=== PATIENT | male | born 1950 | race Caucasian/White ===

== ENCOUNTER 2018-01-05 01:10 | Emergency (ER) | payer OTHER, BC, SELFPAY ==
[2018-01-05 01:11] VITALS: BP 91/56; PULSE 134; RESP 15; TEMP 36.5; BMI 25.7
[2018-01-05 01:12] VITALS: O2SAT 95
--- NOTE | 2018-01-05 01:12 | EKG12_ITS ---
Test Reason : CP Blood Pressure : / mmHG Vent. Rate : 125 BPM Atrial Rate : 144 BPM P-R Int : 000 ms QRS Dur : 104 ms QT Int : 326 ms P-R-T Axes : 000 046 034 degrees QTc Int : 470 ms Atrial fibrillation Nonspecific ST abnormality Abnormal ECG Confirmed by SHAE NAVARRO, DAVE ([id number]), make up editor JD RAMSAY ([id number]) on 01/07/2018 1:49:28 PM Referred By: PATRICIA Confirmed By:DAVE KAUFMAN MD
--- NOTE | 2018-01-05 01:12 | NURSING ---
CALLED FOR EKG PER RN REQUEST, PULLED OLD EKG'S FOR
[2018-01-05] MEDS: Aspirin 81 MG TAB.CHEW 324 MG PO (01:18)
[2018-01-05] MEDS: dilTIAZem 25 MG/5 ML Vial 20 MG IV BOLUS (01:19)
--- NOTE | 2018-01-05 01:20 | RAD_ITS ---
STUDY: X-RAY CHEST REASON FOR EXAM: Male, 67 years old. Chest pain TECHNIQUE: Single AP portable view of the chest. COMPARISON: Nov 15 2014 11:38am FINDINGS: The lungs are underexpanded. There is no demonstrated pleural abnormality. Normal size heart. Normal mediastinum and claudia. Normal visualized pulmonary arteries. Normal visualized aortic arch and descending thoracic aorta. There are diffuse degenerative changes of the visualized thoracic spine. There is degenerative osteoarthritis of the bilateral shoulders. There is no demonstrated abnormality of the visualized soft tissue structures of the upper abdomen. RAD/Chest 1 View (Portable) IMPRESSION: Degenerative changes, as described above. No demonstrated acute cardiopulmonary process. Electronically Signed: Alin Nielsen MD at 1:55 EST Tel , Service support ,
[2018-01-05] MEDS: 0.9% Normal Saline 1,000 ML 150 ML IV (01:21)
[2018-01-05 01:30] LABS: Absolute Neutrophil Count 3.7 X10^3/uL (2.0-7.7); Basophil# 0.01 X10^3/uL; Basophil% 0.1 % (0-1); Eosinophil# 0.17 X10^3/uL; Eosinophils% 2.5 % (0-5); Hematocrit 41.9 % (40-54); Lymphocyte % 31.3 % (19-41); Mean Corp Hgb Conc 33.4 g/gl (32-36); Mean Corpuscular Hgb 30.8 pg (27.0-32.0); Mean Corpuscular Volume 92.1 fL (80-94); Mean Platelet Vol. 9.7 fl (6.2-12.0); Monocyte# 0.72 X10^3/uL; Monocyte% 10.7 % (0-10); Neutrophil # 3.69 X10^3/uL (2.7-7.7); Neutrophil % 55.3 % (47-70); Platelet Count 212 K/mm3 (150-450); RBC Distribution Width CV 11.8 % (11.6-14.6); RBC Distribution Width SD 39.1 fl (35.1-43.9); Red Blood Count 4.55 M/mm3 (4.6-6.2); White Blood Count 6.7 K/mm3 (4.4-11.0)
--- NOTE | 2018-01-05 01:33 | ED.DCSUM_ITS ---
- ER Visit Summary Date of Service: 01/05/18 Chief Complaint: Palpitations History of Present Illness: The patient is a 67 M with history of paroxysmal atrial fibrillation who is anticoagulated on Xarelto resents to the emergency department with atrial fibrillation. Patient states that about 2 hours ago, he felt like he was going into it. He states that he took his flecainide. He states it really did not change his rate. He states he feels like his heart is racing from time to time. He denies any fevers or chills. He does admit to some mild chest tightness. The patient has no history of coronary vascular disease. He has never had stenting or heart catheterization. He states that he does get the symptoms when he goes into A. fib. He denies any recent change in medications. He denies any alcohol use. Physical Examination: Vital signs reviewed General: Well-nourished, well-developed Head: Normocephalic, atraumatic Eyes: Pupils equal and reactive, extraocular muscles intact Neck, supple, no lymphadenopathy Heart: Irregular tachycardic rate and rhythm Respiratory: No distress, clear bilaterally Abdomen: Soft, nontender, nondistended, no peritoneal signs Back: Nontender Extremities: Nontender, no edema, no cords Skin: Normal color no rash Neuro: Alert and oriented, no focal or lateralizing deficits Test Results: Initial EKG demonstrates atrial fibrillation with rapid ventricular response. At a rate of 125. Chest x-ray shows no evidence of volume overload. Screening labs are unremarkable. Emergency Department Course and Treatment: The patient presents with atrial fibrillation with rapid ventricular response. He had already taken his flecainide, but was staying at an elevated rate. IV was established. The patient was having some mild chest tightness, but no shine pain. I do not feel this represents an acute coronary syndrome. He was given 20 mg of IV diltiazem. He did decrease his rate to the 90s. Within 30 minutes, the patient had spontaneously converted. The patient was observed and had resolution of his symptoms. He was observed in continue to maintain a sinus rhythm with a normal blood pressure. I discussed his presentation with Dr. Milligan, the patient's sales planner. He was comfortable with my plan for discharge and outpatient follow-up. Patient and are comfortable with this plan. There were counseled on concerning symptoms and reasons to return. The patient is already anticoagulated. He will be discharged home. Treatment Plan: [] Disposition: Discharge Impression: 1. Atrial fibrillation with rapid ventricular response-chemical cardioversion This note was generated with [employer] dictation software. It may contain incorrect words, spelling, and punctuation that were not noted in review of the chart prior to signing ED Disposition - Plan for ED Patient: Chief Complaint: Palpitations Instructions: ED Afib Referrals: Shad Preston MD [STAFF PHYSICIAN] - (Call tomorrow)
[2018-01-05 01:35] LABS: POSITIVE COUNT NO; POSITIVE DIFFERENTIAL NO; POSITIVE MORPHOLOGY NO
[2018-01-05 01:36] VITALS: BP 105/87; PULSE 89; RESP 14; O2SAT 95
[2018-01-05 01:40] LABS: Anion Gap 13 (5-15); BUN 25 mg/dL (7-18); BUN/Creat Ratio 21.9 RATIO (10-20); Calcium,Total 8.9 mg/dL (8.5-10.1); Chloride 108 mmol/L (98-107); Creatinine, Serum 1.14 mg/dL (0.70-1.30); EST Glomerular Filtration Rate 68 mL/min (>60); Est Glom Filt Rate - Afr Amer 82 mL/min (>60); Estimated Creatinine Clearance 67.12 ml/min; Glucose 94 mg/dL (74-106); Potassium 3.4 mmol/L (3.5-5.1); Sodium Level 146 mmol/L (136-145)
[2018-01-05 02:36] VITALS: BP 108/67; PULSE 69; RESP 14; O2SAT 97
--- NOTE | 2018-01-05 02:46 | EKG12_ITS ---
Test Reason : REPEAT Blood Pressure : / mmHG Vent. Rate : 064 BPM Atrial Rate : 064 BPM P-R Int : 218 ms QRS Dur : 106 ms QT Int : 410 ms P-R-T Axes : 043 041 045 degrees QTc Int : 422 ms Sinus rhythm with 1st degree A-V block Otherwise normal ECG Confirmed by SHAE NAVARRO, DAVE ([id number]), newspaper or periodical editor JD RAMSAY ([id number]) on 01/07/2018 1:50:01 PM Referred By: PATRICIA Confirmed By:DAVE KAUFMAN MD
== END 2018-01-05 02:37 | disposition home or self-care (01) ==
PROVIDERS: Emergency Provider Emergency Medicine; Family Provider Internal Medicine; PCP Internal Medicine
DX: I48.0 Paroxysmal atrial fibrillation (principal); I10 Essential (primary) hypertension; Z79.01 Long term (current) use of anticoagulants; Z79.899 Other long term (current) drug therapy
CPT/HCPCS: 71045; 80048; 84484; 85025; 93005; 96360; 96361; 96374; 99285; J7030; A4216

== ENCOUNTER → 2018-06-12 15:08 | Outpatient (CLI) | payer OTHER, BC, SELFPAY ==
[2018-06-12 17:01] LABS: PSA,Total - Annual Screen 1.48 ng/mL (0.00-4.00)
== END ==
PROVIDERS: Family Provider Internal Medicine; PCP Internal Medicine; Visit Provider Urology
DX: Z12.5 Encounter for screening for malignant neoplasm of prostate (principal)
CPT/HCPCS: 36415; 84153; G0103

== ENCOUNTER → 2019-07-06 | Outpatient (CLI) | payer BC, OTHER, SELFPAY ==
[2019-07-06 17:35] LABS: PSA,Total - Annual Screen 1.95 ng/mL (0.00-4.00)
== END | disposition home or self-care (01) ==
LOC: LAB 16:20
PROVIDERS: Family Provider Internal Medicine; PCP Internal Medicine; Referring Provider Urology; Visit Provider Urology
DX: Z12.5 Encounter for screening for malignant neoplasm of prostate (principal)
CPT/HCPCS: 36415; 84153; G0103

== ENCOUNTER 2020-05-22 14:43 | Emergency (ER) | payer BC, SELFPAY ==
[2020-05-22 14:45] VITALS: BP 132/66; PULSE 68; RESP 18; TEMP 36.6; O2SAT 96; BMI 25.5
--- NOTE | 2020-05-22 14:48 | EKG12_ITS ---
Test Reason : Blood Pressure : / mmHG Vent. Rate : 066 BPM Atrial Rate : 066 BPM P-R Int : 228 ms QRS Dur : 120 ms QT Int : 432 ms P-R-T Axes : 041 015 057 degrees QTc Int : 452 ms Sinus rhythm with 1st degree A-V block with Premature atrial complexes Incomplete left bundle branch block Borderline ECG Confirmed by SHAE NAVARRO, DAVE ([id number]), newspaper editor managing JD RAMSAY ([id number]) on 05/25/2020 9:46:42 AM Referred By: EMEKA Confirmed By:DAVE KAUFMAN MD
[2020-05-22] MEDS: 0.9% Normal Saline 1,000 ML 150 ML IV (15:30)
[2020-05-22 15:36] LABS: Absolute Lymphocyte Count 1.22 X10^3/uL (0.83-4.51); Absolute Neutrophil Count 3.9 X10^3/uL (2.0-7.7); Basophil# 0.03 X10^3/uL; Basophil% 0.5 % (0-1); Eosinophil# 0.14 X10^3/uL; Eosinophils% 2.4 % (0-5); Hematocrit 40.5 % (40-54); Lymphocyte # 1.22 X10^3/ul (4.0); Lymphocyte % 20.6 % (19-41); Mean Corp Hgb Conc 32.1 g/dL (32-36); Mean Corpuscular Hgb 30.7 pg (27.0-32.0); Mean Corpuscular Volume 95.7 fL (80-94); Mean Platelet Vol. 9.7 fl (6.2-12.0); Monocyte# 0.63 X10^3/uL; Monocyte% 10.6 % (0-10); NRBC Flagged by Analyzer 0 % (0-5); Neutrophil # 3.89 X10^3/uL (2.7-7.7); Neutrophil % 65.7 % (47-70); Platelet Count 174 K/mm3 (150-450); RBC Distribution Width CV 11.7 % (11.6-14.6); RBC Distribution Width SD 40.3 fl (35.1-43.9); Red Blood Count 4.23 M/mm3 (4.6-6.2); White Blood Count 5.9 K/mm3 (4.4-11.0)
[2020-05-22 15:51] LABS: Anion Gap 4 (5-15); BUN 21 mg/dL (7-18); BUN/Creat Ratio 22.4 RATIO (10-20); Calcium,Total 8.9 mg/dL (8.5-10.1); Chloride 108 mmol/L (98-107); Creatinine, Serum 0.94 mg/dL (0.70-1.30); EST Glomerular Filtration Rate 84 mL/min (>60); Est Glom Filt Rate - Afr Amer 102 mL/min (>60); Estimated Creatinine Clearance 80.28 ml/min; Glucose 103 mg/dL (74-106); Potassium 4.3 mmol/L (3.5-5.1); Sodium Level 141 mmol/L (136-145)
[2020-05-22 16:03] VITALS: BP 118/68; BP 120/74; BP 130/72; PULSE 59; PULSE 60; PULSE 63
--- NOTE | 2020-05-22 16:11 | ED.VISSUMM ---
- ER Visit Summary Date of Service: 05/22/20 Chief Complaint: [Dizziness] History of Present Illness: The patient is a 70 M [presents to the emergency department with complaint of an episode of dizziness this morning. Patient states that he had been sitting and then stood up to go lock up the house to leave and had been up for a time when he started feeling very lightheaded and felt like he might pass out. He sat back down and things seem to improve somewhat. He then was able to walk out to the car and felt okay was able to drive without difficulty. He called his primary care physician who advised him to get evaluated. Patient denies any chest pain or palpitations. He is never had an episode like this before. Patient states it came on very suddenly. He does have history of atrial fibrillation with prior ablation. He is on Xarelto. He denies any falls or head injuries. Patient does relate history of 2 episodes in last couple weeks of some blood on the toilet paper when he is white but does have history of hemorrhoids. Patient denies any chest pain. Currently states he feels fine. She has history of high cholesterol and history of atrial fibrillation.] Physical Examination: [HEENT-PERRLA, EOMI. Cranial nerves II through XII grossly intact. TMs clear. Mucous membranes moist. No adenopathy. Cardiovascular-regular rate and rhythm without murmur or ectopy Lungs-clear to auscultation, chest wall stable without crepitus or subcu emphysema Abdomen-normoactive bowel sounds, soft, nontender, no rebound or rigidity, no peritoneal signs. Extremities-intact ?4, normal range of motion, normal pulses, atraumatic] Test Results: [EKG obtained on arrival shows sinus rhythm with a ventricular rate of 66 bpm with a first-degree AV block and an incomplete left bundle branch block. CBC with differential showed a white count 5.9, hemoglobin 13, hematocrit 40, platelets 174. Chemistries unremarkable. Troponin less than 0.015. Orthostatic vital signs were negative] Emergency Department Course and Treatment: [Patient placed on diagnostic cardiac sonographer on arrival.] Treatment Plan: [Advised to push fluids and follow-up with primary care physician within next 3 to 5 days. I suspect etiology of presyncopal episode was likely vasovagal.] Disposition: [Discharged home in stable condition. Patient advised to push fluids. Patient advised to get up slowly from a seated position and to immediately lay down if he feel dizzy or lightheaded.] Impression: [Dizziness-resolved Presyncope-suspect vasovagal] This note was generated with [employer] dictation software. It may contain incorrect words, spelling, and punctuation that were not noted in review of the chart prior to signing ED Disposition - Plan for ED Patient: Referrals: Fei Gandhi MD [Primary Care Provider] -
--- NOTE | 2020-05-22 16:14 | ED.DEP ---
ED Disposition - Plan for ED Patient: Instructions: ED Near-Fainting Uncertain Cause, ED Near Syncope Vasovagal Referrals: Fei Gandhi MD [Primary Care Provider] - 3-5 Days
[2020-05-22 16:33] VITALS: BP 120/74; PULSE 57; RESP 16; O2SAT 98
== END 2020-05-22 16:34 | disposition home or self-care (01) ==
LOC: ED 15:40
PROVIDERS: Emergency Provider Emergency Medicine; PCP Internal Medicine
DX: R55 Syncope and collapse (principal); R42 Dizziness and giddiness; I44.0 Atrioventricular block, first degree; I44.7 Left bundle-branch block, unspecified; I48.91 Unspecified atrial fibrillation; E78.00 Pure hypercholesterolemia, unspecified; Z79.01 Long term (current) use of anticoagulants; Z79.899 Other long term (current) drug therapy
CPT/HCPCS: 80048; 84484; 85025; 93005; 96360; 99284

== ENCOUNTER → 2020-08-28 10:35 | Outpatient (CLI) | payer BC, SELFPAY ==
[2020-08-28 11:59] LABS: PSA,Total - Annual Screen 1.11 ng/mL (0.00-4.00)
== END ==
PROVIDERS: PCP Internal Medicine; Referring Provider Urology; Visit Provider Urology
DX: Z12.5 Encounter for screening for malignant neoplasm of prostate (principal)
CPT/HCPCS: 36415; 84153; G0103

== ENCOUNTER 2021-07-31 11:02 | Emergency (ER) | payer OTHER, SELFPAY ==
[2021-07-31 11:02] VITALS: BP 174/89; PULSE 74; RESP 16; TEMP 36.1; O2SAT 98; BMI 25.7
--- NOTE | 2021-07-31 11:32 | EX.ED.UPPERE ---
HPI History of Present Illness Chief Complaint: Upper Extremity Injury Detail of Chief Complaint: Injury right hand Informant: patient Occured/Mechanism Mechanism/Context: Yes injury, Yes blunt trauma and Yes work related Onset/Context/Timing Onset: Hours Context: Sudden Onset Timing: Continuous Current Severity: Gone Maximum Severity: Moderate Worsened by: Injury Relieved by: Nothing Associated Symptoms Associated Symptoms: Negative for Parasthesia, Weakness and Loss of Funtion Narrative Narrative: Patient is a 71-year-old [id number] male on Xarelto for paroxysmal atrial fibrillation status post ablation who presents with injury to the dorsum of the right hand. This occurred at work. Tetanus is unknown. He denies paresthesia, anesthesia or motor weakness. Tetanus Immunization: Unknown Prior similar symptoms: No Recent Illness/Hospitalization: No PFSH PFS Medical History Atrial fibrillation Hypertension Home Medications terazosin 5 mg PO QHS 02/14/14 [History Last Taken Unknown] metoprolol succinate 12.5 mg PO DAILY #30 tablet 02/15/14 [Rx Last Taken Unknown] flecainide 200 mg PO PRN PRN 11/15/14 [History Last Taken Unknown] rivaroxaban [Xarelto] 20 mg PO DAILY 01/05/18 [History Last Taken Unknown] atorvastatin 10 mg PO DAILY 05/22/20 [History Last Taken Unknown] cephalexin 500 mg PO Q8 #12 capsule 07/31/21 [Rx Last Taken Unknown] Allergy/AdvReac Type Severity Reaction Status Date / Time No Known Allergies Allergy Verified 07/31/21 11:05 Social History (Updated 07/31/21 @ 11:[address] Chaparro Grace MD) household members: spouse Smoking Status: Never smoker alcohol intake: current alcohol intake frequency: other substance use type: does not use ROS ROS ED Gastrointestinal Gastrointestinal: Denies nausea or vomiting Musculoskeletal Musculoskeletal: Denies back pain, myalgias or neck pain Integumentary Reports other Details: Laceration dorsum right hand ; Denies abscess, Abrasions or rash Neurologic Neurologic: Denies headache(s), paresthesias or weakness Hematologic/Lymphatic Hematologic/Lymphatic: Reports easy bruising; Denies easy bleeding Allergic/Immunologic Allergic/Immunologic ED: Denies mouth swelling or urticaria EXAM Physical Exam Const Vital Signs: 07/31/21 11:02 Temperature 97.0 F L Temperature Source Temporal Pulse Rate 74 Respiratory Rate 16 Blood Pressure 174/89 H Blood Pressure Mean 117 Pulse Ox 98 Oxygen Delivery Method Room Air Positive well nourished and well developed General Appearance ED: well developed and NAD HEENT Reports moist mucous membranes normocephalic and atraumatic Eyes PERRL and EOMs intact bilaterally Neck full ROM and supple Resp normal respiratory effort Cardio regular rate and regular rhythm Back/Spine no CVA tenderness Extremity full ROM; Negative for normal to inspection Extremity Narrative: Patient has a jagged flap laceration dorsum of the right hand. The extensor tendons are not exposed. The extensor into side, extensor commonest and extensor minimized tendon functionally intact. The extensor pollicis longus is intact. Sensation is normal. Capillary refill is normal. General Extremety ED: Yes other findings; Negative for edema General Extremity: other findings; Negative for edema Psych mental status grossly normal Skin Lesions: no lesions Trauma: Negative for no lacerations or abrasions MDM MDM MDM Narrative Medical decision making narrative: Patient has a irregular large flap type laceration dorsum of the right hand. Please read procedure note for repair and description of wound. Procedures Other Procedures Procedure(s): Laceration repair: The laceration is a stellate flap-like on the dorsum of the right hand. There is tissue avulsion that is 1.5 cm x 1.5 cm in the shape of a square at the most proximal portion of the wound. The wound was anesthetized 1% lidocaine by local infiltration. The wound was irrigated with 200 cc of normal saline. Small fine pieces of metal were removed. The skin was closed using 5-0 Ethilon. Numerous simple or up sutures were placed. The wound approximated well. There is the defect that is 1.5 x 1.5 cm in the shape of a square. Will have dressing applied. And referred to [facility] and Dr. Frankel who patient has seen in the past. Discharge Plan Triage Chief Complaint: Upper Extremity Injury ED Provider: Chaparro Grace Dx/Rx/DC Orders Clinical Impression: Laceration of finger of right hand with foreign body, Avulsion of skin of right hand Prescriptions: New cephalexin [cephalexin] 500 MG capsule 500 mg PO Q8 Qty: 12 RF: 0 No Action terazosin 5 MG capsule 5 mg PO QHS RF: 0 metoprolol succinate 25 MG tablet 12.5 mg PO DAILY Qty: 30 RF: 0 flecainide 100 MG tablet 200 mg PO PRN PRN (Reason: FOR RAPID HR) RF: 0 rivaroxaban [Xarelto] 20 MG tablet 20 mg PO DAILY RF: 0 atorvastatin 10 MG tablet 10 mg PO DAILY RF: 0 Primary Care Provider: Fei Gandhi [facility] [GROUP OF PHYSICIANS] - 2 Days for wound check Mark Frankel MD [STAFF PHYSICIAN] - 2 Days for wound check Fei Gandhi MD [Primary Care Provider] - Activity Restrictions/Additional Instructions: 1. Take antibiotics as instructed until gone 2. Follow-up with [facility] and Dr. Frankel. There is a possibility you may need a skin graft. 3. Keep dressing on until seen at [facility] or by Dr. Frankel. Keep the dressing clean and dry Disposition Disposition: Home, Self Care
[2021-07-31] MEDS: Diphth,Pertuss(Acell),Tet Vac 0.5 ML Vial IM (11:54)
[2021-07-31] MEDS: Lidocaine 1% (20 ml mdv) 20 ML Vial INFILT (11:55)
[2021-07-31 13:20] VITALS: RESP 16
== END 2021-07-31 13:21 | disposition home or self-care (01) ==
PROVIDERS: Emergency Provider Emergency Medicine; PCP Internal Medicine
DX: S61.421A Laceration with foreign body of right hand, initial encounter (principal); X58.XXXA Exposure to other specified factors, initial encounter; Y93.9 Activity, unspecified; Y92.9 Unspecified place or not applicable; I10 Essential (primary) hypertension; I48.0 Paroxysmal atrial fibrillation; Z79.01 Long term (current) use of anticoagulants; Z79.899 Other long term (current) drug therapy
CPT/HCPCS: 12001; 90715; 99284

== ENCOUNTER → 2021-08-03 17:07 | Outpatient (CLI) | payer OTHER, SELFPAY ==
--- NOTE | 2021-08-03 17:09 | RAD_ITS ---
STUDY: X-RAY - RIGHT HAND REASON FOR EXAM: Male, 71 years old. Follow-up laceration posterior right hand on machine 2 days ago. TECHNIQUE: 4 view(s) of the hand. COMPARISON: 08/28/2011. FINDINGS: There is joint space narrowing of the radiocarpal articulation consistent with degenerative arthrosis. Normal distal radioulnar joint. Normal visualized carpal bones. There is degenerative joint disease of the scaphotrapezium / trapezoid articulation. The remainder of the carpal articulations are normal. Normal carpometacarpal articulation of the thumb. Normal second through fifth carpometacarpal joints. Normal metacarpi. Normal metacarpophalangeal joint of the thumb. There is degenerative arthrosis of the interphalangeal joint of the thumb with articular joint space narrowing. Normal proximal and distal phalanges of the thumb. Normal metacarpophalangeal joints of the second through fifth fingers. There is diffuse articular joint space narrowing of the proximal and distal interphalangeal joints of the second through fifth fingers, but without erosive changes or periarticular soft tissue swelling. Normal phalanges of the second through fifth fingers. There is a small linear metallic foreign body in the soft tissues over the medial plantar surface of the distal third digit. The soft tissues are otherwise unremarkable. RAD/Hand Min 3 Views IMPRESSION: 1. Small metallic foreign body in the soft tissues of the distal third digit. 2. Progressive arthritic changes of the right hand without acute fracture or dislocation. Electronically Signed: Segundo Herron DO at 18:14 EDT Tel [phone], Service support ,
== END ==
PROVIDERS: PCP Internal Medicine; Referring Provider Physician Assistant Surgical; Visit Provider Physician Assistant Surgical
DX: S61.229A Laceration with foreign body of unspecified finger without damage to nail, initial encounter (principal)
CPT/HCPCS: 73130

== ENCOUNTER → 2021-10-09 08:46 | Outpatient (CLI) | payer OTHER, SELFPAY ==
[2021-10-09 10:25] LABS: PSA,Total - Annual Screen 1.62 ng/mL (0.00-4.00)
== END ==
PROVIDERS: PCP Internal Medicine; Referring Provider Urology; Visit Provider Urology
DX: Z12.5 Encounter for screening for malignant neoplasm of prostate (principal)
CPT/HCPCS: 36415; 84153; G0103

== ENCOUNTER → 2023-04-15 | Outpatient (CLI) | payer BC, SELFPAY ==
[2023-04-15 17:23] LABS: PSA,Total- Diagnostic 1.36 ng/mL (0.0-4.0)
== END | disposition home or self-care (01) ==
LOC: LAB 15:31
PROVIDERS: PCP Internal Medicine; Referring Provider Registered Nurse; Visit Provider Registered Nurse
DX: R97.20 Elevated prostate specific antigen [PSA] (principal)
CPT/HCPCS: 36415; 84153

== ENCOUNTER 2024-02-27 07:16 | Emergency (ER) | payer OTHER, BC, SELFPAY ==
[2024-02-27 07:17] VITALS: BP 141/78; PULSE 85; RESP 18; TEMP 37; O2SAT 96; BMI 27.1
--- NOTE | 2024-02-27 07:41 | EDS_ITS ---
HPI History of Present Illness HPI Narrative: 73-year-old ebtua-gojt-jbchocuv male has a laceration to his right index finger secondary to machine at work. This occurred within the last hour. Unsure of his last tetanus shot. No other injuries. Chief Complaint: Laceration Informant: patient Occured/Mechanism Mechanism/Context: Yes injury Onset/Context/Timing Onset: Today Context: Sudden Onset Timing: Continuous Quality of Pain: Sharp Current Severity: Mild Maximum Severity: Mild Associated Symptoms Associated Symptoms: Negative for Parasthesia, Weakness or Loss of Funtion Narrative Narrative: Nzgth-lznh-sbvoweju 73-year-old male with laceration to his right index finger at work. Tetanus Immunization: Unknown Prior similar symptoms: No Recent Illness/Hospitalization: No PFSH PFSH Medical History Atrial fibrillation Hypertension Home Medications terazosin 5 mg capsule 5 mg PO QHS 02/14/14 [History Last Taken Unknown] metoprolol succinate 25 mg tablet,extended release 24 hr 12.5 mg (1/2 x 25 mg) PO DAILY #30 TABLETS 02/15/14 [Rx Last Taken Unknown] flecainide 100 mg tablet 200 mg PO PRN PRN FOR RAPID HR 11/15/14 [History Last Taken Unknown] rivaroxaban 20 mg tablet (Xarelto) 20 mg PO DAILY 01/05/18 [History Last Taken Unknown] atorvastatin 10 mg tablet 10 mg PO DAILY 05/22/20 [History Last Taken Unknown] cephalexin 500 mg capsule 500 mg PO Q8 #12 CAPSULES 07/31/21 [Rx Last Taken Unknown] Allergy/AdvReac Type Severity Reaction Status Date / Time No Known Allergies Allergy Verified 02/27/24 07:16 Social History household members: spouse Smoking Status: Never smoker alcohol intake: current alcohol intake frequency: other substance use type: does not use ROS ROS ED ROS Narrative Denies recent illness. Review of Systems ROS Unobtainable: Denies due to encephalopathy Constitutional Constitutional ED: Denies chills or fever(s) Eyes Eyes: Denies blurry vision ENT ENT ED: Denies ear pain Cardiovascular Cardiovascular: Denies chest pain or palpitations Respiratory/Chest Respiratory/Chest: Denies cough or dyspnea Gastrointestinal Gastrointestinal: Denies abdominal pain Genitourinary Genitourinary ED: Denies dysuria or hematuria Musculoskeletal Musculoskeletal: Denies back pain or myalgias Integumentary Denies abscess or Abrasions Neurologic Neurologic: Denies headache(s) Psychiatric Psychiatric: Denies anxiety or depression Endocrine Endocrinology: Denies cold intolerance Hematologic/Lymphatic Hematologic/Lymphatic: Denies easy bleeding, easy bruising or lymphadenopathy Allergic/Immunologic Allergic/Immunologic ED: Denies mouth swelling, tongue swelling or urticaria EXAM Physical Exam Narrative Exam Narrative: 73-year-old male no acute distress vital signs stable afebrile. HEENT exam unremarkable. Lungs clear. Heart regular rhythm rate about 80 no murmur. Chest wall and ribs nontender. Abdomen soft nontender. Moving all 4 extremities. Neurovascular intact. Right index finger proximal end on the radial side is a serrated type of laceration. It will need repaired. Approximately 1 and half to 2 inches in length. He has full flexion extension of the digit. No bony deformity. No signs of infection. No signs of foreign body. Normal touch sensation. Normal cap refill distally. Patient is awake and alert no focal motor deficits. Const Vital Signs: 02/27/24 07:17 Temperature 98.6 F Temperature Source Temporal Pulse Rate 85 Respiratory Rate 18 Blood Pressure 141/78 H Blood Pressure Mean 99 Pulse Ox 96 Oxygen Delivery Method Room Air Positive well nourished and well developed; Negative for obese, cachectic, contractures or unkempt General Appearance ED: well developed; Negative for unkempt, cachectic or contractures Nutritional Appearance: Negative for cachectic or obese HEENT Reports moist mucous membranes normocephalic and atraumatic; Negative for trauma or tenderness Eyes PERRL and EOMs intact bilaterally General Eye ED: Negative for other Neck full ROM and supple General: Negative for tenderness Lymph Lymphatic: Negative for other Chest Wall inspection of chest normal and palpation of chest normal Chest: Negative for other Resp normal respiratory effort and clear to auscultation bilaterally Effort and Inspection: Negative for pain with movement Auscultation: Negative for rales, rhonchi or wheezes Cardio regular rate, regular rhythm, S1 normal heart sound, S2 normal heart sound and no murmurs Rate: Negative for bradycardia or tachycardic GI non-tender, non-distended and no masses Inspection: Negative for abdominal distention Auscultation: normoactive bowel sounds Palpation: soft; Negative for tender, guarding or rebound tenderness present Back/Spine no CVA tenderness Extremity normal to inspection and full ROM Extremity Narrative: Except right index finger, proximal end, radial side has a laceration. It is irregular and treated. Will need repair. He has full flexion extension. Normal touch sensation. No foreign body. No significant bleeding. No signs of infection or bony deformity or involvement. General Extremety ED: Yes other findings; Negative for edema General Extremity: other findings; Negative for edema Neuro oriented x3 and CN's II-XII intact bilaterally Sensorium / Orientation: alert, oriented to person, oriented to place and oriented to time Motor Exam: strength 5/5 throughout Psych mental status grossly normal Appearance: Negative for unkempt Attitude: No agitated Mood & Affect: Negative for depressed, anxious or tearful Skin General Skin Exam: Negative for petechiae Lesions: no lesions Rashes: no rashes Trauma: laceration MDM MDM MDM Narrative Medical decision making narrative: 73-year-old yywfo-ugnn-qskhsibe male unsure of his last tetanus has a right finger laceration due to a Worker's Comp. injury. Tetanus will be updated. Let applied. Local anesthetized. Clean it. Exclude cord and suture repaired. History & Record Review Discussion w/independent historian: Patient Procedures Lacerations Right index finger laceration 2 to 3 inches with repair:: Length: 2.5 in Depth: Sub Q Shape: Shredded Prep: Shure-Clens Laceration repair: Lidocaine, Local and Skin sutures Number of Sutures/[place]: 5 Suture Information: Ethilon and 5-0 Comment: Right index finger laceration. Repair. It was on the radial side of his right index finger. About 2.5 inches in length. It was macerated instructed by the machine that he got it caught into. 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 There is no infection. No signs of foreign body. Neurovascularly intact. No involvement of tendon or joint. No foreign body noted. Local anesthetized with lidocaine. Cleaned with Shur-Clens. Washed with saline. Explored. Closed using 5 simple erupted 5-0 Ethilon sutures. Patient tolerated procedure well. He is instructed on wound care. Suture removal in 10 days. Discharge Plan Triage Chief Complaint: Laceration ED Provider: Briscoe,Kev Dx/Rx/DC Orders Clinical Impression: Encounter related to worker's compensation claim, Finger laceration Instructions: ED Laceration, Hand: All Closures Prescriptions: No Action terazosin 5 MG capsule 5 mg PO QHS Patient Comments: BLOOD PRESSURE metoprolol succinate 25 MG tablet 12.5 mg PO DAILY Qty: 30 0RF Patient Comments: BLOOD PRESSURE/HEART flecainide 100 MG tablet 200 mg PO PRN PRN (Reason: FOR RAPID HR) rivaroxaban [Xarelto] 20 MG tablet 20 mg PO DAILY atorvastatin 10 MG tablet 10 mg PO DAILY cephalexin [cephalexin] 500 MG capsule 500 mg PO Q8 Qty: 12 0RF Primary Care Provider: Fei Gandhi Referrals: [facility] [Group of Physicians] - 10 Day for suture removal Fei Gandhi MD [Primary Care Provider] - 10 Day for suture removal Activity Restrictions/Additional Instructions: Keep dry and clean. Ice and elevate to decrease pain and swelling. Tylenol for pain. Hold your baby aspirin next 2 days to help decrease the bleeding. After 4 days as long as our dressing stays dry and clean you can take it off and then change it daily. Apply antibiotic ointment daily. Wash with soap and water or peroxide and water. Any signs of infection return. Pus, redness, fever or streaks. Stitches out in 10 days not before. Disposition Disposition: Home, Self Care
[2024-02-27] MEDS: Lidocaine 1% (20 ml mdv) 20 ML Vial 10 ML INFILT (07:46)
[2024-02-27] MEDS: Diphth,Pertuss(Acell),Tet Vac 0.5 ML Vial IM (07:47)
[2024-02-27] MEDS: Lidocaine/Epi/Tetracaine 50 ML 1 APPLIC TOPICAL (07:48)
[2024-02-27 10:51] VITALS: BP 151/79; PULSE 64; RESP 16; TEMP 37; O2SAT 95
== END 2024-02-27 10:53 | disposition home or self-care (01) ==
PROVIDERS: Emergency Provider Emergency Medicine; PCP Internal Medicine; Visit Provider Emergency Medicine
DX: S61.210A Laceration without foreign body of right index finger without damage to nail, initial encounter (principal); I48.91 Unspecified atrial fibrillation; W31.9XXA Contact with unspecified machinery, initial encounter; Y99.0 Civilian activity done for income or pay; Y92.89 Other specified places as the place of occurrence of the external cause; I10 Essential (primary) hypertension; Z79.899 Other long term (current) drug therapy; Z79.01 Long term (current) use of anticoagulants; Z23 Encounter for immunization
CPT/HCPCS: 12002; 90471; 90715; 99284

== ENCOUNTER → 2024-04-29 | Outpatient (CLI) | payer BC, SELFPAY ==
[2024-04-29 17:04] LABS: PSA,Total - Annual Screen 1.54 ng/mL (0.00-4.00)
== END | disposition home or self-care (01) ==
LOC: LAB 15:53
PROVIDERS: PCP Internal Medicine; Referring Provider Urology; Visit Provider Urology
DX: Z12.5 Encounter for screening for malignant neoplasm of prostate (principal)
CPT/HCPCS: 36415; 84153; G0103

== ENCOUNTER → 2025-05-02 | Outpatient (CLI) | payer BC, SELFPAY ==
[2025-05-02 13:20] LABS: PSA,Total - Annual Screen 1.76 ng/mL (0.02-4.00)
== END | disposition home or self-care (01) ==
LOC: LAB 11:45
PROVIDERS: PCP Internal Medicine; Referring Provider Urology; Visit Provider Urology
DX: Z12.5 Encounter for screening for malignant neoplasm of prostate (principal)
CPT/HCPCS: 36415; 84153; G0103

== ENCOUNTER 2025-08-04 16:59 | Emergency (ER) | payer BC, SELFPAY ==
[2025-08-04 16:59] VITALS: BP 146/84; PULSE 87; RESP 18; TEMP 36.2; O2SAT 96; BMI 26.1
--- NOTE | 2025-08-04 18:17 | EX.ED.DYSGE1 ---
HPI History of Present Illness Chief Complaint: Lower Extremity Injury Detail of Chief Complaint: Contusion mid anterior left leg Onset/Context/Timing Onset: Weeks (3 weeks) Context: Sudden Onset Timing: Continuous Quality: Lump and pain Location: Anterior mid left leg Current Severity: Mild Maximum Severity: Moderate Worsened by: Palpation and walking Relieved by: Nothing Associated Symptoms Associated Symptoms: No cardiovascular or respiratory symptoms Narrative Narrative: Patient is a 75-year-old male with history of atrial fibrillation on antithrombotic who presents because of a lump leg. He contacted the [facility] nurse line. They recommend he come to the ER for evaluation for DVT. Patient states the lump has been present for 3 weeks. Prior similar symptoms: No Recent Illness/Hospitalization: No [facility] Medical History Laceration of right index finger Hypertension Atrial fibrillation Home Medications ?Medication ?Instructions ?Recorded ?Last Taken ?Type terazosin 5 mg capsule 5 mg PO QHS 02/14/14 Unknown History metoprolol succinate 25 mg 12.5 mg (1/2 x 25 mg) PO DAILY #30 02/15/14 Unknown Rx tablet,extended release 24 hr TABLETS flecainide 100 mg tablet 200 mg PO PRN PRN FOR RAPID HR 11/15/14 Unknown History rivaroxaban 20 mg tablet (Xarelto) 20 mg PO DAILY 01/05/18 Unknown History atorvastatin 10 mg tablet 10 mg PO DAILY 05/22/20 Unknown History cephalexin 500 mg capsule 500 mg PO Q8 #12 CAPSULES 07/31/21 Unknown Rx Allergy/AdvReac Type Severity Reaction Status Date / Time No Known Allergies Allergy Verified 08/04/25 16:59 Family History no significant family his Social History household members: spouse Smoking Status: Never smoker alcohol intake: current alcohol intake frequency: other substance use type: does not use ROS ROS ED Constitutional Constitutional ED: Denies chills, fever(s), subjective or sweats Cardiovascular Cardiovascular: Denies chest pain or palpitations Respiratory/Chest Respiratory/Chest: Denies dyspnea or dyspnea on exertion Musculoskeletal Musculoskeletal: Reports other Details: Hematoma left leg Neurologic Neurologic: Reports paresthesias and weakness Hematologic/Lymphatic Hematologic/Lymphatic: Reports systems reviewed and no addt'l complaints, except as documented and easy bruising; Denies easy bleeding EXAM Physical Exam Const Vital Signs: 08/04/25 16:59 Temperature 97.1 F L Temperature Source Temporal Pulse Rate 87 Respiratory Rate 18 Blood Pressure 146/84 H Blood Pressure Mean 104 Pulse Ox 96 Oxygen Delivery Method Room Air Positive well nourished and well developed Constitutional Narrative: Blood pressure slightly elevated. General Appearance ED: well developed and NAD; Negative for pallor HEENT HEENT Narrative: HEENT is grossly unremarkable. Eyes PERRL and EOMs intact bilaterally General Eye ED: Yes scleral icterus Resp normal respiratory effort Cardio regular rate Rhythm: abnormal rhythm irregularly irregular Extremity Extremity Narrative: Patient has a hematoma anterior left leg. There is no discoloration, asymmetry, leg vein distention, palpable cords or tenderness on the distribution of deep venous system. Neuro oriented x3 and CN's II-XII intact bilaterally Sensorium / Orientation: alert Psych mental status grossly normal Skin no rashes or lesions noted, no wounds and skin turgor normal General Skin Exam: Negative for jaundice or pallor MDM MDM MDM Narrative Medical decision making narrative: Patient was told he has a hematoma. He asked if he could have a blood clot. He was told there are no deep veins there therefore there is no concern for a clot. He accepted this answer. He was happy and satisfied with my answer. Therefore, he was discharged to home with his Discharge Plan Triage Chief Complaint: Lower Extremity Injury ED Provider: Chaparro Grace Dx/Rx/DC Orders Clinical Impression: Hematoma of left lower leg, Atrial fibrillation, Antiplatelet or antithrombotic long-term use Instructions: ED Hematoma Prescriptions: No Action terazosin 5 MG capsule 5 mg PO QHS Patient Comments: BLOOD PRESSURE metoprolol succinate 25 MG tablet 12.5 mg PO DAILY Qty: 30 0RF Patient Comments: BLOOD PRESSURE/HEART flecainide 100 MG tablet 200 mg PO PRN PRN (Reason: FOR RAPID HR) rivaroxaban [Xarelto] 20 MG tablet 20 mg PO DAILY atorvastatin 10 MG tablet 10 mg PO DAILY cephalexin [cephalexin] 500 MG capsule 500 mg PO Q8 Qty: 12 0RF Primary Care Provider: Fei Gandhi Referrals: Fei Gandhi MD [Primary Care Provider, Internal Medicine] - As Needed Activity Restrictions/Additional Instructions: The subcutaneous blood collection, hematoma, may take 1 to 4 months to resolve. Print Language: Bel[place]ian Disposition Disposition: Home, Self Care
[2025-08-04 18:30] VITALS: BP 122/73; PULSE 66; RESP 18; TEMP 36.2; O2SAT 96
--- OUTSIDE RECORDS SUMMARY | 2025-08-04 18:32 | XMS RPT_ITS | CCD ---
Author Organization [facility] Care Team Providers Care Pork Cutlet Maker Name Role Phone DANIEL, BECKIE Unavailable Unavailable DANIEL, BECKIE Unavailable Unavailable DANIEL, BECKIE Unavailable Unavailable DANIEL, BECKIE Unavailable Unavailable Fei Gandhi Unavailable Unavailable Fei Gandhi Unavailable Unavailable DANIEL, BECKIE Unavailable Unavailable DANIEL, BECKIE Unavailable Unavailable Unavailable Primary Care Provider UnavailFei Martinez MD Primary Care Provider Cresencio Chaney DO Unavailable Fei Gandhi MD Primary Care Provider Cresencio Chaney DO Unavailable Fei Gandhi MD Primary Care Provider Cresencio Chaney DO Unavailable FEI GANDHI Primary Care Unavailable NAOMY JIMENEZ Attending Unavailable NAOMY JIMENEZ Admitting Unavailable Cresencio Chaney DO Unavailable Cresencio Chaney DO Unavailable Fei Gandhi MD Primary Care Provider Dean 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 Enamorado Primary Care Provider Yari NAVARRO, Dr. Benja Kathleen Attending Provider [phone] Yari NAVARRO, Dr. Benja Kathleen Referring Provider [phone] Fei Gandhi Primary Care Unavailable Benja Greenberg Referring Unavailable Benja Greenberg Attending Unavailable GANDHI, OSVALDO Primary Care Unavailable GANDHI, OSVALDO Attending Unavailable GANDHI, OSVALDO Primary Care Unavailable MERCEDES COSTA Attending Unavailable GANDHI, OSVALDO Referring Unavailable GANDHI, OSVALDO Primary Care Unavailable KIMBERLEY LITTLEJOHN Attending Unavailable ROBERT ANDRE Attending Unavailable MERCEDES COSTA Referring Unavailable GANDHI, OSVALDO Primary Care Unavailable MERCEDES COSTA Attending Unavailable GANDHI, OSVALDO Primary Care Unavailable OLDER, SAIRA Attending Unavailable GANDHI, OSVALDO Primary Care Unavailable OLDER, SAIRA Referring Unavailable GANDHI, OSVALDO Primary Care Unavailable FAVIAN LARKIN Referring Unavailable GANDHI, OSVALDO Primary Care Unavailable GANDHI, OSVALDO Primary Care Unavailable OLDER, SAIRA Referring Unavailable GANDHI, OSVALDO Primary Care Unavailable GANDHI, OSVALDO Attending Unavailable GANDHI, OSVALDO Primary Care Unavailable GANDHI, OSVALDO Primary Care Unavailable OLDER, LESLIE Referring Unavailable GANDHI, OSVALDO Primary Care Unavailable GANDHI, OSVALDO Attending Unavailable GANDHI, OSVALDO Primary Care Unavailable GANDHI, OSVALDO Referring Unavailable GANDHI, OSVALDO Primary Care Unavailable OLDER, LESLIE Attending Unavailable FAVIAN LARKIN Attending Unavailable FAVIAN LARKIN Referring Unavailable GANDHI, OSVALDO Primary Care Unavailable GANDHI, OSVALDO Primary Care Unavailable GANDHI, OSVALDO Referring Unavailable Medications Current Medications Medication Drug Class(es) Dates Sig (Normalized) Sig (Original) ascorbic acid 500 mg oral tablet (20 sources) Vitamin C take 1 tablet by mouth once daily ascorbic acid, vitamin C, (VITAMIN C) 500 mg tablet Take 500 mg by mouth once daily. Active Comment on above: Take 500 mg by mouth once daily. aspirin 81 mg delayed release oral tablet (20 sources) Platelet Aggregation Inhibitor, Nonsteroidal Anti-inflammatory Drug Start: 08-06-2021 take 1 tablet by mouth once daily aspirin, enteric coated (ASPIR-81) 81 mg EC tablet Take 1 tablet by mouth once daily. 3 08/06/2021 Active Comment on above: Take 1 tablet by jimmy th once daily. atorvastatin 10 mg oral tablet (20 sources) HMG-CoA Reductase Inhibitor Start: 05-22-2020 End: 04-18-2025 take 1 tablet by mouth once daily Atorvastatin 10 MG tablet Active 10 mg PO DAILY May 22, 2020 12:00am Comment on above: Take 1 tablet by jimmy once daily. benzonatate 100 mg oral capsule (3 sources) Non-narcotic Antitussive Start: 05-20-2022 End: 06-04-2022 take 1 capsule by mouth every eight hours as needed for cough and cough benzonatate (TESSALON PERLE) 100 mg capsule Indications: Acute cough Take 1 capsule by mouth every 8 hours as needed for cough for up to 15 days. 30 capsule 0 05/20/2022 06/04/2022 Active Comment on above: Take 1 capsule by mo [facility] every 8 hours as needed for cough for up to 15 days. Calcium Carbonate / vitamin D3 (20 sources) CALCIUM CARBONATE/VITAMIN D3 (CALCIUM 500 + D ORAL) Take by mouth once daily. Active CALCIUM CARBONAT E/VITAMIN D3 (CALCIUM 500 + D ORAL) Take by mouth once daily. 0 Active Comment on above: Take by mouth once d aily. chlorthalidone 25 mg oral tablet (20 sources) Thiazide-like Diuretic Start: 08-16-20 24 take 1 tablet by mouth once daily chlorthalidone (HYGROTON) 25 mg tablet Indications: Essential hypertension , TATE (dyspnea on exertion) Take 1 tablet by mouth once daily. 90 tablet 3 08/16/2024 Active COMPOUNDED PRESCRIPTION (20 sources) Start: 08-27-20 COMPOUNDED PRESCRIPTION Indications: Venous (peripheral) insufficiency KNEE HIGH COMPRESSION STOCKINGS 30-40 MM. DX: EDEMA. 2 Each 2 08/27/2018 Active Comment on above: KNEE HIGH COMPRESSIO N STOCKINGS 30-40 MM. DX: EDEMA. doxycycline hyclate 100 mg oral tablet (8 sources) Tetracycline-class Drug Start: 02-27-20 End: 03-05-20 take 1 tablet by mouth twice daily doxycycline (VIBRA-TABS) 100 mg tablet Indications: Acute cough , URI, acute Take 1 tablet by mouth two times a day for 7 days. 14 tablet 02/26/2025 03/05/2025 Active Start: 08-18-2023 End: 08-28-2023 take 1 capsule by mouth twice daily doxycycline hyclate (VIBRAMYCIN) 100 mg capsule Take 1 capsule by mouth two times a day for 10 days. 20 capsule 08/18/2023 08/28/2023 Comment on above: Take 1 capsule by [facility] two times a day for 10 days. enteric contrast (will be provided with radiology test) (1 source) Start: End: enteric contrast (will be provided with radiology test) Indications: Lower abdominal pain , Diarrhea, unspecified type For CT ABD/PEL W IVCON Routine order Administer, As Directed One Time Only, via Oral, Rectal, both Oral and Rectal, Enteric Tube, Stoma or Indwelling Catheter, Enteric Contrast as designated per enteric contrast guidelines 1 Each 0 10/13/2023 10/14/2023 Active Comment on above: For CT ABD/PEL W IVC ON Routine order Administer, As Directed One Time Only, via Oral, Rectal, both Oral and Rectal, Enteric Tube, Stoma or Indwelling Catheter, Enteric Contrast as designated per enteric contrast guidelines flecainide acetate 100 mg oral tablet (2 sources) Antiarrhythmic Start: take 2 tablets by mouth once as needed Flecainide 100 MG tablet Active 200 mg PO NEEDED as needed for FOR RAPID HR November 15, 2014 1:00am Start: 11-15-2014 Flecainide Act lashaun 200 MG PO NEEDED November 15, 2014 1:00am Garlic preparation (20 sources) Non-Standardized Food Allergenic Extract Start: 12-10-2010 take 1 tablet by mouth once daily Garlic ORAL Cap Take one(1) tablet daily. 0 12/10/2010 Active Comment on above: Take one(1) tablet d aily. homatropine methylbromide 0.3 mg/ml / HYDROcodone bitartrate 1 mg/ml oral solution (4 sources) Opioid Agonist, Cholinergic Muscarinic Agonist Start: 02-26-2025 End: 03-05-2025 HYDROcodone-homatro pine (HYCODAN) 5-1.5 mg/5 mL (5 mL) oral liquid Indications: Acute cough Take 5 mL by mouth every 6 hours as needed for up to 5 days. 100 mL 02/28/2025 03/05/2025 Active iv contrast (will be provided with radiology test) (1 source) Start: 10-13-2023 End: 10-14-2023 iv contrast (will be provided with radiology test) Indications: Lower abdominal pain , Diarrhea, unspecified type CT ABD/PEL -Inject, intravenously, once for 1 dose.No IV access, insert saline lock prior to the beginning of sedation, infusion, injection of imaging exam. Discontinue saline lock post exam. If Pt. has a central line or IVAD, may access for administration according to line specific nursing protocol. Once exam is complete flush line and de-access according to line specific nursing protocol in the CT contrast administration guidelines link. 1 Each 0 10/13/2023 10/14/2023 Active Comment on above: CT ABD/PEL -Inject, intravenously, once for 1 dose.No IV access, insert saline lock prior to the beginning of sedation, infusion, injection of imaging exam. Discontinue saline lock post exam. If Pt. has a central line or IVAD, may access for administration according to line specific nursing protocol. Once exam is complete flush line and de-access according to line specific nursing protocol in the CT contrast administration guidelines link. L-LYSINE ORAL (20 sources) take 1 tablet by mouth once daily L-LYSINE ORAL Take 1 tablet by mouth once daily. Active take 1 tablet by mouth once [place] L-LYSINE ORAL Take 1 tablet by mouth once daily. 0 Active Comment on above: Take 1 tablet by jimmy th once daily. MEDICATION, NON-DATABASE (20 sources) MEDICATION, NON- DATABASE Take by mouth once daily. Flax Seed Active MEDICATION, NON- DATABASE Flax Seed Active MEDICATION, NON- DATABASE Flax Seed 0 Active Comment on above: Flax Seed 24 hr metoprolol succinate 50 mg extended release oral tablet (20 sources) beta-Adrenergic Yaz Start: 01-23-2021 End: 04-18-2025 take 1 tablet by mouth once daily metoprolol succinate ER (TOPROL XL) 50 mg 24 hr tablet Indications: Coronary artery disease involving [place] coronary artery of [place] heart without angina pectoris Take 1 tablet by mouth once daily. 90 tablet 3 04/19/2025 Active Start: 02-15-2014 Metoprolol Suc cinate 25 MG tablet Active 12.5 mg PO DAILY February 15, 2014 12:00am Start: 02-15-2014 take 12.5 mg by mout h once daily Metoprolol Succinate Active 12.5 MG PO DAILY February 15, 2014 12:00am Start: 02-14-2014 End: 02-15-2014 take 1 tablet by mouth once daily Metoprolol Succinate 50 MG tablet Discontinued 50 mg PO DAILY February 14, 2014 12:00am February 15, 2014 7:03am Comment on above: Take 1 tablet by jimmy once daily. mupirocin 0.02 mg/mg topical ointment (1 source) RNA Synthetase Inhibitor Antibacterial Start: 04-20-2022 End: 04-30-2022 mupirocin (BACTROBAN) 2 % ointment Indications: Toe infection Apply to affected area three times daily for 10 days. 22 g 0 04/20/2022 04/30/2022 Active Comment on above: Apply to affected ar ea three times daily for 10 days. nirmatrelvir tablet 300 mg (150 mg x 2) and ritonavir tablet 100 mg in a dose pack (PAXLOVID) (1 source) Start: 12-31-2022 End: 01-05-2023 nirmatrelvir tablet 300 mg (150 mg x 2) and ritonavir tablet 100 mg in a dose pack (PAXLOVID) Administer TWO pink nirmatrelvir 150 mg tablets and ONE white ritonavir 100 mg tablet for a total of three tablets twice daily. 30 tablet 0 12/31/2022 01/05/2023 Active Comment on above: Administer TWO pink nirmatrelvir 150 mg tablets and ONE white ritonavir 100 mg tablet for a total of three tablets twice daily. polyethylene glycol 3350 150189 mg / potassium chloride 2970 mg / sodium bicarbonate 6740 mg / sodium chloride 5860 mg / sodium sulfate 85296 mg powder for oral solution (1 source) Osmotic Laxative Start: 01-19-2025 End: 01-19-2025 peg 3350-Electrolytes (GOLYTELY) 236-22.74-6.74 -5.86 gram suspension Indications: Rectal bleeding Take 4,000 mL by mouth one time only for 1 dose. Refer to printed prep instructions from your provider. 4000 mL 01/19/2025 01/19/2025 Active psyllium husk (METAMUCIL ORAL) (20 sources) psyllium husk (METAMUCIL ORAL) Take by mouth once daily. Active psyllium husk (M ETAMUCIL ORAL) Take by mouth. Active psyllium husk (M ETAMUCIL ORAL) Take by mouth. 0 Active Comment on above: Take by mouth. rivaroxaban 20 mg oral tablet (3 sources) Factor Xa Inhibitor Start: End: take 1 tablet by mouth once daily Rivaroxaban (Xarelto) 20 MG tablet Active 20 mg PO DAILY January 05, 2018 1:00am Comment on above: Take 1 tablet by jimmy once daily as needed. To start at the onset of recurrent AF. sulfamethoxazole 800 mg / trimethoprim 160 mg oral tablet (1 source) Dihydrofolate Reductase Inhibitor Antibacterial, Sulfonamide Antimicrobial Start: End: take 1 tablet by mouth twice daily sulfamethoxazole- trimethoprim (BACTRIM DS) 800-160 mg per tablet Take 1 tablet by mouth twice daily for 7 days. 14 tablet 0 06/12/2022 06/19/2022 Active Comment on above: Take 1 tablet by jimmy twice daily for 7 days. tadalafil 10 mg oral tablet (20 sources) Phosphodiesterase 5 Inhibitor Start: End: Tadalafil (CIALIS) 10 mg tablet Indications: Erectile dysfunction, unspecified erectile dysfunction type Take 1 tablet by mouth as directed. TAKE 1-2 HOURS BEFORE SEXUAL INTERCOURSE NEEDED. 5 tablet 5 08/07/2022 Active Comment on above: Take 1 tablet by jimmy as directed. TAKE 1-2 HOURS BEFORE SEXUAL INTERCOURSE NEEDED. terazosin 5 mg oral capsule (20 sources) alpha-Adrenergic Yaz Start: take 1 capsule by mouth once daily at bedtime terazosin 5 mg capsule Take 1 capsule by mouth daily at bedtime. Given by Dr. Rivera. 0 02/17/2013 Active Comment on above: Take 1 capsule by mo [facility] daily at bedtime. Given by Dr. Rivera. vit L-H-mccsmq-zinc-lutein (EYE MULTIVIT-LUTEIN,C-E-CU- ZN,) 226 mg-90 mg-2 mg-34.8 mg-5 mg cap (20 sources) take 1 tablet by mouth once daily vit P-F-hsclhg-zinc-l utein (EYE MULTIVIT-LUTEIN,C -E-CU-ZN,) 226 mg-90 mg-2 mg-34.8 mg-5 mg cap Take 1 tablet by mouth once daily. Active take 1 tablet by jimmy once daily vit A-H-kinnsh-zinc-lutein (EYE MULTIVIT-LUTEIN,C-E-CU-ZN,) 226 mg-90 mg-2 mg-34.8 mg-5 mg cap Take 1 tablet by mouth once daily. 0 Active Comment on above: Take 1 tablet by [facility] once daily. Completed/Discontinued Medications Medication Drug Class(es) Dates Sig (Normalized) Sig (Original) calcium chloride 0.0014 meq/ml / potassium chloride 0.004 meq/ml / sodium chloride 0.103 meq/ml / sodium lactate 0.028 meq/ml injectable solution (1 source) Start: 03-10-2025 End: 03-10-2025 take 30 mL intravenously every hour 30 mL/hr, INTRAVENOUS, CONTINUOUS, Starting on Lisbeth 03/10/25 at 0900, Until Lisbeth 03/10/25 at 1007, Preprocedure cephalexin 500 mg oral capsule (9 sources) Cephalosporin Antibacterial Start: 06-06-2022 take 1 capsule by mouth three times daily cephALEXin (KEFLEX) 500 mg capsule Indications: Ingrown toenail Take 1 capsule by mouth three times daily. 21 capsule 0 06/06/2022 Active Start: 04-20-2022 End: 04-27-2022 take 1 capsule by mouth three times daily cephALEXin (KEFLEX) 500 mg capsule Indications: Toe infection Take 1 capsule by mouth three times daily for 7 days. 21 capsule 0 04/20/2022 04/27/2022 Active Start: 07-31-2021 take 1 capsule by [facility] every eight hours Cephalexin 500 MG capsule Active 500 mg PO EVERY 8 HOURS July 31, 2021 12:00am Comment on above: Take 1 capsule by [facility] three times daily for 7 days. Take 1 capsule by [facility] three times daily. codeine phosphate 2 mg/ml / guaiFENesin 20 mg/ml oral solution (7 sources) Opioid Agonist Start: 08-18-2023 End: 08-24-2023 take 5 mL by mouth four times daily as needed codeine-guaiFENesin (GUAIFENESIN AC) 10-100 mg/5 mL syrup Indications: Bacterial sinusitis , URI, acute Take 5 mL by mouth four times a day as needed for up to 6 days. 120 mL 08/18/2023 08/24/2023 Start: 12-30-2022 End: 01-05-2023 take 5 mL by mouth four times daily as needed for cough codeine-guaiFENesin (GUAIFENESIN AC) 10-100 mg/5 mL syrup Indications: Viral URI with cough Take 5 mL by mouth four times daily as needed for cough for up to 6 days. 118 mL 0 12/30/2022 01/05/2023 Active Start: 05-23-2022 End: 05-29-2022 take 5 mL by mouth every six hours as needed for cough and cough codeine-guaiFENesin (GUAIFENESIN AC) 10-100 mg/5 mL syrup Indications: Acute cough Take 5 mL by mouth four times daily as needed for cough for up to 6 days. 118 mL 0 05/23/2022 05/29/2022 Active Comment on above: Take 5 mL by mouth f our times daily as needed for cough for up to 6 days. Take 5 mL by mouth f our times a day as needed for up to 6 days. dextromethorphan hydrobromide 3 mg/ml / promethazine hydrochloride 1.25 mg/ml oral solution (11 sources) Phenothiazine, Uncompetitive D-sgfgqd-V-aspartate Receptor Antagonist, Sigma-1 Agonist Start: 11-23-19 End: 02-27-20 take 5 mL by mouth every six hours as needed Promethazine-DM (PHENERGAN-DM) 6.25-15 mg/5 mL syrup Take 5 mL by mouth four times a day as needed. 120 mL 11/23/2024 02/26/2025 Discontinued Start: 11-10-2024 take 5 mL by mouth e very six hours as needed Promethazine-DM (PHENERGAN-DM) 6.25-15 mg/5 mL syrup Take 5 mL by mouth four times a day as needed. 120 mL 11/10/2024 Active dicyclomine hydrochloride 10 mg oral capsule (6 sources) Anticholinergic Start: 03-24-2023 End: 05-07-2023 take 1 capsule by mouth twice daily dicyclomine (BENTYL) 10 mg capsule Indications: Abdominal cramps Take 1 capsule by mouth twice daily. As directed. 60 capsule 03/24/2023 05/07/2023 Discontinued Comment on above: Take 1 capsule by [facility] twice daily. As directed. diphenhydrAMINE (1 source) Histamine-1 Receptor Antagonist Start: 03-10-2025 End: 03-10-2025 12.5-50 mg, INTRAVENOUS, DIRECTED, Starting on Lisbeth 03/10/25 at 1000, Until Lisbeth 03/10/25 at 1359, DOSING DIRECTED BY PHYSICIAN FOR PROCEDURAL SEDATION ONLY, Intraprocedure 1 ml fentaNYL 0.05 mg/ml injection (1 source) Opioid Agonist Start: 03-10-2025 End: 03-10-2025 25-100 mcg, INTRAVENOUS, DIRECTED, Starting on Lisbeth 03/10/25 at 1000, Until Lisbeth 03/10/25 at 1359, DOSING DIRECTED BY PHYSICIAN FOR PROCEDURAL SEDATION ONLY, Intraprocedure methylPREDNISolone (4 sources) Corticosteroid Start: 08-20-2023 End: 08-26-2023 methylPREDNISolone (MEDROL, GEOVANNI,) 4 mg Dose-Pack Indications: Sinobronchitis Follow dosing instructions, take with food. 21 tablet 08/20/2023 08/26/2023 Start: 08-20-2023 End: 08-26-2023 methylPREDNISolone (MEDROL, GEOVANNI,) 4 mg Dose-Pack Indications: Sinobronchitis Follow dosing instructions, take with food. 21 tablet 0 08/20/2023 08/26/2023 Active Comment on above: Follow dosing instru ctions, take with food. 5 ml midazolam 1 mg/ml injection (1 source) Benzodiazepine Start: 03-10-20 End: 03-10-20 1-5 mg, INTRAVENOUS, DIRECTED, Starting on Lisbeth 03/10/25 at 1000, Until Lisbeth 03/10/25 at 1359, DOSING DIRECTED BY PHYSICIAN FOR PROCEDURAL SEDATION ONLY, Intraprocedure omeprazole 20 mg delayed release oral capsule (1 source) Proton Pump Inhibitor Start: 10-29-20 End: 02-02-20 24 take 1 capsule by mouth once daily omeprazole (PRILOSEC) 20 mg capsule Take 1 capsule by mouth once daily. 30 capsule 0 10/29/2023 02/02/2024 Discontinued Comment on above: Take 1 capsule by [facility] once daily. Problems Active Problems Problem Classification Problem Date Documented Da te Episodic/Chronic Abdominal hernia (3 sources) Umbilical hernia; Translations: [Umbilical hernia without obstruction or gangrene] Onset: 05-23-2023 Episodic Abdominal pain (3 sources) Finding of sensation of abdomen; Translations: [Unspecified abdominal pain] Episodic Aortic; peripheral; and visceral artery aneurysms (20 sources) Aortic root dilatation; Translations: [Thoracic aortic ectasia] Onset: 08-21-2009 08-21-2009 Chronic Cardiac dysrhythmias (20 sources) Paroxysmal atrial fibrillation; Translations: [Paroxysmal atrial fibrillation] Onset: 04-26-2013 07-19-2019 Chronic Cardiac dysrhythmias (3 sources) Palpitations; Translations: [Palpitations] Onset: 03-17-2025 03-17-2025 Episodic Coronary atherosclerosis and other heart disease (20 sources) Coronary atherosclerosis; Translations: [Atherosclerotic heart disease of [place] coronary artery without angina pectoris] Onset: 07-19-2019 Chronic Disorders of lipid metabolism (20 sources) Mixed hyperlipidemia; Translations: [Mixed hyperlipidemia] Onset: 07-19-2019 Chronic Essential hypertension (20 sources) Essential (primary) hypertension; Translations: [Essential hypertension] Onset: 02-09-2010 08-27-2018 Chronic Hyperplasia of prostate (20 sources) Benign prostatic hypertrophy with outflow obstruction; Translations: [Benign prostatic hyperplasia with lower urinary tract symptoms] Onset: 08-27-2018 08-27-2018 Chronic Nonspecific chest pain (4 sources) Chest pain; Translations: [Chest pain, unspecified] Onset: 03-17-2025 03-17-2025 Episodic Open wounds of extremities (8 sources) Laceration of right hand; Translations: [Laceration without foreign body of right hand, initial encounter] Episodic Other circulatory disease (2 sources) Abnormal chest sounds; Translations: [Other specified symptoms and signs involving the circulatory and respiratory systems] Episodic Other ear and sense organ disorders (1 source) Impacted cerumen in left ear; Translations: [Impacted cerumen, left ear] 09-27-2024 Episodic Other gastrointestinal disorders (2 sources) Diarrhea; Translations: [Diarrhea, unspecified] 10-13-2023 Episodic Other hereditary and degenerative nervous system conditions (20 sources) Essential tremor; Translations: [Essential tremor] Onset: 01-14-2012 01-14-2012 Chronic Other injuries and conditions due to external causes (2 sources) Injury of left shoulder; Translations: [Unspecified injury of left shoulder and upper arm, initial encounter] 12-13-2024 Episodic Other lower respiratory disease (2 sources) Cough; Translations: [Acute cough] Episodic Other lower respiratory disease (2 sources) Hemoptysis; Translations: [Hemoptysis] 08-20-2023 Episodic Other lower respiratory disease (2 sources) Cough; Translations: [Acute cough] 02-26-2025 Episodic Other lower respiratory disease (1 source) Dyspnea 03-17-2025 Episodic Other male genital disorders (1 source) Male erectile dysfunction, unspecified; Translations: [Impotence of organic origin] Chronic Other nervous system disorders (1 source) Other acute postprocedural pain; Translations: [Postoperative pain] Onset: 05-23-2023 Episodic Other screening for suspected conditions (not mental disorders or infectious disease) (11 sources) Patient encounter status; Translations: [Encounter for screening for malignant neoplasm of prostate] Onset: 07-19-2019 Resolved: 03-05-2021 Episodic Other skin disorders (1 source) Epidermoid cyst of skin of scrotum; Translations: [Epidermal cyst] Episodic Other skin disorders (4 sources) Ingrowing toenail; Translations: [Ingrowing nail] Episodic Other skin disorders (1 source) Infection of toenail; Translations: [Ingrowing nail] Episodic Other upper respiratory infections (2 sources) Chronic sinusitis; Translations: [Chronic sinusitis, unspecified] 08-20-2023 Chronic Other upper respiratory infections (4 sources) Upper respiratory infection; Translations: [Acute upper respiratory infection, unspecified] Onset: 02-26-2025 11-10-2024 Episodic Residual codes; unclassified (20 sources) Obstructive sleep apnea syndrome; Translations: [Obstructive sleep apnea (adult) (pediatric)] Onset: 06-15-2013 09-06-2020 Chronic Residual codes; unclassified (5 sources) History of hernia repair; Translations: [Other specified postprocedural states] Episodic Screening and history of mental health and substance abuse codes (2 sources) Encounter for screening for depression; Translations: [Encounter for screening examination for other mental health and behavioral disorders] Onset: 03-28-2025 Episodic Unclassified (1 source) Unknown / UNK(Unknown) Onset: 09-26-2017 Unclassified (2 sources) rapid ventricular response 11-19-2013 Unclassified (1 source) Acute cough; Translations: [Acute cough] Onset: 02-26-2025 Past or Other Problems Problem Classification Problem Date Documented Da te Episodic/Chronic Acquired foot deformities (20 sources) Acquired hallux malleus; Translations: [Other hammer toe(s) (acquired), unspecified foot] Onset: 6 Resolved: 7 12-31-2006 Chronic Allergic reactions (20 sources) Solar degeneration; Translations: [Other skin changes due to chronic exposure to nonionizing radiation] Onset: 1 Resolved: 4 09-30-2011 Episodic Gastrointestinal hemorrhage (19 sources) Gastrointestinal hemorrhage; Translations: [Hemorrhage of anus and rectum] Onset: 5 Resolved: 5 10-01-2023 Episodic Hemorrhoids (20 sources) Internal hemorrhoids; Translations: [Other hemorrhoids] Resolved: 6 05-20-2016 Episodic Miscellaneous mental health disorders (20 sources) Abnormal sexual function; Translations: [Unspecified sexual dysfunction not due to a substance or known physiological condition] Resolved: 4 05-10-2014 Chronic Noninfectious gastroenteritis (20 sources) Sigmoiditis; Translations: [Noninfective gastroenteritis and colitis, unspecified] Onset: 3 Resolved: 4 10-20-2023 Episodic Other aftercare (20 sources) Long-term current use of drug therapy; Translations: [Encounter for therapeutic drug level monitoring] Onset: 9 Resolved: 1 03-05-2021 Episodic Other and unspecified benign neoplasm (20 sources) Benign neoplasm of colon; Translations: [Benign neoplasm of colon, unspecified] Onset: 6 Resolved: 7 05-19-2017 Episodic Other and unspecified benign neoplasm (20 sources) Senile angioma; Translations: [Hemangioma of skin and subcutaneous tissue] Onset: 1 Resolved: 2 01-14-2012 Episodic Other bone disease and musculoskeletal deformities (20 sources) Exostosis; Translations: [Other specified disorders of bone, unspecified site] Onset: 6 Resolved: 7 12-31-2006 Episodic Other diseases of veins and lymphatics (20 sources) Peripheral venous insufficiency; Translations: [Venous insufficiency (chronic) (peripheral)] Onset: 6 Resolved: 4 05-19-2017 Episodic Other injuries and conditions due to external causes (1 source) Unspecified injury of left shoulder and upper arm, initial encounter; Translations: [Injury of left shoulder, initial encounter] Onset: 5 Episodic Other lower respiratory disease (20 sources) Dyspnea on exertion; Translations: [Other forms of dyspnea] Onset: 4 Resolved: 5 08-16-2024 Episodic Other lower respiratory disease (1 source) Other forms of dyspnea; Translations: [TATE (dyspnea on exertion)] Onset: 4 Episodic Other non-traumatic joint disorders (3 sources) Pain in left shoulder; Translations: [Pain in joint, shoulder region] Onset: 5 12-13-2024 Episodic Other skin disorders (20 sources) Seborrheic keratosis; Translations: [Other seborrheic keratosis] Onset: 1 Resolved: 2 01-14-2012 Episodic Other skin disorders (20 sources) Solar lentigo; Translations: [Other melanin hyperpigmentation] Onset: 1 Resolved: 6 05-20-2016 Episodic Other skin disorders (20 sources) Skin tag; Translations: [Other hypertrophic disorders of the skin] Onset: 1 Resolved: 2 01-14-2012 Episodic Residual codes; unclassified (20 sources) Edema of lower extremity; Translations: [Localized edema] Onset: 4 08-16-2024 Episodic Residual codes; unclassified (1 source) Localized edema; Translations: [Leg edema] Onset: 4 Episodic Skin and subcutaneous tissue infections (20 sources) Infection of toe ; Translations: [Local infection of the skin and subcutaneous tissue, unspecified] Onset: 6 Resolved: 7 Episodic Spondylosis; intervertebral disc disorders; other back problems (20 sources) Low back pain; Translations: [Right-sided low back pain without sciatica] Onset: 6 Resolved: 7 05-19-2017 Episodic Viral infection (20 sources) Disease caused by 2019-nCoV; Translations: [COVID-19] Onset: 1 Resolved: 2 Episodic Results Test Name Value Interpretation Reference Range Facility PSA (EXTERNAL)Ordered By: Aakash Vigil on 05-02-2025 [facility] PSA,Total - Annual Screenon 05-02-2025 PSA,TOT SCREEN 1.76 ng/mL Normal 0.02-4.00 [facility] Comment on above: Result Comment: This test was performed using the [employer] tPSA method. Measured values of a patient??sample can vary depending on the testing procedure used. PSA values determined on patient samples by different testing procedures cannot be used interchangeably. If there is a change in PSA assays while monitoring therapy, sequential testing should be performed to confirm baseline values. Performed By: #### L [phone] #### [facility] [address] [place], [address] CNOVon 03-28-2025 CNOV Office Visit (INTMWS ) LUCIANAMONIKA ([id number]) 1950 M Date Time Provider Department 03/28/25 5:20 PM FEI GANDHI INTMWS During your visit today, we recorded the following information about you: Pulse Respiration Blood pressure Weight 92/minute 20/minute 126/68 84.6 kg Fei Gandhi MD 03/28/2025 6:01 PM Signed This note was created using [employer]. Subjective Patient presents with: F/U 6 months Recording using [employer] software for draft documentation of the visit was discussed with the patient/authorized sales representative door to door; all questions welcomed and answered. Patient/authorized sales representative door to door agreed to proceed Monika is a 74-year-old male, with a history of a-fib and hemorrhoids, presenting for a 6-month checkup. Monika reports a pruritic rash on his arm, which he attributes to recent yard work. He denies applying any topical treatments yet, as he wanted to have it evaluated first. He denies cephalalgia, dizziness, chest pain, palpitations, or dyspnea. He also reports a sensation of cerumen impaction in one ear, causing discomfort. He has a history of cerumen removal in the past. He uses hearing aids, which are functioning well. He mentions a recent episode of near-syncope, which resolved spontaneously. He has a history of a-fib and monitors his heart rate, which has not exceeded 80 bpm recently. He was seen here on 03/17, and had unremarkable EKG and blood work. He also just had a colonoscopy that revealed hemorrhoids as the cause of previous rectal bleeding. He denies any current rectal bleeding. He has a scheduled appointment in April for a prostate examination. Review of Systems Head: (-) headaches Ears/Nose/Mouth/Throat : (+) ear pain Cardiovascular: (-) chest pain, (-) palpitations Respiratory: (-) shortness of breath Skin: (+) itchy rash Neurological: (-) dizziness ACTIVE PROBLEM LIST Bph With Obstruction/Lower Urinary Tract Symptoms Aortic Root Dilatation Essential Hypertension Essential Tremor Paroxysmal Atrial Fibrillation (Hcc) 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 Mixed Hyperlipidemia Coronary Artery Disease Involving [place] Coronary Artery of [place] Heart Without Angina Pectoris Leg Edema Rectal Bleeding PAST SURGICAL HISTORY Procedure Laterality Date ATRIAL FIBRILLATION/FLUTTER ABLATION 03/29/2020 COLONOSCOPY - DIAGNOSTIC 08/25/20021992, 1994 COLONOSCOPY - DIAGNOSTIC 03/10/2025 COLONOSCOPY FLX DX W/COLLJ SPEC WHEN PFRMD 10/12/2012 Colonoscopy repeat 10 years COLONOSCOPY FLX DX W/COLLJ SPEC WHEN PFRMD 07/07/2020 Colonoscopy CYSTOSCOPY 04/12/2015 LAPROSCOPIC REPAIR UMBILICAL HERNIA 05/23/2023 LEFT HEART CATH,PERCUTANEOUS 03/18/2008 Cardiac cath, L heart, normal LEFT HEART CATH,PERCUTANEOUS 05/12/2013 Cardiac cath, L heart. 30-40% LAD. PAST SURGICAL HISTORY OF 1963 left hip surgery after fracture, hardware removed PAST SURGICAL HISTORY OF 08/29/2011 Right index finger repair PAST SURGICAL HISTORY OF 11/2012 Right index Finger repair x 2 REMV CATARACT EXTRACAP,INSERT LENS Bilateral 06/2024 REPAIR UMBILICAL HERNIA 05/23/2023 RPR 1ST INGUN HRNA AGE 5 YRS/> REDUCIBLE 2007 Hernia repair, inguinal x 3 TONSILLECTOMY PRIMARY/SECONDARY Tonsillectomy Current Outpatient Medications Medication Sig chlorthalidone (HYGROTON) 25 mg tablet Take 1 tablet by mouth once daily. metoprolol succinate ER (TOPROL XL) 50 mg 24 hr tablet Take 1 tablet by mouth once daily. atorvastatin (LIPITOR) 10 mg tablet Take 1 tablet by mouth once daily. psyllium husk (METAMUCIL ORAL) Take by mouth once daily. MEDICATION, NON-DATABASE Take by mouth once daily. Flax Seed L-LYSINE ORAL Take 1 tablet by mouth once daily. vit Y-R-dfpcle-zinc-lutein (EYE MULTIVIT-LUTEIN,C-E-CU -ZN,) 226 mg-90 mg-2 mg-34.8 mg-5 mg cap Take 1 tablet by mouth once daily. Tadalafil (CIALIS) 10 mg tablet Take 1 tablet by mouth as directed. TAKE 1-2 HOURS BEFORE SEXUAL INTERCOURSE NEEDED. aspirin, enteric coated (ASPIR-81) 81 mg EC tablet Take 1 tablet by mouth once daily. COMPOUNDED PRESCRIPTION KNEE HIGH COMPRESSION STOCKINGS 30-40 MM. DX: EDEMA. terazosin 5 mg capsule Take 1 capsule by mouth daily at bedtime. Given by Dr. Rivera. CALCIUM CARBONATE/VITAMIN D3 (CALCIUM 500 + D ORAL) Take by mouth once daily. ascorbic acid, vitamin C, (VITAMIN C) 500 mg tablet Take 500 mg by mouth once daily. Garlic ORAL Cap Take one(1) tablet daily. No current facility-administered medications for this visit. Objective BP 126/68 (BP Site: Left Arm, BP Position: Sitting, BP Cuff Size: Large Adult) Pulse 92 Resp 20 Wt 84.6 kg (186 lb 8.2 oz) BMI 27.07 kg/m? Physical Exam Constitutional: Appearance: He is not ill-appearing. HENT: Right Ear: Tympanic membrane and ear canal normal. Left Ear: Tympanic membrane and ear canal normal. Cardiovascular: Rate and Rhy (more content not included)... Normal [facility] CBC W Auto Differential pane l (Bld)on 03-17-2025 Basophils (Bld) [#/Vol] 10*3/uL Normal <0.11 [facility] Comment on above: Order Comment: Speci men Type: BLOOD SPECIMEN Ordering Facility: [facility] Address: [address] [place] [address] Performed By: #### 2 4323-8, 04076-0, 99362-6 #### [facility] CLIA [id number] [address] [place] [address] [place] Basophils/100 WBC (Bld) 0.3 % Normal [facility] Comment on above: Order Comment: Speci men Type: BLOOD SPECIMEN Ordering Facility: [facility] Address: [address] [place] [address] Performed By: #### 2 4323-8, 98135-7, 83692-0 #### [facility] CLIA [id number] [address] [place] [address] [place] Differential cell count method Nom (Bld) Auto Normal [facility] Comment on above: Order Comment: Speci men Type: BLOOD SPECIMEN Ordering Facility: [facility] Address: [address] [place] [address] Performed By: #### 2 4323-8, 22747-0, 13532-3 #### [facility] CLIA [id number] [address] [place] [address] [place] Eosinophils (Bld) [#/Vol] 0.21 10*3/uL Normal <0.46 [facility] Comment on above: Order Comment: Speci men Type: BLOOD SPECIMEN Ordering Facility: [facility] Address: [address] [place] [address] Performed By: #### 2 4323-8, 23206-4, 19382-3 #### [facility] CLIA [id number] [address] [place] [address] [place] Eosinophils/100 WBC (Bld) 3.6 % Normal [facility] Comment on above: Order Comment: Speci men Type: BLOOD SPECIMEN Ordering Facility: [facility] Address: [address] [place] [address] Performed By: #### 2 4323-8, 80453-0, 94838-8 #### [facility] CLIA [id number] [address] [place] [address] [place] Erythrocyte distribution width (RBC) [Ratio] 12.3 % Normal 11.5-15.0 [facility] Comment on above: Order Comment: Speci men Type: BLOOD SPECIMEN Ordering Facility: [facility] Address: [address] [place] [address] Performed By: #### 2 4323-8, 75697-6, 25597-7 #### [facility] CLIA [id number] [address] [place] [address] [place] Hematocrit (Bld) [Volume fraction] 43.0 % Normal 39.0-51.0 [facility] Comment on above: Order Comment: Speci men Type: BLOOD SPECIMEN Ordering Facility: [facility] Address: [address] [place] [address] Performed By: #### 2 4323-8, 69319-5, 40276-0 #### [facility] CLIA [id number] [address] [place] [address] [place] Hemoglobin (Bld) [Mass/Vol] 13.6 g/dL Normal 13.0-17.0 [facility] Comment on above: Order Comment: Speci men Type: BLOOD SPECIMEN Ordering Facility: [facility] Address: [address] [place] [address] Performed By: #### 2 4323-8, 56776-2, 88917-1 #### [facility] CLIA [id number] [address] [place] [address] [place] Immature granulocytes (Bld) [#/Vol] 10*3/uL Normal <0.10 [facility] Comment on above: Order Comment: Speci men Type: BLOOD SPECIMEN Ordering Facility: [facility] Address: [address] [place] [address] Performed By: #### 2 4323-8, 07677-7, 32040-4 #### [facility] CLIA [id number] [address] [place] [address] [place] Immature granulocytes/100 WBC (Bld) 0.3 % Normal [facility] Comment on above: Order Comment: Speci men Type: BLOOD SPECIMEN Ordering Facility: [facility] Address: [address] [place] [address] Performed By: #### 2 4323-8, 21612-2, 17635-7 #### [facility] CLIA [id number] [address] [place] [address] [place] Lymphocytes (Bld) [#/Vol] 1.24 10*3/uL Normal 1.00-4.00 [facility] Comment on above: Order Comment: Speci men Type: BLOOD SPECIMEN Ordering Facility: [facility] Address: [address] [place] [address] Performed By: #### 2 4323-8, 16096-3, 72037-5 #### [facility] CLIA [id number] [address] [place] [address] [place] Lymphocytes/100 WBC (Bld) 21.1 % Normal [facility] Comment on above: Order Comment: Speci men Type: BLOOD SPECIMEN Ordering Facility: [facility] Address: [address] [place] [address] Performed By: #### 2 4323-8, 17859-9, 61842-6 #### [facility] CLIA [id number] [address] [place] [address] [place] MCH (RBC) [Entitic mass] 30.0 pg Normal 26.0-34.0 [facility] Comment on above: Order Comment: Speci men Type: BLOOD SPECIMEN Ordering Facility: [facility] Address: [address] [place] [address] Performed By: #### 2 4323-8, 62253-6, 23678-8 #### [facility] CLIA [id number] [address] [place] [address] [place] MCHC (RBC) [Mass/Vol] 31.6 g/dL Normal 30.5-36.0 [facility] Comment on above: Order Comment: Speci men Type: BLOOD SPECIMEN Ordering Facility: [facility] Address: [address] [place] [address] Performed By: #### 2 4323-8, 87323-2, 18662-2 #### [facility] CLIA [id number] [address] [place] [address] [place] MCV (RBC) [Entitic vol] 94.9 fL Normal 80.0-100.0 [facility] Comment on above: Order Comment: Speci men Type: BLOOD SPECIMEN Ordering Facility: [facility] Address: [address] [place] [address] Performed By: #### 2 4323-8, 02872-3, 80863-4 #### [facility] CLIA [id number] [address] [place] [address] [place] Monocytes (Bld) [#/Vol] 0.54 10*3/uL Normal <0.87 [facility] Comment on above: Order Comment: Speci men Type: BLOOD SPECIMEN Ordering Facility: [facility] Address: [address] [place] [address] Performed By: #### 2 4323-8, 86284-8, 28473-1 #### [facility] CLIA [id number] [address] [place] [address] [place] Monocytes/100 WBC (Bld) 9.2 % Normal [facility] Comment on above: Order Comment: Speci men Type: BLOOD SPECIMEN Ordering Facility: [facility] Address: [address] [place] [address] Performed By: #### 2 4323-8, 66662-6, 48071-6 #### [facility] CLIA [id number] [address] [place], [place] [address] [place] Neutrophils (Bld) [#/Vol] 3.86 10*3/uL Normal 1.45-7.50 [facility] Comment on above: Order Comment: Speci men Type: BLOOD SPECIMEN Ordering Facility: [facility] Address: [address] [place] [address] Performed By: #### 2 4323-8, 26017-7, 07197-6 #### [facility] CLIA [id number] [address] [place] [address] [place] Neutrophils/100 WBC (Bld) 65.5 % Normal [facility] Comment on above: Order Comment: Speci men Type: BLOOD SPECIMEN Ordering Facility: [facility] Address: [address] [place] [address] Performed By: #### 2 4323-8, 44100-6, 87665-2 #### [facility] CLIA [id number] [address] [place] [address] [place] Nucleated RBC (Bld) [#/Vol] 0.03 10*3/uL High <0.01 [facility] Comment on above: Order Comment: Speci men Type: BLOOD SPECIMEN Ordering Facility: [facility] Address: [address] [place] [address] Performed By: #### 2 4323-8, 83699-8, 55097-8 #### [facility] CLIA [id number] [address] [place] [address] [place] Nucleated RBC/100 WBC (Bld) [Ratio] 0.5 /100 WBC Normal [facility] Comment on above: Order Comment: Speci men Type: BLOOD SPECIMEN Ordering Facility: [facility] Address: [address] [place] [address] Performed By: #### 2 4323-8, 24473-4, 77469-7 #### [facility] CLIA [id number] [address] [place] [address] [place] Platelet mean volume (Bld) [Entitic vol] 9.9 fL Normal 9.0-12.7 [facility] Comment on above: Order Comment: Speci men Type: BLOOD SPECIMEN Ordering Facility: [facility] Address: [address] [place] [address] Performed By: #### 2 4323-8, 78561-9, 17238-1 #### [facility] CLIA [id number] [address] [place] [address] [place] Platelets (Bld) [#/Vol] 231 10*3/uL Normal 150-400 [facility] Comment on above: Order Comment: Speci men Type: BLOOD SPECIMEN Ordering Facility: [facility] Address: [address] [place] [address] Performed By: #### 2 4323-8, 41760-6, 00687-7 #### [facility] CLIA [id number] [address] [place] [address] [place] RBC (Bld) [#/Vol] 4.53 10*6/uL Normal 4.20-6.00 [facility] Comment on above: Order Comment: Speci men Type: BLOOD SPECIMEN Ordering Facility: [facility] Address: [address] [place] [address] Performed By: #### 2 4323-8, 15282-1, 05616-7 #### [facility] CLIA [id number] [address] [place] [address] [place] WBC (Bld) [#/Vol] 5.89 10*3/uL Normal 3.70-11.00 [facility] Comment on above: Order Comment: Speci men Type: BLOOD SPECIMEN Ordering Facility: [facility] Address: [address] [place] [address] Performed By: #### 2 4323-8, 94590-5, 18092-2 #### [facility] CLIA [id number] [address] [place], [place] [address] [place] [address] [place] CNOVon 03-17-2025 CNOV Office Visit (INTMWS ) MONIKA CHOWDHURY ([id number]) 1950 M Date Time Provider Department 03/17/25 11:20 [address] During your visit today, we recorded the following information about you: Pulse Respiration Blood pressure 72/minute 16/minute 122/70 Saira Woody APRN.SENIOR COPYWRITER 03/17/2025 1:00 PM Signed CC: Patient presents with: Chest Pain: Chest pain, SOB, anxiety, recent COVID HPI Monika Chowdhury is a 74 year old male who presents today for chest pain. Was at an appointment with general surgery and brought up concerns with chest pain he was having intermittently and was told to schedule same day with his PCP. PCP was not available so appointment was made with this provider. Recording using [employer] software for draft documentation of the visit was discussed with the patient/authorized sales representative door to door; all questions welcomed and answered. Patient/authorized sales representative door to door agreed to proceed Chest Pain and Dyspnea: - Intermittent chest pain and dyspnea x1 month. - Describes pain as a tightness in the middle of the chest. - Episodes occur randomly, not daily, but sometimes multiple times a week. - Pain lasts no more than 15 minutes per episode. - No specific triggers identified; pain occurs at rest and is not exacerbated by physical activity. - Denies associated dyspnea during episodes. But does feel palpitations and like heart is racing. - Nocturnal episode of oxygen saturation dropping to 80s last night; no other episodes reported but thinks it may have happened one other time. - Denies fever, chills, cough, or wheezing. - Recent COVID-19 infection after returning from [place]; symptoms have resolved. - Denies dizziness, syncope, edema, headaches, or weakness. Paroxysmal Atrial Fibrillation: - History of paroxysmal atrial fibrillation; previously on flecainide and Xarelto - Discontinued flecainide and Xarelto years ago; currently taking baby aspirin. - Reports taking leftover flecainide and Xarelto during recent episodes in [place], believing it might be AFib. - Brother has a history of AFib and recent VT. - Currently on metoprolol and HR for hypertension management. REVIEW OF SYSTEMS See HPI PAST MEDICAL HISTORY Diagnosis Date Actinic skin damage 09/30/2011 Aortic root dilatation 08/21/2009 Atrial fibrillation 04/26/2013 Benign neoplasm of colon 12/18/2005 Adenomatous polyp BPH with obstruction/lower urinary tract symptoms 08/27/2018 Dr. Greenberg, Urology Coronary artery disease involving [place] coronary artery of [place] heart without angina pectoris 07/19/2019 Diverticulosis of colon (without mention of hemorrhage) Essential tremor 01/14/2012 Hypertrophy of prostate with urinary obstruction and other lower urinary tract symptoms (LUTS) 12/31/2006 Ingrown left big toenail 05/2022 infected Internal hemorrhoids without mention of complication Mixed hyperlipidemia 07/19/2019 Near syncope 02/15/2014 bradycardia NASRA on CPAP 06/15/2013 Intolerant to CPAP Problems with sexual function Sigmoiditis 10/20/2023 Umbilical hernia 05/23/2023 Unspecified essential hypertension 02/09/2010 Venous (peripheral) insufficiency 11/19/2005 VENOUS INSUFFICIENCY NOS 11/19/2005 PAST SURGICAL HISTORY Procedure Laterality Date ATRIAL FIBRILLATION/FLUTTER ABLATION 03/29/2020 COLONOSCOPY - DIAGNOSTIC 08/25/20021992, 1994 COLONOSCOPY FLX DX W/COLLJ SPEC WHEN PFRMD 10/12/2012 Colonoscopy repeat 10 years COLONOSCOPY FLX DX W/COLLJ SPEC WHEN PFRMD 07/07/2020 Colonoscopy CYSTOSCOPY 04/12/2015 LAPROSCOPIC REPAIR UMBILICAL HERNIA 05/23/2023 LEFT HEART CATH,PERCUTANEOUS 03/18/2008 Cardiac cath, L heart, normal LEFT HEART CATH,PERCUTANEOUS 05/12/2013 Cardiac cath, L heart. 30-40% LAD. PAST SURGICAL HISTORY OF 1964 left hip surgery after fracture, hardware removed PAST SURGICAL HISTORY OF 08/29/2011 Right index finger repair PAST SURGICAL HISTORY OF 11/2012 Right index Finger repair x 2 REMV CATARACT EXTRACAP,INSERT LENS Bilateral 06/2024 REPAIR UMBILICAL HERNIA 05/23/2023 RPR 1ST INGUN HRNA AGE 5 YRS/> REDUCIBLE 2008 Hernia repair, inguinal x 3 TONSILLECTOMY PRIMARY/SECONDARY Tonsillectomy ALLERGIES Patient has no known allergies. MEDICATIONS chlorthalidone (HYGROTON) 25 mg tablet Take 1 tablet by mouth once daily. metoprolol succinate ER (TOPROL XL) 50 mg 24 hr tablet Take 1 tablet by mouth once daily. atorvastatin (LIPITOR) 10 mg tablet Take 1 tablet by mouth once daily. psyllium husk (METAMUCIL ORAL) Take by mouth once daily. MEDICATION, NON-DATABASE Take by mouth once daily. Flax Seed L-LYSINE ORAL Take 1 tablet by mouth once daily. vit S-S-lumfsz-zinc-lutein (EYE MULTIVIT-LUTEIN,C-E-CU -ZN,) 226 mg-90 mg-2 mg-34.8 mg-5 mg cap Take 1 tablet by mouth once daily. Tadalafil (CIALIS) 10 mg tablet Take 1 tablet by mouth as directed. RUBEN (more content not included)... Normal [facility] Office Visit (GENSWS ) MONIKA CHOWDHURY ZONIA ([id number]) 1950 M Date Time Provider Department 03/17/25 10[facility]30 [facility] During your visit today, we recorded the following information about you: Pulse Respiration Blood pressure 80/minute 16/minute 114/66 Mercedes Costa APRN.SENIOR COPYWRITER 03/17/2025 11:22 AM Signed FOLLOW UP VISIT - ENDOSCOPY Monika Luther Luciana 1950 [id number] REFERRING PHYSICIAN: No referring provider defined for this encounter. Monika Chowdhury is a patient I am following for rectal bleeding. Dr. Andre performed lower endoscopy on 03/10/25. The patient was found to have Impression: - Preparation of the colon was fair. - Diverticulosis in the sigmoid colon. - Non-bleeding internal hemorrhoids. - The examination was otherwise normal. - No specimens collected. The patient notes no complaints since the procedure related to the colonoscopy. -no other episodes of rectal bleeding Dai does note that recently over the last couple of weeks he has been experiencing some chest tightness/SOB that is mild and intermittent. -he has a hx of A.Fib s/p ablation- notes presentation prior was being stuck on the couch until a.fib passed d/t being physically drained -has been checking his HR using pulse oximeter but it has been under 100 -notes last night he got up to go to the rest room and on his way back he felt like he was going to pass out- checked the pulse ox AND 02 was 88% -Traveled to [place] the beginning of February -COVID + on 02/26/25 -denies fever, cough, worsening fatigue, recent leg/calf pain VITALS: BP: 114/66 Pulse: 80 Resp: 16 SpO2: 96 % General: patient is alert, cooperative, pleasant and in no acute distress Cardiovascular: regular rate and rhythm, normal s1, s2 Respiratory: Diminished RUL, all other lobes clear Lower extremities: no edema, no calf tenderness Abdomen: benign Assessment ASSESSMENT/PLAN: 1. Rectal bleeding - ICD9: 569.3, ICD10: K62.5 Patient was escorted to [facility] desk and assisted to schedule an appt with PCP's office to get CP/SOB/near syncopal episode evaluated- he is agreeable. Provider notified. The operative findings and pathology report were reviewed with the patient, and the patient has had the opportunity to ask questions and have questions answered. If the patient notes any problems or changes in bowel function, the patient should contact me immediately. Otherwise I recommend follow up endoscopy in 10 years. HM updated. Discussed treatment plan and patient voices understanding. Patient's questions answered appropriately. Medications and potential side effects were discussed and patient voices understanding. Return to the office as scheduled or as needed for worsening/no improvement. Mercedes Costa APRN.MIGUEL Allergies As of Date: 03/17/2025 (No Known Allergies) Date Reviewed: 03/17/2025 Reviewed by: Mercedes Costa APRN.SENIOR COPYWRITER - Fully Assessed Reason for Visit: Follow Up [171] Cmt: Denies any concerns Primary Visit Diagnosis:Rectal bleeding [K62.5] Prescriptions as of 03/17/2025 - chlorthalidone (HYGROTON) 25 mg tablet Take 1 tablet by mouth once daily. - metoprolol succinate ER (TOPROL XL) 50 mg 24 hr tablet Take 1 tablet by mouth once daily. - atorvastatin (LIPITOR) 10 mg tablet Take 1 tablet by mouth once daily. - psyllium husk (METAMUCIL ORAL) Take by mouth once daily. - MEDICATION, NON-DATABASE Take by mouth once daily. Flax Seed - L-LYSINE ORAL Take 1 tablet by mouth once daily. - vit O-F-xfzlpn-zinc-lutein (EYE MULTIVIT-LUTEIN,C-E-CU -ZN,) 226 mg-90 mg-2 mg-34.8 mg-5 mg cap Take 1 tablet by mouth once daily. - Tadalafil (CIALIS) 10 mg tablet Take 1 tablet by mouth as directed. TAKE 1-2 HOURS BEFORE SEXUAL INTERCOURSE NEEDED. - aspirin, enteric coated (ASPIR-81) 81 mg EC tablet Take 1 tablet by mouth once daily. - COMPOUNDED PRESCRIPTION KNEE HIGH COMPRESSION STOCKINGS 30-40 MM. DX: EDEMA. - terazosin 5 mg capsule Take 1 capsule by mouth daily at bedtime. Given by Dr. Rivera. - CALCIUM CARBONATE/VITAMIN D3 (CALCIUM 500 + D ORAL) Take by mouth once daily. - ascorbic acid, vitamin C, (VITAMIN C) 500 mg tablet Take 500 mg by mouth once daily. - Garlic ORAL Cap Take one(1) tablet daily. 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 Normal [facility] Comprehensive metabolic 2000 panelon 03-17-2025 Albumin [Mass/Vol] 4.2 g/dL Normal 3.9-4.9 [facility] Comment on above: Order Comment: Speci men Type: BLOOD SPECIMEN Ordering Facility: [facility] Address: [address] [place] [address] Performed By: #### 4 537-7 #### [facility] CLIA [id number] [address] [place] [address] [place] #### 81076-4 #### [facility] CLIA [id number] [address] [place] [address] [place] ALP [Catalytic activity/Vol] 91 U/L Normal 38-113 [facility] Comment on above: Order Comment: Speci men Type: BLOOD SPECIMEN Ordering Facility: [facility] Address: [address] [place] [address] Performed By: #### 4 537-7 #### [facility] CLIA [id number] [address] [place] [address] [place] #### 56260-3 #### [facility] CLIA [id number] [address] [place] [address] [place] ALT [Catalytic activity/Vol] 41 U/L Normal 10-54 [facility] Comment on above: Order Comment: Speci men Type: BLOOD SPECIMEN Ordering Facility: [facility] Address: [address] [place] [address] Performed By: #### 4 537-7 #### [facility] CLIA [id number] [address] [place] [address] [place] #### 34550-8 #### [facility] CLIA [id number] [address] [place] [address] [place] Anion gap [Moles/Vol] 11 mmol/L Normal 8-15 [facility] Comment on above: Order Comment: Speci men Type: BLOOD SPECIMEN Ordering Facility: [facility] Address: [address] [place] [address] Performed By: #### 4 537-7 #### [facility] CLIA [id number] [address] [place] [address] [place] #### 67669-6 #### [facility] CLIA [id number] [address] [place] [address] [place] AST [Catalytic activity/Vol] 28 U/L Normal 14-40 [facility] Comment on above: Order Comment: Speci men Type: BLOOD SPECIMEN Ordering Facility: [facility] Address: [address] [place] [address] Performed By: #### 4 537-7 #### [facility] CLIA [id number] [address] [place] [address] [place] #### 01601-8 #### [facility] CLIA [id number] [address] [place] [address] [place] Bilirubin [Mass/Vol] 0.4 mg/dL Normal 0.2-1.3 [facility] Comment on above: Order Comment: Speci men Type: BLOOD SPECIMEN Ordering Facility: [facility] Address: [address] [place] [address] Performed By: #### 4 537-7 #### [facility] CLIA [id number] [address] [place] [address] [place] #### 28893-9 #### [facility] CL[facility] [id number] [address] [place] [address] [place] Calcium [Mass/Vol] 10.2 mg/dL Normal 8.5-10.2 [facility] Comment on above: Order Comment: Speci men Type: BLOOD SPECIMEN Ordering Facility: [facility] Address: [address] [place] [address] Performed By: #### 4 537-7 #### [facility] CLIA [id number] [address] [place] [address] [place] #### 80708-1 #### [facility] CLIA [id number] [address] [place] [address] [place] Chloride [Moles/Vol] 104 mmol/L Normal 98-107 [facility] Comment on above: Order Comment: Speci men Type: BLOOD SPECIMEN Ordering Facility: [facility] Address: [address] [place] [address] Performed By: #### 4 537-7 #### [facility] CLIA [id number] [address] [place] [address] [place] #### 89712-6 #### [facility] CLIA [id number] [address] [place] [address] [place] CO2 [Moles/Vol] 28 mmol/L Normal 22-30 [facility] Comment on above: Order Comment: Speci men Type: BLOOD SPECIMEN Ordering Facility: [facility] Address: [address] [place] [address] Performed By: #### 4 537-7 #### [facility] CLIA [id number] [address] [place] [address] [place] #### 57491-2 #### [facility] CLIA [id number] [address] [place] [address] [place] Creatinine [Mass/Vol] 0.90 mg/dL Normal 0.73-1.22 [facility] Comment on above: Order Comment: Speci men Type: BLOOD SPECIMEN Ordering Facility: [facility] Address: [address] [place] [address] Performed By: #### 4 537-7 #### [facility] CLIA [id number] [address] [place] [address] [place] #### 20295-4 #### [facility] [id number] [address] [place] [address] [place] Creatinine and Glomerular filtration rate.predicted panel (S/P/Bld) 89 mL/min/1.73m??? Normal >=60 [facility] Comment on above: Order Comment: Eddie bee Type: BLOOD SPECIMEN Ordering Facility: [facility] Address: [address] [place] [address] Result Comment: Tsering mated Glomerular Filtration Rate (eGFR) is calculated using the 2020 CKD-EPI creatinine equation. This equation utilizes serum creatinine, sex, and age as parameters. The creatinine assay has traceable calibration to isotope dilution-mass spectrometry. Refer to KDIGO guidelines for clinical interpretation. In patients with unstable renal function, e.g. those with acute kidney injury, the eGFR may not accurately reflect actual GFR. Performed By: #### 4 537-7 #### [facility] CLIA [id number] [address] [place] [address] [place] #### 92006-3 #### [facility] [id number] [address] [place] [address] [place] Glucose [Mass/Vol] 94 mg/dL Normal 74-99 [facility] Comment on above: Order Comment: Eddie bee Type: BLOOD SPECIMEN Ordering Facility: [facility] Address: [address] [place] [address] Result Comment: The [place] Diabetes Association (ADA) provides guidance for cutoff values for fasting glucose and random glucose. The ADA defines fasting as no caloric intake for at least 8 hours. Fasting plasma glucose results between 100 to 125 mg/dL indicate increased risk for diabetes (prediabetes). Fasting plasma glucose results greater than or equal to 126 mg/dL meet the criteria for diagnosis of diabetes. In the absence of unequivocal hyperglycemia, results should be confirmed by repeat testing. In a patient with classic symptoms of hyperglycemia or hyperglycemic crisis, random plasma glucose results greater than or equal to 200 mg/dL meet the criteria for diagnosis of diabetes. Reference: Standards of Medical Care in Diabetes 2016, [place] [employer] Association. Diabetes Care. 2016.39(Suppl 1). Performed By: #### 4 537-7 #### [facility] CLIA [id number] [address] [place] [address] [place] #### 18842-0 #### [facility] CLIA [id number] [address] [place] [address] [place] Potassium [Moles/Vol] 4.1 mmol/L Normal 3.7-5.1 [facility] Comment on above: Order Comment: Speci men Type: BLOOD SPECIMEN Ordering Facility: [facility] Address: [address] [place] [address] Performed By: #### 4 537-7 #### [facility] CLIA [id number] [address] [place] [address] [place] #### 03637-9 #### [facility] CLIA [id number] [address] [place] [address] [place] Protein [Mass/Vol] 6.6 g/dL Normal 6.3-8.0 [facility] Comment on above: Order Comment: Speci men Type: BLOOD SPECIMEN Ordering Facility: [facility] Address: [address] [place] [address] Performed By: #### 4 537-7 #### [facility] CLIA [id number] [address] [place] [address] [place] #### 01851-0 #### [facility] CLIA [id number] [address] [place] [address] [place] Sodium [Moles/Vol] 143 mmol/L Normal 136-144 [facility] Comment on above: Order Comment: Speci men Type: BLOOD SPECIMEN Ordering Facility: [facility] Address: [address] [place] [address] Performed By: #### 4 537-7 #### [facility] CLIA [id number] [address] [place] [address] [place] #### 71688-8 #### [facility] CLIA [id number] [address] [place] [address] [place] Urea nitrogen [Mass/Vol] 23 mg/dL Normal 9-24 [facility] Comment on above: Order Comment: Speci men Type: BLOOD SPECIMEN Ordering Facility: [facility] Address: [address] [place] [address] Performed By: #### 4 537-7 #### [facility] CLIA [id number] [address] [place] [address] [place] #### 55892-4 #### [facility] CLIA [id number] [address] [place] [address] [place] D dimer FEU PPP-mCncon 03-17 Fibrin D-dimer FEU (PPP) [Mass/Vol] 480 ng/mL FEU Normal <500 [facility] Comment on above: Order Comment: Speci men Type: BLOOD SPECIMEN Ordering Facility: [facility] Address: [address] [place] [address] Performed By: #### 4 537-7 #### [facility] CLIA [id number] [address] [place] [address] [place] #### 55187-3 #### [facility] CLIA [id number] [address] [place] [address] [place] D-DIMERon 03-17-2025 Fibrin D-dimer FEU (PPP) [Mass/Vol] 480 NINF [facility] ECG COMPLETEon 03-17-2025 ECG COMPLETE Ventricular Rate : 7 0 BPM Atrial Rate : 70 BPM P-R Interval : 202 ms QRS Duration : 104 ms Q-T Interval : 404 ms QTC Calculation(Bazett) : 436 ms Calculated P [place] : 67 degrees Calculated R [place] : 17 degrees Calculated T [place] : 44 degrees NORMAL SINUS RHYTHM NORMAL ECG Confirmed by MD STOLL QARAB ([id number]) on 03/18/2025 4:12:56 PM NAME : MONIKA CHOWDHURY PID : [id number] : 1950 Gender : Male Race : ORD : [id number] Procedure Date : Mar 17 2025 11:40:49 Edit Date : Mar 18 2025 16:12:59 Diagnosis: NORMAL SINUS RHYTHM NORMAL ECG Confirmed by MD STOLL QARAB ([id number]) on 03/18/2025 4:12:56 PM Test Reason : R07.9 Chest pain, unspecified type Location : 185 : [facility] Overread By : MD STOLL QARAB Edited By : MD STOLL QARAB Referred By : , Acquired by : [id number], Normal [facility] Fibrin D-dimer FEU (PPP) [Ma ss/Vol]on 03-17-2025 D Dimer Age-related Cutoff 760 ng/mL FEU [facility] 500 ng/mL FEU is the D Dimer cutoff to exclude DVT (deep vein thrombosis) and PE (pulmonary embolism) in patients with a low pre test probability. Supplemental Comment: In patients over 50 years with a low pre test probability for DVT and/or PE, an age adjusted D dimer cutoff can be calculated as [age x 10] ng/mL FEU. For example, a patient of 88 years would have an age adjusted D dimer cutoff of 880 ng/mL FEU. For patients with a suspected DVT, a D dimer level below 500 ng/mL FEU has a negative predictive value of >98.9%, a sensitivity of >96.9% and a specificity of >35.7%. For patients with a suspected PE, a D dimer level below 500 ng/mL FEU has a negative predictive value of >98.5%, and a sensitivity of >96.5% and a specificity of >38.8%. Reference: Joe M, et al. JENSEN 2014 311:1117 and Van Jess N, et al. Kena Int Med 2016 165:253. [facility] D DIMER AGE-RELATED CUTOFF 760 ng/mL FEU Normal [facility] Comment on above: Order Comment: Speci men Type: BLOOD SPECIMEN Ordering Facility: [facility] Address: [address] [place] [address] Performed By: #### 4 537-7 #### [facility] CLIA [id number] [address] [place] [address] [place] #### 51283-1 #### [facility] CLIA [id number] [address] [place] [address] [place] Magnesium SerPl-mCncon 03-17 Magnesium [Mass/Vol] 2.0 mg/dL Normal 1.7-2.3 [facility] Comment on above: Order Comment: Speci men Type: BLOOD SPECIMEN Ordering Facility: [facility] Address: [address] [place] [address] Performed By: #### 4 537-7 #### [facility] CLIA [id number] [address] [place] [address] [place] #### 73141-6 #### [facility] CLIA [id number] [address] [place] [address] [place] XR CHEST 2V FRONTAL/LATon XR CHEST 2V FRONTAL/LAT * * *Final Report* * * DATE OF EXAM: Mar 17 2025 12:43PM WOX [id number] - XR CHEST 2V FRONTAL/LAT / PROCEDURE REASON: multiple diagnoses * * * * Physician Interpretation * * * * EXAMINATION: CHEST RADIOGRAPH (2 VIEW FRONTAL and LATERAL) CLINICAL HISTORY: Chest pain, unspecified type Palpitations MQ: XC2_6 EXAM DATE/TIME: 03/17/2025 12:43 PM COMPARISON: 08/20/2023 RESULT: Lines, tubes, and devices: None. Lungs and pleura: No consolidation. No lung mass. No pleural effusion. No pneumothorax. Cardiomediastinal silhouette: Normal cardiomediastinal silhouette. Bones and soft tissues: Unremarkable. IMPRESSION: No acute radiographic abnormality. Porcelain Mixer: CARLOS Transcribe Date/Time: Mar 17 2025 1:00P Dictated by : LULU ROBERTS MD This examination was interpreted and the report reviewed and electronically signed by: LULU ROBERTS MD on Mar 17 2025 1:01PM EST [id number] Normal [facility] XR Chest PA and Lateralon IMPRESSION: No acute radiographic abnormality. Porcelain Mixer: PSCB Transcribe Date/Time: Mar 17 2025 1:00P Dictated by : LULU ROBERTS MD This examination was interpreted and the report reviewed and electronically signed by: LULU ROBERTS MD on Mar 17 2025 1:01PM EST DIVISION OF RADIOLOGY * * *Final Report* * * DATE OF EXAM: Mar 17 2025 12:43PM WOX [id number] - XR CHEST 2V FRONTAL/LAT / PROCEDURE REASON: multiple diagnoses * * * * Physician Interpretation * * * * EXAMINATION: CHEST RADIOGRAPH (2 VIEW FRONTAL & LATERAL) CLINICAL HISTORY: Chest pain, unspecified type Palpitations MQ: XC2_6 EXAM DATE/TIME: 03/17/2025 12:43 PM COMPARISON: 08/20/2023 RESULT: Lines, tubes, and devices: None. Lungs and pleura: No consolidation. No lung mass. No pleural effusion. No pneumothorax. Cardiomediastinal silhouette: Normal cardiomediastinal silhouette. Bones and soft tissues: Unremarkable. DIVISION OF RADIOLOGY Provider, [facility] - 03/17/2025 * * *Final Report* * * DATE OF EXAM: Mar 17 2025 12:43PM WOX [id number] - XR CHEST 2V FRONTAL/LAT / PROCEDURE REASON: multiple diagnoses * * * * Physician Interpretation * * * * EXAMINATION: CHEST RADIOGRAPH (2 VIEW FRONTAL & LATERAL) CLINICAL HISTORY: Chest pain, unspecified type Palpitations MQ: XC2_6 EXAM DATE/TIME: 03/17/2025 12:43 PM COMPARISON: 08/20/2023 RESULT: Lines, tubes, and devices: None. Lungs and pleura: No consolidation. No lung mass. No pleural effusion. No pneumothorax. Cardiomediastinal silhouette: Normal cardiomediastinal silhouette. Bones and soft tissues: Unremarkable. IMPRESSION IMPRESSION: No acute radiographic abnormality. Porcelain Mixer: CARLOS Transcribe Date/Time: Mar 17 2025 1:00P Dictated by : LULU ROBERTS MD This examination was interpreted and the report reviewed and electronically signed by: LULU ROBERTS MD on Mar 17 2025 1:01PM EST [facility] Radiology Study observation (narrative) [facility] XR Chest PA and LateralOrder ed By: [facility] Provider on 03-17-2025 [facility] [id number] 03-10-2025 [id number] HNO ID: [id number] Author: BETTINA MUSTAFA RN Service: ? Author Type: Registered Nurse Type: [id number] Filed: 03/10/2025 10:24 Note Text: The patient received a copy of Colonoscopy discharge instructions that contain information for how to contact the physician who performed the procedure and when to seek medical care. Normal [facility] Colonoscopyon 03-10-2025 Colonoscopy [facility] Gastrointestinal Endoscopy Patient Name: Monika Chowdhury Procedure Date: 03/10/2025 9:31 AM Date of : 1950 Admit Type: Outpatient Age: 74 Gender: Male Note Status: Finalized Procedure: Colonoscopy Indications: Evaluation of unexplained GI bleeding presenting with Hematochezia Providers: Robert Andre MD Patient Profile: This is a 74 year old male. Refer to note in patient chart for documentation of history and physical. Last Colonoscopy: June 2020. Referring Physician: Mercedes Costa (Referring ) Medicines: Fentanyl 50 micrograms IV, Midazolam 5 mg IV, Diphenhydramine 50 mg IV Complications: No immediate complications. Estimated blood loss: None. Requesting Provider: Procedure: Pre-Anesthesia Assessment: - Prior to the procedure, a History and Physical was performed, and patient medications and allergies were reviewed. The patient's tolerance of previous anesthesia was also reviewed. The risks and benefits of the procedure and the sedation options and risks were discussed with the patient. All questions were answered, and informed consent was obtained. Prior Anticoagulants: The patient has taken no anticoagulant or antiplatelet agents except for aspirin. ASA Grade Assessment: III - A patient with severe systemic disease. After reviewing the risks and benefits, the patient was deemed in satisfactory condition to undergo the procedure. After I obtained informed consent, the scope was passed under direct vision. Throughout the procedure, the patient's blood pressure, pulse, and oxygen saturations were monitored continuously. The Colonoscope was introduced through the anus and advanced to the cecum, identified by appendiceal orifice and ileocecal valve. The colonoscopy was performed without difficulty. The patient tolerated the procedure well. The quality of the bowel preparation was fair. The ileocecal valve, appendiceal orifice, and rectum were photographed. Moderate Sedation: The administration of moderate sedation was initiated at 09:44. Moderate (conscious) sedation was personally administered by the endoscopist. The following parameters were monitored: oxygen saturation, heart rate, blood pressure, respiratory rate, EKG, adequacy of pulmonary ventilation, and response to care. Total physician intraservice time was 16 minutes. Findings: The perianal and digital rectal examinations were normal. Many small-mouthed diverticula were found in the sigmoid colon. Non-bleeding internal hemorrhoids were found during retroflexion. The hemorrhoids were mild and small. The exam was otherwise without abnormality. Impression: - Preparation of the colon was fair. - Diverticulosis in the sigmoid colon. - Non-bleeding internal hemorrhoids. - The examination was otherwise normal. - No specimens collected. Recommendation: - Patient has a contact number available for emergencies. The signs and symptoms of potential delayed complications were discussed with the patient. Return to normal activities tomorrow. Written discharge instructions were provided to the patient. - Resume previous diet. - Continue present medications. - Repeat colonoscopy in 10 years for screening purposes. - Return to nurse practitioner at appointment to be scheduled. - Resume previous antiplatelet medication today at prior dose. Procedure Code(s): --- Professional --- 53602, Colonoscopy, flexible; diagnostic, including collection of specimen(s) by brushing or washing, when performed (separate procedure) G0500, Moderate sedation services provided by the same physician or other qualified health career and guidance counselor performing a gastrointestinal endoscopic service that sedation supports, requiring the presence of an independent trained observer to assist in the monitoring of the patient's level of consciousness and physiological status; initial 15 minutes of intra-service time; patient age 5 years or older (additional time may be reported with 37230, as appropriate) Diagnosis Code(s): --- Professional --- K64.8, Other hemorrhoids K92.1, Melena (includes Hematochezia) K57.30, Diverticulosis of large intestine without perforation or abscess without bleeding CPT copyright 2020 [employer]. All rights reserved. The codes documented in this report are preliminary and upon allergy and immunology chief review may be revised to meet current compliance requirements. Attending Participation: I personally performed the entire procedure. Scope In: 9:48:12 AM Scope Out: 10:00:25 AM MD Robert Joe MD 03/10/2025 10:07:27 AM This report has been signed electronically by Robert Andre MD Number of Addenda: 0 Note Initiated On: 03/10/2025 9:31 AM Estimated Blood Loss: Estimated blood loss: none. Normal [facility] Flexible sigmoidoscopy study on 03-10-2025 [facility] Gastrointestinal Endoscopy Patient Name: Monika Chowdhury Procedure Date: 03/10/2025 9:31 AM Date of : 1950 Admit Type: Outpatient Age: 74 Gender: Male Note Status: Finalized Procedure: Colonoscopy Indications: Evaluation of unexplained GI bleeding presenting with Hematochezia Providers: Robert Andre MD Patient Profile: This is a 74 year old male. Refer to note in patient chart for documentation of history and physical. Last Colonoscopy: June 2020. Referring Physician: Mercedes Costa (Referring MD) Medicines: Fentanyl 50 micrograms IV, Midazolam 5 mg IV, Diphenhydramine 50 mg IV Complications: No immediate complications. Estimated blood loss: None. Requesting Provider: Procedure: Pre-Anesthesia Assessment: - Prior to the procedure, a History and Physical was performed, and patient medications and allergies were reviewed. The patient's tolerance of previous anesthesia was also reviewed. The risks and benefits of the procedure and the sedation options and risks were discussed with the patient. All questions were answered, and informed consent was obtained. Prior Anticoagulants: The patient has taken no anticoagulant or antiplatelet agents except for aspirin. ASA Grade Assessment: III - A patient with severe systemic disease. After reviewing the risks and benefits, the patient was deemed in satisfactory condition to undergo the procedure. After I obtained informed consent, the scope was passed under direct vision. Throughout the procedure, the patient's blood pressure, pulse, and oxygen saturations were monitored continuously. The Colonoscope was introduced through the anus and advanced to the cecum, identified by appendiceal orifice and ileocecal valve. The colonoscopy was performed without difficulty. The patient tolerated the procedure well. The quality of the bowel preparation was fair. The ileocecal valve, appendiceal orifice, and rectum were photographed. Moderate Sedation: The administration of moderate sedation was initiated at 09:44. Moderate (conscious) sedation was personally administered by the endoscopist. The following parameters were monitored: oxygen saturation, heart rate, blood pressure, respiratory rate, EKG, adequacy of pulmonary ventilation, and response to care. Total physician intraservice time was 16 minutes. Findings: The perianal and digital rectal examinations were normal. Many small-mouthed diverticula were found in the sigmoid colon. Non-bleeding internal hemorrhoids were found during retroflexion. The hemorrhoids were mild and small. The exam was otherwise without abnormality. Impression: - Preparation of the colon was fair. - Diverticulosis in the sigmoid colon. - Non-bleeding internal hemorrhoids. - The examination was otherwise normal. - No specimens collected. Recommendation: - Patient has a contact number available for emergencies. The signs and symptoms of potential delayed complications were discussed with the patient. Return to normal activities tomorrow. Written discharge instructions were provided to the patient. - Resume previous diet. - Continue present medications. - Repeat colonoscopy in 10 years for screening purposes. - Return to nurse practitioner at appointment to be scheduled. - Resume previous antiplatelet medication today at prior dose. Procedure Code(s): --- Professional --- 56435, Colonoscopy, flexible; diagnostic, including collection of specimen(s) by brushing or washing, when performed (separate procedure) G0500, Moderate sedation services provided by the same physician or other qualifie (more content not included)... PROVATION [facility] Radiology Study observation (narrative) [facility] HISTORY PHYSICALon HISTORY PHYSICAL HNO ID: [id number] Author: ROBERT ANDRE MD Service: General Surgery Author Type: Physician Type: H&P Filed: 03/10/2025 09:27 Note Text: REVIEW OF SYSTEMS: General: The patient denies fatigue, denies weight loss, denies weight gain, denies feeling hot, and denies feelings of cold. Eyes: The patient denies glaucoma, denies eye injury/surgery, does not wear glasses or contacts. Ear/Nose/Throat: The patient denies allergies, denies hayfever, denies ear infections, and denies bloody noses. Cardiovascular: The patient denies chest pain, denies heart disease, notes high blood pressure,denies cardiac stent, denies prior heart attack, notes irregular heart beat, notes high cholesterol, denies poor circulation, denies heart failure, other cardiac issues, denies claudication, denies cold feet, denies peripheral arterial stent. Respiratory: The patient denies tuberculosis, denies pneumonia, denies frequent cough, denies pulmonary embolism, denies shortness of breath, and denies coughing up blood. Gastrointestinal: The patient denies difficulty swallowing, denies acid reflux, denies ulcers, denies vomiting, denies jaundice/hepatitis, denies gallbladder problems, denies black or tarry stools, denies hemorrhoids, denies bleeding from rectum, denies diverticulitis, denies constipation, denies diarrhea, denies loss of stool control, and denies hernias. Kidney/Bladder: The patient denies kidney stones, denies urine infections, and denies bloody urine. Skin: The patient denies a history of skin cancer, denies bleeding/changing moles, and denies a history of skin rash. Neurologic: The patient denies a history of epilepsy/convulsions, denies headaches, denies head/spinal injuries, and denies stroke/TIA. Psychiatric: The patient denies psychiatric medications, denies depression, and denies voices, denies substance abuse. Endocrine: The patient denies thyroid disorders, denies diabetes, and denies hormonal problems. Hematologic: The patient denies a history of bruising, denies bleeding, and denies anemia, denies blood clots. Infections: The patient denies a history of measles and mumps, denies rheumatic fever, and denies sexually transmitted diseases. Musculoskeletal: The patient denies back pain/injury, denies back problems, denies sciatica, denies knee/foot trouble, denies arthritis, or denies gout. When was patient's last Mammogram screening? N/A Last Colonoscopy: 07/07/2020 Kia Irvin LPN Note Details Progress Notes Paresh, Mercedes, 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 (Nurse Practitioner) General Surgery Expand All Collapse All HISTORY AND PHYSICAL Monika Chowdhury : 1950 REFERRING PHYSICIAN: Fei Gandhi [address] [facility] [address] CHIEF COMPLAINT: Patient presents with: Consult: Rectal bleeding HPI: Monika is a 74 year old male referred for endoscopy. Monika notes rectal bleeding. Monika denies abdominal pain. Monika denies diarrhea. Monika denies constipation. Monika denies a change in bowel habits. Monika denies melena. Monika notes bright red blood per rectum. -on toilet paper AND in underwear -not enough to discolor stool or toilet water -intermittently and only happens when he has been straining Monika notes hemorrhoids. -internal non-bleeding -denies pain and itching -not using anything OTC Monika denies family history of colon issues. Monika follows with [facility] cardiology for hx of CAD s/p stent (2012), A.fib s/p ablation (2019), HTN, and HLD. Last ECHO 08/2024 EF of 56%. He denies CP, SOB, dizziness, palpitations, syncope, edema, recent hospitalizations Monika has undergone prior endoscopy. Last colonoscopy was 06/[address] Jimenez at [facility]. Sedation Midazolam 5 mg IV, Fentanyl 100 micrograms IV, Diphenhydramine 50 mg IV Impression: - Non-bleeding internal hemorrhoids. - No specimens collected. CURRENT MEDICATIONS Current Outpatient Medications Medication Sig Promethazine-DM (PHENERGAN-DM) 6.25-15 mg/5 mL syrup Take 5 mL by mouth four times a day as needed. chlorthalidone (HYGROTON) 25 mg tablet Take 1 tablet by mouth once daily. metoprolol succinate ER (TOPROL XL) 50 mg 24 hr tablet Take 1 tablet by mouth once daily. atorvastatin (LIPITOR) 10 mg tablet Take 1 tablet by mouth once daily. psyllium husk (METAMUCIL ORAL) Take by mouth once daily. MEDICATION, NON-DATABASE Take by mouth once daily. Flax Seed L-LYSINE ORAL Take 1 tablet by mouth once daily. vit Y-C-mwtxnz-zinc-lutein (EYE MULTIVIT-LUTEIN,C-E-CU -ZN,) 226 mg-90 mg-2 mg-34.8 mg-5 mg cap Take 1 tablet by mouth once daily. Tadalafil (CIALIS) 10 mg tablet Take 1 tablet by mouth as directed. TAKE 1-2 HOURS BEFORE SEXUAL INTERCOURSE NEEDED. aspirin, enteric coated (ASPIR-81) 81 mg EC tablet Take 1 tablet by mouth once daily. COMPOUNDED PRESCRIPTION KNEE HIGH COMPRESSION STOCKINGS 30-40 MM. DX: EDEMA. terazosin (more content not included)... [facility] LUCIANAMONIKA ([id number]) 1950 M Date Time Provider Department 02[facility] During your visit today, we recorded the following information about you: Palma Mayer MA 02/27/2025 10:28 AM Signed Patient requesting hycodan called into [facility], no other pharmacy carries it. JARROD Hayes Jonathan, APRN.[facility] 02/27/2025 11:54 AM Signed I am unable to send medication, issue with imprivata. Will try tomorrow with another provider. Advised patient to take otc medication Natividad Sommers LPN 02/28/2025 10:47 AM Signed Pt is calling to check on status of cough medication. Pt wants to make sure provider knows Juan Ramon has cough medication. Pt reports he is coughing a lot. RODO Dominguez Kathy, APRN.SENIOR COPYWRITER 02/28/2025 11:11 AM Signed Medication sent to [facility]. Felisa May APRN.SENIOR COPYWRITER Allergies As of Date: 02/27/2025 (No Known Allergies) Date Reviewed: 02/26/2025 Reviewed by: Fiorella Mcneal LPN - Fully Assessed Reason for Visit: Medication Problem [65] Visit Diagnoses:Acute cough [R05.1] URI, acute [J06.9] Order(s):HYDROcodone-h omatropine (HYCODAN) 5-1.5 mg/5 mL (5 mL) oral liquidTake 5 mL by mouth every 6 hours as needed for up to 5 days.Disp: 100 mLRfl: 0 Prescriptions as of 02/28/2025 - HYDROcodone-homatropin e (HYCODAN) 5-1.5 mg/5 mL (5 mL) oral liquid Take 5 mL by mouth every 6 hours as needed for up to 5 days. - doxycycline (VIBRA-TABS) 100 mg tablet Take 1 tablet by mouth two times a day for 7 days. - chlorthalidone (HYGROTON) 25 mg tablet Take 1 tablet by mouth once daily. - metoprolol succinate ER (TOPROL XL) 50 mg 24 hr tablet Take 1 tablet by mouth once daily. - atorvastatin (LIPITOR) 10 mg tablet Take 1 tablet by mouth once daily. - psyllium husk (METAMUCIL ORAL) Take by mouth once daily. - MEDICATION, NON-DATABASE Take by mouth once daily. Flax Seed - L-LYSINE ORAL Take 1 tablet by mouth once daily. - vit K-I-iibpps-zinc-lutein (EYE MULTIVIT-LUTEIN,C-E-CU -ZN,) 226 mg-90 mg-2 mg-34.8 mg-5 mg cap Take 1 tablet by mouth once daily. - Tadalafil (CIALIS) 10 mg tablet Take 1 tablet by mouth as directed. TAKE 1-2 HOURS BEFORE SEXUAL INTERCOURSE NEEDED. - aspirin, enteric coated (ASPIR-81) 81 mg EC tablet Take 1 tablet by mouth once daily. - COMPOUNDED PRESCRIPTION KNEE HIGH COMPRESSION STOCKINGS 30-40 MM. DX: EDEMA. - terazosin 5 mg capsule Take 1 capsule by mouth daily at bedtime. Given by Dr. Rivera. - CALCIUM CARBONATE/VITAMIN D3 (CALCIUM 500 + D ORAL) Take by mouth once daily. - ascorbic acid, vitamin C, (VITAMIN C) 500 mg tablet Take 500 mg by mouth once daily. - Garlic ORAL Cap Take one(1) tablet daily. Problem List As Of Date 02/27/2025 Noted Resolved Internal hemorrhoids without mention of complic* 05/20/2016 Venous (peripheral) insufficiency [I87.2] 11/19/2005 09/27/2024 Problems with sexual function [F52.9] 05/10/2014 Benign neoplasm of colon [D12.6] 12/18/2005 05/19/2017 ONYCHIA OF TOE [L03.039] 09/04/2006 12/31/2006 OTHER HAMMER TOE [M20.40] 09/05/2006 12/31/2006 EXOSTOSIS, SITE NOS [M89.8X9] 09/05/2006 12/31/2006 BPH with obstruction/lower urinary tract sympto*08/27/2018 Aortic Root Dilatation [I77.810] 08/21/2009 Essential hypertension [I10] 02/09/2010 Seborrheic Keratosis [L82.1] 09/30/2011 01/14/2012 Solar Lentigines [L81.4] 09/30/2011 05/20/2016 Viral warts, unspecified [B07.9] 09/30/2011 01/14/2012 Actinic skin damage [L57.8] 09/30/2011 09/27/2024 Thomas angioma [D18.01] 09/30/2011 01/14/2012 Skin tag [L91.8] 09/30/2011 01/14/2012 Essential tremor [G25.0] 01/14/2012 Paroxysmal atrial fibrillation (HCC) [I48.0] 04/26/2013 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 [G47.33] 06/15/2013 Right-sided low back pain without sciatica [M54*05/20/2016 05/19/2017 Mixed hyperlipidemia [E78.2] 07/19/2019 Coronary artery disease involving [place] lucas*07/19/2019 Encounter for monitoring flecainide therapy [Z5*07/19/2019 03/05/2021 Sigmoiditis [K52.9] 10/20/2023 03/24/2024 Leg edema [R60.0] 08/16/2024 TATE (dyspnea on exertion) [R06.09] 08/16/2024 01/06/2025 Prescriptions ordered this encounter Disp Refills Start End HYDROCODONE-HOMATROPIN E 5 MG-1.5 MG/* 100 * 0 02/28/2025 03/05/2025 Route: ORAL Sig: Take 5 mL by mouth every 6 hours as needed for up to 5 days. Medications Discontinued During This Encounter Prescriptions - HYDROcodone-homatropin e (HYCODAN) 5-1.5 mg/5 mL (5 mL) oral liquid (Discontinued) Take 5 mL by mouth every 6 hours as needed for up to 5 days. Encounter Status:Closed by FELISA MAY on 02/28/25 [facility] CNOVon 02-26-2025 CNOV Office Visit (UCWSTR ) MONIKA CHOWDHURY ([id number]) 1950 M Date Time Provider Department 02/26/25 12:30 PM KIMBERLEY LITTLE[facility]OHN [facility] During your visit today, we recorded the following information about you: Temperature Pulse Respiration Blood pressure 98.2 degrees 89/minute 16/minute 138/82 Weight 85.4 kg Kimberley Littlejohn APRN.SENIOR COPYWRITER 02/26/2025 2:28 PM Signed [facility] Subjective Monika Chowdhury is a 74 year old male. Patient presents with: Cough: Cough and bodyaches x 5 days 74 year old male with PMH CAD, HTN, hyperlipidemia, afib, Acute onset 5 days ago + cough +productive +fatigue +body aches Denies eye Denies ear Denies N/V/D Denies CP Denies dyspnea Of note, he has been in [place] , traveling for 3 weeks [place] Has used OTC cough medicines He has a colonoscopy on Friday The history is provided by the patient. No spanish interpreter was used. Cough This is a new problem. The current episode started more than 2 days ago. The problem occurs constantly. The problem has been gradually worsening. The cough is Productive of sputum. Associated symptoms include headaches, rhinorrhea and myalgias. Pertinent negatives include no chest pain, no chills, no sweats, no weight loss, no ear congestion, no ear pain, no sore throat, no shortness of breath, no wheezing and no eye redness. Treatments tried: see HPI. The treatment provided no relief. He is not a smoker. His past medical history does not include bronchitis, pneumonia, bronchiectasis, COPD, emphysema or asthma. 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 Greenberg, Urology Coronary artery disease involving [place] coronary artery of [place] heart without angina pectoris 07/19/2019 Diverticulosis of colon (without mention of hemorrhage) Essential tremor 01/14/2012 Hypertrophy of prostate with urinary obstruction and other lower urinary tract symptoms (LUTS) 12/31/2006 Ingrown left big toenail 05/2022 infected Internal hemorrhoids without mention of complication Mixed hyperlipidemia 07/19/2019 Near syncope 02/15/2014 bradycardia NASRA on CPAP 06/15/2013 Intolerant to CPAP Problems with sexual function Sigmoiditis 10/20/2023 Umbilical hernia 05/23/2023 Unspecified essential hypertension 02/09/2010 Venous (peripheral) insufficiency 11/19/2005 VENOUS INSUFFICIENCY NOS 11/19/2005 PAST SURGICAL HISTORY Procedure Laterality Date ATRIAL FIBRILLATION/FLUTTER ABLATION 03/29/2020 COLONOSCOPY - DIAGNOSTIC 08/25/20021992, 1994 COLONOSCOPY FLX DX W/COLLJ SPEC WHEN PFRMD 10/12/2012 Colonoscopy repeat 10 years COLONOSCOPY FLX DX W/COLLJ SPEC WHEN PFRMD 07/07/2020 Colonoscopy CYSTOSCOPY 04/12/2015 LAPROSCOPIC REPAIR UMBILICAL HERNIA 05/23/2023 LEFT HEART CATH,PERCUTANEOUS 03/18/2008 Cardiac cath, L heart, normal LEFT HEART CATH,PERCUTANEOUS 05/12/2013 Cardiac cath, L heart. 30-40% LAD. PAST SURGICAL HISTORY OF 1964 left hip surgery after fracture, hardware removed PAST SURGICAL HISTORY OF 08/29/2011 Right index finger repair PAST SURGICAL HISTORY OF 11/2012 Right index Finger repair x 2 REMV CATARACT EXTRACAP,INSERT LENS Bilateral 06/2024 REPAIR UMBILICAL HERNIA 05/23/2023 RPR 1ST INGUN HRNA AGE 5 YRS/> REDUCIBLE 2008 Hernia repair, inguinal x 3 TONSILLECTOMY PRIMARY/SECONDARY Tonsillectomy ALLERGIES Patient has no known allergies. MEDICATIONS chlorthalidone (HYGROTON) 25 mg tablet Take 1 tablet by mouth once daily. metoprolol succinate ER (TOPROL XL) 50 mg 24 hr tablet Take 1 tablet by mouth once daily. atorvastatin (LIPITOR) 10 mg tablet Take 1 tablet by mouth once daily. psyllium husk (METAMUCIL ORAL) Take by mouth once daily. MEDICATION, NON-DATABASE Take by mouth once daily. Flax Seed L-LYSINE ORAL Take 1 tablet by mouth once daily. vit Y-L-ravxwp-zinc-lutein (EYE MULTIVIT-LUTEIN,C-E-CU -ZN,) 226 mg-90 mg-2 mg-34.8 mg-5 mg cap Take 1 tablet by mouth once daily. Tadalafil (CIALIS) 10 mg tablet Take 1 tablet by mouth as directed. TAKE 1-2 HOURS BEFORE SEXUAL INTERCOURSE NEEDED. aspirin, enteric coated (ASPIR-81) 81 mg EC tablet Take 1 tablet by mouth once daily. COMPOUNDED PRESCRIPTION KNEE HIGH COMPRESSION STOCKINGS 30-40 MM. DX: EDEMA. terazosin 5 mg capsule Take 1 capsule by mouth daily at bedtime. Given by Dr. Rivera. CALCIUM CARBONATE/VITAMIN D3 (CALCIUM 500 + D ORAL) Take by mouth once daily. ascorbic acid, vitamin C, (VITAMIN C) 500 mg tablet Take 500 mg by mouth once daily. Garlic ORAL Cap Take one(1) tablet daily. doxycycline (VIBRA-TABS) 100 mg tablet Take 1 tablet by mouth two times a day for 7 (more content not included)... Normal [facility] CNOVon 01-19-2025 CNOV Office Visit (GENSWS ) MONIKA CHOWDHURY ([id number]) 1950 M Date Time Provider Department 01/19/25 1:30 PM MERCEDES COSTA During your visit today, we recorded the following information about you: Temperature Pulse Respiration Blood pressure 97.1 degrees 90/minute 14/minute 120/74 Weight Height 86.6 kg 1.768 m Mercedes Costa APRN.SENIOR COPYWRITER 01/19/2025 3:06 PM Signed HISTORY AND PHYSICAL Monika Chowdhury : 1950 REFERRING PHYSICIAN: Fei Gandhi [address] [facility] [address] CHIEF COMPLAINT: Patient presents with: Consult: Rectal bleeding HPI: Monika is a 74 year old male referred for endoscopy. Monika notes rectal bleeding. Monika denies abdominal pain. Monika denies diarrhea. Monika denies constipation. Monika denies a change in bowel habits. Monika denies melena. Monika notes bright red blood per rectum. -on toilet paper AND in underwear -not enough to discolor stool or toilet water -intermittently and only happens when he has been straining Monika notes hemorrhoids. -internal non-bleeding -denies pain and itching -not using anything OTC Monika denies family history of colon issues. Monika follows with [facility] cardiology for hx of CAD s/p stent (2012), A.fib s/p ablation (2019), HTN, and HLD. Last ECHO 08/2024 EF of 56%. He denies CP, SOB, dizziness, palpitations, syncope, edema, recent hospitalizations Monika has undergone prior endoscopy. Last colonoscopy was 06/[address] Jimenez at [facility]. Sedation Midazolam 5 mg IV, Fentanyl 100 micrograms IV, Diphenhydramine 50 mg IV Impression: - Non-bleeding internal hemorrhoids. - No specimens collected. Current Outpatient Medications Medication Sig Promethazine-DM (PHENERGAN-DM) 6.25-15 mg/5 mL syrup Take 5 mL by mouth four times a day as needed. chlorthalidone (HYGROTON) 25 mg tablet Take 1 tablet by mouth once daily. metoprolol succinate ER (TOPROL XL) 50 mg 24 hr tablet Take 1 tablet by mouth once daily. atorvastatin (LIPITOR) 10 mg tablet Take 1 tablet by mouth once daily. psyllium husk (METAMUCIL ORAL) Take by mouth once daily. MEDICATION, NON-DATABASE Take by mouth once daily. Flax Seed L-LYSINE ORAL Take 1 tablet by mouth once daily. vit Y-Y-orkwzz-zinc-lutein (EYE MULTIVIT-LUTEIN,C-E-CU -ZN,) 226 mg-90 mg-2 mg-34.8 mg-5 mg cap Take 1 tablet by mouth once daily. Tadalafil (CIALIS) 10 mg tablet Take 1 tablet by mouth as directed. TAKE 1-2 HOURS BEFORE SEXUAL INTERCOURSE NEEDED. aspirin, enteric coated (ASPIR-81) 81 mg EC tablet Take 1 tablet by mouth once daily. COMPOUNDED PRESCRIPTION KNEE HIGH COMPRESSION STOCKINGS 30-40 MM. DX: EDEMA. terazosin 5 mg capsule Take 1 capsule by mouth daily at bedtime. Given by Dr. Rivera. CALCIUM CARBONATE/VITAMIN D3 (CALCIUM 500 + D ORAL) Take by mouth once daily. ascorbic acid, vitamin C, (VITAMIN C) 500 mg tablet Take 500 mg by mouth once daily. Garlic ORAL Cap Take one(1) tablet daily. peg 3350-Electrolytes (GOLYTELY) 236-22.74-6.74 -5.86 gram suspension Take 4,000 mL by mouth one time only for 1 dose. Refer to printed prep instructions from your provider. No current facility-administered medications for this visit. ALLERGIES: Patient has no known allergies. 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 Greenberg, Urology Coronary artery disease involving [place] coronary artery of [place] heart without angina pectoris 07/19/2019 Diverticulosis of colon (without mention of hemorrhage) Essential tremor 01/14/2012 Hypertrophy of prostate with urinary obstruction and other lower urinary tract symptoms (LUTS) 12/31/2006 Ingrown left big toenail 05/2022 infected Internal hemorrhoids without mention of complication Mixed hyperlipidemia 07/19/2019 Near syncope 02/15/2014 bradycardia NASRA on CPAP 06/15/2013 Intolerant to CPAP Problems with sexual function Sigmoiditis 10/20/2023 Umbilical hernia 05/23/2023 Unspecified essential hypertension 02/09/2010 Venous (peripheral) insufficiency 11/19/2005 VENOUS INSUFFICIENCY NOS 11/19/2005 PAST SURGICAL HISTORY Procedure Laterality Date ATRIAL FIBRILLATION/FLUTTER ABLATION 03/29/2020 COLONOSCOPY - DIAGNOSTIC 08/25/20021992, 1994 COLONOSCOPY FLX DX W/COLLJ SPEC WHEN PFRMD 10/12/2012 Colonoscopy repeat 10 years COLONOSCOPY FLX DX W/COLLJ SPEC WHEN PFRMD 07/07/2020 Colonoscopy CYSTOSCOPY 04/12/2015 LAPROSCOPIC REPAIR UMBILICAL HERNIA 05/23/2023 LEFT HEART CATH,PERCUTANEOUS 03/18/2008 Cardiac cath, L heart, normal LEFT HEART CATH,PERCUTANEOUS 05/12/2013 Cardiac cath, L heart. 30-40% LAD. PAST SURGICAL HISTO (more content not included)... Normal [facility] CNPNon 01-19-2025 CNPN Telephone (GENSWS) MONIKA CHOWDHURY ([id number]) 1950 M Date Time Provider Department 01/19/25 MERCEDES COSTA GENSERAFIN During your visit today, we recorded the following information about you: Olayinka Ramsay 01/19/2025 2:23 PM Signed 02-28-2025 colon [facility] Allergies As of Date: 01/19/2025 (No Known Allergies) Date Reviewed: 01/19/2025 Reviewed by: Mercedes Costa APRN.SENIOR COPYWRITER - Fully Assessed Reason for Visit: 02-28-2025 colon [facility] [Other] Prescriptions as of 05/12/2025 - atorvastatin (LIPITOR) 10 mg tablet Take 1 tablet by mouth once daily. - metoprolol succinate ER (TOPROL XL) 50 mg 24 hr tablet Take 1 tablet by mouth once daily. - chlorthalidone (HYGROTON) 25 mg tablet Take 1 tablet by mouth once daily. - psyllium husk (METAMUCIL ORAL) Take by mouth once daily. - MEDICATION, NON-DATABASE Take by mouth once daily. Flax Seed - L-LYSINE ORAL Take 1 tablet by mouth once daily. - vit T-B-yiscyl-zinc-lutein (EYE MULTIVIT-LUTEIN,C-E-CU -ZN,) 226 mg-90 mg-2 mg-34.8 mg-5 mg cap Take 1 tablet by mouth once daily. - Tadalafil (CIALIS) 10 mg tablet Take 1 tablet by mouth as directed. TAKE 1-2 HOURS BEFORE SEXUAL INTERCOURSE NEEDED. - aspirin, enteric coated (ASPIR-81) 81 mg EC tablet Take 1 tablet by mouth once daily. - COMPOUNDED PRESCRIPTION KNEE HIGH COMPRESSION STOCKINGS 30-40 MM. DX: EDEMA. - terazosin 5 mg capsule Take 1 capsule by mouth daily at bedtime. Given by Dr. Rivera. - CALCIUM CARBONATE/VITAMIN D3 (CALCIUM 500 + D ORAL) Take by mouth once daily. - ascorbic acid, vitamin C, (VITAMIN C) 500 mg tablet Take 500 mg by mouth once daily. - Garlic ORAL Cap Take one(1) tablet daily. Problem List As Of Date 01/19/2025 Noted Resolved Internal hemorrhoids without mention of complic* 05/20/2016 Venous (peripheral) insufficiency [I87.2] 11/19/2005 09/27/2024 Problems with sexual function [F52.9] 05/10/2014 Benign neoplasm of colon [D12.6] 12/18/2005 05/19/2017 ONYCHIA OF TOE [L03.039] 09/04/2006 12/31/2006 OTHER HAMMER TOE [M20.40] 09/05/2006 12/31/2006 EXOSTOSIS, SITE NOS [M89.8X9] 09/05/2006 12/31/2006 BPH with obstruction/lower urinary tract sympto*08/27/2018 Aortic Root Dilatation [I77.810] 08/21/2009 Essential hypertension [I10] 02/09/2010 Seborrheic Keratosis [L82.1] 09/30/2011 01/14/2012 Solar Lentigines [L81.4] 09/30/2011 05/20/2016 Viral warts, unspecified [B07.9] 09/30/2011 01/14/2012 Actinic skin damage [L57.8] 09/30/2011 09/27/2024 Thomas angioma [D18.01] 09/30/2011 01/14/2012 Skin tag [L91.8] 09/30/2011 01/14/2012 Essential tremor [G25.0] 01/14/2012 Paroxysmal atrial fibrillation (HCC) [I48.0] 04/26/2013 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 [G47.33] 06/15/2013 Right-sided low back pain without sciatica [M54*05/20/2016 05/19/2017 Mixed hyperlipidemia [E78.2] 07/19/2019 Coronary artery disease involving [place] lucas*07/19/2019 Encounter for monitoring flecainide therapy [Z5*07/19/2019 03/05/2021 Sigmoiditis [K52.9] 10/20/2023 03/24/2024 Leg edema [R60.0] 08/16/2024 TATE (dyspnea on exertion) [R06.09] 08/16/2024 01/06/2025 Encounter Status:Closed by OLAYINKA RAMSAY on 05/12/25 Normal [facility] CBC panel Auto (Bld)on 01-06 Erythrocyte distribution width (RBC) [Ratio] 11.9 % 11.5 - 15.0 % [facility] Hematocrit (Bld) [Volume fraction] 41.2 % 39.0 - 51.0 % [facility] Hemoglobin (Bld) [Mass/Vol] 13.8 g/dL 13.0 - 17.0 g/dL [facility] Interpretation and review of laboratory results Normal [facility] MCH (RBC) [Entitic mass] 30.9 pg 26.0 - 34.0 pg [facility] MCHC (RBC) [Mass/Vol] 33.5 g/dL 30.5 - 36.0 g/dL [facility] MCV (RBC) [Entitic vol] 92.2 fL 80.0 - 100.0 fL [facility] Nucleated RBC (Bld) [#/Vol] NINF [facility] Platelet mean volume (Bld) [Entitic vol] 9.7 fL 9.0 - 12.7 fL [facility] Platelets (Bld) [#/Vol] 209 10*3/uL [facility] RBC (Bld) [#/Vol] 4.47 10*6/uL 4.20 - 6.0 0 m/uL [facility] WBC (Bld) [#/Vol] 5.56 10*3/uL [facility] Erythrocyte distribution width (RBC) [Ratio] 11.9 % Normal 11.5-15.0 [facility] Comment on above: Order Comment: Speci men Type: BLOOD SPECIMEN Ordering Facility: [facility] Address: [address] [place], [place] [address] Performed By: #### 4 537-7 #### [facility] CLIA [id number] [address] [place] [address] [place] #### [id number] #### [facility] CLIA [id number] [address] [place] [address] [place] Hematocrit (Bld) [Volume fraction] 41.2 % Normal 39.0-51.0 [facility] Comment on above: Order Comment: Speci men Type: BLOOD SPECIMEN Ordering Facility: [facility] Address: [address] [place] [address] Performed By: #### 4 537-7 #### [facility] CLIA [id number] [address] [place] [address] [place] #### [id number] #### [facility] CLIA [id number] [address] [place] [address] [place] Hemoglobin (Bld) [Mass/Vol] 13.8 g/dL Normal 13.0-17.0 [facility] Comment on above: Order Comment: Speci men Type: BLOOD SPECIMEN Ordering Facility: [facility] Address: [address] [place] [address] Performed By: #### 4 537-7 #### [facility] CLIA [id number] [address] [place] [address] [place] #### [id number] #### [facility] CLIA [id number] [address] [place] [address] [place] MCH (RBC) [Entitic mass] 30.9 pg Normal 26.0-34.0 [facility] Comment on above: Order Comment: Speci men Type: BLOOD SPECIMEN Ordering Facility: [facility] Address: [address] [place] [address] Performed By: #### 4 537-7 #### [facility] CLIA [id number] [address] [place] [address] [place] #### 64781-2 #### [facility] CLIA [id number] [address] [place] [address] [place] MCHC (RBC) [Mass/Vol] 33.5 g/dL Normal 30.5-36.0 [facility] Comment on above: Order Comment: Speci men Type: BLOOD SPECIMEN Ordering Facility: [facility] Address: [address] [place] [address] Performed By: #### 4 537-7 #### [facility] CLIA [id number] [address] [place] [address] [place] #### 44928-1 #### [facility] CLIA [id number] [address] [place] [address] [place] MCV (RBC) [Entitic vol] 92.2 fL Normal 80.0-100.0 [facility] Comment on above: Order Comment: Speci men Type: BLOOD SPECIMEN Ordering Facility: [facility] Address: [address] [place] [address] Performed By: #### 4 537-7 #### [facility] CLIA [id number] [address] [place] [address] [place] #### 86139-7 #### [facility] CLIA [id number] [address] [place] [address] [place] Nucleated RBC (Bld) [#/Vol] 10*3/uL Normal <0.01 [facility] Comment on above: Order Comment: Speci men Type: BLOOD SPECIMEN Ordering Facility: [facility] Address: [address] [place] [address] Performed By: #### 4 537-7 #### [facility] CLIA [id number] [address] [place] [address] [place] #### [id number] #### [facility] CLIA [id number] [address] [place] [address] [place] Platelet mean volume (Bld) [Entitic vol] 9.7 fL Normal 9.0-12.7 [facility] Comment on above: Order Comment: Speci men Type: BLOOD SPECIMEN Ordering Facility: [facility] Address: [address] [place] [address] Performed By: #### 4 537-7 #### [facility] CLIA [id number] [address] [place] [address] [place] #### [id number] #### [facility] CLIA [id number] [address] [place] [address] [place] Platelets (Bld) [#/Vol] 209 10*3/uL Normal 150-400 [facility] Comment on above: Order Comment: Speci men Type: BLOOD SPECIMEN Ordering Facility: [facility] Address: [address] [place] [address] Performed By: #### 4 537-7 #### [facility] CLIA [id number] [address] [place] [address] [place] #### [id number] #### [facility] CLIA [id number] [address] [place] [address] [place] RBC (Bld) [#/Vol] 4.47 10*6/uL Normal 4.20-6.00 [facility] Comment on above: Order Comment: Speci men Type: BLOOD SPECIMEN Ordering Facility: [facility] Address: [address] [place] [address] Performed By: #### 4 537-7 #### [facility] CLIA [id number] [address] [place] [address] [place] #### [id number] #### [facility] CLIA [id number] [address] [place] [address] [place] WBC (Bld) [#/Vol] 5.56 10*3/uL Normal 3.70-11.00 [facility] Comment on above: Order Comment: Speci men Type: BLOOD SPECIMEN Ordering Facility: [facility] Address: [address] [place] [address] Performed By: #### 4 537-7 #### [facility] CLIA [id number] [address] [place] [address] [place] #### [id number] #### [facility] CLIA [id number] [address] [place] [address] [place] CNOVon 01-06-2025 CNOV Office Visit (INTMWS ) MONIKA CHOWDHURY ([id number]) 1950 M Date Time Provider Department 01/06/25 9:00 AM FEI GANDHI INTMWS During your visit today, we recorded the following information about you: Temperature Pulse Respiration Blood pressure 97.1 degrees 80/minute 16/minute 114/70 Weight 87.1 kg Fei Gandhi MD 01/06/2025 9:19 AM Signed This note was created using NoteWriter. Subjective Monika Chowdhury is a 74 year old male. He started noticing bright red blood when he cleaned himself 3 weeks ago, and this has been recurrent. He had no other symptoms. What concerned him was when he noted blood in his underwear. Bleeding has not been profuse enough to discolor stool or toilet water. He is traveling internationally next month and this was part of the concern. He had a history of sigmoiditis, diverticulosis, and internal hemorrhoids. Last colonoscopy was 06/2020. Review of Systems Constitutional: Negative for appetite change, fatigue, fever and unexpected weight change. Respiratory: Negative for shortness of breath. Cardiovascular: Negative. Gastrointestinal: Negative for abdominal pain, constipation, diarrhea, nausea, rectal pain and vomiting. ACTIVE PROBLEM LIST Bph With Obstruction/Lower Urinary Tract Symptoms Aortic Root Dilatation (Hcc) Essential Hypertension Essential Tremor Paroxysmal Atrial Fibrillation (Hcc) 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 Mixed Hyperlipidemia Coronary Artery Disease Involving [place] Coronary Artery of [place] Heart Without Angina Pectoris Leg Edema Tate (Dyspnea On Exertion) Current Outpatient Medications Medication Sig Promethazine-DM (PHENERGAN-DM) 6.25-15 mg/5 mL syrup Take 5 mL by mouth four times a day as needed. chlorthalidone (HYGROTON) 25 mg tablet Take 1 tablet by mouth once daily. metoprolol succinate ER (TOPROL XL) 50 mg 24 hr tablet Take 1 tablet by mouth once daily. atorvastatin (LIPITOR) 10 mg tablet Take 1 tablet by mouth once daily. psyllium husk (METAMUCIL ORAL) Take by mouth. MEDICATION, NON-DATABASE Flax Seed L-LYSINE ORAL Take 1 tablet by mouth once daily. vit E-M-ivorto-zinc-lutein (EYE MULTIVIT-LUTEIN,C-E-CU -ZN,) 226 mg-90 mg-2 mg-34.8 mg-5 mg cap Take 1 tablet by mouth once daily. Tadalafil (CIALIS) 10 mg tablet Take 1 tablet by mouth as directed. TAKE 1-2 HOURS BEFORE SEXUAL INTERCOURSE NEEDED. aspirin, enteric coated (ASPIR-81) 81 mg EC tablet Take 1 tablet by mouth once daily. COMPOUNDED PRESCRIPTION KNEE HIGH COMPRESSION STOCKINGS 30-40 MM. DX: EDEMA. terazosin 5 mg capsule Take 1 capsule by mouth daily at bedtime. Given by Dr. Rivera. CALCIUM CARBONATE/VITAMIN D3 (CALCIUM 500 + D ORAL) Take by mouth once daily. ascorbic acid, vitamin C, (VITAMIN C) 500 mg tablet Take 500 mg by mouth once daily. Garlic ORAL Cap Take one(1) tablet daily. No current facility-administered medications for this visit. Objective BP 114/70 (BP Site: Left Arm, BP Cuff Size: Large Adult) Pulse 80 Temp 36.2 ?C (97.1 ?F) (Temporal) Resp 16 Wt 87.1 kg (192 lb 0.3 oz) BMI 27.87 kg/m? Physical Exam Constitutional: Appearance: Normal appearance. Pulmonary: Effort: Pulmonary effort is normal. Abdominal: General: Bowel sounds are normal. Palpations: Abdomen is soft. There is no mass. Tenderness: There is no abdominal tenderness. Genitourinary: Prostate: Enlarged. Not tender and no nodules present. Rectum: Internal hemorrhoid present. No mass or tenderness. Normal anal tone. Comments: No bleeding. Assessment and Plan 1. Rectal bleeding - ICD9: 569.3, ICD10: K62.5 (primary diagnosis) Shared medical decision making. He can benefit from a short scope at the very least. - COMPLETE BLOOD COUNT - SEDIMENTATION RATE, WESTERGREN - CONSULT TO GENERAL SURGERY 2. Hemorrhoids, unspecified hemorrhoid type - ICD9: 455.6, ICD10: K64.9 - Non inflamed. Fei Gandhi MD Allergies As of Date: 01/06/2025 (No Known Allergies) Date Reviewed: 01/06/2025 Reviewed by: Iris Pedersen LPN - Fully Assessed Reason for Visit: Rectal Problem [93] Primary Visit Diagnosis:Rectal bleeding [K62.5] Other Visit Diagnosis:Hemorrhoids, unspecified hemorrhoid type [K64.9] Order(s):COMPLETE BLOOD COUNT [SQCBC] Order #: [id number] FUTURE SEDIMENTATION RATE, WESTERGREN [SQWSR] Order #: [id number] FUTURE CONSULT TO GENERAL SURGERY [9011] Order #: [id number]: 1 FUTURE Prescriptions as of 01/06/2025 - Promethazine-DM (PHENERGAN-DM) 6.25-15 mg/5 mL syrup Take 5 mL by mouth four times a day as needed. - chlorthalidone (HYGROTON) 25 mg tablet Take 1 tablet by mouth once daily. - metoprolol succinate ER (TOPROL XL) 50 mg 24 hr tablet Take 1 tablet by mouth once daily. - atorvastatin (LIPITOR) 10 mg tablet Take 1 tablet by mouth once daily. - psyllium husk (METAMUCIL ORAL) Take by mouth. (more content not included)... Normal [facility] ESR Westergren method (Bld) [Velocity]on 01-06-2025 ESR (Bld) [Velocity] 5 mm/h Normal 0-15 [facility] Comment on above: Order Comment: Speci men Type: BLOOD SPECIMEN Ordering Facility: [facility] Address: [address] [place] [address] Performed By: #### 4 537-7 #### [facility] CLIA [id number] [address] [place] [address] [place] #### [id number] #### [facility] CLIA [id number] [address] [place] [address] OF [facility] CNOVon 12-13-2024 CNOV Office Visit (INTMWS ) MONIKA CHOWDHURY ([id number]) 1950 M Date Time Provider Department 12/13/24 10:20 AM LESLIE EDDY INTMWS During your visit today, we recorded the following information about you: Pulse Respiration Blood pressure Weight 77/minute 12/minute 132/64 87.9 kg Leslie Eddy, 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 12/13/2024 10:27 AM Signed CC: Patient presents with: Shoulder Injury: LT shoulder x 1 day HPI Monika Chowdhury is a 74 year old male who presents with shoulder pain following injury yesterday. He was kneeling down looking under his car and fell over, striking his left shoulder on the concrete. He denies hearing cracking or popping sound. Pain didn't start until a couple hours later. Localized to the left anterior shoulder. Described as constant ache, worse in certain positions and with certain movements Clicking, locking, popping, feeling like the shoulder is not stable, feeling like the shoulder is giving out: No Associated symptoms: He notes no neck pain, no radiation of shoulder pain, and no numbness or tingling noted of the upper extremity Denies swelling or bruising of the shoulder. exhibits aggravating factors of Overhead activities and Reaching backwards. exhibits alleviating factors of Rest and avoidance of aggravating activities. Treatment: none w Review of Systems See HPI PAST MEDICAL HISTORY Diagnosis Date Actinic skin damage 09/30/2011 Aortic root dilatation (HCC) 08/21/2009 Atrial fibrillation 04/26/2013 Benign neoplasm of colon 12/18/2005 Adenomatous polyp BPH with obstruction/lower urinary tract symptoms 08/27/2018 Dr. Greenberg, Urology Coronary artery disease involving [place] coronary artery of [place] heart without angina pectoris 07/19/2019 Diverticulosis of colon (without mention of hemorrhage) Essential tremor 01/14/2012 Hypertrophy of prostate with urinary obstruction and other lower urinary tract symptoms (LUTS) 12/31/2006 Ingrown left big toenail 05/2022 infected Internal hemorrhoids without mention of complication Mixed hyperlipidemia 07/19/2019 Near syncope 02/15/2014 bradycardia NASRA on CPAP 06/15/2013 Intolerant to CPAP Problems with sexual function Sigmoiditis 10/20/2023 Umbilical hernia 05/23/2023 Unspecified essential hypertension 02/09/2010 Venous (peripheral) insufficiency 11/19/2005 VENOUS INSUFFICIENCY NOS 11/19/2005 PAST SURGICAL HISTORY Procedure Laterality Date ATRIAL FIBRILLATION/FLUTTER ABLATION 03/29/2020 COLONOSCOPY - DIAGNOSTIC 08/25/20021992, 1994 COLONOSCOPY FLX DX W/COLLJ SPEC WHEN PFRMD 10/12/2012 Colonoscopy repeat 10 years COLONOSCOPY FLX DX W/COLLJ SPEC WHEN PFRMD 07/07/2020 Colonoscopy CYSTOSCOPY 04/12/2015 LAPROSCOPIC REPAIR UMBILICAL HERNIA 05/23/2023 LEFT HEART CATH,PERCUTANEOUS 03/18/2008 Cardiac cath, L heart, normal LEFT HEART CATH,PERCUTANEOUS 05/12/2013 Cardiac cath, L heart. 30-40% LAD. PAST SURGICAL HISTORY OF 1964 left hip surgery after fracture, hardware removed PAST SURGICAL HISTORY OF 08/29/2011 Right index finger repair PAST SURGICAL HISTORY OF 11/2012 Right index Finger repair x 2 REMV CATARACT EXTRACAP,INSERT LENS Bilateral 06/2024 REPAIR UMBILICAL HERNIA 05/23/2023 RPR 1ST INGUN HRNA AGE 5 YRS/> REDUCIBLE 2008 Hernia repair, inguinal x 3 TONSILLECTOMY PRIMARY/SECONDARY Tonsillectomy ALLERGIES Patient has no known allergies. MEDICATIONS chlorthalidone (HYGROTON) 25 mg tablet Take 1 tablet by mouth once daily. metoprolol succinate ER (TOPROL XL) 50 mg 24 hr tablet Take 1 tablet by mouth once daily. atorvastatin (LIPITOR) 10 mg tablet Take 1 tablet by mouth once daily. psyllium husk (METAMUCIL ORAL) Take by mouth. MEDICATION, NON-DATABASE Flax Seed L-LYSINE ORAL Take 1 tablet by mouth once daily. vit D-B-kkffgc-zinc-lutein (EYE MULTIVIT-LUTEIN,C-E-CU -ZN,) 226 mg-90 mg-2 mg-34.8 mg-5 mg cap Take 1 tablet by mouth once daily. Tadalafil (CIALIS) 10 mg tablet Take 1 tablet by mouth as directed. TAKE 1-2 HOURS BEFORE SEXUAL INTERCOURSE NEEDED. aspirin, enteric coated (ASPIR-81) 81 mg EC tablet Take 1 tablet by mouth once daily. COMPOUNDED PRESCRIPTION KNEE HIGH COMPRESSION STOCKINGS 30-40 MM. DX: EDEMA. terazosin 5 mg capsule Take 1 capsule by mouth daily at bedtime. Given by Dr. Rivera. CALCIUM CARBONATE/VITAMIN D3 (CALCIUM 500 + D ORAL) Take by mouth once daily. ascorbic acid, vitamin C, (VITAMIN C) 500 mg tablet Take 500 mg by mouth once daily. Garlic ORAL Cap Take one(1) tablet daily. Promethazine-DM (PHENERGAN-DM) 6.25-15 mg/5 mL syrup Take 5 mL by mouth four times a day as needed. FAMILY HISTORY Problem Relation Age of Onset Arthritis Mother other (Other) Mother fall, natural causes Heart Father CABG other (Cholesterol) Father Prostate Cancer Brother 62 Glaucoma Brother Arthritis [facility] (more content not included)... Normal [facility] Joce 12-13-2024 MIGUELN Telephone (INTMWS) MONIKA CHOWDHURY ([id number]) 1950 M Date Time Provider Department 2/3/25 LESLIE EDDY INTMWS During your visit today, we recorded the following information about you: Iris Pedersen LPN 12/13/2024 1:25 PM Signed ----- Message from Leslie Eddy APRN.SENIOR COPYWRITER sent at 12/13/2024 1:15 PM EST ----- Please let the patient know the x-ray was negative for fracture or dislocation. Recommend gentle stretching, Tylenol, topical analgesics, ice and/or heat. Avoid heavy lifting or strenuous activities involving the left arm. Follow-up in two weeks if no improvement or sooner if worsening Leslie Eddy APRN.Iris Hinojosa LPN 12/13/2024 1:28 PM Signed Patient notified of below results/recommendation s, verbalized understanding. Iris Pedersen LPN Allergies As of Date: 12/13/2024 (No Known Allergies) Date Reviewed: 12/13/2024 Reviewed by: Leslie Eddy APRN.SENIOR COPYWRITER - Fully Assessed Reason for Visit: Results [95] Prescriptions as of 12/13/2024 - Promethazine-DM (PHENERGAN-DM) 6.25-15 mg/5 mL syrup Take 5 mL by mouth four times a day as needed. - chlorthalidone (HYGROTON) 25 mg tablet Take 1 tablet by mouth once daily. - metoprolol succinate ER (TOPROL XL) 50 mg 24 hr tablet Take 1 tablet by mouth once daily. - atorvastatin (LIPITOR) 10 mg tablet Take 1 tablet by mouth once daily. - psyllium husk (METAMUCIL ORAL) Take by mouth. - MEDICATION, NON-DATABASE Flax Seed - L-LYSINE ORAL Take 1 tablet by mouth once daily. - vit S-L-azjlmg-zinc-lutein (EYE MULTIVIT-LUTEIN,C-E-CU -ZN,) 226 mg-90 mg-2 mg-34.8 mg-5 mg cap Take 1 tablet by mouth once daily. - Tadalafil (CIALIS) 10 mg tablet Take 1 tablet by mouth as directed. TAKE 1-2 HOURS BEFORE SEXUAL INTERCOURSE NEEDED. - aspirin, enteric coated (ASPIR-81) 81 mg EC tablet Take 1 tablet by mouth once daily. - COMPOUNDED PRESCRIPTION KNEE HIGH COMPRESSION STOCKINGS 30-40 MM. DX: EDEMA. - terazosin 5 mg capsule Take 1 capsule by mouth daily at bedtime. Given by Dr. Rivera. - CALCIUM CARBONATE/VITAMIN D3 (CALCIUM 500 + D ORAL) Take by mouth once daily. - ascorbic acid, vitamin C, (VITAMIN C) 500 mg tablet Take 500 mg by mouth once daily. - Garlic ORAL Cap Take one(1) tablet daily. Problem List As Of Date 12/13/2024 Noted Resolved Internal hemorrhoids without mention of complic* 05/20/2016 Venous (peripheral) insufficiency [I87.2] 11/19/2005 09/27/2024 Problems with sexual function [F52.9] 05/10/2014 Benign neoplasm of colon [D12.6] 12/18/2005 05/19/2017 ONYCHIA OF TOE [L03.039] 09/04/2006 12/31/2006 OTHER HAMMER TOE [M20.40] 09/05/2006 12/31/2006 EXOSTOSIS, SITE NOS [M89.8X9] 09/05/2006 12/31/2006 BPH with obstruction/lower urinary tract sympto*08/27/2018 Aortic Root Dilatation [I77.810] 08/21/2009 Essential hypertension [I10] 02/09/2010 Seborrheic Keratosis [L82.1] 09/30/2011 01/14/2012 Solar Lentigines [L81.4] 09/30/2011 05/20/2016 Viral warts, unspecified [B07.9] 09/30/2011 01/14/2012 Actinic skin damage [L57.8] 09/30/2011 09/27/2024 Thomas angioma [D18.01] 09/30/2011 01/14/2012 Skin tag [L91.8] 09/30/2011 01/14/2012 Essential tremor [G25.0] 01/14/2012 Paroxysmal atrial fibrillation (HCC) [I48.0] 04/26/2013 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 [G47.33] 06/15/2013 Right-sided low back pain without sciatica [M54*05/20/2016 05/19/2017 Mixed hyperlipidemia [E78.2] 07/19/2019 Coronary artery disease involving [place] lucas*07/19/2019 Encounter for monitoring flecainide therapy [Z5*07/19/2019 03/05/2021 Sigmoiditis [K52.9] 10/20/2023 03/24/2024 Leg edema [R60.0] 08/16/2024 TATE (dyspnea on exertion) [R06.09] 08/16/2024 Encounter Status:Closed by IRIS PEDERSEN on 12/13/24 Normal [facility] XR SHLDR >/=3V AP/MARIE AP/OTH R LTon 12-13-2024 XR SHLDR >/=3V AP/MARIE AP/OTHR LT * * *Final Report* * * DATE OF EXAM: Dec 13 2024 12:07PM WRX [id number] - XR SHLDR >/=3V AP/MARIE AP/OTHR LT / PROCEDURE REASON: multiple diagnoses * * * * Physician Interpretation * * * * EXAMINATION: XR SHLDR >/=3V AP/MARIE AP/OTHR LT PATIENT/TECHNOLOGIST PROVIDED HISTORY: pt fell onto left shoulder 4 days ago. Left shoulder pain CLINICAL INFORMATION: 74 years old Male with Acute pain of left shoulder Injury of left shoulder, initial encounter TECHNIQUE: XR SHLDR >/=3V AP/MARIE AP/OTHR LT Laterality: LEFT Number of different views (projections): 3 COMPARISON: Radiographs 03/15/2011 RESULT: No acute fracture or dislocation. Glenohumeral joint space is maintained with small marginal osteophytes. Mild degenerative change acromioclavicular joint. Acromiohumeral interval is maintained. Faint calcification adjacent to the greater tuberosity suggestive of rotator cuff calcific tendinosis less prominent compared to radiographs 03/15/2011. IMPRESSION: No acute osseous abnormality. Mild degenerative changes. Porcelain Mixer: PSCB Transcribe Date/Time: Dec 13 2024 1:02P Dictated by : BE VALIENTE DO This examination was interpreted and the report reviewed and electronically signed by: BE VALIENTE DO on Dec 13 2024 1:03PM EST [id number] Normal [facility] XR Shoulder - left 3 Viewson 12-13-2024 IMPRESSION: No acute osseous abnormality. Mild degenerative changes. Porcelain Mixer: PSCB Transcribe Date/Time: Dec 13 2024 1:02P Dictated by : BE VALIENTE DO This examination was interpreted and the report reviewed and electronically signed by: BE VALIENTE DO on Dec 13 2024 1:03PM [facility] DIVISION OF RADIOLOGY * * *Final Report* * * DATE OF EXAM: Dec 13 2024 12:07PM WRX 5252 - XR SHLDR >/=3V AP/MARIE AP/OTHR LT / PROCEDURE REASON: multiple diagnoses * * * * Physician Interpretation * * * * EXAMINATION: XR SHLDR >/=3V AP/MARIE AP/OTHR LT PATIENT/TECHNOLOGIST PROVIDED HISTORY: pt fell onto left shoulder 4 days ago. Left shoulder pain CLINICAL INFORMATION: 74 years old Male with Acute pain of left shoulder Injury of left shoulder, initial encounter TECHNIQUE: XR SHLDR >/=3V AP/MARIE AP/OTHR LT Laterality: LEFT Number of different views (projections): 3 COMPARISON: Radiographs 03/15/2011 RESULT: No acute fracture or dislocation. Glenohumeral joint space is maintained with small marginal osteophytes. Mild degenerative change acromioclavicular joint. Acromiohumeral interval is maintained. Faint calcification adjacent to the greater tuberosity suggestive of rotator cuff calcific tendinosis less prominent compared to radiographs 03/15/2011. DIVISION OF RADIOLOGY Provider, [facility] - 12/13/2024 * * *Final Report* * * DATE OF EXAM: Dec 13 2024 12:07PM WRX 5252 - XR SHLDR >/=3V AP/MARIE AP/OTHR LT / PROCEDURE REASON: multiple diagnoses * * * * Physician Interpretation * * * * EXAMINATION: XR SHLDR >/=3V AP/MARIE AP/OTHR LT PATIENT/TECHNOLOGIST PROVIDED HISTORY: pt fell onto left shoulder 4 days ago. Left shoulder pain CLINICAL INFORMATION: 74 years old Male with Acute pain of left shoulder Injury of left shoulder, initial encounter TECHNIQUE: XR SHLDR >/=3V AP/MARIE AP/OTHR LT Laterality: LEFT Number of different views (projections): 3 COMPARISON: Radiographs 03/15/2011 RESULT: No acute fracture or dislocation. Glenohumeral joint space is maintained with small marginal osteophytes. Mild degenerative change acromioclavicular joint. Acromiohumeral interval is maintained. Faint calcification adjacent to the greater tuberosity suggestive of rotator cuff calcific tendinosis less prominent compared to radiographs 03/15/2011. IMPRESSION IMPRESSION: No acute osseous abnormality. Mild degenerative changes. Porcelain Mixer: PSCB Transcribe Date/Time: Dec 13 2024 1:02P Dictated by : BE VALIENTE DO This examination was interpreted and the report reviewed and electronically signed by: BE VALIENTE DO on Dec 13 2024 1:03PM [facility] Radiology Study observation (narrative) [facility] XR Shoulder - left 3 ViewsOr dered By: Jess Provider on 12-13-2024 [facility] 11[facility]11-2024 [facility] MONIKA CHOWDHURY ([id number]) 1950 M Date Time Provider Department 11/11/24 NAVIN TERRAZAS [facility] During your visit today, we recorded the following information about you: Navin Terrazas APRN.SENIOR COPYWRITER 11/11/2024 7:22 AM Signed Please inform patient that he was positive for influenza A. This is a respiratory virus. Supportive therapies as discussed during visit.. Increase fluids. Most contagious the first 5 days of illness. Follow-up with PCP if symptoms do not improve or worsen. Navin Terrazas APRN.Monik Licona MA 11/11/2024 9:28 AM Signed Patient notified of results, verbalized understanding of instructions given. Monik Terry MA Allergies As of Date: 11/11/2024 (No Known Allergies) Date Reviewed: 11/10/2024 Reviewed by: Fiorella Mcneal LPN - Fully Assessed Reason for Visit: Results [95] Prescriptions as of 11/11/2024 - Promethazine-DM (PHENERGAN-DM) 6.25-15 mg/5 mL syrup Take 5 mL by mouth four times a day as needed. - chlorthalidone (HYGROTON) 25 mg tablet Take 1 tablet by mouth once daily. - metoprolol succinate ER (TOPROL XL) 50 mg 24 hr tablet Take 1 tablet by mouth once daily. - atorvastatin (LIPITOR) 10 mg tablet Take 1 tablet by mouth once daily. - psyllium husk (METAMUCIL ORAL) Take by mouth. - MEDICATION, NON-DATABASE Flax Seed - L-LYSINE ORAL Take 1 tablet by mouth once daily. - vit B-J-begvkt-zinc-lutein (EYE MULTIVIT-LUTEIN,C-E-CU -ZN,) 226 mg-90 mg-2 mg-34.8 mg-5 mg cap Take 1 tablet by mouth once daily. - Tadalafil (CIALIS) 10 mg tablet Take 1 tablet by mouth as directed. TAKE 1-2 HOURS BEFORE SEXUAL INTERCOURSE NEEDED. - aspirin, enteric coated (ASPIR-81) 81 mg EC tablet Take 1 tablet by mouth once daily. - COMPOUNDED PRESCRIPTION KNEE HIGH COMPRESSION STOCKINGS 30-40 MM. DX: EDEMA. - terazosin 5 mg capsule Take 1 capsule by mouth daily at bedtime. Given by Dr. Rivera. - CALCIUM CARBONATE/VITAMIN D3 (CALCIUM 500 + D ORAL) Take by mouth once daily. - ascorbic acid, vitamin C, (VITAMIN C) 500 mg tablet Take 500 mg by mouth once daily. - Garlic ORAL Cap Take one(1) tablet daily. Problem List As Of Date 11/11/2024 Noted Resolved Internal hemorrhoids without mention of complic* 05/20/2016 Venous (peripheral) insufficiency [I87.2] 11/19/2005 09/27/2024 Problems with sexual function [F52.9] 05/10/2014 Benign neoplasm of colon [D12.6] 12/18/2005 05/19/2017 ONYCHIA OF TOE [L03.039] 09/04/2006 12/31/2006 OTHER HAMMER TOE [M20.40] 09/05/2006 12/31/2006 EXOSTOSIS, SITE NOS [M89.8X9] 09/05/2006 12/31/2006 BPH with obstruction/lower urinary tract sympto*08/27/2018 Aortic Root Dilatation [I77.810] 08/21/2009 Essential hypertension [I10] 02/09/2010 Seborrheic Keratosis [L82.1] 09/30/2011 01/14/2012 Solar Lentigines [L81.4] 09/30/2011 05/20/2016 Viral warts, unspecified [B07.9] 09/30/2011 01/14/2012 Actinic skin damage [L57.8] 09/30/2011 09/27/2024 Thomas angioma [D18.01] 09/30/2011 01/14/2012 Skin tag [L91.8] 09/30/2011 01/14/2012 Essential tremor [G25.0] 01/14/2012 Paroxysmal atrial fibrillation (HCC) [I48.0] 04/26/2013 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 [G47.33] 06/15/2013 Right-sided low back pain without sciatica [M54*05/20/2016 05/19/2017 Mixed hyperlipidemia [E78.2] 07/19/2019 Coronary artery disease involving [place] lucas*07/19/2019 Encounter for monitoring flecainide therapy [Z5*07/19/2019 03/05/2021 Sigmoiditis [K52.9] 10/20/2023 03/24/2024 Leg edema [R60.0] 08/16/2024 TATE (dyspnea on exertion) [R06.09] 08/16/2024 Encounter Status:Closed by MONIK TERRY on 11/11/24 [facility] CNOVon 11-10-2024 CNOV Office Visit ([facility] ) MONIKA CHOWDHURY ([id number]) 1950 M Date Time Provider Department 1/1/25 10:30 AM MIS KAPOOR [facility] During your visit today, we recorded the following information about you: Temperature Pulse Respiration Blood pressure 99.7 degrees 99/minute 18/minute 138/80 Weight 88 kg Mis Kapoor APRN.SENIOR COPYWRITER 11/10/2024 10:40 AM Signed covid and influenza test ordered You will be notified in 12-24 hours, results available on MyChart Rest, increase water intake Motrin or Tylenol as needed for fever or pain. Salt water gargles, chloraseptic spray or lozenges as needed for sore throat. Warm beverages, honey. Nasal saline spray as needed Cool mist humidifier at night Tylenol (generic acetaminophen) 500 mg-2 tabs every 8 hrs. as needed for fever and aches Ibuprofen 600 mg (3-200mg tablets) every 6 hours -Mucinex (generic is fine) Guaifenesin 1200 mg twice daily to help with cough and to thin out mucus * Seek medical care immediately, call 911, go to ER if you have chest pain, difficulty breathing, shortness of breath, inability to swallow. Mis Kapoor APRN.SENIOR COPYWRITER 11/10/2024 10:52 AM Signed Subjective The history is provided by the patient. No spanish interpreter was used. HPI Monika Chowdhury is a 74 year old male who presents today for CC of cough, congestion, post nasal drainage and runny nose for 2 days. He has used robitussin dm without relief. He denies any fever chills body aches, nausea, vomiting or diarrhea. No known exposure BP 138/80 Pulse 99 Temp 37.6 ?C (99.7 ?F) (Tympanic) Resp 18 Wt 88 kg (194 lb 0.1 oz) SpO2 97% BMI 28.16 kg/m? Social History Tobacco Use Smoking status: Never Smokeless tobacco: Never Vaping Use Vaping status: Never Used Substance Use Topics Alcohol use: Yes Comment: 2-4 beers per month. 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 Greenberg, Urology Coronary artery disease involving [place] coronary artery of [place] heart without angina pectoris 07/19/2019 Diverticulosis of colon (without mention of hemorrhage) Essential tremor 01/14/2012 Hypertrophy of prostate with urinary obstruction and other lower urinary tract symptoms (LUTS) 12/31/2006 Ingrown left big toenail 05/2022 infected Internal hemorrhoids without mention of complication Mixed hyperlipidemia 07/19/2019 Near syncope 02/15/2014 bradycardia NASRA on CPAP 06/15/2013 Intolerant to CPAP Problems with sexual function Sigmoiditis 10/20/2023 Umbilical hernia 05/23/2023 Unspecified essential hypertension 02/09/2010 Venous (peripheral) insufficiency 11/19/2005 VENOUS INSUFFICIENCY NOS 11/19/2005 I have confirmed and edited as necessary, the [facility] Review of Systems Constitutional: Negative for chills, fever and malaise/fatigue. HENT: Positive for congestion and sinus pain. Negative for ear pain and sore throat. Respiratory: Positive for cough. Negative for sputum production, shortness of breath and wheezing. Cardiovascular: Negative for chest pain. Gastrointestinal: Negative for abdominal pain, diarrhea, nausea and vomiting. Musculoskeletal: Negative for myalgias. Neurological: Negative for headaches. Objective Physical Exam Vitals and nursing note reviewed. Constitutional: Appearance: He is not toxic-appearing. HENT: Head: Normocephalic and atraumatic. Right Ear: Tympanic membrane, ear canal and external ear normal. Left Ear: Tympanic membrane, ear canal and external ear normal. Nose: Mucosal edema, congestion and rhinorrhea present. Right Sinus: No maxillary sinus tenderness or frontal sinus tenderness. Left Sinus: No maxillary sinus tenderness or frontal sinus tenderness. Mouth/Throat: Pharynx: Uvula midline. Oropharyngeal exudate and posterior oropharyngeal erythema present. Tonsils: No tonsillar abscesses. Cardiovascular: Rate and Rhythm: Normal rate and regular rhythm. Heart sounds: Normal heart sounds. Pulmonary: Effort: Pulmonary effort is normal. Breath sounds: Normal breath sounds. No decreased breath sounds, wheezing, rhonchi or rales. Lymphadenopathy: Head: Right side of head: No submental, submandibular, tonsillar or preauricular adenopathy. Left side of head: No submental, submandibular, tonsillar or preauricular adenopathy. Cervical: No cervical adenopathy. Right cervical: No superficial cervical adenopathy. Left cervical: No superficial cervical adenopathy. Neurological: Mental Status: He is alert. ASSESSMENT/PLAN: 1. URI with cough and congestion - ICD9: 465.9, ICD10: J06.9 - Discussed viral etiology and rationale for treatment. - Symptomatic xochitl (more content not included)... Normal [facility] COVID AND INFLUENZA A/B AND RSV PCR, ROUTINEon 11-10-2024 SARS-CoV-2 (COVID-19) RNA RAFFY+probe Ql (Unsp spec) SARS-COV-2 (AGENT OF COVID-19) RNA: Not detected INFLUENZA A RNA: Detected INFLUENZA B RNA: Not detected RESPIRATORY SYNCYTIAL VIRUS (RSV) RNA: Not detected Abnormal [facility] Comment on above: Performed By: #### 2 4323-8, 46993-0, 98613-7 #### [facility] CLIA [id number] [address] [place] [address] OF [facility] CNOVon 09-27-2024 CNOV Office Visit (INTMWS ) MONIKA CHOWDHURY ([id number]) 1950 M Date Time Provider Department 09/27/24 4:40 PM FEI GANDHI INTMWS During your visit today, we recorded the following information about you: Temperature Pulse Respiration Blood pressure 97.2 degrees 68/minute 16/minute 126/62 Weight Height 88.6 kg 1.768 m Fei Gandhi MD 09/27/2024 5:51 PM Signed This note was created using Liquid Xriter. Subjective Patient presents with: Yearly Exam F/U 6 months Monika Chowdhury is a 74 year old male. He had cerumen issues affecting his hearing aid on the left. His hypertension, hyperlipidemia, venous insufficiency were controlled. He just saw cardiology and chlorthalidone was added. Review of Systems Constitutional: Negative for activity change, fatigue and unexpected weight change. HENT: Positive for hearing loss. Eyes: Negative for visual disturbance. Respiratory: Negative for cough, chest tightness and shortness of breath. Cardiovascular: Positive for leg swelling. Negative for chest pain and palpitations. Gastrointestinal: Negative for abdominal pain, constipation and diarrhea. Genitourinary: Negative for difficulty urinating and dysuria. Musculoskeletal: Negative for arthralgias. Skin: Negative. Neurological: Negative for dizziness and headaches. 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 Greenberg, Urology Coronary artery disease involving [place] coronary artery of [place] heart without angina pectoris 07/19/2019 Diverticulosis of colon (without mention of hemorrhage) Essential tremor 01/14/2012 Hypertrophy of prostate with urinary obstruction and other lower urinary tract symptoms (LUTS) 12/31/2006 Ingrown left big toenail 05/2022 infected Internal hemorrhoids without mention of complication Mixed hyperlipidemia 07/19/2019 Near syncope 02/15/2014 bradycardia NASRA on CPAP 06/15/2013 Intolerant to CPAP Problems with sexual function Sigmoiditis 10/20/2023 Umbilical hernia 05/23/2023 Unspecified essential hypertension 02/09/2010 Venous (peripheral) insufficiency 11/19/2005 VENOUS INSUFFICIENCY NOS 11/19/2005 PAST SURGICAL HISTORY Procedure Laterality Date ATRIAL FIBRILLATION/FLUTTER ABLATION 03/29/2020 COLONOSCOPY - DIAGNOSTIC 08/25/20021992, 1994 COLONOSCOPY FLX DX W/COLLJ SPEC WHEN PFRMD 10/12/2012 Colonoscopy repeat 10 years COLONOSCOPY FLX DX W/COLLJ SPEC WHEN PFRMD 07/07/2020 Colonoscopy CYSTOSCOPY 04/12/2015 LAPROSCOPIC REPAIR UMBILICAL HERNIA 05/23/2023 LEFT HEART CATH,PERCUTANEOUS 03/18/2008 Cardiac cath, L heart, normal LEFT HEART CATH,PERCUTANEOUS 05/12/2013 Cardiac cath, L heart. 30-40% LAD. PAST SURGICAL HISTORY OF 1964 left hip surgery after fracture, hardware removed PAST SURGICAL HISTORY OF 08/29/2011 Right index finger repair PAST SURGICAL HISTORY OF 11/2012 Right index Finger repair x 2 REMV CATARACT EXTRACAP,INSERT LENS Bilateral 06/2024 REPAIR UMBILICAL HERNIA 05/23/2023 RPR 1ST INGUN HRNA AGE 5 YRS/> REDUCIBLE 2007 Hernia repair, inguinal x 3 TONSILLECTOMY PRIMARY/SECONDARY Tonsillectomy FAMILY HISTORY Problem Relation Age of Onset Arthritis Mother other (Other) Mother fall, natural causes Heart Father CABG other (Cholesterol) Father Prostate Cancer Brother 62 Glaucoma Brother Arthritis Brother lumbago Coronary Artery Disease Brother stents Arthritis Brother lumbago Arrhythmia Brother Atrial fibrillation Diabetes Paternal Grandmother Social History Tobacco Use Smoking status: Never Smokeless tobacco: Never Vaping Use Vaping status: Never Used Substance Use Topics Alcohol use: Yes Comment: 2-4 beers per month. Drug use: No ALLERGIES No Known Allergies Current Outpatient Medications Medication Sig chlorthalidone (HYGROTON) 25 mg tablet Take 1 tablet by mouth once daily. metoprolol succinate ER (TOPROL XL) 50 mg 24 hr tablet Take 1 tablet by mouth once daily. atorvastatin (LIPITOR) 10 mg tablet Take 1 tablet by mouth once daily. psyllium husk (METAMUCIL ORAL) Take by mouth. MEDICATION, NON-DATABASE Flax Seed L-LYSINE ORAL Take 1 tablet by mouth once daily. Tadalafil (CIALIS) 10 mg tablet Take 1 tablet by mouth as directed. TAKE 1-2 HOURS BEFORE SEXUAL INTERCOURSE NEEDED. aspirin, enteric coated (ASPIR-81) 81 mg EC tablet Take 1 tablet by mouth once daily. COMPOUNDED PRESCRIPTION KNEE HIGH COMPRESSION STOCKINGS 30-40 MM. DX: EDEMA. terazosin 5 mg capsule Take 1 capsule by mouth daily at bedtime. Given by Dr. Rivera. CALCIUM CARBONATE/VITAMIN D3 (CALCIUM 500 + D ORAL) Take by mouth once daily. ascorbic acid, (more content not included)... Normal [facility] CBC panel Auto (Bld)on 09-04 Erythrocyte distribution width (RBC) [Ratio] 11.2 % Low 11.5-15.0 [facility] Comment on above: Order Comment: Speci men Type: BLOOD SPECIMEN Ordering Facility: [facility] Address: [address] [place] [address] Performed By: #### 4 537-7 #### [facility] CLIA [id number] [address] [place] [address] [place] [address] [place] #### 17070-8 #### [facility] CLIA [id number] [address] [place] [address] [place] Hematocrit (Bld) [Volume fraction] 45.3 % Normal 39.0-51.0 [facility] Comment on above: Order Comment: Speci men Type: BLOOD SPECIMEN Ordering Facility: [facility] Address: [address] [place] [address] Performed By: #### 4 537-7 #### [facility] CLIA [id number] [address] [place] [address] [place] #### 17328-8 #### [facility] CLIA [id number] [address] [place] [address] [place] Hemoglobin (Bld) [Mass/Vol] 14.8 g/dL Normal 13.0-17.0 [facility] Comment on above: Order Comment: Speci men Type: BLOOD SPECIMEN Ordering Facility: [facility] Address: [address] [place] [address] Performed By: #### 4 537-7 #### [facility] CLIA [id number] [address] [place] [address] [place] #### 81714-5 #### [facility] CLIA [id number] [address] [place] [address] [place] MCH (RBC) [Entitic mass] 30.9 pg Normal 26.0-34.0 [facility] Comment on above: Order Comment: Speci men Type: BLOOD SPECIMEN Ordering Facility: [facility] Address: [address] [place] [address] Performed By: #### 4 537-7 #### [facility] CLIA [id number] [address] [place] [address] [place] #### 62640-6 #### [facility] CLIA [id number] [address] [place] [address] [place] MCHC (RBC) [Mass/Vol] 32.7 g/dL Normal 30.5-36.0 [facility] Comment on above: Order Comment: Speci men Type: BLOOD SPECIMEN Ordering Facility: [facility] Address: [address] [place] [address] Performed By: #### 4 537-7 #### [facility] CLIA [id number] [address] [place] [address] [place] #### 72852-6 #### [facility] CLIA [id number] [address] [place] [address] [place] MCV (RBC) [Entitic vol] 94.6 fL Normal 80.0-100.0 [facility] Comment on above: Order Comment: Speci men Type: BLOOD SPECIMEN Ordering Facility: [facility] Address: [address] [place] [address] Performed By: #### 4 537-7 #### [facility] CLIA [id number] [address] [place] [address] [place] #### 62982-9 #### [facility] CLIA [id number] [address] [place] [address] [place] Nucleated RBC (Bld) [#/Vol] 10*3/uL Normal <0.01 [facility] Comment on above: Order Comment: Speci men Type: BLOOD SPECIMEN Ordering Facility: [facility] Address: [address] [place] [address] Performed By: #### 4 537-7 #### [facility] CLIA [id number] [address] [place] [address] [place] #### 17387-3 #### [facility] CLIA [id number] [address] [place] [address] [place] Platelet mean volume (Bld) [Entitic vol] 10.2 fL Normal 9.0-12.7 [facility] Comment on above: Order Comment: Speci men Type: BLOOD SPECIMEN Ordering Facility: [facility] Address: [address] [place] [address] Performed By: #### 4 537-7 #### [facility] CLIA [id number] [address] [place] [address] [place] #### 27233-3 #### [facility] CLIA [id number] [address] [place] [address] [place] Platelets (Bld) [#/Vol] 204 10*3/uL Normal 150-400 [facility] Comment on above: Order Comment: Speci men Type: BLOOD SPECIMEN Ordering Facility: [facility] Address: [address] [place] [address] Performed By: #### 4 537-7 #### [facility] CLIA [id number] [address] [place] [address] [place] #### 87807-3 #### [facility] CLIA [id number] [address] [place] [address] [place] RBC (Bld) [#/Vol] 4.79 10*6/uL Normal 4.20-6.00 [facility] Comment on above: Order Comment: Speci men Type: BLOOD SPECIMEN Ordering Facility: [facility] Address: [address] [place] [address] Performed By: #### 4 537-7 #### [facility] CLIA [id number] [address] [place] [address] [place] #### 59744-0 #### [facility] CLIA [id number] [address] [place] [address] [place] WBC (Bld) [#/Vol] 6.07 10*3/uL Normal 3.70-11.00 [facility] Comment on above: Order Comment: Speci men Type: BLOOD SPECIMEN Ordering Facility: [facility] Address: [address] [place] [address] Performed By: #### 4 537-7 #### [facility] CLIA [id number] [address] [place] [address] [place] #### 73155-8 #### [facility] CLIA [id number] [address] [place] [address] [place] Comprehensive metabolic 2000 panelon 09-04-2024 Albumin [Mass/Vol] 4.2 g/dL Normal 3.9-4.9 [facility] Comment on above: Order Comment: Speci men Type: BLOOD SPECIMEN Ordering Facility: [facility] Address: [address] [place] [address] Performed By: #### 2 4323-8, 57141-0, 86466-1 #### [facility] CLIA [id number] [address] [place] [address] [place] ALP [Catalytic activity/Vol] 94 U/L Normal 38-113 [facility] Comment on above: Order Comment: Speci men Type: BLOOD SPECIMEN Ordering Facility: [facility] Address: [address] [place] [address] Performed By: #### 2 4323-8, 67475-4, 27108-1 #### [facility] CLIA [id number] [address] [place] [address] [place] ALT [Catalytic activity/Vol] 23 U/L Normal 10-54 [facility] Comment on above: Order Comment: Speci men Type: BLOOD SPECIMEN Ordering Facility: [facility] Address: [address] [place] [address] Performed By: #### 2 4323-8, 84203-3, 81606-3 #### [facility] CLIA [id number] [address] [place], [place] [address] [place] Anion gap [Moles/Vol] 10 mmol/L Normal 8-15 [facility] Comment on above: Order Comment: Speci men Type: BLOOD SPECIMEN Ordering Facility: [facility] Address: [address] [place] [address] Performed By: #### 2 4323-8, 72585-9, 02203-9 #### [facility] CLIA [id number] [address] [place] [address] [place] AST [Catalytic activity/Vol] 26 U/L Normal 14-40 [facility] Comment on above: Order Comment: Speci men Type: BLOOD SPECIMEN Ordering Facility: [facility] Address: [address] [place] [address] Performed By: #### 2 4323-8, 90364-9, 43935-0 #### [facility] CLIA [id number] [address] [place] [address] [place] Bilirubin [Mass/Vol] 0.6 mg/dL Normal 0.2-1.3 [facility] Comment on above: Order Comment: Speci men Type: BLOOD SPECIMEN Ordering Facility: [facility] Address: [address] [place] [address] Performed By: #### 2 4323-8, 23946-1, 91269-4 #### [facility] CLIA [id number] [address] [place] [address] [place] Calcium [Mass/Vol] 9.9 mg/dL Normal 8.5-10.2 [facility] Comment on above: Order Comment: Speci men Type: BLOOD SPECIMEN Ordering Facility: [facility] Address: [address] [place] [address] Performed By: #### 2 4323-8, 86765-2, 15697-7 #### [facility] CLIA [id number] [address] [place] [address] [place] Chloride [Moles/Vol] 105 mmol/L Normal 98-107 [facility] Comment on above: Order Comment: Speci men Type: BLOOD SPECIMEN Ordering Facility: [facility] Address: [address] [place] [address] Performed By: #### 2 4323-8, 38931-8, 35749-6 #### [facility] CLIA [id number] [address] [place] [address] [place] CO2 [Moles/Vol] 29 mmol/L Normal 22-30 [facility] Comment on above: Order Comment: Speci men Type: BLOOD SPECIMEN Ordering Facility: [facility] Address: [address] [place] [address] Performed By: #### 2 4323-8, 08564-1, 46093-7 #### [facility] CLIA [id number] [address] [place] [address] [place] Creatinine [Mass/Vol] 0.99 mg/dL Normal 0.73-1.22 [facility] Comment on above: Order Comment: Speci men Type: BLOOD SPECIMEN Ordering Facility: [facility] Address: [address] [place] [address] Performed By: #### 2 4323-8, 14793-0, 80459-0 #### [facility] CLIA [id number] [address] [place] [address] [place] Creatinine and Glomerular filtration rate.predicted panel (S/P/Bld) 79 mL/min/1.73m??? Normal >=60 [facility] Comment on above: Order Comment: Speci men Type: BLOOD SPECIMEN Ordering Facility: [facility] Address: [address] [place] [address] Result Comment: Tsering mated Glomerular Filtration Rate (eGFR) is calculated using the 2020 CKD-EPI creatinine equation. This equation utilizes serum creatinine, sex, and age as parameters. The creatinine assay has traceable calibration to isotope dilution-mass spectrometry. Refer to KDIGO guidelines for clinical interpretation. In patients with unstable renal function, e.g. those with acute kidney injury, the eGFR may not accurately reflect actual GFR. Performed By: #### 2 4323-8, 15142-3, 43580-5 #### [facility] CLIA [id number] [address] [id number] [place] Glucose [Mass/Vol] 95 mg/dL Normal 74-99 [facility] Comment on above: Order Comment: Eddie bee Type: BLOOD SPECIMEN Ordering Facility: [facility] Address: [address] [place] [address] Result Comment: The [place] Diabetes Association (ADA) provides guidance for cutoff values for fasting glucose and random glucose. The ADA defines fasting as no caloric intake for at least 8 hours. Fasting plasma glucose results between 100 to 125 mg/dL indicate increased risk for diabetes (prediabetes). Fasting plasma glucose results greater than or equal to 126 mg/dL meet the criteria for diagnosis of diabetes. In the absence of unequivocal hyperglycemia, results should be confirmed by repeat testing. In a patient with classic symptoms of hyperglycemia or hyperglycemic crisis, random plasma glucose results greater than or equal to 200 mg/dL meet the criteria for diagnosis of diabetes. Reference: Standards of Medical Care in Diabetes 2016, [place] Diabetes Association. Diabetes Care. 2016.39(Suppl 1). Performed By: #### 2 4323-8, 12918-0, 15293-1 #### [facility] CLIA [id number] [address] [place] [address] [place] Potassium [Moles/Vol] 4.1 mmol/L Normal 3.7-5.1 [facility] Comment on above: Order Comment: Eddie bee Type: BLOOD SPECIMEN Ordering Facility: [facility] Address: [address] [id number] Performed By: #### 2 4323-8, 74355-8, 51301-9 #### [facility] CLIA [id number] [address] [place] [address] [place] Protein [Mass/Vol] 6.6 g/dL Normal 6.3-8.0 [facility] Comment on above: Order Comment: Speci men Type: BLOOD SPECIMEN Ordering Facility: [facility] Address: [address] [place] [address] Performed By: #### 2 4323-8, 63212-5, 93840-0 #### [facility] CLIA [id number] [address] [place] [address] [place] Sodium [Moles/Vol] 144 mmol/L Normal 136-144 [facility] Comment on above: Order Comment: Speci men Type: BLOOD SPECIMEN Ordering Facility: [facility] Address: [address] [place] [address] Performed By: #### 2 4323-8, 66166-4, 24109-3 #### [facility] CLIA [id number] [address] [place] [address] [place] Urea nitrogen [Mass/Vol] 25 mg/dL High 9-24 [facility] Comment on above: Order Comment: Speci men Type: BLOOD SPECIMEN Ordering Facility: [facility] Address: [address] [place] [address] Performed By: #### 2 4323-8, 90586-9, 85550-5 #### [facility] CLIA [id number] [address] [place] [address] [place] Lipid 1996 panelon 4 Cholesterol [Mass/Vol] 115 mg/dL Normal <200 [facility] Comment on above: Order Comment: Speci men Type: BLOOD SPECIMEN Ordering Facility: [facility] Address: [address] [place] [address] Result Comment: <200 mg/dL, Desirable 200-239 mg/dL, Borderline high >239 mg/dL, High Performed By: #### 2 4323-8, 43985-2, 81662-0 #### [facility] CLIA [id number] [address] [place] [address] [place] Cholesterol in HDL [Mass/Vol] 54 mg/dL Normal >39 [facility] Comment on above: Order Comment: Eddie bee Type: BLOOD SPECIMEN Ordering Facility: [facility] Address: [address] [place] [address] Result Comment: 40-5 9 mg/dL, Acceptable >59 mg/dL, High: Negative risk factor for coronary heart disease <40 mg/dL, Low: Positive risk factor for coronary heart disease Performed By: #### 2 4323-8, 99397-9, 34169-6 #### [facility] CLIA [id number] [address] [place] [address] [place] Cholesterol in LDL [Mass/Vol] 51 mg/dL Normal <100 [facility] Comment on above: Order Comment: Eddie bee Type: BLOOD SPECIMEN Ordering Facility: [facility] Address: [address] [place] [address] Result Comment: <100 mg/dL, Optimal 100-129 mg/dL, Near optimal/above optimal 130-159 mg/dL, Borderline high 160-189 mg/dL, High >189 mg/dL, Very high Secondary prevention optimal LDL Cholesterol levels are recommended to be < 70 mg/dL Performed By: #### 2 4323-8, 92956-6, 26396-5 #### [facility] CLIA [id number] [address] [place] [address] [place] Cholesterol in LDL/Cholesterol in HDL [Mass ratio] 0.94 {ratio} Normal <2.54 [facility] Comment on above: Order Comment: Eddie bee Type: BLOOD SPECIMEN Ordering Facility: [facility] Address: [address] [place] [address] Result Comment: Pooja garcia: 1. National Cholesterol Education Program ATP III Guideline At-A-Glance Quick Desk Reference: National Heart, Lung, and Blood Union. National Institutes of Health. 2001: NIH Publication No. 01-3305. 2. An International Atherosclerosis Society position paper: global recommendations for the management of dyslipidemia: executive summary, Atherosclerosis. 2014: 232(2):410-413. Performed By: #### 2 4323-8, 65277-5, 61192-7 #### [facility] CLIA [id number] [address] [place] [address] [place] Cholesterol in VLDL [Mass/Vol] 10 mg/dL Normal <30 [facility] Comment on above: Order Comment: Speci men Type: BLOOD SPECIMEN Ordering Facility: [facility] Address: [address] [place] [address] Performed By: #### 2 4323-8, 76548-0, 86256-1 #### [facility] CLIA [id number] [address] [place] [address] [place] Cholesterol non HDL [Mass/Vol] 61 mg/dL Normal <130 [facility] Comment on above: Order Comment: Speci men Type: BLOOD SPECIMEN Ordering Facility: [facility] Address: [address] [place] [address] Result Comment: <130 mg/dL, Optimal 130-159 mg/dL, Near optimal/above optimal 160-189 mg/dL, Borderline high 190-219 mg/dL, High >219 mg/dL, Very high Secondary prevention optimal non HDL Cholesterol levels are recommended to be <100 mg/dL Performed By: #### 2 4323-8, 84850-9, 67212-3 #### [facility] CLIA [id number] [address] [place] [address] [place] Cholesterol.total/Cho lesterol in HDL [Mass ratio] 2.13 {ratio} Normal <5.10 [facility] Comment on above: Order Comment: Speci men Type: BLOOD SPECIMEN Ordering Facility: [facility] Address: [address] [place] [address] Performed By: #### 2 4323-8, 38415-5, 79852-8 #### [facility] CLIA [id number] [address] [place] [address] [place] FASTING TIME 12 hrs Normal [facility] Comment on above: Order Comment: Speci men Type: BLOOD SPECIMEN Ordering Facility: [facility] Address: [address] [place] [address] Performed By: #### 2 4323-8, 51029-6, 37949-4 #### [facility] CLIA [id number] [address] [place] [address] [place] Triglyceride [Mass/Vol] 51 mg/dL Normal <150 [facility] Comment on above: Order Comment: Eddie bee Type: BLOOD SPECIMEN Ordering Facility: [facility] Address: [address] [place] [address] Result Comment: <150 mg/dL, Normal 150-199 mg/dL, Borderline high 200-499 mg/dL, High >499 mg/dL, Very high Performed By: #### 2 4323-8, 23045-7, 79429-8 #### [facility] CLIA [id number] [address] [place] [address] [place] NT-proBNP [facility] 09-04 Natriuretic peptide.B prohormone N-Terminal [Mass/Vol] 111 pg/mL Normal <450 [facility] Comment on above: Order Comment: Eddie bee Type: BLOOD SPECIMEN Ordering Facility: [facility] Address: [address] [place] [address] Performed By: #### 2 4323-8, 35411-2, 29007-5 #### [facility] CLIA [id number] [address] [place] [address] [place] CNOVon 08-16-2024 CNOV Office Visit (CAWSTR ) MONIKA CHOWDHURY ([id number]) 1950 M Date Time Provider Department 08/16/24 11:40 AM FAVIAN LARKIN During your visit today, we recorded the following information about you: Pulse Blood pressure Weight 89/minute 128/70 90.3 kg Favian Larkin MD 08/16/2024 12:00 PM Signed [facility] Cardiology (Sebring Horsham Elisabeth) [address] [facility] [id number] OUTPATIENT VISIT DATE 08/16/2024 PRIMARY CARE PHYSICIAN: Fei Gandhi [address] [place] [address] HISTORY OF PRESENT ILLNESS: Mr. Chowdhury is a 74 year old gentleman with a history of nonobstructive mild coronary artery disease and remote catheterization 2012, paroxysmal atrial fibrillation with ablation March 2020, dilated aortic root, hypertension, dyslipidemia who presents to establish new cardiology follow-up. Since his last visit, he has continued to do well. He denies symptoms of palpitations, lightheadedness, dizziness, or syncope. He has not had symptoms concerning for angina. PAST MEDICAL HISTORY Diagnosis Date Aortic root dilatation (HCC) 08/21/2009 Atrial fibrillation 04/26/2013 Benign neoplasm of colon 12/18/2005 Adenomatous polyp BPH with obstruction/lower urinary tract symptoms 08/27/2018 Dr. Greenberg, Urology Coronary artery disease involving [place] coronary artery of [place] heart without angina pectoris 07/19/2019 Diverticulosis of colon (without mention of hemorrhage) Essential tremor 01/14/2012 Hypertrophy of prostate with urinary obstruction and other lower urinary tract symptoms (LUTS) 12/31/2006 Ingrown left big toenail 05/2022 infected Internal hemorrhoids without mention of complication Mixed hyperlipidemia 07/19/2019 Near syncope 02/15/2014 bradycardia NASRA on CPAP 06/15/2013 Problems with sexual function Sigmoiditis 10/20/2023 Umbilical hernia 05/23/2023 Unspecified essential hypertension 02/09/2010 VENOUS INSUFFICIENCY NOS 11/19/2005 PAST SURGICAL HISTORY Procedure Laterality Date ATRIAL FIBRILLATION/FLUTTER ABLATION 03/29/2020 COLONOSCOPY - DIAGNOSTIC 08/25/20021992, 1994 COLONOSCOPY FLX DX W/COLLJ SPEC WHEN PFRMD 10/12/2012 Colonoscopy repeat 10 years COLONOSCOPY FLX DX W/COLLJ SPEC WHEN PFRMD 07/07/2020 Colonoscopy CYSTOSCOPY 04/12/2015 LAPROSCOPIC REPAIR UMBILICAL HERNIA 05/23/2023 LEFT HEART CATH,PERCUTANEOUS 03/18/2008 Cardiac cath, L heart, normal LEFT HEART CATH,PERCUTANEOUS 05/12/2013 Cardiac cath, L heart. 30-40% LAD. PAST SURGICAL HISTORY OF 1964 left hip surgery after fracture, hardware removed PAST SURGICAL HISTORY OF 08/29/2011 Right index finger repair PAST SURGICAL HISTORY OF 11/2012 Right index Finger repair x 2 REPAIR UMBILICAL HERNIA 05/23/2023 RPR 1ST INGUN HRNA AGE 5 YRS/> REDUCIBLE 2007 Hernia repair, inguinal x 3 TONSILLECTOMY PRIMARY/SECONDARY Tonsillectomy SOCIAL HISTORY Social History Tobacco Use Smoking status: Never Smokeless tobacco: Never Vaping Use Vaping status: Never Used Substance Use Topics Alcohol use: Yes Comment: socially Drug use: No FAMILY HISTORY Problem Relation Age of Onset Arthritis Mother other (Other) Mother fall, natural causes Heart Father CABG other (Cholesterol) Father Diabetes Paternal Grandmother Prostate Cancer Brother 62 Glaucoma Brother Arthritis Brother lumbago Coronary Artery Disease Brother stents Arthritis Brother lumbago ALLERGIES: ALLERGIES No Known Allergies MEDICATIONS: metoprolol succinate ER (TOPROL XL) 50 mg 24 hr tablet Take 1 tablet by mouth once daily. atorvastatin (LIPITOR) 10 mg tablet Take 1 tablet by mouth once daily. psyllium husk (METAMUCIL ORAL) Take by mouth. MEDICATION, NON-DATABASE Flax Seed L-LYSINE ORAL Take 1 tablet by mouth once daily. vit A-H-xmlabw-zinc-lutein (EYE MULTIVIT-LUTEIN,C-E-CU -ZN,) 226 mg-90 mg-2 mg-34.8 mg-5 mg cap Take 1 tablet by mouth once daily. Tadalafil (CIALIS) 10 mg tablet Take 1 tablet by mouth as directed. TAKE 1-2 HOURS BEFORE SEXUAL INTERCOURSE NEEDED. aspirin, enteric coated (ASPIR-81) 81 mg EC tablet Take 1 tablet by mouth once daily. COMPOUNDED PRESCRIPTION KNEE HIGH COMPRESSION STOCKINGS 30-40 MM. DX: EDEMA. terazosin 5 mg capsule Take 1 capsule by mouth daily at bedtime. Given by Dr. Rivera. CALCIUM CARBONATE/VITAMIN D3 (CALCIUM 500 + D ORAL) Take by mouth once daily. ascorbic acid, vitamin C, (VITAMIN C) 500 mg tablet Take 500 mg by mouth once daily. Garlic ORAL Cap Take one(1) tablet daily. REVIEW OF SYSTEMS: Review of Systems Constitutional: Negative for chills, fever, malaise/fatigue and weight loss. HENT: Negative for hearing loss and sore throat. Eyes: Negative for blurred vision and double vision. Respira (more content not included)... Normal [facility] 08-06-2024 CNPN Telephone (AGCARN) DOUGMONIKA Iverson ([id number]) 1950 M Date Time Provider Department 08/06/24 FAVIAN LARKIN During your visit today, we recorded the following information about you: Kimberley Nunes LPN 08/06/2024 3:27 PM Signed ----- Message from Favian Larkin MD sent at 08/06/2024 3:09 PM EDT ----- Please call the patient to let him know his echocardiogram is unchanged from prior. I will review in more detail at his next office visit Kimberley Nunes LPN 08/06/2024 3:29 PM Signed Left message for Monika Luther Dougzayra to call [facility] for test results. [facility] phone number provided. RODO Goyal Jennifer, LPN 08/09/2024 8:37 AM Signed Voicemail msg left for patient to return call to [facility] to review test results. Office phone number provided. RODO Sims Tera, LPN 08/09/2024 9:03 AM Signed Spoke with Mr Chowdhury. Results and recommendations reviewed with pt per Petros. Pt verbalized understanding. Pt has no questions at this time. Shaggy Cruz LPN Allergies As of Date: 08/06/2024 (No Known Allergies) Date Reviewed: 03/24/2024 Reviewed by: Iris Pedersen LPN - Fully Assessed Reason for Visit: Results [95] Prescriptions as of 08/09/2024 - metoprolol succinate ER (TOPROL XL) 50 mg 24 hr tablet Take 1 tablet by mouth once daily. - atorvastatin (LIPITOR) 10 mg tablet Take 1 tablet by mouth once daily. - psyllium husk (METAMUCIL ORAL) Take by mouth. - MEDICATION, NON-DATABASE Flax Seed - L-LYSINE ORAL Take 1 tablet by mouth once daily. - vit A-K-htcewz-zinc-lutein (EYE MULTIVIT-LUTEIN,C-E-CU -ZN,) 226 mg-90 mg-2 mg-34.8 mg-5 mg cap Take 1 tablet by mouth once daily. - Tadalafil (CIALIS) 10 mg tablet Take 1 tablet by mouth as directed. TAKE 1-2 HOURS BEFORE SEXUAL INTERCOURSE NEEDED. - aspirin, enteric coated (ASPIR-81) 81 mg EC tablet Take 1 tablet by mouth once daily. - COMPOUNDED PRESCRIPTION KNEE HIGH COMPRESSION STOCKINGS 30-40 MM. DX: EDEMA. - terazosin 5 mg capsule Take 1 capsule by mouth daily at bedtime. Given by Dr. Rivera. - CALCIUM CARBONATE/VITAMIN D3 (CALCIUM 500 + D ORAL) Take by mouth once daily. - ascorbic acid, vitamin C, (VITAMIN C) 500 mg tablet Take 500 mg by mouth once daily. - Garlic ORAL Cap Take one(1) tablet daily. Problem List As Of Date 08/06/2024 Noted Resolved Internal hemorrhoids without mention of complic* 05/20/2016 Venous (peripheral) insufficiency [I87.2] 11/19/2005 Problems with sexual function [F52.9] 05/10/2014 Benign neoplasm of colon [D12.6] 12/18/2005 05/19/2017 ONYCHIA OF TOE [L03.039] 09/04/2006 12/31/2006 OTHER HAMMER TOE [M20.40] 09/05/2006 12/31/2006 EXOSTOSIS, SITE NOS [M89.8X9] 09/05/2006 12/31/2006 BPH with obstruction/lower urinary tract sympto*08/27/2018 Aortic Root Dilatation [I77.810] 08/21/2009 Essential hypertension [I10] 02/09/2010 Seborrheic Keratosis [L82.1] 09/30/2011 01/14/2012 Solar Lentigines [L81.4] 09/30/2011 05/20/2016 Viral warts, unspecified [B07.9] 09/30/2011 01/14/2012 Actinic skin damage [L57.8] 09/30/2011 Thomas angioma [D18.01] 09/30/2011 01/14/2012 Skin tag [L91.8] 09/30/2011 01/14/2012 Essential tremor [G25.0] 01/14/2012 Paroxysmal atrial fibrillation (HCC) [I48.0] 04/26/2013 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 [G47.33] 06/15/2013 Right-sided low back pain without sciatica [M54*05/20/2016 05/19/2017 Mixed hyperlipidemia [E78.2] 07/19/2019 Coronary artery disease involving [place] lucas*07/19/2019 Encounter for monitoring flecainide therapy [Z5*07/19/2019 03/05/2021 Sigmoiditis [K52.9] 10/20/2023 03/24/2024 Encounter Status:Closed by NATALIE DE PAZ on 08/09/24 Normal [facility] ECHOon 08-05-2024 Echocardiography Echocardiography Report: Transthoracic Echo [facility] Date of service: 08/05/2024 3:22:31 PM FISHER Ordering physician: FAVIAN LARKIN Indication: Ascending aortic aneurysm Technologist: Marla Enriquez [facility] Interpreting physician: Zoran Stoll MD PATIENT: Name: MR. MONIKA CHOWDHURY : 1950 Age: 74 years Gender: M History of hypertension, dyslipidemia and arrhythmia. Primary rhythm: sinus. Height: 182.90 cm BSA: 2.14 m Weight: 90.27 kg BMI: 27.0 kg/m Heart rate 65 bpm Blood pressure 141/70 mmHg Technically difficult exam due to body habitus. Color Doppler was utilized to interrogate the cardiac valves assessed and spectral Doppler was utilized to determine the flow velocities and pressure gradients reported in this exam. Myocardial strain analysis was performed in this exam to aid in the assessment of cardiac function. MEASUREMENTS: Value Indexed Normal Max aortic dimension 4.1 cm Ao < 3.8 Left atrial volume 91 ml (biplane A-L) 42 ml/m Peng <= 34 LV ID (diastole) 4.9 cm (2D) 2.28 cm/m LV ID (systole) 3.2 cm (2D) 1.48 cm/m IVS, leaflet tips 1.0 cm (2D) Posterior wall thickness 1.0 cm (2D) Left ventricular mass 173 g (2D) 81 g/m Global peak long strain -16.2 % LV stroke volume 68 ml (2D biplane) LV end diastolic volume 122 ml (2D biplane) 57.2 ml/m 34<=EDVi<75 LV end systolic volume 54 ml (2D biplane) 25.2 ml/m Ejection Fraction 56 % (2D biplane) EF > 52 FINDINGS: LEFT VENTRICLE The left ventricle is normal in size. Left ventricular systolic function is normal. Global LV myocardial strain is normal. Indeterminate left ventricular diastolic function. Mitral annular lateral E/e': 8.2. Mitral annular septal E/e': 11.8. Wall Motion: All scored segments are normal. RIGHT VENTRICLE The right ventricle is normal in size. Right ventricular systolic function is normal. RV systolic tissue Doppler velocity is 12.0 cm/s. Tricuspid annular displacement is 1.9 cm. Estimated right ventricular systolic pressure is not reported due to an insufficient tricuspid regurgitation signal. Estimated right atrial pressure is not included as the IVC was not seen. LEFT ATRIUM The left atrial cavity is moderately dilated. RIGHT ATRIUM The right atrial cavity is normal in size. MITRAL VALVE The mitral valve leaflets are structurally normal. There is trace mitral valve regurgitation. The pressure half time is 53 msec. The peak mitral E/A ratio is 1.02. The average mitral E/e' ratio is 10.0. The mitral flow deceleration time is 181 msec. TRICUSPID VALVE The tricuspid valve leaflets are structurally normal. There is trace (trace - 1+) tricuspid valve regurgitation. AORTIC VALVE The aortic valve cusps are structurally normal. There is trace (trace - 1+) aortic valve regurgitation. Tricuspid aortic valve. The peak gradient is 6 mmHg (peak velocity = 121.1 cm/s). PULMONIC VALVE The pulmonic valve cusps are structurally normal. There is trace (trace - 1+) pulmonic valve regurgitation. AORTA The visualized aorta is dilated. Measurements - Sinus: 4.1 cm. Sinotubular junction 3.2 cm. Mid ascending aorta 3.5 cm. Distal ascending aorta 3.3 cm. CONCLUSIONS: - Technically difficult exam due to body habitus. - Exam indication: Ascending aortic aneurysm - The left ventricle is normal in size. Left ventricular systolic function is normal. EF = 56 5% (2D biplane) Indeterminate left ventricular diastolic function. - The right ventricle is normal in size. Right ventricular systolic function is normal. - The left atrial cavity is moderately dilated. - There are no significant valvular abnormalities. - The visualized aorta is dilated with a maximal dimension of 4.1 cm. - Exam was compared with the prior echocardiographic exam performed on 02/29/2020, no significant change. * * * Final * * * [facility] : [id number] [id number] Normal [facility] XR Chest PA and Lateralon IMPRESSION: Stable exam with no acute radiographic abnormality. Porcelain Mixer: PSCKatie Transcribe Date/Time: Aug 21 2023 1:27A Dictated by : NIXON CHAVARRIA MD This examination was interpreted and the report reviewed and electronically signed by: NIXON CHAVARRIA MD on Aug 21 2023 1:27AM [facility] DIV[facility] OF RADIOLOGY * * *Final Report* * * DATE OF EXAM: Aug 20 2023 10:17AM WOX [id number] - XR CHEST 2V FRONTAL/LAT / PROCEDURE REASON: multiple diagnoses * * * * Physician Interpretation * * * * EXAMINATION: CHEST RADIOGRAPH (2 VIEW FRONTAL & LATERAL) CLINICAL HISTORY: Sinobronchitis Sinobronchitis MQ: [id number] EXAM DATE/TIME: 08/20/2023 10:17 AM COMPARISON: 03/24/2023. RESULT: Lines, tubes, and devices: None. Lungs and pleura: No consolidation. No lung mass. No pleural effusion. No pneumothorax. Cardiomediastinal silhouette: Normal cardiomediastinal silhouette. Bones and soft tissues: Unremarkable. DIVISION OF RADIOLOGY Provider, [facility] - 08/21/2023 * * *Final Report* * * DATE OF EXAM: Aug 20 2023 10:17AM WOX 5291 - XR CHEST 2V FRONTAL/LAT / PROCEDURE REASON: multiple diagnoses * * * * Physician Interpretation * * * * EXAMINATION: CHEST RADIOGRAPH (2 VIEW FRONTAL & LATERAL) CLINICAL HISTORY: Sinobronchitis Sinobronchitis MQ: XC2_6 EXAM DATE/TIME: 08/20/2023 10:17 AM COMPARISON: 03/24/2023. RESULT: Lines, tubes, and devices: None. Lungs and pleura: No consolidation. No lung mass. No pleural effusion. No pneumothorax. Cardiomediastinal silhouette: Normal cardiomediastinal silhouette. Bones and soft tissues: Unremarkable. IMPRESSION IMPRESSION: Stable exam with no acute radiographic abnormality. Porcelain Mixer: CARLOS Transcribe Date/Time: Aug 21 2023 1:27A Dictated by : NIXON CHAVARRIA MD This examination was interpreted and the report reviewed and electronically signed by: NIXON CHAVARRIA MD on Aug 21 2023 1:27AM EST [facility] XR Chest PA and LateralOrder ed By: Ccf Provider on 08-21-2023 [facility] XR Chest PA and Lateralon Radiology Study observation (narrative) [facility] ANES POSTPROC EVALon 023 ANES POSTPROC EVAL HNO ID: [id number] Author: Kp Burroughs MD Service: Anesthesiology Author Type: Physician Type: Anesthesia Postprocedure Evaluation Filed: 05/23/2023 9:40 AM Note Text: POST ANESTHESIA EVALUATION NOTE : 1950 Procedure Summary Date: 05/23/23 Room / Location: [facility] OR03 / [facility] OR Anesthesia Start: 729 Anesthesia Stop: 824 Procedure: REPAIR HERNIA UMBILICAL REDUCIBLE 3cm-10cm (Abdomen) Diagnosis: Umbilical hernia without obstruction and without gangrene (Umbilical hernia without obstruction and without gangrene [K42.9]) Surgeons: Naomy Jimenez MD Responsible Provider: Kp Burroughs MD Anesthesia Type: general ASA Status: 3 Anesthesia Type: general Airway Type: LMA Last Vitals Vitals Value Taken Time BP 151/69 05/23/23 0845 Temp 36.1 ?C (97 ?F) 07/14/23 0824 HR SpO2 67 05/23/23 0824 Resp 12 05/23/23 0856 SpO2 93 % 05/23/23 0856 Vitals shown include unvalidated device data. Post Anesthesia Patient Status Patient Evaluation: PACU. PACU/ICU Patient Condition: stable. Anticipated Disposition: phase 2 then home. Neurological Status: aware and responsive. Pulmonary Status: breathing comfortably on room air Airway Control: returned to baseline unsupported. Cardiovascular Status: stable. Pain Management: clinically adequate - multimodal analgesia pain management approach Postoperative Hydration: acceptable. Intraoperative Events: no significant anesthesia events Recommendation: continue current plan of care. Anesthesia Observations No Documentation SIGNATURE: Kp Burroughs MD PATIENT NAME: Monika Chowdhury DATE: May 23, 2023 TIME: 9:40 AM CSN: [id number] [facility] ANES PRE-OPon 05-23-2023 ANES PRE-OP HNO ID: [id number] Author: Kp Burroughs MD Service: Anesthesiology Author Type: Physician Type: Anesthesia Preprocedure Evaluation Filed: 05/23/2023 7:29 AM Note Text: ANESTHESIOLOGY DAY OF SURGERY NOTE : 1950 Procedure Information Date/Time: 05/23/23729 Procedure: REPAIR HERNIA UMBILICAL REDUCIBLE 3cm-10cm Location: [facility] OR03 / [facility] OR Surgeons: Naomy Jimenez MD Estimated body mass index is 25.77 kg/m? as calculated from the following: Height as of 05/07/23: 182.9 cm (6'). Weight as of this encounter: 86.2 kg (190 lb). Most recent hematocrit and potassium results: Hematocrit 43.1 05/07/2023 Potassium 4.4 05/07/2023 Relevant Problems ANESTHESIA (+) 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 CARDIO (+) Aortic root dilatation (HCC) (+) Coronary artery disease involving [place] coronary artery of [place] heart without angina pectoris (+) Essential hypertension (+) Paroxysmal atrial fibrillation (HCC) (+) Venous (peripheral) insufficiency PULMONARY (+) 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 I - PHYSICAL EVALUATION AIRWAY Patient intubated: No. Tracheostomy tube not present Mallampati: II. TM distance: >3 FB. Neck ROM: full ROM without neurological symptoms. Mouth opening: adequate. Short neck: no. Thick neck: no DENTAL Normal dental observations. Dental findings: teeth intact. Additional exam findings: no II - ANESTHESIA PLAN ASA Score: 3 Anesthetic Plan: general Airway type: LMA NPO Status: adequate Anesthetic plan additional comments: Has done well with anesthesia in the past, including ablation procedure for Afib.. Beta Yaz Monitoring Plan Monitoring plan: Standard ASA. Post Procedure Analgesic Plan Postoperative analgesic plan: parenteral or oral opioids and multimodal analgesia. Informed Consent Anesthetic risks, benefits, alternatives, personnel and consent discussed: yes. Patient / Responsible Democrat agrees to proceed: yes Patient / Surrogate agrees to blood products: blood products not planned DNR status not reviewed with patient and/or family prior to surgery. Significant changes in the patient condition since the History and Physical, not otherwise documented in primary service progress note: no. Potential Anesthesia issues that may suggest increased risk of complications or contraindication to planned procedure: none. Vitals Value Taken Time BP 178/81 05/23/23617 Pulse 54 05/23/23617 Resp 18 05/23/23617 Temp 36.2 ?C (97.2 ?F) 05/23/23617 SpO2 98 % 05/23/23617 Facility-Administered Medications as of 05/23/2023 Medication Dose Route Frequency - lidocaine (PF) 10 mg/mL (1 %) 1-2 mg injection (XYLOCAINE) 0.1-0.2 mL INTRADERMAL PRN - lactated ringers iv infusion 5-30 mL/hr INTRAVENOUS CONTINUOUS - NaCl 0.9% iv flush bag 20 mL INTRAVENOUS PRN - ceFAZolin iv piggyback 2 g in D5W (iso-osmotic) 100 mL (ANCEF) 2 g INTRAVENOUS Pre-Op Once Outpatient Medications as of 05/23/2023 Medication Sig - L-LYSINE ORAL Take 1 tablet by mouth once daily. - atorvastatin (LIPITOR) 10 mg tablet Take 1 tablet by mouth once daily. - metoprolol succinate ER (TOPROL XL) 50 mg 24 hr tablet Take 1 tablet by mouth once daily. - aspirin, enteric coated (ASPIR-81) 81 mg EC tablet Take 1 tablet by mouth once daily. - CALCIUM CARBONATE/VITAMIN D3 (CALCIUM 500 + D ORAL) Take by mouth once daily. - ascorbic acid, vitamin C, (VITAMIN C) 500 mg tablet Take 500 mg by mouth once daily. - Garlic ORAL Cap Take one(1) tablet daily. - vit U-B-lvzrns-zinc-lutein (EYE MULTIVIT-LUTEIN,C-E-CU -ZN,) 226 mg-90 mg-2 mg-34.8 mg-5 mg cap Take 1 tablet by mouth once daily. - Tadalafil (CIALIS) 10 mg tablet Take 1 tablet by mouth as directed. TAKE 1-2 HOURS BEFORE SEXUAL INTERCOURSE NEEDED. - COMPOUNDED PRESCRIPTION KNEE HIGH COMPRESSION STOCKINGS 30-40 MM. DX: EDEMA. - terazosin 5 mg capsule Take 1 capsule by mouth daily at bedtime. Given by Dr. Rivera. I have interviewed and examined the patient. I have reviewed the medical record and/or the pre-anesthesia evaluation, pertinent labs, and test results. This contains updated information obtained within 48 hours of Surgery/Procedure. SIGNATURE: Kp Burroughs MD PATIENT NAME: Monika Chowdhury DATE: May 23, 2023 TIME: 7:15 AM CSN: [id number] [facility] BRIEF OP NOTon 05-23-2023 BRIEF OP NOT HNO ID: [id number] Author: Naomy Jimenez MD Service: General Surgery Author Type: Physician Type: Brief Op Note Filed: 05/23/2023 8:13 AM Note Text: BRIEF OPERATIVE NOTE SURGERY DATE: 05/23/2023 Incision/Procedure Start Time: 7:48 Incision Close/Procedure End Time: 8:13 Surgeon(s)/Procedurali st(s) and Office Clerk Assistant(s): first Tonydirector of first impressions Mejia KELLY Procedures: Repair of umbilical hernia Anesthesia: General Findings: small umbilical fascial defect, < 1cm Estimated Blood Loss: minimal Specimens: incarcerated umbilical fatty tissues in sac Complications: None Closure Technique: Primary Preop Diagnosis: umbilical hernia Postop Diagnosis: umbilical hernia with incarcerated fatty tissue SIGNATURE: Naomy Jimenez MD PATIENT NAME: Monika Chowdhury DATE: May 23, 2023 TIME: 8:02 AM Acct: [id number] [facility] OPERATIVE NOon 05-23-2023 OPERATIVE NO HNO ID: [id number] Author: Naomy Jimenez MD Service: General Surgery Author Type: Physician Type: Operative Report Filed: 05/23/2023 10:44 AM Note Text: [facility] - Operative Report MONIKA CHOWDHURY : 1950 AGE: 73. SEX: M PATIENT TYPE: A HOSP [facility]: [facility] LOCATION: [facility] ATTENDING PHYSICIAN: Naomy Jimenez M.D. CSN NUMBER: [id number] DATE OF SURGERY/PROCEDURE: 05/23/2023 INCISION/PROCEDURE START TIME: 7:48 AM INCISION CLOSE/PROCEDURE END TIME: 8:13 AM PREOPERATIVE DIAGNOSIS: Umbilical hernia. POSTOPERATIVE DIAGNOSIS: Umbilical hernia. SURGEON: Naomy Jimenez M.D. SUPERVISING LAW ENFORCEMENT ANALYST: Melida Ba NP, she is a director of first impressions assisting me as there are no surgery residents available. She assisted during retracion during the procedure and closure of the wound under my supervision. SURGERY/PROCEDURE: Umbilical hernia repair. ANESTHESIA: General LMA. LOCATION: [facility]. INDICATIONS: The patient is a 73-year-old male, who presents with umbilical hernia. He complains of pain in the area. He therefore requests repair. He has been counseled as the risks of procedure including, but not limited to infection, bleeding, injury to any blood vessels or nerves, recurrence of hernia, scar tissue, injury to any internal organs, cosmetic deformity, etc. The patient understands and agrees to proceed. DESCRIPTION OF PROCEDURE: After informed consent was given, the patient was brought to the operating room. Appropriate time-out protocol was followed. Patient was then placed under anesthesia by the anesthesia provider. The patient's abdomen was then prepped with sterile surgical skin preparation. Appropriate sterile surgical drapes were then placed. The skin and subcutaneous tissues around the periumbilical area were then infiltrated with local anesthetic. A transverse semicircular skin incision was made in the inferior aspect of the umbilical dimple with a 15 blade scalpel. It was carried down to subcutaneous tissues using electrocautery. Any hemorrhage was adequately controlled with electrocautery. Blunt dissection was then done to delineate out the fascial defect. There was incarcerated fatty tissue within the hernia sac. The fascial defect itself was less than 1 cm in diameter. The umbilical hernia sac was from the dermis of the umbilical dimple using sharp dissection. Once the hernia sac was from the surrounding tissues, it was attempted to be reduced back into the genital cavity. However to be able to do that, the fascial defect would have had to be enlarged and this was not done. Therefore, the excess fatty tissue and hernia sac was transected. It was forwarded to pathology for analysis. The fascial defect once again was identified. It was less than a centimeter in diameter. The fascial defect was reapproximated transversely using interrupted 1 PDS suture. Once this was done, hemostasis was carefully controlled with electrocautery. The subdermal tissues of the incision site were reapproximated using Vicryl suture in interrupted simple fashion. Skin incisions were closed with 4-0 Monocryl in a running subcuticular fashion. Benzoin and Steri-Strips were used to reinforce skin closure. The dimple was packed with 2 x 2. Sterile dressing was applied. The patient tolerated procedure well, and was brought to recovery room in stable condition. ESTIMATED BLOOD LOSS: Minimal. SPECIMENS: Incarcerated umbilical thigh tissues and the hernia sac. COMPLICATIONS: None. Naomy Jimenez M.D. LW:[id number] /[id number] [facility] SURGICAL PATHOLOGYon 023 CASE REPORT [facility] Comment on above: Order Comment: Speci men Type: TISSUE SPECIMEN Ordering Facility: [facility] Address: [address] [place] [address] Result Comment: Surg [facility] Pathology Report Case: [id number] Authorizing Provider: Naomy Jimenez MD Collected: 05/23/2023 07:57 AM Ordering Location: [facility] Surgery Received: 05/23/2023 12:13 PM Pathologist: Barbara Shepherd MD Specimen: HERNIA SAC, umbilical hernia sac Performed By: #### S #### [facility] CLIA [id number] [address] [place] [address] [place] CLINICAL HISTORY Normal [facility] Comment on above: Order Comment: Speci men Type: TISSUE SPECIMEN Ordering Facility: [facility] Address: [address] [place] [id number] Result Comment: Pre- op diagnosis: Umbilical hernia without obstruction and without gangrene [K42.9] Performed By: #### S #### [facility] CLIA [id number] [address] [place] [address] [place] FINAL DIAGNOSIS Normal [facility] Comment on above: Order Comment: Speci men Type: TISSUE SPECIMEN Ordering Facility: [facility] Address: [address] [place] [address] Result Comment: Soft tissue, umbilicus, herniorrhaphy: - Hernia sac. Performed By: #### S #### [facility] CLIA [id number] [address] [place] [address] [place] FINAL PERFORMING LAB Normal [facility] Comment on above: Order Comment: Speci men Type: TISSUE SPECIMEN Ordering Facility: [facility] Address: [address] [place] [address] Result Comment: Diag nostic interpretation performed at [facility], [address] [place] [address] CLIA# [id number] Director Transition: Harjit Quintana M.D. Performed By: #### S #### [facility] CLIA [id number] [address] [place] [address] [place] GROSS DESCRIPTION A. HERNIA SAC Normal [facility] Comment on above: Order Comment: Speci men Type: TISSUE SPECIMEN Ordering Facility: [facility] Address: [address] [place] [address] Result Comment: Rece ived in formalin designated umbilical hernia sac is a jimenez-yellow rubbery fragment of fibromembranous tissue that measures 2.7 x 2 x 1.3 cm. Siding Installer sections are submitted in 1 cassette. WE May 23, 2023 3:06 PM Gross examination performed at [facility], [address] [place] [address] Performed By: #### S #### [facility] CLIA [id number] [address] [place] [address] [place] HISTORY PHYSICALon 3 HISTORY PHYSICAL HNO ID: [id number] Author: Naomy Jimenez MD Service: General Surgery Author Type: Physician Type: HANDP Filed: 05/22/2023 2:40 PM Note Text: HISTORY AND PHYSICAL Monika Chowdhury 1950 REFERRING PHYSICIAN: Mehnaz Sutherland APRN.CNP CHIEF COMPLAINT: Consult (Possible umbilical hernia.) HPI: The patient is a 72 year old male presents with umbilical hernia. He has had previous inguinal hernias repairs He has noted this umbilical hernia for the past month and it is bothersome to him He denies incarceration He notes that the area is tender with bowel movements. He denies cigarettes use He denies previous surgery in the area. 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 Greenberg, Urology Coronary artery disease involving [place] coronary artery of [place] heart without angina pectoris 07/19/2019 Diverticulosis of colon (without mention of hemorrhage) Essential tremor 01/14/2012 Hypertrophy of prostate with urinary obstruction and other lower urinary tract symptoms (LUTS) 12/31/2006 Ingrown left big toenail 05/2022 infected Internal hemorrhoids without mention of complication Mixed hyperlipidemia 07/19/2019 Near syncope 02/15/2014 bradycardia NASRA on CPAP 06/15/2013 Problems with sexual function Unspecified essential hypertension 02/09/2010 VENOUS INSUFFICIENCY NOS 11/19/2005 PAST SURGICAL HISTORY PAST SURGICAL HISTORY Procedure Laterality Date ATRIAL FIBRILLATION/FLUTTER ABLATION 03/29/2020 COLONOSCOPY - DIAGNOSTIC 08/25/20021992, 1994 COLONOSCOPY FLX DX W/COLLJ SPEC WHEN PFRMD 10/12/2012 Colonoscopy repeat 10 years COLONOSCOPY FLX DX W/COLLJ SPEC WHEN PFRMD 07/07/2020 Colonoscopy CYSTOSCOPY 04/12/2015 LEFT HEART CATH,PERCUTANEOUS 03/18/2008 Cardiac cath, L heart, normal LEFT HEART CATH,PERCUTANEOUS 05/12/2013 Cardiac cath, L heart. 30-40% LAD. PAST SURGICAL HISTORY OF 1963 left hip surgery after fracture, hardware removed PAST SURGICAL HISTORY OF 08/29/2011 Right index finger repair PAST SURGICAL HISTORY OF 11/2012 Right index Finger repair x 2 RPR 1ST INGUN HRNA AGE 5 YRS/> REDUCIBLE 2008 Hernia repair, inguinal x 3 TONSILLECTOMY PRIMARY/SECONDARY Tonsillectomy Current Outpatient Medications Medication Sig MEDICATION, NON-DATABASE Flax Seed L-LYSINE ORAL Take 1 tablet by mouth once daily. vit L-P-zdnlmu-zinc-lutein (EYE MULTIVIT-LUTEIN,C-E-CU -ZN,) 226 mg-90 mg-2 mg-34.8 mg-5 mg cap Take 1 tablet by mouth once daily. atorvastatin (LIPITOR) 10 mg tablet Take 1 tablet by mouth once daily. metoprolol succinate ER (TOPROL XL) 50 mg 24 hr tablet Take 1 tablet by mouth once daily. Tadalafil (CIALIS) 10 mg tablet Take 1 tablet by mouth as directed. TAKE 1-2 HOURS BEFORE SEXUAL INTERCOURSE NEEDED. aspirin, enteric coated (ASPIR-81) 81 mg EC tablet Take 1 tablet by mouth once daily. COMPOUNDED PRESCRIPTION KNEE HIGH COMPRESSION STOCKINGS 30-40 MM. DX: EDEMA. terazosin 5 mg capsule Take 1 capsule by mouth daily at bedtime. Given by Dr. Rivera. CALCIUM CARBONATE/VITAMIN D3 (CALCIUM 500 + D ORAL) Take by mouth once daily. ascorbic acid, vitamin C, (VITAMIN C) 500 mg tablet Take 500 mg by mouth once daily. Garlic ORAL Cap Take one(1) tablet daily. dicyclomine (BENTYL) 10 mg capsule Take 1 capsule by mouth twice daily. As directed. (Patient not taking: No sig reported) ALLERGIES: Patient has no known allergies. PERSONAL HISTORY: SOCIAL HISTORY Social History Tobacco Use Smoking status: Never Smokeless tobacco: Never Vaping Use Vaping Use: Never used Substance Use Topics Alcohol use: No Comment: socially Drug use: No FAMILY HISTORY FAMILY HISTORY Problem Relation Age of Onset Arthritis Mother other (Other) Mother fall, natural causes Heart Father CABG other (Cholesterol) Father Diabetes Paternal Grandmother Prostate Cancer Brother 62 Glaucoma Brother Arthritis Brother lumbago Coronary Artery Disease Brother stents Arthritis Brother lumbago REVIEW OF SYSTEMS: General: The patient denies fatigue, denies weight loss, denies weight gain, denies feeling hot, and denies feelings of cold. Eyes: The patient denies glaucoma, denies eye injury/surgery, does not wear glasses or contacts. Ear/Nose/Throat: The patient denies allergies, denies hayfever, denies ear infections, and denies bloody noses. Cardiovascular: The patient denies chest pain, NOTES heart disease, NOTES high blood pressure,denies cardiac stent, denies prior heart attack, NOTES irregular heart beat, NOTES high cholesterol, denies poor circulation, denies heart failure, other cardiac issues, denies claudication, denies cold feet, denies peripheral arterial stent. Respiratory: The patient denies tubercu (more content not included)... Normal [facility] Comprehensive metabolic 2000 panelon 05-08-2023 Albumin [Mass/Vol] 4.2 g/dL 3.9 - 4.9 g/dL [facility] ALP [Catalytic activity/Vol] 86 U/L 38 - 113 U/L [facility] ALT [Catalytic activity/Vol] 31 U/L 10 - 54 U/L [facility] Anion gap [Moles/Vol] 7 mmol/L Low 9 - 18 mmol/L [facility] AST [Catalytic activity/Vol] 26 U/L 14 - 40 U/L [facility] Bilirubin [Mass/Vol] 0.4 mg/dL 0.2 - 1 .3 mg/dL [facility] Calcium [Mass/Vol] 10.2 mg/dL 8.5 - 10. 2 mg/dL [facility] Chloride [Moles/Vol] 105 mmol/L 97 - 10 5 mmol/L [facility] CO2 [Moles/Vol] 27 mmol/L 22 - 30 mmol/L [facility] Creatinine [Mass/Vol] 0.85 mg/dL 0.73 - 1.22 mg/dL [facility] Estimated Glomerular Filtration Rate 91 mL/min/1.73m >=60 mL/min/1.73m [facility] Glucose [Mass/Vol] 94 mg/dL 74 - 99 mg/dL [facility] Potassium [Moles/Vol] 4.4 mmol/L 3.7 - 5.1 mmol/L [facility] Protein [Mass/Vol] 6.6 g/dL 6.3 - 8.0 g/dL [facility] Sodium [Moles/Vol] 139 mmol/L 136 - 144 mmol/L [facility] Urea nitrogen [Mass/Vol] 22 mg/dL 9 - 24 mg/dL [facility] ECG COMPLETEon 05-08-2023 Atrial Rate 63 BPM [facility] Calculated P [place] 51 degrees [facility] Calculated R [place] 12 degrees [facility] Calculated T [place] 40 degrees [facility] P-R Interval 204 ms [facility] QRS Duration 104 ms [facility] QT Interval 408 ms [facility] QTC Calculation (Bazett) 417 ms [facility] Ventricular Rate 63 BPM [facility] CBC W Auto Differential pane l (Bld)on 05-07-2023 Basophils (Bld) [#/Vol] <0.11 k/uL [facility] Basophils/100 WBC (Bld) 0.4 % [facility] Differential cell count method Nom (Bld) Auto [facility] Eosinophils (Bld) [#/Vol] 0.13 10*3/uL <0.46 k/uL [facility] Eosinophils/100 WBC (Bld) 2.3 % [facility] Erythrocyte distribution width (RBC) [Ratio] 11.5 % 11.5 - 15.0 % [facility] Hematocrit (Bld) [Volume fraction] 43.1 % 39.0 - 51.0 % [facility] Hemoglobin (Bld) [Mass/Vol] 13.9 g/dL 13.0 - 17.0 g/dL [facility] Immature granulocytes (Bld) [#/Vol] <0.10 k/uL [facility] Immature granulocytes/100 WBC (Bld) 0.4 % [facility] Lymphocytes (Bld) [#/Vol] 1.54 10*3/uL 1.00 - 4.00 k/uL [facility] Lymphocytes/100 WBC (Bld) 27.4 % [facility] MCH (RBC) [Entitic mass] 30.1 pg 26.0 - 34.0 pg [facility] MCHC (RBC) [Mass/Vol] 32.3 g/dL 30.5 - 36.0 g/dL [facility] MCV (RBC) [Entitic vol] 93.3 fL 80.0 - 100.0 fL [facility] Monocytes (Bld) [#/Vol] 0.62 10*3/uL <0.87 k/uL [facility] Monocytes/100 WBC (Bld) 11.0 % [facility] Neutrophils (Bld) [#/Vol] 3.30 10*3/uL 1.45 - 7.50 k/uL [facility] Neutrophils/100 WBC (Bld) 58.5 % [facility] Nucleated RBC (Bld) [#/Vol] <0.01 k/uL [facility] Nucleated RBC/100 WBC (Bld) [Ratio] 0.0 /100 WBC [facility] Platelet mean volume (Bld) [Entitic vol] 9.8 fL 9.0 - 12.7 fL [facility] Platelets (Bld) [#/Vol] 192 10*3/uL 150 - 400 k/uL [facility] RBC (Bld) [#/Vol] 4.62 10*6/uL 4.20 - 6.0 0 m/uL [facility] WBC (Bld) [#/Vol] 5.63 10*3/uL 3.70 - 11. 00 k/uL [facility] XR Chest PA and Lateralon IMPRESSION: No acute cardiopulmonary process. Porcelain Mixer: PSCB Transcribe Date/Time: Mar 27 2023 11:40P Dictated by : ANDREW KHAN MD This examination was interpreted and the report reviewed and electronically signed by: ANDREW KHAN MD on Mar 27 2023 11:40PM [facility] DIVISION OF RADIOLOGY * * *Final Report* * * DATE OF EXAM: Mar 24 2023 4:42PM WOX [id number] - XR CHEST 2V FRONTAL/LAT / PROCEDURE REASON: Abnormal lung sounds * * * * Physician Interpretation * * * * EXAMINATION: CHEST RADIOGRAPH (2 VIEW FRONTAL & LATERAL) CLINICAL HISTORY: Abnormal lung sounds MQ: XC2_6 EXAM DATE/TIME: 03/24/2023 4:42 PM COMPARISON: 03/03/2008. RESULT: Lines, tubes, and devices: None. Lungs and pleura: There is no focal consolidation, pleural effusion, or pneumothorax. Left basilar subsegmental atelectasis. Cardiomediastinal silhouette: Within normal limits. Bones and soft tissues: No acute osseous abnormality is identified. The imaged upper abdomen is within normal limits. DIVISION OF RADIOLOGY Provider, [facility] - 03/27/2023 * * *Final Report* * * DATE OF EXAM: Mar 24 2023 4:42PM WOX [id number] - XR CHEST 2V FRONTAL/LAT / PROCEDURE REASON: Abnormal lung sounds * * * * Physician Interpretation * * * * EXAMINATION: CHEST RADIOGRAPH (2 VIEW FRONTAL & LATERAL) CLINICAL HISTORY: Abnormal lung sounds MQ: [id number] EXAM DATE/TIME: 03/24/2023 4:42 PM COMPARISON: 03/03/2008. RESULT: Lines, tubes, and devices: None. Lungs and pleura: There is no focal consolidation, pleural effusion, or pneumothorax. Left basilar subsegmental atelectasis. Cardiomediastinal silhouette: Within normal limits. Bones and soft tissues: No acute osseous abnormality is identified. The imaged upper abdomen is within normal limits. IMPRESSION IMPRESSION: No acute cardiopulmonary process. Porcelain Mixer: PSCB Transcribe Date/Time: Mar 27 2023 11:40P Dictated by : ANDREW KHAN MD This examination was interpreted and the report reviewed and electronically signed by: ANDREW KHAN MD on Mar 27 2023 11:40PM EST [facility] XR Chest PA and LateralOrder ed By: [facility] Provider on 03-27-2023 [facility] XR Chest PA and Lateralon Radiology Study observation (narrative) [facility] 2019 CORONAVIRUSon 2 SARS-CoV-2 (COVID-19) RNA RAFFY+probe Ql (Resp) SARS-CoV-2 (Agent of COVID-19) Not Detected by RT-PCR or equivalent method. Not Detected [facility] CR Hand Complete 3+ Views Kwabena lowe 08-15-2021 CR Hand Complete 3+ Views Right Patient Name: MONIKA CHOWDHURY Diagnostic Radiology ACCESSION EXAM DATE/TIME PROCEDURE ORDERING PROVIDER [id number] 08/15/2021 11:26 EDT CR Hand Complete 3+ MD ANGELINE, NELLIE ANNIE Views Right [facility] CPT code 76041 Reason For Exam (CR Hand Complete 3+ Views Right) Laceration without foreign body of right hand, initial encounter Report CLINICAL INFORMATION: Laceration of right hand with foreign body removal approximately two weeks ago. Right hand: COMPARISON: None at this institution. PA, oblique and lateral views demonstrate no evidence of acute fracture or dislocation. There is narrowing of all interphalangeal joints with large osteophytes of the interphalangeal joint of the thumb. There is a cystlike lucency in the distal scaphoid. No radiopaque foreign body is identified. There are no other abnormal soft tissue densities. IMPRESSION: No evidence of acute bone trauma or radiopaque soft tissue foreign body. Degenerative changes of the digits greatest involving the thumb. Report Dictated on Final Dictating Physician: MD DE LEÓN HARLAN Signed Date and Time: 08/15/2021 4:04 pm Signed by: MD DE LEÓN HARLAN Transcribed Date and Time: 08/15/2021 4:05 Normal [facility] XR HAND RIGHT (MIN 3 VIEWS)O rdered By: Nellie Marcus on 08-15-2021 Patient Name: MONIKA CHOWDHURY Diagnostic Radiology ACCESSION EXAM DATE/TIME PROCEDURE ORDERING PROVIDER [id number] 08/15/2021 11:26 EDT CR Hand Complete 3+ MD MARCUS MOHEB ANNIE Views Right [facility] CPT code 84732 Reason For Exam (CR Hand Complete 3+ Views Right) Laceration without foreign body of right hand, initial encounter Report CLINICAL INFORMATION: Laceration of right hand with foreign body removal approximately two weeks ago. Right hand: COMPARISON: None at this institution. PA, oblique and lateral views demonstrate no evidence of acute fracture or dislocation. There is narrowing of all interphalangeal joints with large osteophytes of the interphalangeal joint of the thumb. There is a cystlike lucency in the distal scaphoid. No radiopaque foreign body is identified. There are no other abnormal soft tissue densities. IMPRESSION: No evidence of acute bone trauma or radiopaque soft tissue foreign body. Degenerative changes of the digits greatest involving the thumb. Report Dictated on --- Final --- Dictating Physician: MD DE LEÓN HARLAN Signed Date and Time: 08/15/2021 4:04 pm Signed by: MD DE LEÓN HARLAN Transcribed Date and Time: 08/15/2021 4:05 [facility] Work Phone: [facility], [facility] Incoming Radiology Results From [facility] - 08/15/2021 4:05 PM EDT Patient Name: MONIKA CHOWDHURY Diagnostic Radiology ACCESSION EXAM DATE/TIME PROCEDURE ORDERING PROVIDER [id number] 08/15/2021 11:26 EDT CR Hand Complete 3+ MD ANGELINE, NELLIE VALENCIA Views Right [facility] CPT code 25863 Reason For Exam (CR Hand Complete 3+ Views Right) Laceration without foreign body of right hand, initial encounter Report CLINICAL INFORMATION: Laceration of right hand with foreign body removal approximately two weeks ago. Right hand: COMPARISON: None at this institution. PA, oblique and lateral views demonstrate no evidence of acute fracture or dislocation. There is narrowing of all interphalangeal joints with large osteophytes of the interphalangeal joint of the thumb. There is a cystlike lucency in the distal scaphoid. No radiopaque foreign body is identified. There are no other abnormal soft tissue densities. IMPRESSION: No evidence of acute bone trauma or radiopaque soft tissue foreign body. Degenerative changes of the digits greatest involving the thumb. Report Dictated on --- Final --- Dictating Physician: MD DE LEÓN HARLAN Signed Date and Time: 08/15/2021 4:04 pm Signed by: MD DE LEÓN HARLAN Transcribed Date and Time: 08/15/2021 4:05 [facility] Work Phone: [facility] Work Phone: Vital Signs Date Time Vital Sign Value Performing Clinician Mary parisi 03-28-2025 17:11-0400 Body mass index (BMI) [Ratio] 27.07 kg/m2 Fei Gandhi MD Work Phone: [facility] 03-28-2025 17:11-0400 Body weight 84.6 kg Fei Gandhi MD Work Phone: [facility] 03-28-2025 17:11-0400 Diastolic blood pressure 68 mm[Hg] Fei Gandhi MD Work Phone: [facility] 03-28-2025 17:11-0400 Heart rate 92 /min Fei Gandhi MD Work Phone: [facility] 03-28-2025 17:11-0400 Respiratory rate 20 /min Fei Gandhi MD Work Phone: [facility] 03-28-2025 17:11-0400 Systolic blood pressure 126 mm[Hg] Fei Gandhi MD Work Phone: [facility] 03-17-2025 11:28-0400 Diastolic blood pressure 70 mm[Hg] Saira Older 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 Work Phone: [facility] 03-17-2025 11:28-0400 Heart rate 72 /min Saiar Older 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 Work Phone: [facility] 03-17-2025 11:28-0400 Respiratory rate 16 /min Saira Older 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 Work Phone: [facility] 03-17-2025 11:28-0400 SaO2% (BldA) [Mass fraction] 95 % Saira Older 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 Work Phone: [facility] 03-17-2025 11:28-0400 Systolic blood pressure 122 mm[Hg] Saira Older 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 Work Phone: [facility] 03-17-2025 11:19-0400 Diastolic blood pressure 66 mm[Hg] Mercedes Paresh 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 Work Phone: [facility] 03-17-2025 11:19-0400 Heart rate 80 /min Mercedes Paresh 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 Work Phone: [facility] 03-17-2025 11:19-0400 Respiratory rate 16 /min Mercedes Paresh 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 Work Phone: [facility] 03-17-2025 11:19-0400 SaO2% (BldA) [Mass fraction] 96 % Mercedes Paresh 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 Work Phone: [facility] 03-17-2025 11:19-0400 Systolic blood pressure 114 mm[Hg] Mercedes Paresh 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 Work Phone: [facility] 03-10-2025 10:46-0400 Heart rate 79 /min Robert Andre MD Work Phone: [facility] 03-10-2025 10:46-0400 SaO2% (BldA) [Mass fraction] 92 % Robert Andre MD Work Phone: [facility] 03-10-2025 10:36-0400 Diastolic blood pressure 74 mm[Hg] Robert Andre MD Work Phone: [facility] 03-10-2025 10:36-0400 Respiratory rate 16 /min Robert Andre MD Work Phone: [facility] 03-10-2025 10:36-0400 Systolic blood pressure 132 mm[Hg] Robert Andre MD Work Phone: [facility] 03-10-2025 09:01-0400 Body mass index (BMI) [Ratio] 27.32 kg/m2 Robert Andre MD Work Phone: [facility] 03-10-2025 09:01-0400 Body temperature 97.9 [degF] Robert Andre MD Work Phone: [facility] 03-10-2025 09:01-0400 Body weight 85.4 kg Robert Andre MD Work Phone: [facility] 02-26-2025 12:36-0400 Body mass index (BMI) [Ratio] 27.32 kg/m2 Kimberley Littlejohn 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 Work Phone: [facility] 02-26-2025 12:36-0400 Body temperature 98.2 [degF] Kimberley Littlejohn 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 Work Phone: [facility] 02-26-2025 12:36-0400 Body weight 85.4 kg Kimberley Littlejohn 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 Work Phone: [facility] 02-26-2025 12:36-0400 Diastolic blood pressure 82 mm[Hg] Kimberley Littlejohn 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 Work Phone: [facility] 02-26-2025 12:36-0400 Heart rate 89 /min Kimberley Littlejohn 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 Work Phone: [facility] 02-26-2025 12:36-0400 Respiratory rate 16 /min Kimberley Littlejohn 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 Work Phone: [facility] 02-26-2025 12:36-0400 SaO2% (BldA) [Mass fraction] 96 % Kimberley Littlejohn 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 Work Phone: [facility] 02-26-2025 12:36-0400 Systolic blood pressure 138 mm[Hg] Kimberley Littlejohn 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 Work Phone: [facility] 01-19-2025 13:46-0400 Body height 176.8 cm Mercedes Paresh 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 Work Phone: [facility] 01-19-2025 13:46-0400 Body mass index (BMI) [Ratio] 27.72 kg/m2 Mercedes Paresh 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 Work Phone: [facility] 01-19-2025 13:46-0400 Body temperature 97.11 [degF] Mercedes Paresh 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 Work Phone: [facility] 01-19-2025 13:46-0400 Body weight 86.64 kg Mercedes Paresh 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 Work Phone: [facility] 01-19-2025 13:46-0400 Diastolic blood pressure 74 mm[Hg] Mercedes Paresh 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 Work Phone: [facility] 01-19-2025 13:46-0400 Heart rate 90 /min Mercedes Paresh 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 Work Phone: [facility] 01-19-2025 13:46-0400 Respiratory rate 14 /min Mercedes Paresh 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 Work Phone: [facility] 01-19-2025 13:46-0400 SaO2% (BldA) [Mass fraction] 98 % Mercedes Paresh 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 Work Phone: [facility] 01-19-2025 13:46-0400 Systolic blood pressure 120 mm[Hg] Mercedes Paresh 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 Work Phone: [facility] 01-06-2025 08:47-0500 Body mass index (BMI) [Ratio] 27.87 kg/m2 Fei Gandhi MD Work Phone: [facility] 01-06-2025 08:47-0500 Body temperature 97.11 [degF] Fei Gandhi MD Work Phone: [facility] 01-06-2025 08:47-0500 Body weight 87.1 kg Fei Gandhi MD Work Phone: [facility] 01-06-2025 08:47-0500 Diastolic blood pressure 70 mm[Hg] Fei Gandhi MD Work Phone: [facility] 01-06-2025 08:47-0500 Heart rate 80 /min Fei Gandhi MD Work Phone: [facility] 01-06-2025 08:47-0500 Respiratory rate 16 /min Fei Gandhi MD Work Phone: [facility] 01-06-2025 08:47-0500 Systolic blood pressure 114 mm[Hg] Fei Gandhi MD Work Phone: [facility] 12-13-2024 10:07-0500 Body mass index (BMI) [Ratio] 28.13 kg/m2 Leslie Eddy 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 Work Phone: [facility] 12-13-2024 10:07-0500 Body weight 87.9 kg Leslie LivingstonDean 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 Work Phone: [facility] 12-13-2024 10:07-0500 Diastolic blood pressure 64 mm[Hg] Leslie YoungDean 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 Work Phone: [facility] 12-13-2024 10:07-0500 Heart rate 77 /min Leslie LivingstonDean 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 Work Phone: [facility] 12-13-2024 10:07-0500 Respiratory rate 12 /min Leslie Eddy 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 Work Phone: [facility] 12-13-2024 10:07-0500 SaO2% (BldA) [Mass fraction] 98 % Leslie Eddy 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 Work Phone: [facility] 12-13-2024 10:07-0500 Systolic blood pressure 132 mm[Hg] Leslie Eddy 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 Work Phone: [facility] 11-10-2024 10:22-0500 Body mass index (BMI) [Ratio] 28.16 kg/m2 Mis Emelia 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 Work Phone: [facility] 11-10-2024 10:22-0500 Body temperature 99.7 [degF] Mis Emelia 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 Work Phone: [facility] 11-10-2024 10:22-0500 Body weight 88 kg Mis Emelia 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 Work Phone: [facility] 11-10-2024 10:22-0500 Diastolic blood pressure 80 mm[Hg] Mis Emelia 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 Work Phone: [facility] 11-10-2024 10:22-0500 Heart rate 99 /min Mis Emelia 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 Work Phone: [facility] 11-10-2024 10:22-0500 Respiratory rate 18 /min Mis Emelia 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 Work Phone: [facility] 11-10-2024 10:22-0500 SaO2% (BldA) [Mass fraction] 97 % Mis Emelia 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 Work Phone: [facility] 11-10-2024 10:22-0500 Systolic blood pressure 138 mm[Hg] Mis Emelia 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 Work Phone: [facility] 09-27-2024 16:34-0500 Body height 176.8 cm Fei Gandhi MD Work Phone: [facility] 09-27-2024 16:34-0500 Body mass index (BMI) [Ratio] 28.35 kg/m2 Fei Gandhi MD Work Phone: [facility] 09-27-2024 16:34-0500 Body temperature 97.2 [degF] Fei Gandhi MD Work Phone: [facility] 09-27-2024 16:34-0500 Body weight 88.6 kg Fei Gandhi MD Work Phone: [facility] 09-27-2024 16:34-0500 Diastolic blood pressure 62 mm[Hg] Fei Gandhi MD Work Phone: [facility] 09-27-2024 16:34-0500 Heart rate 68 /min Fei Gandhi MD Work Phone: [facility] 09-27-2024 16:34-0500 Respiratory rate 16 /min Fei Gandhi MD Work Phone: [facility] 09-27-2024 16:34-0500 Systolic blood pressure 126 mm[Hg] Fei Gandhi MD Work Phone: [facility] 08-16-2024 11:58-0400 Diastolic blood pressure 70 mm[Hg] Favian Larkin MD Work Phone: [facility] 08-16-2024 11:58-0400 Systolic blood pressure 128 mm[Hg] Favian Larkin MD Work Phone: [facility] 08-16-2024 11:36-0400 Body mass index (BMI) [Ratio] 26.99 kg/m2 Favian Larkin MD Work Phone: [facility] 08-16-2024 11:36-0400 Body weight 90.27 kg Favian Larkin MD Work Phone: [facility] 08-16-2024 11:36-0400 Heart rate 89 /min Favian Larkin MD Work Phone: [facility] 08-16-2024 11:36-0400 SaO2% (BldA) [Mass fraction] 97 % Favian Larkin MD Work Phone: [facility] 02-27-2024 10:51-0400 Body temperature 98.6 [degF] [facility] 02-27-2024 10:51-0400 Diastolic blood pressure 79 mm[Hg] [facility] 02-27-2024 10:51-0400 Heart rate 64 /min [facility] 02-27-2024 10:51-0400 Respiratory rate 16 /min [facility] 02-27-2024 10:51-0400 SaO2% (BldA) [Mass fraction] 95 % [facility] 02-27-2024 10:51-0400 Systolic blood pressure 151 mm[Hg] [facility] 02-27-2024 07:17-0400 Body height 182.88 cm [facility] 02-27-2024 07:17-0400 Body mass index (BMI) [Ratio] 27.1 kg/m2 [facility] 02-27-2024 07:17-0400 Body weight 90.62 kg [facility] 02-02-2024 10:41-0400 Body weight 90.27 kg Favian Larkin MD Work Phone: [facility] 02-02-2024 10:41-0400 Diastolic blood pressure 68 mm[Hg] Favian Larkin MD Work Phone: [facility] 02-02-2024 10:41-0400 Heart rate 74 /min Favian Larkin MD Work Phone: [facility] 02-02-2024 10:41-0400 SaO2% (BldA) [Mass fraction] 96 % Favian Larkin MD Work Phone: [facility] 02-02-2024 10:41-0400 Systolic blood pressure 129 mm[Hg] Favian Larkin MD Work Phone: [facility] 10-13-2023 18:51-0500 Diastolic blood pressure 78 mm[Hg] Fei Gandhi MD Work Phone: [facility] 10-13-2023 18:51-0500 Heart rate 74 /min Fei Gandhi MD Work Phone: [facility] 10-13-2023 18:51-0500 Systolic blood pressure 142 mm[Hg] Fei Gandhi MD Work Phone: [facility] 10-13-2023 18:41-0500 Body temperature 98.29 [degF] Fei Gandhi MD Work Phone: [facility] 10-13-2023 18:41-0500 Body weight 88 kg Fei Gandhi MD Work Phone: [facility] 10-13-2023 18:41-0500 Respiratory rate 18 /min Fei Gandhi MD Work Phone: [facility] 09-29-2023 13:33-0500 Body height 182.9 cm Naomy Jimenez MD Work Phone: [facility] 09-29-2023 13:33-0500 Body temperature 97.11 [degF] Naomy Jimenez MD Work Phone: [facility] 09-29-2023 13:33-0500 Body weight 88.81 kg Naomy Jimenez MD Work Phone: [facility] 09-29-2023 13:33-0500 Diastolic blood pressure 72 mm[Hg] Naomy Jimenez MD Work Phone: [facility] 09-29-2023 13:33-0500 Heart rate 83 /min Naomy Jimenez MD Work Phone: [facility] 09-29-2023 13:33-0500 SaO2% (BldA) [Mass fraction] 98 % Naomy Jimenez MD Work Phone: [facility] 09-29-2023 13:33-0500 Systolic blood pressure 118 mm[Hg] Naomy Jimenez MD Work Phone: [facility] 08-20-2023 09:10-0400 Body temperature 97.11 [degF] Mehnaz Sutherland 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 Work Phone: [facility] 08-20-2023 09:10-0400 Body weight 88 kg Mehnaz Sutherland 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 Work Phone: [facility] 08-20-2023 09:10-0400 Diastolic blood pressure 70 mm[Hg] Mehnaz Ena 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 Work Phone: [facility] 08-20-2023 09:10-0400 Heart rate 72 /min Mehnaz Ena 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 Work Phone: [facility] 08-20-2023 09:10-0400 Respiratory rate 18 /min Mehnaz Ena 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 Work Phone: [facility] 08-20-2023 09:10-0400 SaO2% (BldA) [Mass fraction] 98 % Mehnaz Ena 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 Work Phone: [facility] 08-20-2023 09:10-0400 Systolic blood pressure 126 mm[Hg] Mehnaz Ena 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 Work Phone: [facility] 07-11-2023 09:58-0400 Body temperature 97.81 [degF] Margret Chester PA-C Work Phone: [facility] 07-11-2023 09:58-0400 Body weight 87.09 kg Margret Broseley PA-C Work Phone: [facility] 07-11-2023 09:58-0400 Diastolic blood pressure 80 mm[Hg] Margrte Broseley PA-C Work Phone: [facility] 07-11-2023 09:58-0400 Heart rate 89 /min Margret Chester PA-C Work Phone: [facility] 07-11-2023 09:58-0400 SaO2% (BldA) [Mass fraction] 97 % Margret Broseley PA-C Work Phone: [facility] 07-11-2023 09:58-0400 Systolic blood pressure 128 mm[Hg] Margret Broseley PA-C Work Phone: [facility] 06-04-2023 13:03-0400 Body temperature 98.1 [degF] Margret Chester PA-C Work Phone: [facility] 06-04-2023 13:03-0400 Body weight 85 kg Margret Chester PA-C Work Phone: [facility] 06-04-2023 13:03-0400 Diastolic blood pressure 62 mm[Hg] Margret Chester PA-C Work Phone: [facility] 06-04-2023 13:03-0400 Heart rate 91 /min Margret Broseley PA-C Work Phone: [facility] 06-04-2023 13:03-0400 SaO2% (BldA) [Mass fraction] 96 % Margret Broseley PA-C Work Phone: [facility] 06-04-2023 13:03-0400 Systolic blood pressure 124 mm[Hg] Margret Broseley PA-C Work Phone: [facility] 05-30-2023 10:58-0400 Diastolic blood pressure 74 mm[Hg] Margret Broseley PA-C Work Phone: [facility] 05-30-2023 10:58-0400 Systolic blood pressure 132 mm[Hg] Margret Broseley PA-C Work Phone: [facility] 05-30-2023 10:57-0400 Body temperature 97.39 [degF] Margret Broseley PA-C Work Phone: [facility] 05-30-2023 10:57-0400 Heart rate 74 /min Margret Chester PA-C Work Phone: [facility] 05-30-2023 10:57-0400 SaO2% (BldA) [Mass fraction] 96 % Margret Chester PA-C Work Phone: [facility] 05-07-2023 15:34-0400 Body height 182.9 cm Pacc 1 Work Phone: [facility] 05-07-2023 15:34-0400 Body temperature 97.3 [degF] Pacc 1 Work Phone: [facility] 05-07-2023 15:34-0400 Body weight 87.54 kg Pacc 1 Work Phone: [facility] 05-07-2023 15:34-0400 Diastolic blood pressure 78 mm[Hg] Pacc 1 Work Phone: [facility] 05-07-2023 15:34-0400 Heart rate 78 /min Pacc 1 Work Phone: [facility] 05-07-2023 15:34-0400 Respiratory rate 16 /min Pacc 1 Work Phone: [facility] 05-07-2023 15:34-0400 SaO2% (BldA) [Mass fraction] 95 % Pacc 1 Work Phone: [facility] 05-07-2023 15:34-0400 Systolic blood pressure 140 mm[Hg] Pacc 1 Work Phone: [facility] 04-22-2023 10:18-0400 Body height 182.9 cm Naomy Jimenez MD Work Phone: [facility] 04-22-2023 10:18-0400 Body temperature 97.9 [degF] Naomy Jimenez MD Work Phone: [facility] 04-22-2023 10:18-0400 Body weight 86.55 kg Naomy Jimenez MD Work Phone: [facility] 04-22-2023 10:18-0400 Diastolic blood pressure 65 mm[Hg] Naomy Jimenez MD Work Phone: [facility] 04-22-2023 10:18-0400 Heart rate 70 /min Naomy Jimenez MD Work Phone: [facility] 04-22-2023 10:18-0400 SaO2% (BldA) [Mass fraction] 96 % Naomy Jimenez MD Work Phone: [facility] 04-22-2023 10:18-0400 Systolic blood pressure 132 mm[Hg] Naomy Jimenez MD Work Phone: [facility] 04-09-2023 13:31-0400 Body weight 87.09 kg Mehnaz Sutherland APRN.CNP Work Phone: [facility] 04-09-2023 13:31-0400 Diastolic blood pressure 64 mm[Hg] Mehnaz Ena 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 Work Phone: [facility] 04-09-2023 13:31-0400 Heart rate 87 /min Mehnaz Ena 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 Work Phone: [facility] 04-09-2023 13:31-0400 SaO2% (BldA) [Mass fraction] 98 % Mehnaz Ena 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 Work Phone: [facility] 04-09-2023 13:31-0400 Systolic blood pressure 118 mm[Hg] Mehnaz Ena 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 Work Phone: [facility] 03-24-2023 16:19-0400 Diastolic blood pressure 64 mm[Hg] Fei Gandhi MD Work Phone: [facility] 03-24-2023 16:19-0400 Systolic blood pressure 124 mm[Hg] Fei Gandhi MD Work Phone: [facility] 03-24-2023 15:47-0400 Body weight 87 kg Fei Gandhi MD Work Phone: [facility] 03-24-2023 15:47-0400 Heart rate 68 /min Fei Gandhi MD Work Phone: [facility] 03-24-2023 15:47-0400 Respiratory rate 18 /min Fei Gandhi MD Work Phone: [facility] 06-02-2022 14:27-0400 Body temperature 96.91 [degF] Felisa May 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 Work Phone: [facility] 06-02-2022 14:27-0400 Body weight 84.82 kg Felisa May 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 Work Phone: [facility] 06-02-2022 14:27-0400 Diastolic blood pressure 68 mm[Hg] Felisa Fragosoler-Felipe 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 Work Phone: [facility] 06-02-2022 14:27-0400 Heart rate 79 /min Felisa Praisler-Wood 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 Work Phone: [facility] 06-02-2022 14:27-0400 Respiratory rate 16 /min Felisa Praisler-Wood 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 Work Phone: [facility] 06-02-2022 14:27-0400 SaO2% (BldA) [Mass fraction] 98 % Felisa Praisler-Wood 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 Work Phone: [facility] 06-02-2022 14:27-0400 Systolic blood pressure 128 mm[Hg] Felisa Praisler-Wood 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 Work Phone: [facility] 05-20-2022 17:46-0400 Body temperature 99 [degF] Freddie Mitchell MD Work Phone: [facility] 05-20-2022 17:46-0400 Body weight 84.82 kg Freddie Mitchell MD Work Phone: [facility] 05-20-2022 17:46-0400 Diastolic blood pressure 72 mm[Hg] Freddie Mitchell MD Work Phone: [facility] 05-20-2022 17:46-0400 Heart rate 88 /min Freddie Mitchell MD Work Phone: [facility] 05-20-2022 17:46-0400 Respiratory rate 18 /min Freddie Mitchell MD Work Phone: [facility] 05-20-2022 17:46-0400 SaO2% (BldA) [Mass fraction] 96 % Freddie Mitchell MD Work Phone: [facility] 05-20-2022 17:46-0400 Systolic blood pressure 142 mm[Hg] Freddie Mitchell MD Work Phone: [facility] 04-20-2022 12:40-0400 Body temperature 97.7 [degF] Andrew Eddy 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 Work Phone: [facility] 04-20-2022 12:40-0400 Body weight 85.28 kg Andrew Surjit 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 Work Phone: [facility] 04-20-2022 12:40-0400 Diastolic blood pressure 70 mm[Hg] Andrew Surjit 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 Work Phone: [facility] 04-20-2022 12:40-0400 Heart rate 80 /min Andrew Surjit 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 Work Phone: [facility] 04-20-2022 12:40-0400 Respiratory rate 16 /min Andrew Surjit 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 Work Phone: [facility] 04-20-2022 12:40-0400 SaO2% (BldA) [Mass fraction] 97 % Andrew Surjit 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 Work Phone: [facility] 04-20-2022 12:40-0400 Systolic blood pressure 138 mm[Hg] Andrew Surjit 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 Work Phone: [facility] 03-30-2022 12:41-0400 Body temperature 97.3 [degF] Felisa Praisler-Wood 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 Work Phone: [facility] 03-30-2022 12:41-0400 Body weight 85.28 kg Felisa Praisler-Wood 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 Work Phone: [facility] 03-30-2022 12:41-0400 Diastolic blood pressure 68 mm[Hg] Felisa Praisler-Wood 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 Work Phone: [facility] 03-30-2022 12:41-0400 Heart rate 76 /min Felisa Praisler-Wood 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 Work Phone: [facility] 03-30-2022 12:41-0400 Respiratory rate 16 /min Felisa Praisler-Wood 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 Work Phone: [facility] 03-30-2022 12:41-0400 SaO2% (BldA) [Mass fraction] 97 % Felisa Praisler-Wood 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 Work Phone: [facility] 03-30-2022 12:41-0400 Systolic blood pressure 118 mm[Hg] Felisa May APRN.SENIOR COPYWRITER Work Phone: [facility] 03-21-2022 16:47-0400 Diastolic blood pressure 54 mm[Hg] Fei Gandhi MD Work Phone: [facility] 03-21-2022 16:47-0400 Systolic blood pressure 112 mm[Hg] Fei Gandhi MD Work Phone: [facility] 03-21-2022 16:07-0400 Body temperature 97.9 [degF] Fei Gandhi MD Work Phone: [facility] 03-21-2022 16:07-0400 Body weight 84.82 kg Fei Gandhi MD Work Phone: [facility] 03-21-2022 16:07-0400 Heart rate 80 /min Fei Gandhi MD Work Phone: [facility] 03-21-2022 16:07-0400 Respiratory rate 18 /min Fei Gandhi MD Work Phone: [facility] Encounters Encounter Date Encounter Type Care Provider Facility Start: 05-02-2025 End: 05-02-[address] Fei Gandhi MD Work Phone: [facility] Work Phone: Start: 05-02-2025 End: 05-02-[address] Benja Greenberg MD -Laboratory Work Phone: Start: 05-02-2025 End: 05-02-2025 ambulatory Fei Gandhi Facility:[facility] Start: 04-18-2025 End: 04-19-2025 Refill Fei Gandhi MD Work Phone: Internal [facility] [place] Comment on above: Refill Request Start: 03-28-2025 End: 03-28-2025 Patient encounter procedure Fei Gandhi MD Work Phone: [facility] [place] Comment on above: Plant irritant conta ct dermatitis (Primary Dx); Screening for depression; Encounter for screening examination for other mental health and behavioral disorders; Mixed hyperlipidemia; Coronary artery disease involving [place] coronary artery of [place] heart without angina pectoris; Essential hypertension; Paroxysmal atrial fibrillation (HCC) Start: 03-28-2025 End: 03-28-2025 ambulatory FEI GANDHI Facility:[facility] Start: 03-18-2025 End: 05-18-2025 Follow-up encounter Saira Woody APRN.CNP Work Phone: [facility] [place] Start: 03-17-2025 End: 03-17-2025 Follow-up encounter Saira Woody APRN.SENIOR COPYWRITER Work Phone: [facility] [place] Start: 03-17-2025 End: 03-17-2025 Subsequent hospital visit by physician Josselyn [facility] [place] Work Phone: Radiology Comment on above: Chest pain, unspecif ied type [R07.9] Start: 03-17-2025 End: 03-17-2025 ambulatory SAIRA WOODY Facility:[facility] Start: 03-17-2025 End: 03-17-2025 Office outpatient visit 25 minutes Saira Woody APRN.CNP Work Phone: Internal Medicine [place] Comment on above: Chest pain, unspecif ied type (Primary Dx); Palpitations; Low oxygen saturation; Paroxysmal atrial fibrillation (HCC) Start: 03-17-2025 End: 03-17-2025 Patient encounter procedure Mercedes Saldivarir SENIOR COPYWRITER Work Phone: General Surgery Comment on above: Rectal bleeding (Jazz anant Dx) Start: 03-17-2025 End: 03-17-2025 ambulatory MERCEDES COSTA Facility:[facility] Start: 03-10-2025 ambulatory ROBERT Alexander ty:[facility] Start: 03-10-2025 End: 03-10-2025 Subsequent hospital visit by physician Robert Andre MD Work Phone: Ambulatory Surgery Comment on above: Rectal bleeding [K62 .5] Start: 02-27-2025 End: 02-27-2025 Follow-up encounter Andrew Eddy 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 Work Phone: [place] [facility] Comment on above: Results Start: 02-27-2025 End: 02-28-2025 Telephone encounter [facility] Work Phone: [place] [facility] Comment on above: Medication Problem Start: 02-26-2025 End: 02-26-2025 ambulatory FEI GANDHI Facility:[facility] Start: 02-26-2025 End: 02-26-2025 Patient encounter procedure Kimberley Littlejohn 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 Work Phone: [place] [facility] Comment on above: Acute cough (Primary Dx); URI, acute Start: 01-19-2025 End: 05-12-2025 Telephone encounter Mercedes Costa 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 Work Phone: General Surgery Comment on above: 02-28-2025 colon [facility] Start: 01-19-2025 End: 01-19-2025 ambulatory FEI GANDHI Facility:[facility] Start: 01-19-2025 End: 01-19-2025 Patient encounter procedure Mercedes Costa 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 Work Phone: General Surgery Comment on above: Rectal bleeding Start: 01-06-2025 End: 01-07-2025 Follow-up encounter Fei Gandhi MD Work Phone: [facility] [place] Start: 01-06-2025 End: 01-06-2025 ambulatory FEI GANDHI Facility:[facility] Start: 01-06-2025 End: 01-06-2025 Office outpatient visit 25 minutes Fei Gandhi MD Work Phone: Internal Medicine [place] Comment on above: Rectal bleeding (Jazz anant Dx); Hemorrhoids, unspecified hemorrhoid type Start: 01-05-2025 End: 01-05-2025 ambulatory Fei Gandhi MD Work Phone: [facility] Medicine [place] Comment on above: Rectal Bleeding Start: 12-13-2024 End: 12-13-2024 Telephone encounter Leslie Eddy APRN.SENIOR COPYWRITER Work Phone: [facility] [place] Comment on above: Results Start: 12-13-2024 End: 12-13-2024 Subsequent hospital visit by physician Josselyn [facility] [place] Work Phone: Radiology Comment on above: Acute pain of left s houlder [M25.512] Start: 12-13-2024 End: 12-13-2024 ambulatory FEI GANDHI Facility:[facility] Start: 12-13-2024 End: 12-13-2024 Patient encounter procedure Leslie Eddy 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 Work Phone: [facility] [place] Comment on above: Acute pain of left s houlder (Primary Dx); Injury of left shoulder, initial encounter Start: 11-11-2024 End: 11-11-2024 Telephone encounter Navin Terrazas 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 Work Phone: [place] [facility] Comment on above: Results Start: 11-10-2024 End: 11-10-2024 ambulatory Celine Xiong RN NURSE SENIOR DESIGNER Comment on above: Medication Problem Start: 11-10-2024 End: 11-10-2024 Patient encounter procedure Mis Kapoor 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 Work Phone: [facility] Comment on above: URI with cough and c ongestion (Primary Dx) Start: 09-27-2024 End: 09-27-2024 ambulatory FEI GANDHI Facility:[facility] Start: 09-27-2024 End: 09-27-2024 Patient encounter procedure Fei Gandhi MD Work Phone: [facility] [place] Comment on above: Routine medical exam (Primary Dx); Coronary artery disease involving [place] coronary artery of [place] heart without angina pectoris; Essential hypertension; Mixed hyperlipidemia; Paroxysmal atrial fibrillation (HCC); Impacted cerumen, left ear Start: 09-27-2024 End: 09-27-2024 Patient encounter status Fei Gandhi MD Work Phone: [facility] Work Phone: Start: 09-04-2024 End: 09-04-2024 ambulatory FEI GANDHI Facility:[facility] Start: 08-16-2024 End: 08-16-2024 ambulatory FAVIAN LARKIN Facility:[facility] Start: 08-16-2024 End: 08-16-2024 Patient encounter procedure Favian Larkin MD Work Phone: Cardiology Comment on above: Coronary artery dise ase involving [place] coronary artery of [place] heart without angina pectoris (Primary Dx); Paroxysmal atrial fibrillation (HCC); Aortic root dilatation (HCC); Essential hypertension; Mixed hyperlipidemia; Leg edema; TATE (dyspnea on exertion) Start: 08-06-2024 End: 08-09-2024 Telephone encounter Favian Larkin MD Work Phone: [facility] Cardiology Comment on above: Results Start: 08-05-2024 End: 08-05-2024 ambulatory FAVIAN LARKIN Facility:[facility] Start: 03-11-2024 Refill Fei cordero MD Work Phone: [facility] Medicine [place] Comment on above: Refill Request (Edwin g out of town 9:00 AM tomorrow) Start: 02-27-2024 End: 02-27-2024 Emergency department patient visit [facility] Work Phone: Start: 02-02-2024 End: 02-02-2024 Patient encounter procedure Favian Larkin MD Work Phone: Cardiology Comment on above: Coronary artery dise ase involving [place] coronary artery of [place] heart without angina pectoris (Primary Dx); Paroxysmal atrial fibrillation (HCC); Aortic root dilatation (HCC); Essential hypertension; Mixed hyperlipidemia Start: 10-25-2023 Telephone encounter Fei graves MD Work Phone: [facility] [place] Comment on above: Results Start: 10-18-2023 Telephone encounter Fei graves MD Work Phone: [facility] [place] Comment on above: Results Start: 10-16-2023 End: 10-16-2023 [facility] Comment on above: Lower abdominal pain [R10.30] Start: 10-13-2023 End: 10-13-2023 Patient encounter procedure Fei Gandhi MD Work Phone: [facility] [place] Comment on above: Lower abdominal pain (Primary Dx); Diarrhea, unspecified type Start: 09-29-2023 End: 09-29-2023 Patient encounter procedure Naomy Jimenez MD Work Phone: General Surgery Comment on above: BRBPR (bright red bl ood per rectum) Start: 08-22-2023 Telephone encounter Mehnaz Cleav er 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 Work Phone: [facility] Medicine [place] Comment on above: Results Start: 08-20-2023 Telephone encounter Mehnaz Cleav er 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 Work Phone: [facility] [place] Comment on above: Medication Question Start: 08-20-2023 End: 08-20-2023 Subsequent hospital visit by physician Josselyn [facility] [place] Work Phone: Radiology Comment on above: Sinobronchitis [J32. 9, J40] Start: 08-20-2023 End: 08-20-2023 Patient encounter procedure Mehnaz Ena 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 Work Phone: [facility] Medicine [place] Comment on above: Sinobronchitis (Prim john Dx); Blood in sputum Start: 07-11-2023 End: 07-11-2023 Patient encounter procedure Margret LOW-C Work Phone: General Surgery Comment on above: S/P hernia repair (P rimary Dx) Start: 06-04-2023 End: 06-04-2023 Patient encounter procedure Margret Briggs PA-C Work Phone: General Surgery Comment on above: S/P hernia repair (P rimary Dx) Start: 05-30-2023 End: 05-30-2023 Patient encounter procedure Margret Briggs PA-C Work Phone: General Surgery Comment on above: S/P hernia repair (P rimary Dx) Start: 05-23-2023 End: 05-23-2023 ambulatory FEI GANDHI Facility:[facility] Start: 05-21-2023 Telephone encounter Naomy Lyons MD Work Phone: General Surgery Comment on above: Patient Update ([place] paper work/) Start: 05-07-2023 End: 05-07-2023 Admission to establishment [facility] 1 Work Phone: [facility] Start: 05-07-2023 End: 05-07-2023 ambulatory [facility] 1 Work Phone: Pre Anesthesia Comment on above: Pre-operative examin ation (Primary Dx); 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; Coronary artery disease involving [place] coronary artery of [place] heart without angina pectoris; Mixed hyperlipidemia; Paroxysmal atrial fibrillation (HCC); BPH with obstruction/lower urinary tract symptoms; Essential hypertension; Venous (peripheral) insufficiency; Essential tremor; Aortic root dilatation (HCC) Start: 05-07-2023 End: 05-07-2023 Preprocedural examination done [facility] 1 Work Phone: [facility] Work Phone: Start: 04-22-2023 End: 04-22-2023 Patient encounter procedure Naomy Jimenez MD Work Phone: General Surgery Comment on above: Umbilical hernia wit hout obstruction and without gangrene; History of hernia surgery Start: 04-09-2023 End: 04-09-2023 Patient encounter procedure Mehnaz Sutherland APRN.CNP Work Phone: Internal Medicine [place] Comment on above: Umbilical hernia wit hout obstruction and without gangrene (Primary Dx); History of hernia surgery Start: 04-08-2023 Telephone encounter Fei graves MD Work Phone: Internal Medicine [place] Comment on above: Results Start: 03-24-2023 End: 03-24-2023 Subsequent hospital visit by physician Josselyn [facility] [place] Work Phone: Radiology Comment on above: Abnormal lung sounds [R09.89] Start: 03-24-2023 End: 03-24-2023 Patient encounter procedure Fei Gandhi MD Work Phone: Internal Medicine [place] Comment on above: Abdominal cramps (Pr imary Dx); Aortic root dilatation (HCC); Paroxysmal atrial fibrillation (HCC); Essential hypertension; Abnormal lung sounds; Mixed hyperlipidemia Start: 03-10-2023 Refill Fei cordero MD Work Phone: [facility] Medicine [place] Comment on above: Refill Request Start: 02-17-2023 Telephone encounter Kimberley Fraser 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 Work Phone: Cardiology Comment on above: New Patient Start: 12-31-2022 Telephone encounter Mayela noble PA-C Work Phone: [place] [facility] Comment on above: Results Start: 12-31-2022 End: 12-31-2022 ambulatory Leslie Older 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 Work Phone: Internal Medicine [place] Comment on above: COVID-19 virus infec tion (Primary Dx) Start: 12-31-2022 End: 12-31-2022 Telemedicine consultation with patient Leslie Older 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 Work Phone: [facility] Start: 10-17-2022 Telephone encounter Fei graves MD Work Phone: [facility] Medicine [place] Comment on above: Release Of Medical R ecords Start: 08-06-2022 Refill Fei cordero MD Work Phone: Internal Medicine [place] Comment on above: Refill Request Start: 06-10-2022 Orders Only Carlo angeles Work Phone: Podiatry Comment on above: Ingrowing toenail wi th infection (Primary Dx) Results Start: 06-06-2022 End: 06-06-2022 Subsequent hospital visit by physician Josselyn [facility] [place] Work Phone: Radiology Comment on above: Ingrown toenail [L60 .0] Start: 06-06-2022 End: 06-06-2022 Patient encounter procedure Carlo Gomez Work Phone: Podiatry Comment on above: Ingrown toenail (Jazz anant Dx) Start: 06-04-2022 Telephone encounter Heath mendes MD Work Phone: Cardiology Comment on above: Returning Patient's Call Start: 06-02-2022 End: 06-02-2022 Patient encounter procedure Felisa May APRN.SENIOR COPYWRITER Work Phone: [facility] Comment on above: Toe inflammation (Pr imary Dx) Start: 05-23-2022 Telephone encounter Fei graves MD Work Phone: [facility] Medicine [place] Comment on above: Patient Request Start: 05-20-2022 End: 05-20-2022 Patient encounter procedure Freddie Mitchell MD Work Phone: [place] [facility] Comment on above: Acute cough (Primary Dx) Start: 04-20-2022 End: 04-20-2022 Patient encounter procedure Andrew Eddy APRN.SENIOR COPYWRITER Work Phone: [facility] Comment on above: Toe infection (Prima ry Dx) Start: 04-11-2022 End: 04-11-2022 Patient encounter procedure Carlo Gomez Work Phone: Podiatry Comment on above: Ingrown toenail Start: 03-30-2022 End: 03-30-2022 Patient encounter procedure Felisa May APRN.SENIOR COPYWRITER Work Phone: [facility] Comment on above: Ingrown toenail (Jazz anant Dx) Start: 03-21-2022 End: 03-21-2022 Patient encounter procedure Fei Gandhi MD Work Phone: Internal Medicine [place] Comment on above: Paroxysmal atrial fi brillation (HCC) (Primary Dx); Aortic root dilatation (HCC); Essential hypertension; Epidermoid cyst of skin of scrotum; Mixed hyperlipidemia; Screening for prostate cancer Start: 02-14-2022 Telephone encounter Fei graves MD Work Phone: Internal Medicine [place] Comment on above: Forms Start: 08-15-2021 End: 08-15-2021 Subsequent hospital visit by physician Nellie Marcus MD Work Phone: [facility] Radiology Comment on above: Laceration of right hand, foreign body presence unspecified, initial encounter Start: 05-11-2018 Ambulatory Fei Gandhi Facili ty:[facility] Start: 01-08-2018 End: 01-08-2018 Ambulatory BECKIE SANCHEZ Facility:[facility] Start: 09-26-2017 End: 11-17-2017 Ambulatory BECKIE SANCHEZ Facility:[facility] Procedures Date Procedure Procedure Detail Performing Clinician Start: 05-02-2025 PSA screening [facility] Provi clint Start: 05-02-2025 Prostate specific an tigen measurement Dr. Fei Gandhi MD Work Phone: Comment on above: This test was perfor med using the [employer] tPSA method. Measured values of a patient sample can vary depending on the testing procedure used. PSA values determined on patient samples by different testing procedures cannot be used interchangeably. If there is a change in PSA assays while monitoring therapy, sequential testing should be performed to confirm baseline values. Start: 03-28-2025 Adult depression screening assessment Fei Gandhi MD Work Phone: Start: 03-17-2025 Radiologic exam ches t 2 views Saira Woody 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 Work Phone: Start: 03-17-2025 Ecg routine ecg w/le ast 12 lds i&r only Saira Older 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 Work Phone: Start: 03-10-2025 Colonoscopy flx dx w/collj spec when pfrmd Mercedes Costa 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 Work Phone: Start: 12-13-2024 Radex shoulder compl ete minimum 2 views Leslie M Dean 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 Work Phone: Start: 11-13-2023 Adult depression screening assessment Fei Gandhi MD Work Phone: Start: 09-13-2023 Lipid 1996 panel - S stas or Plasma Naomy Jimenez MD Work Phone: Start: 08-20-2023 Radiologic exam ches t 2 views Mehnaz Sutherland 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 Work Phone: Start: 03-24-2023 Radiologic exam ches t 2 views Fei Gandhi MD Work Phone: Start: 09-21-2022 Lipid 1996 panel - S stas or Plasma Mehnaz Ena BARROSO.SENIOR COPYWRITER Work Phone: Start: 06-06-2022 Radex toe minimum 2 views Carlo Gomez Work Phone: Start: 06-06-2022 Cul bact xcpt urine blood/stool aerobic isol Carlo Gomez Work Phone: Start: 05-20-2022 2019 CORONAVIRUS Freddie Mitchell MD Work Phone: Start: 03-21-2022 Adult depression screening assessment Fei Gandhi MD Work Phone: Start: 08-15-2021 Radex hand minimum 3 views Nellie Marcus MD Work Phone: Start: 03-07-2021 Adult depression screening assessment Fei Gandhi MD Work Phone: Start: 07-07-2020 Colonoscopy Fei García MD Work Phone: Plan of Treatment Date Care Activity Detail Author Start: 02-26-2034 Urine microalbumin profile DTa P,Tdap,Td Vaccine (5 - Td or Tdap) [facility] Start: 07-31-2031 DTaP/Tdap/Td vaccine (4 - Td or Tdap) DTaP/Tdap/Td vaccine (4 - Td or Tdap) [facility] Work Phone: Start: 07-31-2031 Urine microalbumin profile DTa P,Tdap,Td Vaccine (4 - Td or Tdap) [facility] Start: 07-07-2030 Colonoscopy COLONOSCOPY [facility] Start: 07-07-2030 COLORECTAL CANCER SCREENING COLORECTAL CANCER SCREENING [facility] Start: 07-07-2030 Screening for malign ant neoplasm of colon [facility] Start: 09-13-2028 Lipid 1996 panel - S stas or Plasma Lipid Screening [facility] Start: 09-13-2028 Lipid panel Lipid Screening [facility] Start: 08-27-2028 Urine microalbumin profile DTA P,TDAP,TD (3 - Td or Tdap) [facility] Start: 03-17-2028 Diabetes Screening Diabetes Screenin g [facility] Start: 09-21-2027 Lipid 1996 panel - S stas or Plasma Lipid Screening [facility] Start: 09-21-2027 LIPID SCREEN LIPID SCREEN [facility] Start: 09-04-2027 Diabetes Screening Diabetes Screenin g [facility] Start: 10-14-2026 Diabetes Screening Diabetes Screenin g [facility] Start: 09-13-2026 Diabetes Screening Diabetes Screenin g [facility] Start: 09-01-2026 LIPID SCREEN LIPID SCREEN [facility] Start: 05-07-2026 DIABETES SCREEN [facility] Start: 05-07-2026 Diabetes Screening Diabetes Screenin g [facility] Start: 03-28-2026 Annual PCP Team Machine Milker jamie Disease Visit Annual PCP Team Chronic Disease Visit [facility] Start: 03-28-2026 Anxiety Screening Anxiety Screening [facility] Start: 03-28-2026 BP Controlled (<130/80) BP Controlle d (<130/80) [facility] Start: 03-28-2026 Covid-19 Vaccine () Covid-19 Vaccine () [facility] Comment on above: Postponed from 01/31 (Declined at this time) Start: 03-28-2026 Depression Screening Depression Scre ening [facility] Start: 03-28-2026 zzBP Controlled (<13 0/80) (Retired) zzBP Controlled (<130/80) (Retired) [facility] Start: 03-17-2026 Annual PCP Team Machine Milker jamie Disease Visit Annual PCP Team Chronic Disease Visit [facility] Start: 03-17-2026 BP Controlled (<130/80) BP Controlle d (<130/80) [facility] Start: 01-19-2026 BP Controlled (<130/80) BP Controlle d (<130/80) [facility] Start: 01-06-2026 Annual PCP Team Machine Milker jamie Disease Visit Annual PCP Team Chronic Disease Visit [facility] Start: 01-06-2026 BP Controlled (<130/80) BP Controlle d (<130/80) [facility] Start: 12-13-2025 Annual PCP Team Machine Milker jamie Disease Visit Annual PCP Team Chronic Disease Visit [facility] Start: 09-29-2025 End: 09-29-2025 Patient encounter procedure 09/29/2025 2:40 PM EST Office Visit Internal Medicine [place] [address] [place] [address] Fei Gandhi MD [address] [place] [address] Yearly w/6 month follow-up Internal Medicine [facility] Comment on above: Yearly w/6 month fol low-up Start: 09-27-2025 Annual PCP Team Machine Milker jamie Disease Visit Annual PCP Team Chronic Disease Visit [facility] Start: 09-27-2025 BP Controlled (<130/80) BP Controlle d (<130/80) [facility] Start: 09-21-2025 DIABETES SCREEN DIABETES SCREEN [facility] Start: 09-19-2025 End: 12-19-2025 CBC panel - Blood by Automated count COMPLETE BLOOD COUNT Lab Routine Essential hypertension Expected: 09/19/2025, Expires: 12/19/2025 [facility] Work Phone: Comment on above: Expected: 09/19/2025 , Expires: 12/19/2025 Start: 09-19-2025 End: 12-19-2025 Comprehensive metabolic 2000 panel - Serum or Plasma COMPREHENSIVE METABOLIC PANEL Lab Routine Mixed hyperlipidemia Expected: 09/19/2025, Expires: 12/19/2025 [facility] Comment on above: Expected: 09/19/2025 , Expires: 12/19/2025 Start: 09-19-2025 End: 12-19-2025 Lipid 1996 panel - Serum or Plasma LIPID PANEL, FASTING Lab Routine Mixed hyperlipidemia Expected: 09/19/2025, Expires: 12/19/2025 [facility] Comment on above: Expected: 09/19/2025 , Expires: 12/19/2025 Start: 09-04-2025 Hepatitis B surface antibody level LDL Cholesterol [facility] Start: 08-16-2025 BP Controlled (<130/80) BP Controlle d (<130/80) [facility] Start: 07-11-2025 Influenza vaccination Influenza Vacc ine (#1) [facility] Start: 03-28-2025 End: 03-28-2025 Patient encounter procedure 03/28/2025 5:20 PM EDT Office Visit Internal Medicine [place] [address] [place] [address] Fei Gandhi MD [address] [place] [address] 6 month follow-up Internal Medicine [facility] Comment on above: 6 month follow-up Start: 03-24-2025 Annual PCP Team Machine Milker jamie Disease Visit Annual PCP Team Chronic Disease Visit [facility] Start: 03-24-2025 BP Controlled (<130/80) BP Controlle d (<130/80) [facility] Start: 03-17-2025 End: 06-16-2025 CBC W Auto Differential panel - Blood [facility] Comment on above: Expected: 03/17/2025 , Expires: 06/16/2025 Start: 03-17-2025 End: 06-16-2025 Comprehensive metabolic 2000 panel - Serum or Plasma [facility] Comment on above: Expected: 03/17/2025 , Expires: 06/16/2025 Start: 03-17-2025 End: 06-16-2025 Magnesium [Mass/volume] in Serum or Plasma [facility] Work Phone: Comment on above: Expected: 03/17/2025 , Expires: 06/16/2025 Start: 03-17-2025 End: 03-17-2025 Patient encounter procedure 03/17/2025 10:30 AM EDT Office Visit General Surgery [address] [place] [address] Mercedes Costa APRN.SENIOR COPYWRITER [address] [place] [address] 03-10 colonoscopy follow up / declined VV General Surgery Comment on above: 03-10 colonoscopy fo llow up / declined VV Start: 03-03-2025 End: 03-03-2025 Patient encounter procedure 03/03/2025 1:15 PM EDT Appointment Ambulatory Surgery [address] [place] [address] Robert Andre MD [address] [place] [address] Rectal bleeding [K62.5] Ambulatory Surgery Comment on above: Rectal bleeding [K62 .5] Start: 02-28-2025 End: 02-28-2025 Patient encounter procedure 02/28/2025 8:45 AM EDT Appointment Ambulatory Surgery [address] [place], [place] [phone] Robert Andre MD [address] [place] [address] Ambulatory Surgery Start: 02-01-2025 BP Controlled (<130/80) BP Controlle d (<130/80) [facility] Start: 01-31-2025 Covid-19 Vaccine () Covid-19 Vaccine () [facility] Start: 01-19-2025 End: 01-19-2025 Patient encounter procedure 01/19/2025 1:30 PM EDT Office Visit [facility] [address] [facility] [place], [place] [id number] Berta Malik, DO [address], [place] [phone] Rectal bleeding [K62.5] General Surgery Comment on above: Rectal bleeding [K62 .5] Start: 01-06-2025 End: 04-07-2025 Erythrocyte sedimentation rate [facility] Work Phone: Comment on above: Expected: 01/06/2025 , Expires: 04/07/2025 Start: 01-06-2025 End: 01-06-2025 Patient encounter procedure 01/06/2025 9:00 AM EST Office Visit Internal Medicine [place] [address] [place], [place] [phone] Fei Gandhi MD [address] [place], [place] [phone] rectal bleeding off and on-see phone note. Internal Medicine [facility] Comment on above: rectal bleeding off and on-see phone note. Start: 12-18-2024 DIABETES SCREEN DIABETES SCREEN [facility] Start: 11-13-2024 Annual PCP Team Machine Milker jamie Disease Visit Annual PCP Team Chronic Disease Visit [facility] Start: 11-13-2024 Anxiety Screening Anxiety Screening [facility] Start: 11-13-2024 Depression Screening Depression Scre ening [facility] Start: 11-10-2024 Advance Directive Discussion Advance Directive Discussion [facility] Start: 10-13-2024 Annual PCP Team Machine Milker jamie Disease Visit Annual PCP Team Chronic Disease Visit [facility] Start: 09-29-2024 BP Controlled (<130/80) BP Controlle d (<130/80) [facility] Start: 09-27-2024 End: 09-27-2024 Patient encounter procedure 09/27/2024 4:40 PM EST Office Visit Internal Medicine [place] [address] [place], [place] [phone] Fei Gandhi MD [address] [place], [place] [phone] Yearly w/6 month follow-up Internal Medicine [facility] Comment on above: Yearly w/6 month fol low-up Start: 09-24-2024 Annual PCP Team Machine Milker jamie Disease Visit Annual PCP Team Chronic Disease Visit [facility] Start: 09-13-2024 Hepatitis B surface antibody level LDL Cholesterol [facility] Start: 08-20-2024 Annual PCP Team Machine Milker jamie Disease Visit Annual PCP Team Chronic Disease Visit [facility] Start: 08-20-2024 BP Controlled (<130/80) BP Controlle d (<130/80) [facility] Start: 08-16-2024 End: 11-15-2024 Natriuretic peptide.B prohormone N-Terminal [Mass/volume] in Serum or Plasma NT PRO BNP Lab Routine Leg edema TATE (dyspnea on exertion) Expected: 08/16/2024, Expires: 11/15/2024 [facility] Work Phone: Comment on above: Expected: 08/16/2024 , Expires: 11/15/2024 Start: 08-16-2024 End: 08-16-2024 Patient encounter procedure 08/16/2024 11:40 AM EDT Office Visit Cardiology [address] [place] [id number] Favian Larkin MD [address] [address] [place] [address] 6 month follow up Cardiology Comment on above: 6 month follow up Start: 08-05-2024 End: 08-05-2024 Patient encounter procedure 08/05/2024 3:30 PM EDT Office Visit Cardiology [address] [place] [address] Coronary artery disease involving [place] coronary artery of [place] heart without... Cardiology Comment on above: Coronary artery dise ase involving [place] coronary artery of [place] heart without... Start: 07-11-2024 Covid-19 Vaccine () Covid-19 Vaccine () [facility] Start: 07-11-2024 Influenza vaccination Influenza Vacc ine (#1) [facility] Start: 06-04-2024 BP CONTROLLED (<130/80) BP CONTROLLE D (<130/80) [facility] Start: 04-09-2024 ANNUAL PCP TEAM TIER AND DETONATOR JAMIE DISEASE VISIT ANNUAL PCP TEAM CHRONIC DISEASE VISIT [facility] Start: 04-09-2024 BP CONTROLLED (<130/80) BP CONTROLLE D (<130/80) [facility] Start: 03-24-2024 End: 03-24-2024 Patient encounter procedure 03/24/2024 3:20 PM EDT Office Visit Internal Medicine [place] [address] [facility] [place] [address] Fei Gandhi MD [address] [place] [address] 6 month follow-up Internal Medicine [facility] Comment on above: 6 month follow-up Start: 03-24-2024 ANNUAL PCP TEAM TIER AND DETONATOR JAMIE DISEASE VISIT ANNUAL PCP TEAM CHRONIC DISEASE VISIT [facility] Start: 03-24-2024 BP CONTROLLED (<130/80) BP CONTROLLE D (<130/80) [facility] Start: 02-27-2024 [facility] Start: 01-23-2024 Covid-19 Vaccine () Covid-19 Vaccine () [facility] Start: 12-31-2023 ANNUAL PCP TEAM TIER AND DETONATOR JAMIE DISEASE VISIT ANNUAL PCP TEAM CHRONIC DISEASE VISIT [facility] Start: 11-10-2023 Advance Directive Discussion Advance Directive Discussion [facility] Start: 11-10-2023 Behavioral Health Screening Behavioral Health Screening [facility] Start: 10-13-2023 End: 01-12-2024 CBC panel - Blood by Automated count CBC Lab Routine Lower abdominal pain Diarrhea, unspecified type Expected: 10/13/2023, Expires: 01/12/2024 [facility] Work Phone: Comment on above: Expected: 10/13/2023 , Expires: 01/12/2024 Start: 10-13-2023 End: 01-12-2024 CELIAC SCREEN WITH REFLEX CELIAC SCREEN WITH REFLEX Lab Routine Lower abdominal pain Diarrhea, unspecified type Expected: 10/13/2023, Expires: 01/12/2024 [facility] Work Phone: Comment on above: Expected: 10/13/2023 , Expires: 01/12/2024 Start: 10-13-2023 End: 01-12-2024 Comprehensive metabolic 2000 panel - Serum or Plasma COMP METABOLIC PANEL Lab Routine Lower abdominal pain Diarrhea, unspecified type Expected: 10/13/2023, Expires: 01/12/2024 [facility] Work Phone: Comment on above: Expected: 10/13/2023 , Expires: 01/12/2024 Start: 10-13-2023 End: 01-12-2024 Erythrocyte sedimentation rate SED RATE WESTERGREN Lab Routine Lower abdominal pain Diarrhea, unspecified type Expected: 10/13/2023, Expires: 01/12/2024 [facility] Work Phone: Comment on above: Expected: 10/13/2023 , Expires: 01/12/2024 Start: 09-24-2023 End: 11-24-2023 CBC panel - Blood by Automated count CBC Lab Routine Essential hypertension Expected: 09/24/2023, Expires: 11/24/2023 [facility] Work Phone: Comment on above: Expected: 09/24/2023 , Expires: 11/24/2023 Start: 09-24-2023 End: 11-24-2023 Comprehensive metabolic 2000 panel - Serum or Plasma COMP METABOLIC PANEL Lab Routine Mixed hyperlipidemia Expected: 09/24/2023, Expires: 11/24/2023 [facility] Work Phone: Comment on above: Expected: 09/24/2023 , Expires: 11/24/2023 Start: 09-24-2023 End: 11-24-2023 Lipid 1996 panel - Serum or Plasma LIPID PANEL BASIC Lab Routine Mixed hyperlipidemia Expected: 09/24/2023, Expires: 11/24/2023 [facility] Work Phone: Comment on above: Expected: 09/24/2023 , Expires: 11/24/2023 Start: 09-23-2023 ANNUAL PCP TEAM TIER AND DETONATOR JAMIE DISEASE VISIT ANNUAL PCP TEAM CHRONIC DISEASE VISIT [facility] Start: 09-23-2023 BP CONTROLLED (<130/80) BP CONTROLLE D (<130/80) [facility] Start: 09-21-2023 Hepatitis B surface antibody level LDL CHOLESTEROL [facility] Start: 07-11-2023 Covid-19 Vaccine ( season) Covid-19 Vaccine () [facility] Start: 07-11-2023 Influenza vaccination [facility] Start: 06-02-2023 BP CONTROLLED (<130/80) BP CONTROLLE D (<130/80) [facility] Start: 03-30-2023 BP CONTROLLED (<130/80) BP CONTROLLE D (<130/80) [facility] Start: 03-21-2023 Adult depression scr [facility] assessment DEPRESSION SCREENING [facility] Start: 03-21-2023 ANNUAL PCP TEAM TIER AND DETONATOR JAMIE DISEASE VISIT ANNUAL PCP TEAM CHRONIC DISEASE VISIT [facility] Start: 03-21-2023 BP CONTROLLED (<130/80) BP CONTROLLE D (<130/80) [facility] Start: 12-18-2022 BP CONTROLLED (<130/80) BP CONTROLLE D (<130/80) [facility] Start: 11-24-2022 COVID-19 VACCINE (6 - Pfizer series) COVID-19 VACCINE (6 - Pfizer series) [facility] Start: 11-10-2022 ADVANCE DIRECTIVE DISCUSSION ADVANCE DIRECTIVE DISCUSSION [facility] Start: 11-10-2022 DEPRESSION ASSESSMENT DEPRESSION ASS ESSMENT [facility] Start: 09-21-2022 End: 11-21-2022 CBC panel - Blood by Automated count CBC Lab Routine Paroxysmal atrial fibrillation (HCC) Expected: 09/21/2022, Expires: 11/21/2022 [facility] Work Phone: Comment on above: Expected: 09/21/2022 , Expires: 11/21/2022 Start: 09-21-2022 End: 11-21-2022 Comprehensive metabolic 2000 panel - Serum or Plasma COMP METABOLIC PANEL Lab Routine Mixed hyperlipidemia Expected: 09/21/2022, Expires: 11/21/2022 [facility] Work Phone: Comment on above: Expected: 09/21/2022 , Expires: 11/21/2022 Start: 09-21-2022 End: 11-21-2022 LIPID PANEL BASIC LIPID PANEL BASIC Lab Routine Mixed hyperlipidemia Expected: 09/21/2022, Expires: 11/21/2022 [facility] Work Phone: Comment on above: Expected: 09/21/2022 , Expires: 11/21/2022 Start: 09-21-2022 End: 11-21-2022 PSA/PROSTSPECAG SCRN PSA/PROSTSPECAG SCRN Lab Routine Screening for prostate cancer Expected: 09/21/2022, Expires: 11/21/2022 [facility] Work Phone: Comment on above: Expected: 09/21/2022 , Expires: 11/21/2022 Start: 09-07-2022 ANNUAL PCP TEAM TIER AND DETONATOR JAMIE DISEASE VISIT ANNUAL PCP TEAM CHRONIC DISEASE VISIT [facility] Start: 09-01-2022 Hepatitis B surface antibody level LDL CHOLESTEROL [facility] Start: 07-11-2022 Influenza vaccination INFLUENZA (#1) [facility] Start: 03-07-2022 Adult depression scr eening assessment DEPRESSION SCREENING [facility] Start: 11-10-2021 ADVANCE DIRECTIVE DISCUSSION ADVANCE DIRECTIVE DISCUSSION [facility] Start: 11-10-2021 DEPRESSION ASSESSMENT DEPRESSION ASS ESSMENT [facility] Start: 08-29-2021 End: 08-29-2021 Patient encounter procedure 08/29/2021 Office Visit Plastic Surgery Nellie Marcus MD [address] [place] [id number] [facility] [place] Start: 07-11-2021 Influenza vaccination Flu vaccine (# 1) [facility] Work Phone: Start: 01-02-2018 FECAL OCCULT BLOOD FECAL OCCULT BLOO D [facility] Start: 01-02-2018 Screening for malign ant neoplasm of colon Fecal Occult Blood [facility] Start: 04-10-2013 Medicare Annual Well ness Visit Medicare Annual Wellness Visit [facility] Start: 2008 RSV Vaccine (1 - 1-d ose 60+ series) RSV Vaccine (1 - 1-dose 60+ series) [facility] Start: 1993 COLOGUARD (FIT-DNA) COLOGUARD (FIT-D NA) [facility] Start: [address] COLONOGRAPHY [facility] Start: 1993 Screening for malign ant neoplasm of colon [facility] Start: 1993 SIGMOIDOSCOPY SIGMOIDOSCOPY [facility] Start: 1966 Anxiety Screening Anxiety Screening [facility] Start: 1966 BP CONTROLLED (<130/80) BP CONTROLLE D (<130/80) [facility] Start: 1966 Depression Screening Depression Scre ening [facility] Start: 1958 Lipid panel Lipid screen [facility] Work Phone: Start: 1948 Hepatitis C screening [facility] Work Phone: Bacteria identified in Wound by Culture WOUND CULTURE AND GRAM STAIN Microbiology Routine Ingrown toenail 06/06/2022 4:49 PM EDT [facility] Work Phone: CBC panel - Blood by Automated count CBC Lab Routine Lower abdominal pain Diarrhea, unspecified type 10/14/2023 3:58 PM EST [facility] Work Phone: CELIAC SCREEN WITH REFLEX CELIAC SCREEN WITH REFLEX Lab Routine Lower abdominal pain Diarrhea, unspecified type 10/14/2023 3:58 PM EST [facility] Work Phone: Comprehensive metabo lic 2000 panel - Serum or Plasma COMP METABOLIC PANEL Lab Routine Lower abdominal pain Diarrhea, unspecified type 10/14/2023 3:58 PM [facility] Work Phone: COVID & INFLUENZA A/ B & RSV PCR, ROUTINE COVID & INFLUENZA A/B & RSV PCR, ROUTINE Microbiology Routine URI with cough and congestion Ordered: 11/10/2024 [facility] Work Phone: Comment on above: Ordered: 11/10/2024 COVID & INFLUENZA A/ B & RSV PCR, ROUTINE COVID & INFLUENZA A/B & RSV PCR, ROUTINE Microbiology Routine Acute cough URI, acute Ordered: 02/26/2025 [facility] Work Phone: Comment on above: Ordered: 02/26/2025 End: 11-11-2024 Ct abdomen & pelvis w/contrast material CT ABD/PEL W IVCON Radiology Routine Lower abdominal pain Diarrhea, unspecified type 1 Occurrences starting 10/13/2023 until 11/11/2024 [facility] Work Phone: Comment on above: 1 Occurrences starti ng 10/13/2023 until 11/11/2024 Ct abdomen & pelvis w/contrast material CT ABD/PEL W IVCON Radiology Routine Lower abdominal pain Diarrhea, unspecified type 10/16/2023 3:33 PM EST [facility] Work Phone: ECG COMPLETE ECG COMPLETE ECG Routine Chest pain, unspecified type 03/17/2025 11:40 AM EDT [facility] End: 02-01-2025 Echocardiography ECHO Cardiology Routine Coronary artery disease involving [place] coronary artery of [place] heart without angina pectoris Paroxysmal atrial fibrillation (HCC) 1 Occurrences starting 02/02/2024 until 02/01/2025 [facility] Work Phone: Comment on above: 1 Occurrences starti ng 02/02/2024 until 02/01/2025 ENTERIC BACTERIAL PA SABINO BY PCR ENTERIC BACTERIAL PANEL BY PCR Lab Routine Sigmoiditis Ordered: 10/20/2023 [facility] Work Phone: Comment on above: Ordered: 10/20/2023 Erythrocyte sediment ation rate SED RATE WESTERGREN Lab Routine Lower abdominal pain Diarrhea, unspecified type 10/14/2023 3:58 PM EST [facility] Work Phone: FECAL LACTOFERRIN/LEUKOCYTES FECAL LACTOFERRIN/LEUKOCYTES Lab Routine Diarrhea, unspecified type Ordered: 10/13/2023 [facility] Work Phone: Comment on above: Ordered: 10/13/2023 End: 01-19-2026 Flexible sigmoidoscopy study COLONOSCOPY DIAGNOSTIC Endoscopy Routine Rectal bleeding 1 Occurrences starting 01/19/2025 until 01/19/2026 [facility] Work Phone: Comment on above: 1 Occurrences starti ng 01/19/2025 until 01/19/2026 Patient Education ED Laceration, Hand: All Closures [facility] Work Phone: Patient referral [facility] Work Phone: End: 04-22-2024 Radiologic exam chest 2 views XR CHEST 2V FRONTAL/LAT Radiology Routine Abnormal lung sounds 1 Occurrences starting 03/24/2023 until 04/22/2024 [facility] Work Phone: Comment on above: 1 Occurrences starti ng 03/24/2023 until 04/22/2024 Radiologic exam ches t 2 views XR CHEST 2V FRONTAL/LAT Radiology Routine Abnormal lung sounds 03/24/2023 4:42 PM EDT [facility] Work Phone: End: 09-18-2024 Radiologic exam chest 2 views XR CHEST 2V FRONTAL/LAT Radiology Routine Sinobronchitis Blood in sputum 1 Occurrences starting 08/20/2023 until 09/18/2024 [facility] Work Phone: Comment on above: 1 Occurrences starti ng 08/20/2023 until 09/18/2024 Radiologic exam ches t 2 views XR CHEST 2V FRONTAL/LAT Radiology Routine Sinobronchitis Blood in sputum 08/20/2023 10:17 AM EDT [facility] Work Phone: Removal impacted cer umen irrigation/lvg unilat AMBULATORY EAR LAVAGE/IRRIGATION Procedures Routine Impacted cerumen, left ear Ordered: 09/27/2024 [facility] Work Phone: Comment on above: Ordered: 09/27/2024 XR TOE AP/LAT/OBL LEFT XR TOE AP /LAT/OBL LEFT Radiology Routine Ingrown toenail 06/06/2022 5:03 PM EDT [facility] Work Phone: [facility] [place] [facility] Immunizations Immunization Date Immunization Notes Care Provider [facility] 08-03-2024 influenza, high dose seasonal, preservative-free Favian Larkin MD Work Phone: [facility] 08-03-2024 pneumococcal conjuga te (PCV20) vaccine, 20 valent (PREVNAR 20) Favian Larkin MD Work Phone: [facility] 08-03-2024 influenza virus vacc ine, unspecified formulation Saira Woody APRN.SENIOR COPYWRITER Work Phone: [facility] 03-24-2024 COVID-19 vaccine, ag e 12+ yr (PFIZER-BIONTECH COMIRNATY) Favian Larkin MD Work Phone: [facility] 02-27-2024 tetanus toxoid, redu maximo diphtheria toxoid, and acellular pertussis vaccine, adsorbed [facility] 11-06-2023 respiratory syncytia l virus (RSV) vaccine, bivalent (ABRYSVO) Favian Larkin MD Work Phone: [facility] 09-24-2023 COVID-19 vaccine, ag e 12+ yr, season (LeadPagesBIONTECH) Naomy Jimenez MD Work Phone: [facility] Work Phone: 09-24-2023 influenza (HD-IIV4) vaccine, age 65+ yr, high dose, quadrivalent, PF (FLUZONE HIGH-DOSE) Naomy Jimenez MD Work Phone: [facility] Work Phone: 09-24-2023 influenza virus vacc ine, unspecified formulation Xr Jessica Work Phone: [facility] 07-25-2022 COVID-19 booster vaccine, age 12+ yr, bivalent (PFIZER-BIONTECH) Fei Gandhi MD Work Phone: [facility] Work Phone: 07-25-2022 influenza, high dose seasonal, preservative-free Fei Gandhi MD Work Phone: [facility] Work Phone: 07-25-2022 influenza virus vacc ine, unspecified formulation Mehnaz Ena 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 Work Phone: [facility] 11-24-2021 COVID-19 original vaccine, age 12+ yr, monovalent (PFIZER-BIONTECH - PAREKH TOP) Mehnaz Sutherland APRN.SENIOR COPYWRITER Work Phone: [facility] 11-24-2021 COVID-19 vaccine, ag e 12+ yr (PFIZER-BIONTECH - PURPLE TOP) Fei Gandhi MD Work Phone: [facility] Work Phone: 07-31-2021 tetanus toxoid, redu maximo diphtheria toxoid, and acellular pertussis vaccine, adsorbed Mehnaz Ena 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 Work Phone: [facility] 02-07-2021 COVID-19 vaccine, ag e 12+ yr (PFIZER-BIONTECH - PURPLE TOP) Fei Gandhi MD Work Phone: [facility] Work Phone: 09-30-2020 zoster vaccine recombinant Fei Gandhi MD Work Phone: [facility] Work Phone: 08-14-2020 influenza, seasonal, injectable Fei Gandhi MD Work Phone: [facility] Work Phone: 07-01-2020 zoster vaccine recombinant Fei Gandhi MD Work Phone: [facility] Work Phone: 08-23-2019 influenza, high dose seasonal, preservative-free Fei Gandhi MD Work Phone: [facility] 08-09-2019 influenza, injectabl e, quadrivalent, preservative free Fei Gandhi MD Work Phone: [facility] Work Phone: 08-27-2018 influenza, high dose seasonal, preservative-free Fei Gandhi MD Work Phone: [facility] 08-27-2018 tetanus toxoid, redu maxiom diphtheria toxoid, and acellular pertussis vaccine, adsorbed Fei Gandhi MD Work Phone: [facility] 09-08-2017 influenza, seasonal, injectable Fei Gandhi MD Work Phone: [facility] Work Phone: 05-17-2015 pneumococcal conjuga te vaccine, 13 valent Fei Gandhi MD Work Phone: [facility] 08-24-2014 influenza, seasonal, injectable Fei Gandhi MD Work Phone: [facility] 05-10-2014 pneumococcal polysaccharide vaccine, 23 valent Fei Gandhi MD Work Phone: [facility] 12-03-2012 zoster vaccine, live Fei Gandhi MD Work Phone: [facility] Work Phone: 02-08-2011 varicella virus vaccine Vict jess Gandhi MD Work Phone: [facility] Work Phone: 09-26-2003 diphtheria and tetan us toxoids, adsorbed for pediatric use Fei Gandhi MD Work Phone: [facility] Work Phone: 01-17-2001 COVID-19 vaccine, ag e 12+ yr ([employer] - PURPLE TOP) Fei Gandhi MD Work Phone: [facility] Payers Date Payer Category Payer Self-pay [id number] 2021 Blue [employer] Blue Shield BLUE ACCE PPO [id number] 2021 Unknown TOMMIEZI AYALA ACCE PPO [id number] 2021-Present [phone] [address] [place] [address] PPO [id number] 2021 Unknown 2017 Unknown [id number] 2013 Medicare MEDICARE MEDICAR E A [id number] 2013-Present [phone] [address] [place] [address] Medicare [id number] 2013 Medicare [id number] 2006 Unknown [id number] 2003 Unknown PSYCH GENERIC BH GENERIC [id number] 2003-Present [phone] [address] [place] [address] Indemnity [id number] Unknown [id number] Unknown [employer] [id number] Unknown [facility] [id number] Unknown [id number] Social History Date Type Detail Facility Start: 08-15-2021 End: 09-23-2022 Tobacco smoking status CTIS Never smoker [facility] Work Phone: Start: 08-15-2021 End: 09-23-2022 Tobacco use and exposure Never used [facility] Start: 08-15-2021 End: 03-17-2025 Alcohol intake Current drinker of alcohol (finding) [facility] Work Phone: Start: 08-15-2021 End: 09-07-2021 Alcohol Comment socially [facility] Work Phone: Start: 1950 Sex Assigned At Not on file [facility] Work Phone: Start: 03-11-2022 End: 09-23-2022 Exposure to SARS-CoV-2 (event) Not sure [facility] Start: 12-18-2021 End: 03-24-2023 Alcohol intake Current non-drinker of alcohol (finding) [facility] Start: 09-23-2022 History SDOH Physica l Activity DPW 1 [facility] Start: 09-23-2022 History SDOH Physica l Activity MPS 3 [facility] Start: 03-24-2023 End: 05-07-2023 History of Social function [facility] Work Phone: Start: 03-24-2023 End: 05-07-2023 Tobacco use panel [facility] Work Phone: Adult Depression Screening Assessment 0 [facility] Work Phone: Do you feel stress - tense, restless, nervous, or anxious, or unable to sleep at night because your mind is troubled all the time - these days [OSQ] To some extent [facility] Work Phone: Start: 02-27-2024 Tobacco smoking stat us CTIS Unknown if ever smoked [facility] Start: 02-14-2014 Occasional [facility] Start: 02-14-2014 None [facility] Start: 02-14-2014 Spouse/ Signif icant Other [facility] Start: 02-14-2014 Non-smoker [facility] Start: 1950 Sex Assigned At Male W [facility] How often to you hav e a drink containing alcohol? 2-4 times a month [facility] How many standard drinks containing alcohol do you have on a typical day? 1 or 2 [facility] How often do you hav e 6 or more drinks on 1 occasion? Never [facility] Start: 09-27-2024 Alcohol Comment 2-4 beers per month. [facility] Functional Status Date Assessment Result Facility 03-29-2020 Are you deaf, or do you have serious difficulty hearing No 03/29/2020 4:32 PM Alexx Pradhan RN No [facility] 03-29-2020 Are you blind, or do you have serious difficulty seeing, even when wearing glasses No 03/29/2020 4:32 PM Alexx Pradhan, SHAN No [facility] 03-29-2020 Do you have serious difficulty walking or climbing stairs No 03/29/2020 4:32 PM Alexx Pradhan RN No [facility] 03-29-2020 Do you have difficul ty dressing or bathing No 03/29/2020 4:32 PM Alexx Pradhan, SHAN No [facility] 03-29-2020 Because of a physica l, mental, or emotional condition, do you have difficulty doing errands alone such as visiting a physician's office or shopping No 03/29/2020 4:32 PM EDT Alexx Bonner RN No [facility] Mental Status Date Assessment Result Facility 03-29-2020 Because of a physica l, mental, or emotional condition, do you have serious difficulty concentrating, remembering, or making decisions No 03/29/2020 4:32 PM EDT Alexx Bonner RN No [facility] Clinical Notes 07-19-2019 to 04-18-2025 Telephone Encounter - Roll Edilia Emanuel - 04/18/2025 4:59 PM EDTTelephone Encounter - Roll Edilia Emanuel - 04/18/2025 4:59 PM JATFei Gandhi MD - 03/28/2025 5:40 PM EDT Note Date & Type Note Facility 04-18-2025 Telephone encounter Note Prescription Refill Information The patient has been identified by name and date of : Yes Caregiver verified no other encounters exist for this prescription request: Yes Caregiver confirmed with patient/requestor that no other refills are due, in the near future, with this provider at this time: Yes The last office visit in the department: Does the patient have a future office visit with this provider/department: No Requested Prescriptions Pending Prescriptions Disp Refills atorvastatin (LIPITOR) 10 mg tablet 90 tablet 3 Sig: Take 1 tablet by mouth once daily. metoprolol succinate ER (TOPROL XL) 50 mg 24 hr tablet 90 tablet 3 Sig: Take 1 tablet by mouth once daily. Please send today. Edilia Emanuel April 18, 2025 4:59 PM [facility] 04-18-2025 Miscellaneous Notes Prescription Refill Information The patient has been identified by name and date of : Yes Caregiver verified no other encounters exist for this prescription request: Yes Caregiver confirmed with patient/requestor that no other refills are due, in the near future, with this provider at this time: Yes The last office visit in the department: Does the patient have a future office visit with this provider/department: No Requested Prescriptions Pending Prescriptions Disp Refills atorvastatin (LIPITOR) 10 mg tablet 90 tablet 3 Sig: Take 1 tablet by mouth once daily. metoprolol succinate ER (TOPROL XL) 50 mg 24 hr tablet 90 tablet 3 Sig: Take 1 tablet by mouth once daily. Please send today. Edilia Emanuel April 18, 2025 4:59 PM documented in this encounter [facility] 03-28-2025 Note HNO ID: [id number] Author: FEI GANDHI MD Service: ? Author Type: Physician Type: Progress Notes Filed: 03/28/2025 18:01 Note Text: This note was created using [employer]. Subjective Patient presents with: F/U 6 months Recording using [employer] software for draft documentation of the visit was discussed with the patient/authorized sales representative door to door; all questions welcomed and answered. Patient/authorized sales representative door to door agreed to proceed Monika is a 74-year-old male, with a history of a-fib and hemorrhoids, presenting for a 6-month checkup. Monika reports a pruritic rash on his arm, which he attributes to recent yard work. He denies applying any topical treatments yet, as he wanted to have it evaluated first. He denies cephalalgia, dizziness, chest pain, palpitations, or dyspnea. He also reports a sensation of cerumen impaction in one ear, causing discomfort. He has a history of cerumen removal in the past. He uses hearing aids, which are functioning well. He mentions a recent episode of near-syncope, which resolved spontaneously. He has a history of a-fib and monitors his heart rate, which has not exceeded 80 bpm recently. He was seen here on 03/17, and had unremarkable EKG and blood work. He also just had a colonoscopy that revealed hemorrhoids as the cause of previous rectal bleeding. He denies any current rectal bleeding. He has a scheduled appointment in April for a prostate examination. 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 Root Dilatation Essential Hypertension Essential Tremor Paroxysmal Atrial Fibrillation (Hcc) 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 Mixed Hyperlipidemia Coronary Artery Disease Involving [place] Coronary Artery of [place] Heart Without Angina Pectoris Leg Edema Rectal Bleeding PAST SURGICAL HISTORY Procedure Laterality Date ATRIAL FIBRILLATION/FLUTTER ABLATION 03/29/2020 COLONOSCOPY - DIAGNOSTIC 08/25/20021992, 1994 COLONOSCOPY - DIAGNOSTIC 03/10/2025 COLONOSCOPY FLX DX W/COLLJ SPEC WHEN PFRMD 10/12/2012 Colonoscopy repeat 10 years COLONOSCOPY FLX DX W/COLLJ SPEC WHEN PFRMD 07/07/2020 Colonoscopy CYSTOSCOPY 04/12/2015 LAPROSCOPIC REPAIR UMBILICAL HERNIA 05/23/2023 LEFT HEART CATH,PERCUTANEOUS 03/18/2008 Cardiac cath, L heart, normal LEFT HEART CATH,PERCUTANEOUS 05/12/2013 Cardiac cath, L heart. 30-40% LAD. PAST SURGICAL HISTORY OF 1963 left hip surgery after fracture, hardware removed PAST SURGICAL HISTORY OF 08/29/2011 Right index finger repair PAST SURGICAL HISTORY OF 11/2012 Right index Finger repair x 2 REMV CATARACT EXTRACAP,INSERT LENS Bilateral 06/2024 REPAIR UMBILICAL HERNIA 05/23/2023 RPR 1ST INGUN HRNA AGE 3 YRS/> REDUCIBLE 2007 Hernia repair, inguinal x 3 TONSILLECTOMY PRIMARY/SECONDARY Tonsillectomy Current Outpatient Medications Medication Sig chlorthalidone (HYGROTON) 25 mg tablet Take 1 tablet by mouth once daily. metoprolol succinate ER (TOPROL XL) 50 mg 24 hr tablet Take 1 tablet by mouth once daily. atorvastatin (LIPITOR) 10 mg tablet Take 1 tablet by mouth once daily. psyllium husk (METAMUCIL ORAL) Take by mouth once daily. MEDICATION, NON-DATABASE Take by mouth once daily. Flax Seed L-LYSINE ORAL Take 1 tablet by mouth once daily. vit Y-L-pivnno-zinc-lutein (EYE MULTIVIT-LUTEIN,C-E-CU-ZN,) 226 mg-90 mg-2 mg-34.8 mg-5 mg cap Take 1 tablet by mouth once daily. Tadalafil (CIALIS) 10 mg tablet Take 1 tablet by mouth as directed. TAKE 1-2 HOURS BEFORE SEXUAL INTERCOURSE NEEDED. aspirin, enteric coated (ASPIR-81) 81 mg EC tablet Take 1 tablet by mouth once daily. COMPOUNDED PRESCRIPTION KNEE HIGH COMPRESSION STOCKINGS 30-40 MM. DX: EDEMA. terazosin 5 mg capsule Take 1 capsule by mouth daily at bedtime. Given by Dr. Rivera. CALCIUM CARBONATE/VITAMIN D3 (CALCIUM 500 + D ORAL) Take by mouth once daily. ascorbic acid, vitamin C, (VITAMIN C) 500 mg tablet Take 500 mg by mouth once daily. Garlic ORAL Cap Take one(1) tablet daily. No current facility-administered medications for this visit. Objective BP 126/68 (BP Site: Left Arm, BP Position: Sitting, BP Cuff Size: Large Adult) Pulse 92 Resp 20 Wt 84.6 kg (186 lb 8.2 oz) BMI 27.07 kg/m? Physical Exam Constitutional: Appearance: He is not ill-appearing. HENT: Right Ear: Tympanic membrane and ear canal normal. Left Ear: Tympanic membrane and ear canal normal. Cardiovascular: Rate and Rhythm: Normal rate and regular rhythm. Heart sounds: No murmur heard. No gallop. Pulmonary: Breath sounds: Normal breath sounds. Musculoskeletal: Right lower leg: No edema. Left lower leg: No edema. Skin: Findings: Rash present. Comments: Nummular erythematous dermati (more content not included)... [facility] 03-28-2025 History of Present illness Narrative This note was created using [employer]. Subjective Patient presents with: F/U 6 months Recording using [employer] software for draft documentation of the visit was discussed with the patient/authorized sales representative door to door; all questions welcomed and answered. Patient/authorized sales representative door to door agreed to proceed Monika is a 74-year-old male, with a history of a-fib and hemorrhoids, presenting for a 6-month checkup. Monika reports a pruritic rash on his arm, which he attributes to recent yard work. He denies applying any topical treatments yet, as he wanted to have it evaluated first. He denies cephalalgia, dizziness, chest pain, palpitations, or dyspnea. He also reports a sensation of cerumen impaction in one ear, causing discomfort. He has a history of cerumen removal in the past. He uses hearing aids, which are functioning well. He mentions a recent episode of near-syncope, which resolved spontaneously. He has a history of a-fib and monitors his heart rate, which has not exceeded 80 bpm recently. He was seen here on 03/17, and had unremarkable EKG and blood work. He also just had a colonoscopy that revealed hemorrhoids as the cause of previous rectal bleeding. He denies any current rectal bleeding. He has a scheduled appointment in April for a prostate examination. 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 Root Dilatation Essential Hypertension Essential Tremor Paroxysmal Atrial Fibrillation (Hcc) 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 Mixed Hyperlipidemia Coronary Artery Disease Involving [place] Coronary Artery of [place] Heart Without Angina Pectoris Leg Edema Rectal Bleeding PAST SURGICAL HISTORY Procedure Laterality Date ATRIAL FIBRILLATION/FLUTTER ABLATION 03/29/2020 COLONOSCOPY - DIAGNOSTIC 08/25/20021992, 1994 COLONOSCOPY - DIAGNOSTIC 03/10/2025 COLONOSCOPY FLX DX W/COLLJ SPEC WHEN PFRMD 10/12/2012 Colonoscopy repeat 10 years COLONOSCOPY FLX DX W/COLLJ SPEC WHEN PFRMD 07/07/2020 Colonoscopy CYSTOSCOPY 04/12/2015 LAPROSCOPIC REPAIR UMBILICAL HERNIA 05/23/2023 LEFT HEART CATH,PERCUTANEOUS 03/18/2008 Cardiac cath, L heart, normal LEFT HEART CATH,PERCUTANEOUS 05/12/2013 Cardiac cath, L heart. 30-40% LAD. PAST SURGICAL HISTORY OF 1963 left hip surgery after fracture, hardware removed PAST SURGICAL HISTORY OF 08/29/2011 Right index finger repair PAST SURGICAL HISTORY OF 11/2012 Right index Finger repair x 2 REMV CATARACT EXTRACAP,INSERT LENS Bilateral 06/2024 REPAIR UMBILICAL HERNIA 05/23/2023 RPR 1ST INGUN HRNA AGE 3 YRS/> REDUCIBLE 2007 Hernia repair, inguinal x 3 TONSILLECTOMY PRIMARY/SECONDARY <AGE 10 1956 Tonsillectomy Current Outpatient Medications Medication Sig chlorthalidone (HYGROTON) 25 mg tablet Take 1 tablet by mouth once daily. metoprolol succinate ER (TOPROL XL) 50 mg 24 hr tablet Take 1 tablet by mouth once daily. atorvastatin (LIPITOR) 10 mg tablet Take 1 tablet by mouth once daily. psyllium husk (METAMUCIL ORAL) Take by mouth once daily. MEDICATION, NON-DATABASE Take by mouth once daily. Flax Seed L-LYSINE ORAL Take 1 tablet by mouth once daily. vit N-L-kzzdsd-zinc-lutein (EYE MULTIVIT-LUTEIN,C-E-CU-ZN,) 226 mg-90 mg-2 mg-34.8 mg-5 mg cap Take 1 tablet by mouth once daily. Tadalafil (CIALIS) 10 mg tablet Take 1 tablet by mouth as directed. TAKE 1-2 HOURS BEFORE SEXUAL INTERCOURSE NEEDED. aspirin, enteric coated (ASPIR-81) 81 mg EC tablet Take 1 tablet by mouth once daily. COMPOUNDED PRESCRIPTION KNEE HIGH COMPRESSION STOCKINGS 30-40 MM. DX: EDEMA. terazosin 5 mg capsule Take 1 capsule by mouth daily at bedtime. Given by Dr. Rivera. CALCIUM CARBONATE/VITAMIN D3 (CALCIUM 500 + D ORAL) Take by mouth once daily. ascorbic acid, vitamin C, (VITAMIN C) 500 mg tablet Take 500 mg by mouth once daily. Garlic ORAL Cap Take one(1) tablet daily. No current facility-administered medications for this visit. Objective BP 126/68 (BP Site: Left Arm, BP Position: Sitting, BP Cuff Size: Large Adult) Pulse 92 Resp 20 Wt 84.6 kg (186 lb 8.2 oz) BMI 27.07 kg/m Physical Exam Constitutional: Appearance: He is not ill-appearing. HENT: Right Ear: Tympanic membrane and ear canal normal. Left Ear: Tympanic membrane and ear canal normal. Cardiovascular: Rate and Rhythm: Normal rate and regular rhythm. Heart sounds: No murmur heard. No gallop. Pulmonary: Breath sounds: Normal breath sounds. Musculoskeletal: Right lower leg: No edema. Left lower leg: No edema. Skin: Findings: Rash present. Comments: Nummular erythematous dermatitis of the right proximal arm 2.5 x 2 cm. Neurological: Mental Status: He is alert. Latest Ref [facility] 03/17/2025 WBC 3.70 - 11.00 k/uL 5.89 RBC 4.20 - 6.00 m/uL 4.53 Hemoglobin 13.0 - 17.0 g/dL 13.6 Hematocrit 39.0 - 51.0 % 43.0 MCV 80.0 - 100.0 fL 94.9 MCH 26.0 - 34.0 pg 30.0 MCHC 30.5 - 36.0 g/dL 31.6 RDW-CV 11.5 - 15.0 % 12.3 Platelet Count 150 - 400 k/uL 231 MPV 9.0 - 12.7 fL 9.9 Neut% % 65.5 Abs Neut (ANC) 1.45 - 7.50 k/uL 3.86 Lymph% % 21.1 Abs Lymph 1.00 - 4.00 k/uL 1.24 [place]% % 9.2 Abs [place] <0.87 k/uL 0.54 Eosin% % 3.6 Abs Eosin <0.46 k/uL 0.21 Baso% % 0.3 Abs Baso <0.11 k/uL <0.03 Immature Gran % % 0.3 IMMATURE GRANS (ABS) <0.10 k/uL <0.03 NRBC /100 WBC 0.5 Absolute nRBC <0.01 k/uL 0.03 (H) DTYPE Auto Protein, Total 6.3 - 8.0 g/dL 6.6 Albumin 3.9 - 4.9 g/dL 4.2 Calcium 8.5 - 10.2 mg/dL 10.2 Bilirubin, Total 0.2 - 1.3 mg/dL 0.4 Alkaline Phosphatase 38 - 113 U/L 91 AST 14 - 40 U/L 28 ALT 10 - 54 U/L 41 Glucose 74 - 99 mg/dL 94 BUN 9 - 24 mg/dL 23 Creatinine 0.73 - 1.22 mg/dL 0.90 Sodium 136 - 144 mmol/L 143 Potassium 3.7 - 5.1 mmol/L 4.1 Chloride 98 - 107 mmol/L 104 CO2 22 - 30 mmol/L 28 Anion Gap 8 - 15 mmol/L 11 eGFR >=60 mL/min/1.73m 89 d Dimer <500 ng/mL FEU 480 D Dimer Age-related Cutoff ng/mL FEU 760 Magnesium 1.7 - 2.3 mg/dL 2.0 Legend: (H) High Assessment and Plan 1. Plant irritant contact dermatitis - ICD9: 692.6, ICD10: L24.7 (primary diagnosis) - Topical steriod tx with OTC 1% Hydrocortisone cream - discussed skin care of rash - follow up if symptoms persist or worsen. 2. Screening for depression - ICD9: V79.0, ICD10: Z13.31 - DEPRESSION SCREENING 3. Encounter for screening examination for other mental health and behavioral disorders - ICD9: V79.8, ICD10: Z13.39 - ANXIETY SCREENING 4. Mixed hyperlipidemia - ICD9: 272.2, ICD10: E78.2 - Controlled - Continue current medications - Counseled on healthy diet and regular exercise - COMPREHENSIVE METABOLIC PANEL - LIPID PANEL, FASTING 5. Coronary artery disease involving [place] coronary artery of [place] heart without angina pectoris - ICD9: 414.01, ICD10: I25.10 - Stable. Continue current medications. 6. Essential hypertension - ICD9: 401.9, ICD10: I10 - Controlled - Continue current medications - COMPLETE BLOOD COUNT 7. Paroxysmal atrial fibrillation (HCC) - ICD9: 427.31, ICD10: I48.0 - No recurrence. Fei Gandhi MD documented in this encounter [facility] 03-17-2025 Telephone encounter Note Patient notified. [facility] 03-17-2025 Miscellaneous Notes Patient notified. ----- Message from Saira Woody APRN.MIGUEL sent at 03/17/2025 1:29 PM EDT ----- Please let patient know the D-dimer, that was the blood test that would indicate for a blood clot, was negative and there were no concerns on the chest xray. We are still waiting on the other blood work but those results may take longer. Thank you Saira Woody APRN.SENIOR COPYWRITER documented in this encounter [facility] 03-17-2025 Telephone encounter Note ----- Message from Saira Woody APRN.CNP sent at 03/17/2025 1:29 PM EDT ----- Please let patient know the D-dimer, that was the blood test that would indicate for a blood clot, was negative and there were no concerns on the chest xray. We are still waiting on the other blood work but those results may take longer. Thank you Saira Woody APRN.SENIOR COPYWRITER [facility] 03-17-2025 History of Present illness Narrative Radiology Service Progress Note PATIENT NAME: Monika Chowdhury DATE OF SERVICE: March 17, 2025 TIME: 12:31 PM PATIENT IDENTITY VERIFICATION COMPLETED USING TWO (2) IDENTIFIERS: Name and Date of confirmed by patient verbally. FALL SCREENING: Has the patient had 2 falls in the last year or 1 fall with injury or currently using an Ambulatory Assistive Device (Walker, Cane, Wheelchair, Crutches, etc.)? No PATIENT GENDER DATA: Assigned male at PATIENT RELEVANT IMPLANT DATA REVIEWED: Yes PATIENT PRESENTS WITH AN IMPLANTABLE OR ATTACHED ENOLOGIST: No RADIOLOGY DEPARTMENT: General X-ray: Exam(s) Completed: Chest X-Ray PERIPHERAL IV DATA: Not applicable SIGNED BY: RT Stuart(Zayra) March 17, 2025 12:31 PM documented in this encounter [facility] 03-17-2025 Note HNO ID: [id number] Author: HANDY ROSA RT(R) Service: ? Author Type: Licensed Sales Producer Type: Progress Notes Filed: 03/17/2025 12:42 Note Text: Radiology Service Progress Note PATIENT NAME: Monika Chowdhury DATE OF SERVICE: March 17, 2025 TIME: 12:31 PM PATIENT IDENTITY VERIFICATION COMPLETED USING TWO (2) IDENTIFIERS: Name and Date of confirmed by patient verbally. FALL SCREENING: Has the patient had 2 falls in the last year or 1 fall with injury or currently using an Ambulatory Assistive Device (Walker, Cane, Wheelchair, Crutches, etc.)? No PATIENT GENDER DATA: Assigned male at PATIENT RELEVANT IMPLANT DATA REVIEWED: Yes PATIENT PRESENTS WITH AN IMPLANTABLE OR ATTACHED ENOLOGIST: No RADIOLOGY DEPARTMENT: General X-ray: Exam(s) Completed: Chest X-Ray PERIPHERAL IV DATA: Not applicable SIGNED BY: RT Stuart(Zayra) March 17, 2025 12:31 PM [facility] 03-17-2025 Instructions Saira Woody APRN.CNP - 03/17/2025 12:11 PM EDT Complete your stat chest x-ray today as ordered. Have your blood drawn for a D-dimer test (and other blood work, including blood counts) to check for a clot. If the D-dimer comes back positive, you will be scheduled immediately for a chest CAT scan. Watch for any worsening chest pain, significant shortness of breath, or further drops in your oxygen level. If these occur, go to the emergency room right away. Follow up with your primary care provider in one week to review your test results and discuss next steps, which may include a heart monitor if needed. documented in this encounter [facility] 03-17-2025 Note HNO ID: [id number] Author: SAIRA WOODY APRN.CNP Service: ? Author Type: Nurse Practitioner Type: Progress Notes Filed: 03/17/2025 13:00 Note Text: CC: Patient presents with: Chest Pain: Chest pain, SOB, anxiety, recent COVID HPI Monika Chowdhury is a 74 year old male who presents today for chest pain. Was at an appointment with general surgery and brought up concerns with chest pain he was having intermittently and was told to schedule same day with his PCP. PCP was not available so appointment was made with this provider. Recording using [employer] software for draft documentation of the visit was discussed with the patient/authorized sales representative door to door; all questions welcomed and answered. Patient/authorized sales representative door to door agreed to proceed Chest Pain and Dyspnea: - Intermittent chest pain and dyspnea x1 month. - Describes pain as a tightness in the middle of the chest. - Episodes occur randomly, not daily, but sometimes multiple times a week. - Pain lasts no more than 15 minutes per episode. - No specific triggers identified; pain occurs at rest and is not exacerbated by physical activity. - Denies associated dyspnea during episodes. But does feel palpitations and like heart is racing. - Nocturnal episode of oxygen saturation dropping to 80s last night; no other episodes reported but thinks it may have happened one other time. - Denies fever, chills, cough, or wheezing. - Recent COVID-19 infection after returning from [place]; symptoms have resolved. - Denies dizziness, syncope, edema, headaches, or weakness. Paroxysmal Atrial Fibrillation: - History of paroxysmal atrial fibrillation; previously on flecainide and Xarelto - Discontinued flecainide and Xarelto years ago; currently taking baby aspirin. - Reports taking leftover flecainide and Xarelto during recent episodes in [place], believing it might be AFib. - Brother has a history of AFib and recent VT. - Currently on metoprolol and HR for hypertension management. REVIEW OF SYSTEMS See HPI PAST MEDICAL HISTORY Diagnosis Date Actinic skin damage 09/30/2011 Aortic root dilatation 08/21/2009 Atrial fibrillation 04/26/2013 Benign neoplasm of colon 12/18/2005 Adenomatous polyp BPH with obstruction/lower urinary tract symptoms 08/27/2018 Dr. Greenberg, Urology Coronary artery disease involving [place] coronary artery of [place] heart without angina pectoris 07/19/2019 Diverticulosis of colon (without mention of hemorrhage) Essential tremor 01/14/2012 Hypertrophy of prostate with urinary obstruction and other lower urinary tract symptoms (LUTS) 12/31/2006 Ingrown left big toenail 05/2022 infected Internal hemorrhoids without mention of complication Mixed hyperlipidemia 07/19/2019 Near syncope 02/15/2014 bradycardia NASRA on CPAP 06/15/2013 Intolerant to CPAP Problems with sexual function Sigmoiditis 10/20/2023 Umbilical hernia 05/23/2023 Unspecified essential hypertension 02/09/2010 Venous (peripheral) insufficiency 11/19/2005 VENOUS INSUFFICIENCY NOS 11/19/2005 PAST SURGICAL HISTORY Procedure Laterality Date ATRIAL FIBRILLATION/FLUTTER ABLATION 03/29/2020 COLONOSCOPY - DIAGNOSTIC 08/25/20021992, 1994 COLONOSCOPY FLX DX W/COLLJ SPEC WHEN PFRMD 10/12/2012 Colonoscopy repeat 10 years COLONOSCOPY FLX DX W/COLLJ SPEC WHEN PFRMD 07/07/2020 Colonoscopy CYSTOSCOPY 04/12/2015 LAPROSCOPIC REPAIR UMBILICAL HERNIA 05/23/2023 LEFT HEART CATH,PERCUTANEOUS 03/18/2008 Cardiac cath, L heart, normal LEFT HEART CATH,PERCUTANEOUS 05/12/2013 Cardiac cath, L heart. 30-40% LAD. PAST SURGICAL HISTORY OF 1964 left hip surgery after fracture, hardware removed PAST SURGICAL HISTORY OF 08/29/2011 Right index finger repair PAST SURGICAL HISTORY OF 11/2012 Right index Finger repair x 2 REMV CATARACT EXTRACAP,INSERT LENS Bilateral 06/2024 REPAIR UMBILICAL HERNIA 05/23/2023 RPR 1ST INGUN HRNA AGE 5 YRS/> REDUCIBLE 2007 Hernia repair, inguinal x 3 TONSILLECTOMY PRIMARY/SECONDARY Tonsillectomy ALLERGIES Patient has no known allergies. MEDICATIONS chlorthalidone (HYGROTON) 25 mg tablet Take 1 tablet by mouth once daily. metoprolol succinate ER (TOPROL XL) 50 mg 24 hr tablet Take 1 tablet by mouth once daily. atorvastatin (LIPITOR) 10 mg tablet Take 1 tablet by mouth once daily. psyllium husk (METAMUCIL ORAL) Take by mouth once daily. MEDICATION, NON-DATABASE Take by mouth once daily. Flax Seed L-LYSINE ORAL Take 1 tablet by mouth once daily. vit Y-Y-vuzffa-zinc-lutein (EYE MULTIVIT-LUTEIN,C-E-CU-ZN,) 226 mg-90 mg-2 mg-34.8 mg-5 mg cap Take 1 tablet by mouth once daily. Tadalafil (CIALIS) 10 mg tablet Take 1 tablet by mouth as directed. TAKE 1-2 HOURS BEFORE SEXUAL INTERCOURSE NEEDED. aspirin, enteric coated (ASPIR-81) 81 mg EC tablet Take 1 tablet by mouth once daily. COMPOUNDED PRESCRIPTION KNEE HIGH COMPRESSION STOCKINGS 30-40 MM. DX: EDEMA. terazosin 5 mg capsule Take (more content not included)... [facility] 03-17-2025 History of Present illness Narrative CC: Patient presents with: Chest Pain: Chest pain, SOB, anxiety, recent COVID HPI Monika Chowdhury is a 74 year old male who presents today for chest pain. Was at an appointment with general surgery and brought up concerns with chest pain he was having intermittently and was told to schedule same day with his PCP. PCP was not available so appointment was made with this provider. Recording using [employer] software for draft documentation of the visit was discussed with the patient/authorized sales representative door to door; all questions welcomed and answered. Patient/authorized sales representative door to door agreed to proceed Chest Pain and Dyspnea: - Intermittent chest pain and dyspnea x1 month. - Describes pain as a tightness in the middle of the chest. - Episodes occur randomly, not daily, but sometimes multiple times a week. - Pain lasts no more than 15 minutes per episode. - No specific triggers identified; pain occurs at rest and is not exacerbated by physical activity. - Denies associated dyspnea during episodes. But does feel palpitations and like heart is racing. - Nocturnal episode of oxygen saturation dropping to 80s last night; no other episodes reported but thinks it may have happened one other time. - Denies fever, chills, cough, or wheezing. - Recent COVID-19 infection after returning from [place]; symptoms have resolved. - Denies dizziness, syncope, edema, headaches, or weakness. Paroxysmal Atrial Fibrillation: - History of paroxysmal atrial fibrillation; previously on flecainide and Xarelto - Discontinued flecainide and Xarelto years ago; currently taking baby aspirin. - Reports taking leftover flecainide and Xarelto during recent episodes in [place], believing it might be AFib. - Brother has a history of AFib and recent VT. - Currently on metoprolol and HR for hypertension management. REVIEW OF SYSTEMS See HPI PAST MEDICAL HISTORY Diagnosis Date Actinic skin damage 09/30/2011 Aortic root dilatation 08/21/2009 Atrial fibrillation 04/26/2013 Benign neoplasm of colon 12/18/2005 Adenomatous polyp BPH with obstruction/lower urinary tract symptoms 08/27/2018 Dr. Greenberg, Urology Coronary artery disease involving [place] coronary artery of [place] heart without angina pectoris 07/19/2019 Diverticulosis of colon (without mention of hemorrhage) Essential tremor 01/14/2012 Hypertrophy of prostate with urinary obstruction and other lower urinary tract symptoms (LUTS) 12/31/2006 Ingrown left big toenail 05/2022 infected Internal hemorrhoids without mention of complication Mixed hyperlipidemia 07/19/2019 Near syncope 02/15/2014 bradycardia NASRA on CPAP 06/15/2013 Intolerant to CPAP Problems with sexual function Sigmoiditis 10/20/2023 Umbilical hernia 05/23/2023 Unspecified essential hypertension 02/09/2010 Venous (peripheral) insufficiency 11/19/2005 VENOUS INSUFFICIENCY NOS 11/19/2005 PAST SURGICAL HISTORY Procedure Laterality Date ATRIAL FIBRILLATION/FLUTTER ABLATION 03/29/2020 COLONOSCOPY - DIAGNOSTIC 08/25/20021992, 1994 COLONOSCOPY FLX DX W/COLLJ SPEC WHEN PFRMD 10/12/2012 Colonoscopy repeat 10 years COLONOSCOPY FLX DX W/COLLJ SPEC WHEN PFRMD 07/07/2020 Colonoscopy CYSTOSCOPY 04/12/2015 LAPROSCOPIC REPAIR UMBILICAL HERNIA 05/23/2023 LEFT HEART CATH,PERCUTANEOUS 03/18/2008 Cardiac cath, L heart, normal LEFT HEART CATH,PERCUTANEOUS 05/12/2013 Cardiac cath, L heart. 30-40% LAD. PAST SURGICAL HISTORY OF 1963 left hip surgery after fracture, hardware removed PAST SURGICAL HISTORY OF 08/29/2011 Right index finger repair PAST SURGICAL HISTORY OF 11/2012 Right index Finger repair x 2 REMV CATARACT EXTRACAP,INSERT LENS Bilateral 06/2024 REPAIR UMBILICAL HERNIA 05/23/2023 RPR 1ST INGUN HRNA AGE 3 YRS/> REDUCIBLE 2007 Hernia repair, inguinal x 3 TONSILLECTOMY PRIMARY/SECONDARY <AGE 10 1955 Tonsillectomy ALLERGIES Patient has no known allergies. MEDICATIONS chlorthalidone (HYGROTON) 25 mg tablet Take 1 tablet by mouth once daily. metoprolol succinate ER (TOPROL XL) 50 mg 24 hr tablet Take 1 tablet by mouth once daily. atorvastatin (LIPITOR) 10 mg tablet Take 1 tablet by mouth once daily. psyllium husk (METAMUCIL ORAL) Take by mouth once daily. MEDICATION, NON-DATABASE Take by mouth once daily. Flax Seed L-LYSINE ORAL Take 1 tablet by mouth once daily. vit H-J-rukixs-zinc-lutein (EYE MULTIVIT-LUTEIN,C-E-CU-ZN,) 226 mg-90 mg-2 mg-34.8 mg-5 mg cap Take 1 tablet by mouth once daily. Tadalafil (CIALIS) 10 mg tablet Take 1 tablet by mouth as directed. TAKE 1-2 HOURS BEFORE SEXUAL INTERCOURSE NEEDED. aspirin, enteric coated (ASPIR-81) 81 mg EC tablet Take 1 tablet by mouth once daily. COMPOUNDED PRESCRIPTION KNEE HIGH COMPRESSION STOCKINGS 30-40 MM. DX: EDEMA. terazosin 5 mg capsule Take 1 capsule by mouth daily at bedtime. Given by Dr. Rivera. CALCIUM CARBONATE/VITAMIN D3 (CALCIUM 500 + D ORAL) Take by mouth once daily. ascorbic acid, vitamin C, (VITAMIN C) 500 mg tablet Take 500 mg by mouth once daily. Garlic ORAL Cap Take one(1) tablet daily. FAMILY HISTORY Problem Relation Age of Onset Arthritis Mother other (Other) Mother fall, natural causes Heart Father CABG other (Cholesterol) Father Prostate Cancer Brother 62 Glaucoma Brother Arthritis Brother lumbago Coronary Artery Disease Brother stents Heart Attack Brother Arthritis Brother lumbago Arrhythmia Brother Atrial fibrillation No Known Problems Maternal Grandmother No Known Problems Maternal Grandfather Diabetes Paternal Grandmother No Known Problems Paternal Grandfather Social History Tobacco Use Smoking status: Never Smokeless tobacco: Never Vaping Use Vaping status: Never Used Substance Use Topics Alcohol use: Yes Comment: 2-4 beers per month. Drug use: Never PHYSICAL EXAM BP 122/70 Pulse 72 Resp 16 SpO2 95% General Appearance: well appearing, in no acute distress, alert Eyes: conjunctiva pink and moist, no icterus, sclera white, non-injected Lungs: Lungs clear to auscultation. No wheezing, rhonchi, rales. Heart: RRR without murmur, gallop, or rubs. No ectopy Health maintenance reviewed with patient: Depression Screening Never done Anxiety Screening Never done Advance Directive Discussion due on 11/10/2024 Covid-19 Vaccine() due on 01/31/2025 LDL Cholesterol due on 09/04/2025 Annual PCP Team Chronic Disease Visit due on 03/17/2026 BP Controlled (<130/80) due on 03/17/2026 Diabetes Screening due on 09/04/2027 DTaP,Tdap,Td Vaccine(5 - Td or Tdap) due on 02/26/2034 Influenza Vaccine Completed RSV Vaccine Completed Hepatitis C Screening Completed Shingrix Vaccine Completed Pneumococcal Vaccine: 50+ Completed Colorectal Cancer Screening Discontinued DATA REVIEWED: No new labs Imaging Echocardiogram: Slightly enlarged aorta, stable from prior imaging, no further enlargement Assessment/Plan 1. Chest pain, unspecified type (R07.9) 2. Palpitations (R00.2) 3. Low oxygen saturation (R79.81) - Intermittent chest tightness and palpitations over the past month, not associated with exertion; episodes last less than 15 minutes. - Recent travel and COVID-19 infection increase risk for pulmonary embolism on top of history of paroxysmal a-fib. - EKG shows normal sinus rhythm. - Ordered D-dimer and CBC to evaluate for thromboembolism and infection. - Ordered chest X-ray to assess for pulmonary pathology. - Advised patient to seek immediate medical attention if chest pain persists, shortness of breath worsens, or oxygen saturation drops. - Follow-up with primary care in one week to review results and consider Holter monitor if tests are negative. 4. Paroxysmal atrial fibrillation (HCC) (I48.0) - History of paroxysmal atrial fibrillation, previously managed with flecainide and Xarelto, both discontinued years ago. - Currently on metoprolol for hypertension management. - Discussed risks of atrial fibrillation and potential need for anticoagulation. - Patient understands and agrees with the plan. - If workup negative agreeable to wear a zio monitor and will discuss with PCP at upcoming followup appointment Prescription instructions reviewed with patient as applicable. Potential red flag symptoms discussed with the patient. Reviewed appropriate action plan to take if red flag symptoms occur. Patient agreeable to treatment plan. Saira Woody APRN.CNP documented in this encounter [facility] 03-17-2025 History of Present illness Narrative FOLLOW UP VISIT - ENDOSCOPY Monika Chowdhury 1950 [id number] REFERRING PHYSICIAN: No referring provider defined for this encounter. Monika Chowdhury is a patient I am following for rectal bleeding. Dr. Andre performed lower endoscopy on 03/10/25. The patient was found to have Impression: - Preparation of the colon was fair. - Diverticulosis in the sigmoid colon. - Non-bleeding internal hemorrhoids. - The examination was otherwise normal. - No specimens collected. The patient notes no complaints since the procedure related to the colonoscopy. -no other episodes of rectal bleeding Monika does note that recently over the last couple of weeks he has been experiencing some chest tightness/SOB that is mild and intermittent. -he has a hx of A.Fib s/p ablation- notes presentation prior was being stuck on the couch until a.fib passed d/t being physically drained -has been checking his HR using pulse oximeter but it has been under 100 -notes last night he got up to go to the rest room and on his way back he felt like he was going to pass out- checked the pulse ox & 02 was 88% -Traveled to [place] the beginning of February -COVID + on 02/26/25 -denies fever, cough, worsening fatigue, recent leg/calf pain VITALS: BP: 114/66 Pulse: 80 Resp: 16 SpO2: 96 % General: patient is alert, cooperative, pleasant and in no acute distress Cardiovascular: regular rate and rhythm, normal s1, s2 Respiratory: Diminished RUL, all other lobes clear Lower extremities: no edema, no calf tenderness Abdomen: benign Assessment ASSESSMENT/PLAN: 1. Rectal bleeding - ICD9: 569.3, ICD10: K62.5 Patient was escorted to [facility] desk and assisted to schedule an appt with PCP's office to get CP/SOB/near syncopal episode evaluated- he is agreeable. Provider notified. The operative findings and pathology report were reviewed with the patient, and the patient has had the opportunity to ask questions and have questions answered. If the patient notes any problems or changes in bowel function, the patient should contact me immediately. Otherwise I recommend follow up endoscopy in 10 years. HM updated. Discussed treatment plan and patient voices understanding. Patient's questions answered appropriately. Medications and potential side effects were discussed and patient voices understanding. Return to the office as scheduled or as needed for worsening/no improvement. Mercedes Costa APRN.SENIOR COPYWRITER documented in this encounter [facility] 03-17-2025 Note HNO ID: [id number] Author: MERCEDES COSTA APRN.SENIOR COPYWRITER Service: ? Author Type: Nurse Practitioner Type: Progress Notes Filed: 03/17/2025 11:22 Note Text: FOLLOW UP VISIT - ENDOSCOPY Monika Chowdhury 1950 [id number] REFERRING PHYSICIAN: No referring provider defined for this encounter. Monika Chowdhury is a patient I am following for rectal bleeding. Dr. Andre performed lower endoscopy on 03/10/25. The patient was found to have Impression: - Preparation of the colon was fair. - Diverticulosis in the sigmoid colon. - Non-bleeding internal hemorrhoids. - The examination was otherwise normal. - No specimens collected. The patient notes no complaints since the procedure related to the colonoscopy. -no other episodes of rectal bleeding Monika does note that recently over the last couple of weeks he has been experiencing some chest tightness/SOB that is mild and intermittent. -he has a hx of A.Fib s/p ablation- notes presentation prior was being stuck on the couch until a.fib passed d/t being physically drained -has been checking his HR using pulse oximeter but it has been under 100 -notes last night he got up to go to the rest room and on his way back he felt like he was going to pass out- checked the pulse ox AND 02 was 88% -Traveled to [place] the beginning of February -COVID + on 02/26/25 -denies fever, cough, worsening fatigue, recent leg/calf pain VITALS: BP: 114/66 Pulse: 80 Resp: 16 SpO2: 96 % General: patient is alert, cooperative, pleasant and in no acute distress Cardiovascular: regular rate and rhythm, normal s1, s2 Respiratory: Diminished RUL, all other lobes clear Lower extremities: no edema, no calf tenderness Abdomen: benign Assessment ASSESSMENT/PLAN: 1. Rectal bleeding - ICD9: 569.3, ICD10: K62.5 Patient was escorted to [facility] desk and assisted to schedule an appt with PCP's office to get CP/SOB/near syncopal episode evaluated- he is agreeable. Provider notified. The operative findings and pathology report were reviewed with the patient, and the patient has had the opportunity to ask questions and have questions answered. If the patient notes any problems or changes in bowel function, the patient should contact me immediately. Otherwise I recommend follow up endoscopy in 10 years. HM updated. Discussed treatment plan and patient voices understanding. Patient's questions answered appropriately. Medications and potential side effects were discussed and patient voices understanding. Return to the office as scheduled or as needed for worsening/no improvement. Mercedes Costa APRN.SENIOR COPYWRITER [facility] 03-10-2025 Note Formatting of this n ote might be different from the original. The patient received a copy of Colonoscopy discharge instructions that contain information for how to contact the physician who performed the procedure and when to seek medical care. [facility] 03-10-2025 Miscellaneous Notes The patient received a copy of Colonoscopy discharge instructions that contain information for how to contact the physician who performed the procedure and when to seek medical care. documented in this encounter [facility] 03-10-2025 History and physical note REVIEW OF SYSTEMS: General: The patient denies fatigue, denies weight loss, denies weight gain, denies feeling hot, and denies feelings of cold. Eyes: The patient denies glaucoma, denies eye injury/surgery, does not wear glasses or contacts. Ear/Nose/Throat: The patient denies allergies, denies hayfever, denies ear infections, and denies bloody noses. Cardiovascular: The patient denies chest pain, denies heart disease, notes high blood pressure,denies cardiac stent, denies prior heart attack, notes irregular heart beat, notes high cholesterol, denies poor circulation, denies heart failure, other cardiac issues, denies claudication, denies cold feet, denies peripheral arterial stent. Respiratory: The patient denies tuberculosis, denies pneumonia, denies frequent cough, denies pulmonary embolism, denies shortness of breath, and denies coughing up blood. Gastrointestinal: The patient denies difficulty swallowing, denies acid reflux, denies ulcers, denies vomiting, denies jaundice/hepatitis, denies gallbladder problems, denies black or tarry stools, denies hemorrhoids, denies bleeding from rectum, denies diverticulitis, denies constipation, denies diarrhea, denies loss of stool control, and denies hernias. Kidney/Bladder: The patient denies kidney stones, denies urine infections, and denies bloody urine. Skin: The patient denies a history of skin cancer, denies bleeding/changing moles, and denies a history of skin rash. Neurologic: The patient denies a history of epilepsy/convulsions, denies headaches, denies head/spinal injuries, and denies stroke/TIA. Psychiatric: The patient denies psychiatric medications, denies depression, and denies voices, denies substance abuse. Endocrine: The patient denies thyroid disorders, denies diabetes, and denies hormonal problems. Hematologic: The patient denies a history of bruising, denies bleeding, and denies anemia, denies blood clots. Infections: The patient denies a history of measles and mumps, denies rheumatic fever, and denies sexually transmitted diseases. Musculoskeletal: The patient denies back pain/injury, denies back problems, denies sciatica, denies knee/foot trouble, denies arthritis, or denies gout. When was patient's last Mammogram screening? N/A Last Colonoscopy: 07/07/2020 Kia Irvin LPN Note Details Progress Notes Mercedes Costa APRN.SENIOR COPYWRITER (Nurse Practitioner) General Surgery Expand All Collapse All HISTORY AND PHYSICAL Monika Chowdhury : 1950 REFERRING PHYSICIAN: Fei Gandhi [address] [facility] [address] CHIEF COMPLAINT: Patient presents with: Consult: Rectal bleeding HPI: Monika is a 74 year old male referred for endoscopy. Monika notes rectal bleeding. Monika denies abdominal pain. Monika denies diarrhea. Monika denies constipation. Monika denies a change in bowel habits. Monika denies melena. Monika notes bright red blood per rectum. -on toilet paper & in underwear -not enough to discolor stool or toilet water -intermittently and only happens when he has been straining Monika notes hemorrhoids. -internal non-bleeding -denies pain and itching -not using anything OTC Monika denies family history of colon issues. Monika follows with [facility] cardiology for hx of CAD s/p stent (2012), A.fib s/p ablation (2019), HTN, and HLD. Last ECHO 08/2024 EF of 56%. He denies CP, SOB, dizziness, palpitations, syncope, edema, recent hospitalizations Monika has undergone prior endoscopy. Last colonoscopy was 06/[address] Jimenez at [facility]. Sedation Midazolam 5 mg IV, Fentanyl 100 micrograms IV, Diphenhydramine 50 mg IV Impression: - Non-bleeding internal hemorrhoids. - No specimens collected. CURRENT MEDICATIONS Current Outpatient Medications Medication Sig Promethazine-DM (PHENERGAN-DM) 6.25-15 mg/5 mL syrup Take 5 mL by mouth four times a day as needed. chlorthalidone (HYGROTON) 25 mg tablet Take 1 tablet by mouth once daily. metoprolol succinate ER (TOPROL XL) 50 mg 24 hr tablet Take 1 tablet by mouth once daily. atorvastatin (LIPITOR) 10 mg tablet Take 1 tablet by mouth once daily. psyllium husk (METAMUCIL ORAL) Take by mouth once daily. MEDICATION, NON-DATABASE Take by mouth once daily. Flax Seed L-LYSINE ORAL Take 1 tablet by mouth once daily. vit J-F-fpagxq-zinc-lutein (EYE MULTIVIT-LUTEIN,C-E-CU-ZN,) 226 mg-90 mg-2 mg-34.8 mg-5 mg cap Take 1 tablet by mouth once daily. Tadalafil (CIALIS) 10 mg tablet Take 1 tablet by mouth as directed. TAKE 1-2 HOURS BEFORE SEXUAL INTERCOURSE NEEDED. aspirin, enteric coated (ASPIR-81) 81 mg EC tablet Take 1 tablet by mouth once daily. COMPOUNDED PRESCRIPTION KNEE HIGH COMPRESSION STOCKINGS 30-40 MM. DX: EDEMA. terazosin 5 mg capsule Take 1 capsule by mouth daily at bedtime. Given by Dr. Rivera. CALCIUM CARBONATE/VITAMIN D3 (CALCIUM 500 + D ORAL) Take by mouth once daily. ascorbic acid, vitamin C, (VITAMIN C) 500 mg tablet Take 500 mg by mouth once daily. Garlic ORAL Cap Take one(1) tablet daily. peg 3350-Electrolytes (GOLYTELY) 236-22.74-6.74 -5.86 gram suspension Take 4,000 mL by mouth one time only for 1 dose. Refer to printed prep instructions from your provider. No current facility-administered medications for this visit. ALLERGIES: Patient has no known allergies. PAST MEDICAL HISTORY PAST MEDICAL HISTORY Diagnosis Date Actinic skin damage 09/30/2011 Aortic root dilatation (HCC) 08/21/2009 Atrial fibrillation 04/26/2013 Benign neoplasm of colon 12/18/2005 Adenomatous polyp BPH with obstruction/lower urinary tract symptoms 08/27/2018 Dr. Greenberg, Urology Coronary artery disease involving [place] coronary artery of [place] heart without angina pectoris 07/19/2019 Diverticulosis of colon (without mention of hemorrhage) Essential tremor 01/14/2012 Hypertrophy of prostate with urinary obstruction and other lower urinary tract symptoms (LUTS) 12/31/2006 Ingrown left big toenail 05/2022 infected Internal hemorrhoids without mention of complication Mixed hyperlipidemia 07/19/2019 Near syncope 02/15/2014 bradycardia NASRA on CPAP 06/15/2013 Intolerant to CPAP Problems with sexual function Sigmoiditis 10/20/2023 Umbilical hernia 05/23/2023 Unspecified essential hypertension 02/09/2010 Venous (peripheral) insufficiency 11/19/2005 VENOUS INSUFFICIENCY NOS 11/19/2005 PAST SURGICAL HISTORY PAST SURGICAL HISTORY Procedure Laterality Date ATRIAL FIBRILLATION/FLUTTER ABLATION 03/29/2020 COLONOSCOPY - DIAGNOSTIC 08/25/20021992, 1994 COLONOSCOPY FLX DX W/COLLJ SPEC WHEN PFRMD 10/12/2012 Colonoscopy repeat 10 years COLONOSCOPY FLX DX W/COLLJ SPEC WHEN PFRMD 07/07/2020 Colonoscopy CYSTOSCOPY 04/12/2015 LAPROSCOPIC REPAIR UMBILICAL HERNIA 05/23/2023 LEFT HEART CATH,PERCUTANEOUS 03/18/2008 Cardiac cath, L heart, normal LEFT HEART CATH,PERCUTANEOUS 05/12/2013 Cardiac cath, L heart. 30-40% LAD. PAST SURGICAL HISTORY OF 1963 left hip surgery after fracture, hardware removed PAST SURGICAL HISTORY OF 08/29/2011 Right index finger repair PAST SURGICAL HISTORY OF 11/2012 Right index Finger repair x 2 REMV CATARACT EXTRACAP,INSERT LENS Bilateral 06/2024 REPAIR UMBILICAL HERNIA 05/23/2023 RPR 1ST INGUN HRNA AGE 5 YRS/> REDUCIBLE 2007 Hernia repair, inguinal x 3 TONSILLECTOMY PRIMARY/SECONDARY Tonsillectomy FAMILY HISTORY FAMILY HISTORY Problem Relation Age of Onset Arthritis Mother other (Other) Mother fall, natural causes Heart Father CABG other (Cholesterol) Father Prostate Cancer Brother 62 Glaucoma Brother Arthritis Brother lumbago Coronary Artery Disease Brother stents Heart Attack Brother Arthritis Brother lumbago Arrhythmia Brother Atrial fibrillation No Known Problems Maternal Grandmother No Known Problems Maternal Grandfather Diabetes Paternal Grandmother No Known Problems Paternal Grandfather SOCIAL HISTORY Social History Tobacco Use Smoking status: Never Smokeless tobacco: Never Vaping Use Vaping status: Never Used Substance Use Topics Alcohol use: Yes Comment: 2-4 beers per month. Drug use: Never REVIEW OF SYMPTOMS: The review of systems data was entered by the nurse and reviewed by me SEE NURSING NOTE PHYSICAL EXAMINATION: General: The patient is 74 year old, male well nourished, well hydrated in no acute distress. The patient is oriented to time, place, and person. VITALS: Blood pressure 120/74, pulse 90, temperature 36.2 C (97.1 F), temperature source Temporal, resp. rate 14, height 176.8 cm (5' 9.61), weight 86.6 kg (191 lb), SpO2 98%. Body mass index is 27.72 kg/m . HEENT: Normal cephalic, ataumatic, pupils are equally round, sclera are anicteric, mucous membranes are moist, oropharynx is clear. Neck has no masses, asymmetry or lymphadenopathy. Respiratory: Clear to auscultation and percussion. Normal respiratory excursion and pattern. Cardiac: Examination is regular rate and rhythm. Normal S1/S2 Abdominal exam: Soft, nontender, with no palpable masses. No hepatosplenomegaly. No palpable hernias. Extremities: no clubbing, cyanosis or edema. No adenopathy. LABORATORY VALUES: As Noted RADIOLOGIC STUDIES: As Noted Assessment IMPRESSION: BRBPR, hemorrhoids PLAN: I have reviewed my findings with the surgeon. Will plan for lower endoscopy. We discussed the risks and benefits of the planned endoscopy. I have informed the patient that complications can occur including failure to complete the endoscopy and perforation. Monika had the opportunity to ask questions concerning the planned endoscopy. My staff has also explained the procedure to the patient in understandable terms and has given the patient printed material concerning the procedure. Monika freely consents to surgery. Monika is anxious about traveling to [place] in 2 weeks and experiencing rectal bleeding there. I will send hydrocortisone/lidocaine suppository to [facility] compound pharmacy for him to travel with and use if needed. We discussed also continuing his psyllium husk while traveling as sometimes that can worsen constipation. I plan to use Golytely bowel preparation I have explained to the patient the difference between IV conscious sedation and MAC anesthesia - and I have offered either, according to the patient's wishes. I have explained that with IV conscious sedation there is no anesthesia provider available and therefore there is a limitation of the amount of IV medications that can be given and that the patient may wake up in the middle of the procedure and/or experience pain/discomfort during the procedure. Further discussion was done and the patient was given the opportunity to ask questions and all questions were answered. Monika chooses IV conscious sedation. Monika was counseled that if there are changes in his/her medical condition, to let the office know if surgery should proceed. If there are changes in patient's medical condition from time of this encounter to the day of the procedure that preclude anesthesia, patient may have procedure cancelled for patient's safety. Diagnoses: (K62.5) Rectal bleeding Consultation requested by Dr. Hopper for an opinion regarding rectal bleeding. My final recommendations will be communicated back to the requesting physician by way of shared Medical record or letter to requesting physician via US mail. Portions of this documentation were copied and pasted from previous office visit notes in order to provide a cohesive continuity of the history. The note has been reviewed and edited and updated as necessary. Mercedes Costa APRN.SENIOR COPYWRITER UPDATED HISTORY AND PHYSICAL EXAMINATION SERVICE DATE: 03/10/2025 SERVICE TIME: 9:27 AM PHYSICAL EXAM MUST BE COMPLETED ON ADMISSION The History and Physical (completed in the past 30 days) has been reviewed and the patient has been examined. The contents accurately reflect the patient's condition with the following additions or revisions since the H&P was completed. Examination indicates no changes. This H&P can be found in the attached. SIGNATURE: Robert Andre III, MD PATIENT NAME: Monika Chowdhury DATE: March 10, 2025 TIME: 9:27 AM [facility] 03-10-2025 History and physical note REVIEW OF SYSTEMS: General: The patient denies fatigue, denies weight loss, denies weight gain, denies feeling hot, and denies feelings of cold. Eyes: The patient denies glaucoma, denies eye injury/surgery, does not wear glasses or contacts. Ear/Nose/Throat: The patient denies allergies, denies hayfever, denies ear infections, and denies bloody noses. Cardiovascular: The patient denies chest pain, denies heart disease, notes high blood pressure,denies cardiac stent, denies prior heart attack, notes irregular heart beat, notes high cholesterol, denies poor circulation, denies heart failure, other cardiac issues, denies claudication, denies cold feet, denies peripheral arterial stent. Respiratory: The patient denies tuberculosis, denies pneumonia, denies frequent cough, denies pulmonary embolism, denies shortness of breath, and denies coughing up blood. Gastrointestinal: The patient denies difficulty swallowing, denies acid reflux, denies ulcers, denies vomiting, denies jaundice/hepatitis, denies gallbladder problems, denies black or tarry stools, denies hemorrhoids, denies bleeding from rectum, denies diverticulitis, denies constipation, denies diarrhea, denies loss of stool control, and denies hernias. Kidney/Bladder: The patient denies kidney stones, denies urine infections, and denies bloody urine. Skin: The patient denies a history of skin cancer, denies bleeding/changing moles, and denies a history of skin rash. Neurologic: The patient denies a history of epilepsy/convulsions, denies headaches, denies head/spinal injuries, and denies stroke/TIA. Psychiatric: The patient denies psychiatric medications, denies depression, and denies voices, denies substance abuse. Endocrine: The patient denies thyroid disorders, denies diabetes, and denies hormonal problems. Hematologic: The patient denies a history of bruising, denies bleeding, and denies anemia, denies blood clots. Infections: The patient denies a history of measles and mumps, denies rheumatic fever, and denies sexually transmitted diseases. Musculoskeletal: The patient denies back pain/injury, denies back problems, denies sciatica, denies knee/foot trouble, denies arthritis, or denies gout. When was patient's last Mammogram screening? N/A Last Colonoscopy: 07/07/2020 Kia Irvin LPN Note Details Progress Notes Mercedes Costa APRN.SENIOR COPYWRITER (Nurse Practitioner) General Surgery Expand All Collapse All HISTORY AND PHYSICAL Monika Chowdhury : 1950 REFERRING PHYSICIAN: Fei Gandhi [address] [facility] [address] CHIEF COMPLAINT: Patient presents with: Consult: Rectal bleeding HPI: Monika is a 74 year old male referred for endoscopy. Monika notes rectal bleeding. Monika denies abdominal pain. Monika denies diarrhea. Monika denies constipation. Monika denies a change in bowel habits. Monika denies melena. Monika notes bright red blood per rectum. -on toilet paper & in underwear -not enough to discolor stool or toilet water -intermittently and only happens when he has been straining Monika notes hemorrhoids. -internal non-bleeding -denies pain and itching -not using anything OTC Monika denies family history of colon issues. Monika follows with [facility] cardiology for hx of CAD s/p stent (2012), A.fib s/p ablation (2019), HTN, and HLD. Last ECHO 08/2024 EF of 56%. He denies CP, SOB, dizziness, palpitations, syncope, edema, recent hospitalizations Monika has undergone prior endoscopy. Last colonoscopy was 06/[address] Jimenez at [facility]. Sedation Midazolam 5 mg IV, Fentanyl 100 micrograms IV, Diphenhydramine 50 mg IV Impression: - Non-bleeding internal hemorrhoids. - No specimens collected. CURRENT MEDICATIONS Current Outpatient Medications Medication Sig Promethazine-DM (PHENERGAN-DM) 6.25-15 mg/5 mL syrup Take 5 mL by mouth four times a day as needed. chlorthalidone (HYGROTON) 25 mg tablet Take 1 tablet by mouth once daily. metoprolol succinate ER (TOPROL XL) 50 mg 24 hr tablet Take 1 tablet by mouth once daily. atorvastatin (LIPITOR) 10 mg tablet Take 1 tablet by mouth once daily. psyllium husk (METAMUCIL ORAL) Take by mouth once daily. MEDICATION, NON-DATABASE Take by mouth once daily. Flax Seed L-LYSINE ORAL Take 1 tablet by mouth once daily. vit D-K-xknwkd-zinc-lutein (EYE MULTIVIT-LUTEIN,C-E-CU-ZN,) 226 mg-90 mg-2 mg-34.8 mg-5 mg cap Take 1 tablet by mouth once daily. Tadalafil (CIALIS) 10 mg tablet Take 1 tablet by mouth as directed. TAKE 1-2 HOURS BEFORE SEXUAL INTERCOURSE NEEDED. aspirin, enteric coated (ASPIR-81) 81 mg EC tablet Take 1 tablet by mouth once daily. COMPOUNDED PRESCRIPTION KNEE HIGH COMPRESSION STOCKINGS 30-40 MM. DX: EDEMA. terazosin 5 mg capsule Take 1 capsule by mouth daily at bedtime. Given by Dr. Rivera. CALCIUM CARBONATE/VITAMIN D3 (CALCIUM 500 + D ORAL) Take by mouth once daily. ascorbic acid, vitamin C, (VITAMIN C) 500 mg tablet Take 500 mg by mouth once daily. Garlic ORAL Cap Take one(1) tablet daily. peg 3350-Electrolytes (GOLYTELY) 236-22.74-6.74 -5.86 gram suspension Take 4,000 mL by mouth one time only for 1 dose. Refer to printed prep instructions from your provider. No current facility-administered medications for this visit. ALLERGIES: Patient has no known allergies. PAST MEDICAL HISTORY PAST MEDICAL HISTORY Diagnosis Date Actinic skin damage 09/30/2011 Aortic root dilatation (HCC) 08/21/2009 Atrial fibrillation 04/26/2013 Benign neoplasm of colon 12/18/2005 Adenomatous polyp BPH with obstruction/lower urinary tract symptoms 08/27/2018 Dr. Greenberg, Urology Coronary artery disease involving [place] coronary artery of [place] heart without angina pectoris 07/19/2019 Diverticulosis of colon (without mention of hemorrhage) Essential tremor 01/14/2012 Hypertrophy of prostate with urinary obstruction and other lower urinary tract symptoms (LUTS) 12/31/2006 Ingrown left big toenail 05/2022 infected Internal hemorrhoids without mention of complication Mixed hyperlipidemia 07/19/2019 Near syncope 02/15/2014 bradycardia NASRA on CPAP 06/15/2013 Intolerant to CPAP Problems with sexual function Sigmoiditis 10/20/2023 Umbilical hernia 05/23/2023 Unspecified essential hypertension 02/09/2010 Venous (peripheral) insufficiency 11/19/2005 VENOUS INSUFFICIENCY NOS 11/19/2005 PAST SURGICAL HISTORY PAST SURGICAL HISTORY Procedure Laterality Date ATRIAL FIBRILLATION/FLUTTER ABLATION 03/29/2020 COLONOSCOPY - DIAGNOSTIC 08/25/2002 1993, 1994 COLONOSCOPY FLX DX W/COLLJ SPEC WHEN PFRMD 10/12/2012 Colonoscopy repeat 10 years COLONOSCOPY FLX DX W/COLLJ SPEC WHEN PFRMD 07/07/2020 Colonoscopy CYSTOSCOPY 04/12/2015 LAPROSCOPIC REPAIR UMBILICAL HERNIA 05/23/2023 LEFT HEART CATH,PERCUTANEOUS 03/18/2008 Cardiac cath, L heart, normal LEFT HEART CATH,PERCUTANEOUS 05/12/2013 Cardiac cath, L heart. 30-40% LAD. PAST SURGICAL HISTORY OF 1963 left hip surgery after fracture, hardware removed PAST SURGICAL HISTORY OF 08/29/2011 Right index finger repair PAST SURGICAL HISTORY OF 11/2012 Right index Finger repair x 2 REMV CATARACT EXTRACAP,INSERT LENS Bilateral 06/2024 REPAIR UMBILICAL HERNIA 05/23/2023 RPR 1ST INGUN HRNA AGE 3 YRS/> REDUCIBLE 2007 Hernia repair, inguinal x 3 TONSILLECTOMY PRIMARY/SECONDARY <AGE 10 1956 Tonsillectomy FAMILY HISTORY FAMILY HISTORY Problem Relation Age of Onset Arthritis Mother other (Other) Mother fall, natural causes Heart Father CABG other (Cholesterol) Father Prostate Cancer Brother 62 Glaucoma Brother Arthritis Brother lumbago Coronary Artery Disease Brother stents Heart Attack Brother Arthritis Brother lumbago Arrhythmia Brother Atrial fibrillation No Known Problems Maternal Grandmother No Known Problems Maternal Grandfather Diabetes Paternal Grandmother No Known Problems Paternal Grandfather SOCIAL HISTORY Social History Tobacco Use Smoking status: Never Smokeless tobacco: Never Vaping Use Vaping status: Never Used Substance Use Topics Alcohol use: Yes Comment: 2-4 beers per month. Drug use: Never REVIEW OF SYMPTOMS: The review of systems data was entered by the nurse and reviewed by me SEE NURSING NOTE PHYSICAL EXAMINATION: General: The patient is 74 year old, male well nourished, well hydrated in no acute distress. The patient is oriented to time, place, and person. VITALS: Blood pressure 120/74, pulse 90, temperature 36.2 C (97.1 F), temperature source Temporal, resp. rate 14, height 176.8 cm (5' 9.61), weight 86.6 kg (191 lb), SpO2 98%. Body mass index is 27.72 kg/m . HEENT: Normal cephalic, ataumatic, pupils are equally round, sclera are anicteric, mucous membranes are moist, oropharynx is clear. Neck has no masses, asymmetry or lymphadenopathy. Respiratory: Clear to auscultation and percussion. Normal respiratory excursion and pattern. Cardiac: Examination is regular rate and rhythm. Normal S1/S2 Abdominal exam: Soft, nontender, with no palpable masses. No hepatosplenomegaly. No palpable hernias. Extremities: no clubbing, cyanosis or edema. No adenopathy. LABORATORY VALUES: As Noted RADIOLOGIC STUDIES: As Noted Assessment IMPRESSION: BRBPR, hemorrhoids PLAN: I have reviewed my findings with the surgeon. Will plan for lower endoscopy. We discussed the risks and benefits of the planned endoscopy. I have informed the patient that complications can occur including failure to complete the endoscopy and perforation. Monika had the opportunity to ask questions concerning the planned endoscopy. My staff has also explained the procedure to the patient in understandable terms and has given the patient printed material concerning the procedure. Monika freely consents to surgery. Monika is anxious about traveling to [place] in 2 weeks and experiencing rectal bleeding there. I will send hydrocortisone/lidocaine suppository to [facility] compound pharmacy for him to travel with and use if needed. We discussed also continuing his psyllium husk while traveling as sometimes that can worsen constipation. I plan to use Golytely bowel preparation I have explained to the patient the difference between IV conscious sedation and MAC anesthesia - and I have offered either, according to the patient's wishes. I have explained that with IV conscious sedation there is no anesthesia provider available and therefore there is a limitation of the amount of IV medications that can be given and that the patient may wake up in the middle of the procedure and/or experience pain/discomfort during the procedure. Further discussion was done and the patient was given the opportunity to ask questions and all questions were answered. Monika chooses IV conscious sedation. Monika was counseled that if there are changes in his/her medical condition, to let the office know if surgery should proceed. If there are changes in patient's medical condition from time of this encounter to the day of the procedure that preclude anesthesia, patient may have procedure cancelled for patient's safety. Diagnoses: (K62.5) Rectal bleeding Consultation requested by Dr. Hopper for an opinion regarding rectal bleeding. My final recommendations will be communicated back to the requesting physician by way of shared Medical record or letter to requesting physician via [place] mail. Portions of this documentation were copied and pasted from previous office visit notes in order to provide a cohesive continuity of the history. The note has been reviewed and edited and updated as necessary. Mercedes Costa APRN.SENIOR COPYWRITER UPDATED HISTORY AND PHYSICAL EXAMINATION SERVICE DATE: 03/10/2025 SERVICE TIME: 9:27 AM PHYSICAL EXAM MUST BE COMPLETED ON ADMISSION The History and Physical (completed in the past 30 days) has been reviewed and the patient has been examined. The contents accurately reflect the patient's condition with the following additions or revisions since the H&P was completed. Examination indicates no changes. This H&P can be found in the attached. SIGNATURE: Robert Andre III, MD PATIENT NAME: Monika Chowdhury DATE: March 10, 2025 TIME: 9:27 AM documented in this encounter [facility] 02-28-2025 Telephone encounter Note Medication sent to [facility]. Felisa May APRN.MIGUEL [facility] 02-28-2025 Miscellaneous Notes Medication sent to [facility]. Felisa May APRN.MIGUEL Pt is calling to check on status of cough medication. Pt wants to make sure provider knows Juan Ramon has cough medication. Pt reports he is coughing a lot. Natividad Sommers LPN I am unable to send medication, issue with imprivata. Will try tomorrow with another provider. Advised patient to take otc medication Patient requesting hycodan called into [facility], no other pharmacy carries it. Palma Mayer MA documented in this encounter [facility] 02-28-2025 Telephone encounter Note Pt is calling to check on status of cough medication. Pt wants to make sure provider knows Juan Ramon has cough medication. Pt reports he is coughing a lot. Natividad Sommers LPN [facility] 02-27-2025 Telephone encounter Note I am unable to send medication, issue with imprivata. Will try tomorrow with another provider. Advised patient to take otc medication [facility] 02-27-2025 Telephone encounter Note Patient requesting hycodan called into [facility], no other pharmacy carries it. Palma Mayer MA [facility] 02-27-2025 Miscellaneous Notes Patient given results and verbalized understanding of instructions given. Palma Mayer MA Please notify positive for covid. Is past treatment window for paxlovid. Continue with the atb as ordered. Quarantine only if fevered. F/u for continued or worsening s/s. -If you experience chest pain/shortness of breath go to ER documented in this encounter [facility] 02-27-2025 Telephone encounter Note Patient given results and verbalized understanding of instructions given. Palma Mayer MA [facility] 02-27-2025 Telephone encounter Note Please notify positive for covid. Is past treatment window for paxlovid. Continue with the atb as ordered. Quarantine only if fevered. F/u for continued or worsening s/s. -If you experience chest pain/shortness of breath go to ER [facility] Work Phone: 02-26-2025 Note SARS-COV-2 (AGENT OF COVID-19) RNA: Detected INFLUENZA A RNA: Not detected INFLUENZA B RNA: Not detected RESPIRATORY SYNCYTIAL VIRUS (RSV) RNA: Not detected [facility] Comment on above: Performed By: #### 2 [id number], [id number], [id number] #### [facility] CLIA [id number] [address] [place] [address] [place] 02-26-2025 Note HNO ID: [id number] Author: KIMBERLEY LITTLEJOHN APRN.SENIOR COPYWRITER Service: ? Author Type: Nurse Practitioner Type: Progress Notes Filed: 02/26/2025 14:28 Note Text: [facility] Subjective Monika Chowdhury is a 74 year old male. Patient presents with: Cough: Cough and bodyaches x 5 days 74 year old male with PMH CAD, HTN, hyperlipidemia, afib, Acute onset 5 days ago + cough +productive +fatigue +body aches Denies eye Denies ear Denies N/V/D Denies CP Denies dyspnea Of note, he has been in [place] , traveling for 3 weeks Just [place] Has used OTC cough medicines He has a colonoscopy on Friday The history is provided by the patient. No spanish interpreter was used. Cough This is a new problem. The current episode started more than 2 days ago. The problem occurs constantly. The problem has been gradually worsening. The cough is Productive of sputum. Associated symptoms include headaches, rhinorrhea and myalgias. Pertinent negatives include no chest pain, no chills, no sweats, no weight loss, no ear congestion, no ear pain, no sore throat, no shortness of breath, no wheezing and no eye redness. Treatments tried: see HPI. The treatment provided no relief. He is not a smoker. His past medical history does not include bronchitis, pneumonia, bronchiectasis, COPD, emphysema or asthma. 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 Greenberg, Urology Coronary artery disease involving [place] coronary artery of [place] heart without angina pectoris 07/19/2019 Diverticulosis of colon (without mention of hemorrhage) Essential tremor 01/14/2012 Hypertrophy of prostate with urinary obstruction and other lower urinary tract symptoms (LUTS) 12/31/2006 Ingrown left big toenail 05/2022 infected Internal hemorrhoids without mention of complication Mixed hyperlipidemia 07/19/2019 Near syncope 02/15/2014 bradycardia NASRA on CPAP 06/15/2013 Intolerant to CPAP Problems with sexual function Sigmoiditis 10/20/2023 Umbilical hernia 05/23/2023 Unspecified essential hypertension 02/09/2010 Venous (peripheral) insufficiency 11/19/2005 VENOUS INSUFFICIENCY NOS 11/19/2005 PAST SURGICAL HISTORY Procedure Laterality Date ATRIAL FIBRILLATION/FLUTTER ABLATION 03/29/2020 COLONOSCOPY - DIAGNOSTIC 08/25/20021992, 1994 COLONOSCOPY FLX DX W/COLLJ SPEC WHEN PFRMD 10/12/2012 Colonoscopy repeat 10 years COLONOSCOPY FLX DX W/COLLJ SPEC WHEN PFRMD 07/07/2020 Colonoscopy CYSTOSCOPY 04/12/2015 LAPROSCOPIC REPAIR UMBILICAL HERNIA 05/23/2023 LEFT HEART CATH,PERCUTANEOUS 03/18/2008 Cardiac cath, L heart, normal LEFT HEART CATH,PERCUTANEOUS 05/12/2013 Cardiac cath, L heart. 30-40% LAD. PAST SURGICAL HISTORY OF 1963 left hip surgery after fracture, hardware removed PAST SURGICAL HISTORY OF 08/29/2011 Right index finger repair PAST SURGICAL HISTORY OF 11/2012 Right index Finger repair x 2 REMV CATARACT EXTRACAP,INSERT LENS Bilateral 06/2024 REPAIR UMBILICAL HERNIA 05/23/2023 RPR 1ST INGUN HRNA AGE 5 YRS/> REDUCIBLE 2007 Hernia repair, inguinal x 3 TONSILLECTOMY PRIMARY/SECONDARY Tonsillectomy ALLERGIES Patient has no known allergies. MEDICATIONS chlorthalidone (HYGROTON) 25 mg tablet Take 1 tablet by mouth once daily. metoprolol succinate ER (TOPROL XL) 50 mg 24 hr tablet Take 1 tablet by mouth once daily. atorvastatin (LIPITOR) 10 mg tablet Take 1 tablet by mouth once daily. psyllium husk (METAMUCIL ORAL) Take by mouth once daily. MEDICATION, NON-DATABASE Take by mouth once daily. Flax Seed L-LYSINE ORAL Take 1 tablet by mouth once daily. vit C-M-luscfs-zinc-lutein (EYE MULTIVIT-LUTEIN,C-E-CU-ZN,) 226 mg-90 mg-2 mg-34.8 mg-5 mg cap Take 1 tablet by mouth once daily. Tadalafil (CIALIS) 10 mg tablet Take 1 tablet by mouth as directed. TAKE 1-2 HOURS BEFORE SEXUAL INTERCOURSE NEEDED. aspirin, enteric coated (ASPIR-81) 81 mg EC tablet Take 1 tablet by mouth once daily. COMPOUNDED PRESCRIPTION KNEE HIGH COMPRESSION STOCKINGS 30-40 MM. DX: EDEMA. terazosin 5 mg capsule Take 1 capsule by mouth daily at bedtime. Given by Dr. Rivera. CALCIUM CARBONATE/VITAMIN D3 (CALCIUM 500 + D ORAL) Take by mouth once daily. ascorbic acid, vitamin C, (VITAMIN C) 500 mg tablet Take 500 mg by mouth once daily. Garlic ORAL Cap Take one(1) tablet daily. doxycycline (VIBRA-TABS) 100 mg tablet Take 1 tablet by mouth two times a day for 7 days. HYDROcodone-homatropine (HYCODAN) 5-1.5 mg/5 mL (5 mL) oral liquid Take 5 mL by mouth every 6 hours as needed for up to 5 days. FAMILY HISTORY Problem Relation Age of Onset Arthritis Mother other (Other) Mother fall, natural causes Heart Father CABG other (Cholesterol) Fat (more content not included)... [facility] 02-26-2025 History of Present illness Narrative [facility] Subjective Monika Chowdhury is a 74 year old male. Patient presents with: Cough: Cough and bodyaches x 5 days 74 year old male with PMH CAD, HTN, hyperlipidemia, afib, Acute onset 5 days ago + cough +productive +fatigue +body aches Denies eye Denies ear Denies N/V/D Denies CP Denies dyspnea Of note, he has been in [place] , traveling for 3 weeks Just [place] the [place] yesterday Has used OTC cough medicines He has a colonoscopy on Friday The history is provided by the patient. No spanish interpreter was used. Cough This is a new problem. The current episode started more than 2 days ago. The problem occurs constantly. The problem has been gradually worsening. The cough is Productive of sputum. Associated symptoms include headaches, rhinorrhea and myalgias. Pertinent negatives include no chest pain, no chills, no sweats, no weight loss, no ear congestion, no ear pain, no sore throat, no shortness of breath, no wheezing and no eye redness. Treatments tried: see HPI. The treatment provided no relief. He is not a smoker. His past medical history does not include bronchitis, pneumonia, bronchiectasis, COPD, emphysema or asthma. 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 Greenberg, Urology Coronary artery disease involving [place] coronary artery of [place] heart without angina pectoris 07/19/2019 Diverticulosis of colon (without mention of hemorrhage) Essential tremor 01/14/2012 Hypertrophy of prostate with urinary obstruction and other lower urinary tract symptoms (LUTS) 12/31/2006 Ingrown left big toenail 05/2022 infected Internal hemorrhoids without mention of complication Mixed hyperlipidemia 07/19/2019 Near syncope 02/15/2014 bradycardia NASRA on CPAP 06/15/2013 Intolerant to CPAP Problems with sexual function Sigmoiditis 10/20/2023 Umbilical hernia 05/23/2023 Unspecified essential hypertension 02/09/2010 Venous (peripheral) insufficiency 11/19/2005 VENOUS INSUFFICIENCY NOS 11/19/2005 PAST SURGICAL HISTORY Procedure Laterality Date ATRIAL FIBRILLATION/FLUTTER ABLATION 03/29/2020 COLONOSCOPY - DIAGNOSTIC 08/25/20021992, 1994 COLONOSCOPY FLX DX W/COLLJ SPEC WHEN PFRMD 10/12/2012 Colonoscopy repeat 10 years COLONOSCOPY FLX DX W/COLLJ SPEC WHEN PFRMD 07/07/2020 Colonoscopy CYSTOSCOPY 04/12/2015 LAPROSCOPIC REPAIR UMBILICAL HERNIA 05/23/2023 LEFT HEART CATH,PERCUTANEOUS 03/18/2008 Cardiac cath, L heart, normal LEFT HEART CATH,PERCUTANEOUS 05/12/2013 Cardiac cath, L heart. 30-40% LAD. PAST SURGICAL HISTORY OF 1963 left hip surgery after fracture, hardware removed PAST SURGICAL HISTORY OF 08/29/2011 Right index finger repair PAST SURGICAL HISTORY OF 11/2012 Right index Finger repair x 2 REMV CATARACT EXTRACAP,INSERT LENS Bilateral 06/2024 REPAIR UMBILICAL HERNIA 05/23/2023 RPR 1ST INGUN HRNA AGE 3 YRS/> REDUCIBLE 2007 Hernia repair, inguinal x 3 TONSILLECTOMY PRIMARY/SECONDARY <AGE 10 1956 Tonsillectomy ALLERGIES Patient has no known allergies. MEDICATIONS chlorthalidone (HYGROTON) 25 mg tablet Take 1 tablet by mouth once daily. metoprolol succinate ER (TOPROL XL) 50 mg 24 hr tablet Take 1 tablet by mouth once daily. atorvastatin (LIPITOR) 10 mg tablet Take 1 tablet by mouth once daily. psyllium husk (METAMUCIL ORAL) Take by mouth once daily. MEDICATION, NON-DATABASE Take by mouth once daily. Flax Seed L-LYSINE ORAL Take 1 tablet by mouth once daily. vit O-N-uqlnuh-zinc-lutein (EYE MULTIVIT-LUTEIN,C-E-CU-ZN,) 226 mg-90 mg-2 mg-34.8 mg-5 mg cap Take 1 tablet by mouth once daily. Tadalafil (CIALIS) 10 mg tablet Take 1 tablet by mouth as directed. TAKE 1-2 HOURS BEFORE SEXUAL INTERCOURSE NEEDED. aspirin, enteric coated (ASPIR-81) 81 mg EC tablet Take 1 tablet by mouth once daily. COMPOUNDED PRESCRIPTION KNEE HIGH COMPRESSION STOCKINGS 30-40 MM. DX: EDEMA. terazosin 5 mg capsule Take 1 capsule by mouth daily at bedtime. Given by Dr. Rivera. CALCIUM CARBONATE/VITAMIN D3 (CALCIUM 500 + D ORAL) Take by mouth once daily. ascorbic acid, vitamin C, (VITAMIN C) 500 mg tablet Take 500 mg by mouth once daily. Garlic ORAL Cap Take one(1) tablet daily. doxycycline (VIBRA-TABS) 100 mg tablet Take 1 tablet by mouth two times a day for 7 days. HYDROcodone-homatropine (HYCODAN) 5-1.5 mg/5 mL (5 mL) oral liquid Take 5 mL by mouth every 6 hours as needed for up to 5 days. FAMILY HISTORY Problem Relation Age of Onset Arthritis Mother other (Other) Mother fall, natural causes Heart Father CABG other (Cholesterol) Father Prostate Cancer Brother 62 Glaucoma Brother Arthritis Brother lumbago Coronary Artery Disease Brother stents Heart Attack Brother Arthritis Brother lumbago Arrhythmia Brother Atrial fibrillation No Known Problems Maternal Grandmother No Known Problems Maternal Grandfather Diabetes Paternal Grandmother No Known Problems Paternal Grandfather Social History Tobacco Use Smoking status: Never Smokeless tobacco: Never Vaping Use Vaping status: Never Used Substance Use Topics Alcohol use: Yes Comment: 2-4 beers per month. Drug use: Never Review of Systems Constitutional: Negative for chills and weight loss. HENT: Positive for rhinorrhea. Negative for ear pain and sore throat. Eyes: Negative for redness. Respiratory: Positive for cough. Negative for shortness of breath and wheezing. Cardiovascular: Negative for chest pain. Musculoskeletal: Positive for myalgias. Neurological: Positive for headaches. Objective BP 138/82 Pulse 89 Temp 36.8 C (98.2 F) (Tympanic) Resp 16 Wt 85.4 kg (188 lb 4.4 oz) SpO2 96% BMI 27.32 kg/m Physical Exam Vitals and nursing note reviewed. Constitutional: General: He is not in acute distress. Appearance: Normal appearance. He is not ill-appearing, toxic-appearing or diaphoretic. HENT: Head: Normocephalic and atraumatic. Right Ear: External ear normal. Left Ear: External ear normal. Nose: Nose normal. No congestion or rhinorrhea. Mouth/Throat: Mouth: Mucous membranes are moist. Pharynx: Oropharynx is clear. No oropharyngeal exudate or posterior oropharyngeal erythema. Eyes: General: Right eye: No discharge. Left eye: No discharge. Extraocular Movements: Extraocular movements intact. Conjunctiva/sclera: Conjunctivae normal. Pupils: Pupils are equal, round, and reactive to light. Cardiovascular: Rate and Rhythm: Normal rate and regular rhythm. Pulses: Normal pulses. Heart sounds: Normal heart sounds. No murmur heard. No friction rub. No gallop. Pulmonary: Effort: Pulmonary effort is normal. No respiratory distress. Breath sounds: Normal breath sounds. No stridor. No wheezing, rhonchi or rales. Chest: Chest wall: No tenderness. Abdominal: General: Abdomen is flat. There is no distension. Palpations: Abdomen is soft. There is no mass. Tenderness: There is no abdominal tenderness. There is no guarding or rebound. Hernia: No hernia is present. Musculoskeletal: General: No swelling, tenderness, deformity or signs of injury. Normal range of motion. Cervical back: Normal range of motion and neck supple. No rigidity or tenderness. Right lower leg: No edema. Left lower leg: No edema. Lymphadenopathy: Cervical: No cervical adenopathy. Skin: General: Skin is warm and dry. Capillary Refill: Capillary refill takes less than 2 seconds. Coloration: Skin is not jaundiced or pale. Findings: No bruising, lesion or rash. Neurological: General: No focal deficit present. Mental Status: He is alert and oriented to person, place, and time. Cranial Nerves: No cranial nerve deficit. Sensory: No sensory deficit. Motor: No weakness. Coordination: Coordination normal. Gait: Gait normal. Deep Tendon Reflexes: Reflexes normal. Psychiatric: Mood and Affect: Mood normal. Behavior: Behavior normal. Thought Content: Thought content normal. {ASSESSMENT/PLAN: 1. Acute cough - ICD9: 786.2, ICD10: R05.1 (primary diagnosis) X 5 days Progressively worsening He just returned from travel outside of country NO xray Tomorrow is a holiday Will cover for possible concerns of pneumonia - COVID & INFLUENZA A/B & RSV PCR, ROUTINE - DOXYCYCLINE HYCLATE 100 MG TABLET - HYDROCODONE-HOMATROPINE 5 MG-1.5 MG/5 ML (5 ML) ORAL SYRUP 2. URI, acute - ICD9: 465.9, ICD10: J06.9 X 5 days - Discussed viral etiology and rationale for treatment. - Symptomatic treatment with prn analgesia - Supportive care with fluids and rest - The patient may also use OTC cough and cold meds as needed and nasal saline gtts and suction prn. - Follow up in 3-5 days if symptoms persist or sooner if worsening of symptoms - COVID & INFLUENZA A/B & RSV PCR, ROUTINE - DOXYCYCLINE HYCLATE 100 MG TABLET - HYDROCODONE-HOMATROPINE 5 MG-1.5 MG/5 ML (5 ML) ORAL SYRUP Kimberley Littlejohn APRN.MIGUEL History and Record Review External record(s) reviewed: prior inpatient record. Differential Diagnoses - uri - viral Additional Tests or Interventions The following testing was considered but ultimately not selected after discussion with patient/family: cxr, but not availab le Contributing Factors Chronic conditions affecting care: hypertension Disposition The patient was discharged. Procedures documented in this encounter [facility] 01-19-2025 Telephone encounter Note 02-28-2025 daniel Lopez [facility] 01-19-2025 Miscellaneous Notes 02-28-2025 daniel Lopez [facility] documented in this encounter [facility] 01-19-2025 Note HNO ID: [id number] Author: KIA IRVIN LPN Service: ? Author Type: LICENSED NURSE Type: Progress Notes Filed: 01/19/2025 15:06 Note Text: REVIEW OF SYSTEMS: General: The patient denies fatigue, denies weight loss, denies weight gain, denies feeling hot, and denies feelings of cold. Eyes: The patient denies glaucoma, denies eye injury/surgery, does not wear glasses or contacts. Ear/Nose/Throat: The patient denies allergies, denies hayfever, denies ear infections, and denies bloody noses. Cardiovascular: The patient denies chest pain, denies heart disease, notes high blood pressure,denies cardiac stent, denies prior heart attack, notes irregular heart beat, notes high cholesterol, denies poor circulation, denies heart failure, other cardiac issues, denies claudication, denies cold feet, denies peripheral arterial stent. Respiratory: The patient denies tuberculosis, denies pneumonia, denies frequent cough, denies pulmonary embolism, denies shortness of breath, and denies coughing up blood. Gastrointestinal: The patient denies difficulty swallowing, denies acid reflux, denies ulcers, denies vomiting, denies jaundice/hepatitis, denies gallbladder problems, denies black or tarry stools, denies hemorrhoids, denies bleeding from rectum, denies diverticulitis, denies constipation, denies diarrhea, denies loss of stool control, and denies hernias. Kidney/Bladder: The patient denies kidney stones, denies urine infections, and denies bloody urine. Skin: The patient denies a history of skin cancer, denies bleeding/changing moles, and denies a history of skin rash. Neurologic: The patient denies a history of epilepsy/convulsions, denies headaches, denies head/spinal injuries, and denies stroke/TIA. Psychiatric: The patient denies psychiatric medications, denies depression, and denies voices, denies substance abuse. Endocrine: The patient denies thyroid disorders, denies diabetes, and denies hormonal problems. Hematologic: The patient denies a history of bruising, denies bleeding, and denies anemia, denies blood clots. Infections: The patient denies a history of measles and mumps, denies rheumatic fever, and denies sexually transmitted diseases. Musculoskeletal: The patient denies back pain/injury, denies back problems, denies sciatica, denies knee/foot trouble, denies arthritis, or denies gout. When was patient's last Mammogram screening? N/A Last Colonoscopy: 07/07/2020 Kia IrvinRODO [facility] 01-19-2025 History of Present illness Narrative REVIEW OF SYSTEMS: General: The patient denies fatigue, denies weight loss, denies weight gain, denies feeling hot, and denies feelings of cold. Eyes: The patient denies glaucoma, denies eye injury/surgery, does not wear glasses or contacts. Ear/Nose/Throat: The patient denies allergies, denies hayfever, denies ear infections, and denies bloody noses. Cardiovascular: The patient denies chest pain, denies heart disease, notes high blood pressure,denies cardiac stent, denies prior heart attack, notes irregular heart beat, notes high cholesterol, denies poor circulation, denies heart failure, other cardiac issues, denies claudication, denies cold feet, denies peripheral arterial stent. Respiratory: The patient denies tuberculosis, denies pneumonia, denies frequent cough, denies pulmonary embolism, denies shortness of breath, and denies coughing up blood. Gastrointestinal: The patient denies difficulty swallowing, denies acid reflux, denies ulcers, denies vomiting, denies jaundice/hepatitis, denies gallbladder problems, denies black or tarry stools, denies hemorrhoids, denies bleeding from rectum, denies diverticulitis, denies constipation, denies diarrhea, denies loss of stool control, and denies hernias. Kidney/Bladder: The patient denies kidney stones, denies urine infections, and denies bloody urine. Skin: The patient denies a history of skin cancer, denies bleeding/changing moles, and denies a history of skin rash. Neurologic: The patient denies a history of epilepsy/convulsions, denies headaches, denies head/spinal injuries, and denies stroke/TIA. Psychiatric: The patient denies psychiatric medications, denies depression, and denies voices, denies substance abuse. Endocrine: The patient denies thyroid disorders, denies diabetes, and denies hormonal problems. Hematologic: The patient denies a history of bruising, denies bleeding, and denies anemia, denies blood clots. Infections: The patient denies a history of measles and mumps, denies rheumatic fever, and denies sexually transmitted diseases. Musculoskeletal: The patient denies back pain/injury, denies back problems, denies sciatica, denies knee/foot trouble, denies arthritis, or denies gout. When was patient's last Mammogram screening? N/A Last Colonoscopy: 07/07/2020 Kia Irvin LPN HISTORY AND PHYSICAL Monika Chowdhury : 1950 REFERRING PHYSICIAN: Fei Gandhi [address] [facility] [id number] CHIEF COMPLAINT: Patient presents with: Consult: Rectal bleeding HPI: Monika is a 74 year old male referred for endoscopy. Monika notes rectal bleeding. Monika denies abdominal pain. Monika denies diarrhea. Monika denies constipation. Monika denies a change in bowel habits. Monika denies melena. Monika notes bright red blood per rectum. -on toilet paper & in underwear -not enough to discolor stool or toilet water -intermittently and only happens when he has been straining Monika notes hemorrhoids. -internal non-bleeding -denies pain and itching -not using anything OTC Monika denies family history of colon issues. Monika follows with [facility] cardiology for hx of CAD s/p stent (2012), A.fib s/p ablation (2019), HTN, and HLD. Last ECHO 08/2024 EF of 56%. He denies CP, SOB, dizziness, palpitations, syncope, edema, recent hospitalizations Monika has undergone prior endoscopy. Last colonoscopy was 06/[address] Jimenez at [facility]. Sedation Midazolam 5 mg IV, Fentanyl 100 micrograms IV, Diphenhydramine 50 mg IV Impression: - Non-bleeding internal hemorrhoids. - No specimens collected. Current Outpatient Medications Medication Sig Promethazine-DM (PHENERGAN-DM) 6.25-15 mg/5 mL syrup Take 5 mL by mouth four times a day as needed. chlorthalidone (HYGROTON) 25 mg tablet Take 1 tablet by mouth once daily. metoprolol succinate ER (TOPROL XL) 50 mg 24 hr tablet Take 1 tablet by mouth once daily. atorvastatin (LIPITOR) 10 mg tablet Take 1 tablet by mouth once daily. psyllium husk (METAMUCIL ORAL) Take by mouth once daily. MEDICATION, NON-DATABASE Take by mouth once daily. Flax Seed L-LYSINE ORAL Take 1 tablet by mouth once daily. vit K-Z-crdsma-zinc-lutein (EYE MULTIVIT-LUTEIN,C-E-CU-ZN,) 226 mg-90 mg-2 mg-34.8 mg-5 mg cap Take 1 tablet by mouth once daily. Tadalafil (CIALIS) 10 mg tablet Take 1 tablet by mouth as directed. TAKE 1-2 HOURS BEFORE SEXUAL INTERCOURSE NEEDED. aspirin, enteric coated (ASPIR-81) 81 mg EC tablet Take 1 tablet by mouth once daily. COMPOUNDED PRESCRIPTION KNEE HIGH COMPRESSION STOCKINGS 30-40 MM. DX: EDEMA. terazosin 5 mg capsule Take 1 capsule by mouth daily at bedtime. Given by Dr. Rivera. CALCIUM CARBONATE/VITAMIN D3 (CALCIUM 500 + D ORAL) Take by mouth once daily. ascorbic acid, vitamin C, (VITAMIN C) 500 mg tablet Take 500 mg by mouth once daily. Garlic ORAL Cap Take one(1) tablet daily. peg 3350-Electrolytes (GOLYTELY) 236-22.74-6.74 -5.86 gram suspension Take 4,000 mL by mouth one time only for 1 dose. Refer to printed prep instructions from your provider. No current facility-administered medications for this visit. ALLERGIES: Patient has no known allergies. 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 Greenberg, Urology Coronary artery disease involving [place] coronary artery of [place] heart without angina pectoris 07/19/2019 Diverticulosis of colon (without mention of hemorrhage) Essential tremor 01/14/2012 Hypertrophy of prostate with urinary obstruction and other lower urinary tract symptoms (LUTS) 12/31/2006 Ingrown left big toenail 05/2022 infected Internal hemorrhoids without mention of complication Mixed hyperlipidemia 07/19/2019 Near syncope 02/15/2014 bradycardia NASRA on CPAP 06/15/2013 Intolerant to CPAP Problems with sexual function Sigmoiditis 10/20/2023 Umbilical hernia 05/23/2023 Unspecified essential hypertension 02/09/2010 Venous (peripheral) insufficiency 11/19/2005 VENOUS INSUFFICIENCY NOS 11/19/2005 PAST SURGICAL HISTORY Procedure Laterality Date ATRIAL FIBRILLATION/FLUTTER ABLATION 03/29/2020 COLONOSCOPY - DIAGNOSTIC 08/25/20021992, 1994 COLONOSCOPY FLX DX W/COLLJ SPEC WHEN PFRMD 10/12/2012 Colonoscopy repeat 10 years COLONOSCOPY FLX DX W/COLLJ SPEC WHEN PFRMD 07/07/2020 Colonoscopy CYSTOSCOPY 04/12/2015 LAPROSCOPIC REPAIR UMBILICAL HERNIA 05/23/2023 LEFT HEART CATH,PERCUTANEOUS 03/18/2008 Cardiac cath, L heart, normal LEFT HEART CATH,PERCUTANEOUS 05/12/2013 Cardiac cath, L heart. 30-40% LAD. PAST SURGICAL HISTORY OF 1963 left hip surgery after fracture, hardware removed PAST SURGICAL HISTORY OF 08/29/2011 Right index finger repair PAST SURGICAL HISTORY OF 11/2012 Right index Finger repair x 2 REMV CATARACT EXTRACAP,INSERT LENS Bilateral 06/2024 REPAIR UMBILICAL HERNIA 05/23/2023 RPR 1ST INGUN HRNA AGE 3 YRS/> REDUCIBLE 2007 Hernia repair, inguinal x 3 TONSILLECTOMY PRIMARY/SECONDARY <AGE 10 1956 Tonsillectomy FAMILY HISTORY Problem Relation Age of Onset Arthritis Mother other (Other) Mother fall, natural causes Heart Father CABG other (Cholesterol) Father Prostate Cancer Brother 62 Glaucoma Brother Arthritis Brother lumbago Coronary Artery Disease Brother stents Heart Attack Brother Arthritis Brother lumbago Arrhythmia Brother Atrial fibrillation No Known Problems Maternal Grandmother No Known Problems Maternal Grandfather Diabetes Paternal Grandmother No Known Problems Paternal Grandfather Social History Tobacco Use Smoking status: Never Smokeless tobacco: Never Vaping Use Vaping status: Never Used Substance Use Topics Alcohol use: Yes Comment: 2-4 beers per month. Drug use: Never REVIEW OF SYMPTOMS: The review of systems data was entered by the nurse and reviewed by me SEE NURSING NOTE PHYSICAL EXAMINATION: General: The patient is 74 year old, male well nourished, well hydrated in no acute distress. The patient is oriented to time, place, and person. VITALS: Blood pressure 120/74, pulse 90, temperature 36.2 C (97.1 F), temperature source Temporal, resp. rate 14, height 176.8 cm (5' 9.61), weight 86.6 kg (191 lb), SpO2 98%. Body mass index is 27.72 kg/m . HEENT: Normal cephalic, ataumatic, pupils are equally round, sclera are anicteric, mucous membranes are moist, oropharynx is clear. Neck has no masses, asymmetry or lymphadenopathy. Respiratory: Clear to auscultation and percussion. Normal respiratory excursion and pattern. Cardiac: Examination is regular rate and rhythm. Normal S1/S2 Abdominal exam: Soft, nontender, with no palpable masses. No hepatosplenomegaly. No palpable hernias. Extremities: no clubbing, cyanosis or edema. No adenopathy. LABORATORY VALUES: As Noted RADIOLOGIC STUDIES: As Noted Assessment IMPRESSION: BRBPR, hemorrhoids PLAN: I have reviewed my findings with the surgeon. Will plan for lower endoscopy. We discussed the risks and benefits of the planned endoscopy. I have informed the patient that complications can occur including failure to complete the endoscopy and perforation. Monika had the opportunity to ask questions concerning the planned endoscopy. My staff has also explained the procedure to the patient in understandable terms and has given the patient printed material concerning the procedure. Monika freely consents to surgery. Monika is anxious about traveling to [place] in 2 weeks and experiencing rectal bleeding there. I will send hydrocortisone/lidocaine suppository to [facility] compound pharmacy for him to travel with and use if needed. We discussed also continuing his psyllium husk while traveling as sometimes that can worsen constipation. I plan to use Golytely bowel preparation I have explained to the patient the difference between IV conscious sedation and MAC anesthesia - and I have offered either, according to the patient's wishes. I have explained that with IV conscious sedation there is no anesthesia provider available and therefore there is a limitation of the amount of IV medications that can be given and that the patient may wake up in the middle of the procedure and/or experience pain/discomfort during the procedure. Further discussion was done and the patient was given the opportunity to ask questions and all questions were answered. Monika chooses IV conscious sedation. Monika was counseled that if there are changes in his/her medical condition, to let the office know if surgery should proceed. If there are changes in patient's medical condition from time of this encounter to the day of the procedure that preclude anesthesia, patient may have procedure cancelled for patient's safety. Diagnoses: (K62.5) Rectal bleeding Consultation requested by Dr. Hopper for an opinion regarding rectal bleeding. My final recommendations will be communicated back to the requesting physician by way of shared Medical record or letter to requesting physician via US mail. Portions of this documentation were copied and pasted from previous office visit notes in order to provide a cohesive continuity of the history. The note has been reviewed and edited and updated as necessary. Mercedes Costa APRN.SENIOR COPYWRITER documented in this encounter [facility] 01-19-2025 Note HNO ID: [id number] Author: MERCEDES COSTA APRN.MIGUEL Service: ? Author Type: Nurse Practitioner Type: Progress Notes Filed: 01/19/2025 15:06 Note Text: HISTORY AND PHYSICAL Monika Chowdhury : 1950 REFERRING PHYSICIAN: Fei Gandhi [address] [facility] [address] CHIEF COMPLAINT: Patient presents with: Consult: Rectal bleeding HPI: Monika is a 74 year old male referred for endoscopy. Monika notes rectal bleeding. Monika denies abdominal pain. Monika denies diarrhea. Monika denies constipation. Monika denies a change in bowel habits. Monika denies melena. Monika notes bright red blood per rectum. -on toilet paper AND in underwear -not enough to discolor stool or toilet water -intermittently and only happens when he has been straining Monika notes hemorrhoids. -internal non-bleeding -denies pain and itching -not using anything OTC Monika denies family history of colon issues. Monika follows with [facility] cardiology for hx of CAD s/p stent (2012), A.fib s/p ablation (2019), HTN, and HLD. Last ECHO 08/2024 EF of 56%. He denies CP, SOB, dizziness, palpitations, syncope, edema, recent hospitalizations Monika has undergone prior endoscopy. Last colonoscopy was 06/[address] Jimenez at [facility]. Sedation Midazolam 5 mg IV, Fentanyl 100 micrograms IV, Diphenhydramine 50 mg IV Impression: - Non-bleeding internal hemorrhoids. - No specimens collected. Current Outpatient Medications Medication Sig Promethazine-DM (PHENERGAN-DM) 6.25-15 mg/5 mL syrup Take 5 mL by mouth four times a day as needed. chlorthalidone (HYGROTON) 25 mg tablet Take 1 tablet by mouth once daily. metoprolol succinate ER (TOPROL XL) 50 mg 24 hr tablet Take 1 tablet by mouth once daily. atorvastatin (LIPITOR) 10 mg tablet Take 1 tablet by mouth once daily. psyllium husk (METAMUCIL ORAL) Take by mouth once daily. MEDICATION, NON-DATABASE Take by mouth once daily. Flax Seed L-LYSINE ORAL Take 1 tablet by mouth once daily. vit O-G-cuhfkz-zinc-lutein (EYE MULTIVIT-LUTEIN,C-E-CU-ZN,) 226 mg-90 mg-2 mg-34.8 mg-5 mg cap Take 1 tablet by mouth once daily. Tadalafil (CIALIS) 10 mg tablet Take 1 tablet by mouth as directed. TAKE 1-2 HOURS BEFORE SEXUAL INTERCOURSE NEEDED. aspirin, enteric coated (ASPIR-81) 81 mg EC tablet Take 1 tablet by mouth once daily. COMPOUNDED PRESCRIPTION KNEE HIGH COMPRESSION STOCKINGS 30-40 MM. DX: EDEMA. terazosin 5 mg capsule Take 1 capsule by mouth daily at bedtime. Given by Dr. Rivera. CALCIUM CARBONATE/VITAMIN D3 (CALCIUM 500 + D ORAL) Take by mouth once daily. ascorbic acid, vitamin C, (VITAMIN C) 500 mg tablet Take 500 mg by mouth once daily. Garlic ORAL Cap Take one(1) tablet daily. peg 3350-Electrolytes (GOLYTELY) 236-22.74-6.74 -5.86 gram suspension Take 4,000 mL by mouth one time only for 1 dose. Refer to printed prep instructions from your provider. No current facility-administered medications for this visit. ALLERGIES: Patient has no known allergies. 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 Yari, Urology Coronary artery disease involving [place] coronary artery of [place] heart without angina pectoris 07/19/2019 Diverticulosis of colon (without mention of hemorrhage) Essential tremor 01/14/2012 Hypertrophy of prostate with urinary obstruction and other lower urinary tract symptoms (LUTS) 12/31/2006 Ingrown left big toenail 05/2022 infected Internal hemorrhoids without mention of complication Mixed hyperlipidemia 07/19/2019 Near syncope 02/15/2014 bradycardia NASRA on CPAP 06/15/2013 Intolerant to CPAP Problems with sexual function Sigmoiditis 10/20/2023 Umbilical hernia 05/23/2023 Unspecified essential hypertension 02/09/2010 Venous (peripheral) insufficiency 11/19/2005 VENOUS INSUFFICIENCY NOS 11/19/2005 PAST SURGICAL HISTORY Procedure Laterality Date ATRIAL FIBRILLATION/FLUTTER ABLATION 03/29/2020 COLONOSCOPY - DIAGNOSTIC 08/25/20021992, 1994 COLONOSCOPY FLX DX W/COLLJ SPEC WHEN PFRMD 10/12/2012 Colonoscopy repeat 10 years COLONOSCOPY FLX DX W/COLLJ SPEC WHEN PFRMD 07/07/2020 Colonoscopy CYSTOSCOPY 04/12/2015 LAPROSCOPIC REPAIR UMBILICAL HERNIA 05/23/2023 LEFT HEART CATH,PERCUTANEOUS 03/18/2008 Cardiac cath, L heart, normal LEFT HEART CATH,PERCUTANEOUS 05/12/2013 Cardiac cath, L heart. 30-40% LAD. PAST SURGICAL HISTORY OF 1964 left hip surgery after fracture, hardware removed PAST SURGICAL HISTORY OF 08/29/2011 Right index finger repair PAST SURGICAL HISTORY OF 11/2012 Right index Finger repair x 2 REMV CATARACT EXTRACAP,INSERT LENS Bilateral 06/2024 REPAIR UMBILICAL HERNIA 05/23/2023 RPR 1ST INGUN HRNA AGE 3 Y (more content not included)... [facility] 01-07-2025 Telephone encounter Note Patient notified with results. Patient verbalizes understanding. Cat Colin LPN [facility] 01-07-2025 Miscellaneous Notes Patient notified with results. Patient verbalizes understanding. Cat Colin LPN ----- Message from Fei Gandhi MD sent at 01/06/2025 6:04 PM EST ----- Test results are okay. No anemia. No significant inflammation. See surgery for rectal bleeding. documented in this encounter [facility] 01-07-2025 Telephone encounter Note ----- Message from Fei Gandhi MD sent at 01/06/2025 6:04 PM EST ----- Test results are okay. No anemia. No significant inflammation. See surgery for rectal bleeding. [facility] 01-06-2025 Note HNO ID: [id number] Author: FEI GANDHI MD Service: ? Author Type: Physician Type: Progress Notes Filed: 01/06/2025 09:19 Note Text: This note was created using [employer]. Subjective Monika Chowdhury is a 74 year old male. He started noticing bright red blood when he cleaned himself 3 weeks ago, and this has been recurrent. He had no other symptoms. What concerned him was when he noted blood in his underwear. Bleeding has not been profuse enough to discolor stool or toilet water. He is traveling internationally next month and this was part of the concern. He had a history of sigmoiditis, diverticulosis, and internal hemorrhoids. Last colonoscopy was 06/2020. Review of Systems Constitutional: Negative for appetite change, fatigue, fever and unexpected weight change. Respiratory: Negative for shortness of breath. Cardiovascular: Negative. Gastrointestinal: Negative for abdominal pain, constipation, diarrhea, nausea, rectal pain and vomiting. ACTIVE PROBLEM LIST Bph With Obstruction/Lower Urinary Tract Symptoms Aortic Root Dilatation (Hcc) Essential Hypertension Essential Tremor Paroxysmal Atrial Fibrillation (Hcc) 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 Mixed Hyperlipidemia Coronary Artery Disease Involving [place] Coronary Artery of [place] Heart Without Angina Pectoris Leg Edema Tate (Dyspnea On Exertion) Current Outpatient Medications Medication Sig Promethazine-DM (PHENERGAN-DM) 6.25-15 mg/5 mL syrup Take 5 mL by mouth four times a day as needed. chlorthalidone (HYGROTON) 25 mg tablet Take 1 tablet by mouth once daily. metoprolol succinate ER (TOPROL XL) 50 mg 24 hr tablet Take 1 tablet by mouth once daily. atorvastatin (LIPITOR) 10 mg tablet Take 1 tablet by mouth once daily. psyllium husk (METAMUCIL ORAL) Take by mouth. MEDICATION, NON-DATABASE Flax Seed L-LYSINE ORAL Take 1 tablet by mouth once daily. vit L-X-eonved-zinc-lutein (EYE MULTIVIT-LUTEIN,C-E-CU-ZN,) 226 mg-90 mg-2 mg-34.8 mg-5 mg cap Take 1 tablet by mouth once daily. Tadalafil (CIALIS) 10 mg tablet Take 1 tablet by mouth as directed. TAKE 1-2 HOURS BEFORE SEXUAL INTERCOURSE NEEDED. aspirin, enteric coated (ASPIR-81) 81 mg EC tablet Take 1 tablet by mouth once daily. COMPOUNDED PRESCRIPTION KNEE HIGH COMPRESSION STOCKINGS 30-40 MM. DX: EDEMA. terazosin 5 mg capsule Take 1 capsule by mouth daily at bedtime. Given by Dr. Rivera. CALCIUM CARBONATE/VITAMIN D3 (CALCIUM 500 + D ORAL) Take by mouth once daily. ascorbic acid, vitamin C, (VITAMIN C) 500 mg tablet Take 500 mg by mouth once daily. Garlic ORAL Cap Take one(1) tablet daily. No current facility-administered medications for this visit. Objective BP 114/70 (BP Site: Left Arm, BP Cuff Size: Large Adult) Pulse 80 Temp 36.2 ?C (97.1 ?F) (Temporal) Resp 16 Wt 87.1 kg (192 lb 0.3 oz) BMI 27.87 kg/m? Physical Exam Constitutional: Appearance: Normal appearance. Pulmonary: Effort: Pulmonary effort is normal. Abdominal: General: Bowel sounds are normal. Palpations: Abdomen is soft. There is no mass. Tenderness: There is no abdominal tenderness. Genitourinary: Prostate: Enlarged. Not tender and no nodules present. Rectum: Internal hemorrhoid present. No mass or tenderness. Normal anal tone. Comments: No bleeding. Assessment and Plan 1. Rectal bleeding - ICD9: 569.3, ICD10: K62.5 (primary diagnosis) Shared medical decision making. He can benefit from a short scope at the very least. - COMPLETE BLOOD COUNT - SEDIMENTATION RATE, WESTERGREN - CONSULT TO GENERAL SURGERY 2. Hemorrhoids, unspecified hemorrhoid type - ICD9: 455.6, ICD10: K64.9 - Non inflamed. Fei Gandhi MD [facility] 01-06-2025 History of Present illness Narrative This note was created using [employer]. Subjective Monika Chowdhury is a 74 year old male. He started noticing bright red blood when he cleaned himself 3 weeks ago, and this has been recurrent. He had no other symptoms. What concerned him was when he noted blood in his underwear. Bleeding has not been profuse enough to discolor stool or toilet water. He is traveling internationally next month and this was part of the concern. He had a history of sigmoiditis, diverticulosis, and internal hemorrhoids. Last colonoscopy was 06/2020. Review of Systems Constitutional: Negative for appetite change, fatigue, fever and unexpected weight change. Respiratory: Negative for shortness of breath. Cardiovascular: Negative. Gastrointestinal: Negative for abdominal pain, constipation, diarrhea, nausea, rectal pain and vomiting. ACTIVE PROBLEM LIST Bph With Obstruction/Lower Urinary Tract Symptoms Aortic Root Dilatation (Hcc) Essential Hypertension Essential Tremor Paroxysmal Atrial Fibrillation (Hcc) 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 Mixed Hyperlipidemia Coronary Artery Disease Involving [place] Coronary Artery of [place] Heart Without Angina Pectoris Leg Edema Tate (Dyspnea On Exertion) Current Outpatient Medications Medication Sig Promethazine-DM (PHENERGAN-DM) 6.25-15 mg/5 mL syrup Take 5 mL by mouth four times a day as needed. chlorthalidone (HYGROTON) 25 mg tablet Take 1 tablet by mouth once daily. metoprolol succinate ER (TOPROL XL) 50 mg 24 hr tablet Take 1 tablet by mouth once daily. atorvastatin (LIPITOR) 10 mg tablet Take 1 tablet by mouth once daily. psyllium husk (METAMUCIL ORAL) Take by mouth. MEDICATION, NON-DATABASE Flax Seed L-LYSINE ORAL Take 1 tablet by mouth once daily. vit K-W-nguqer-zinc-lutein (EYE MULTIVIT-LUTEIN,C-E-CU-ZN,) 226 mg-90 mg-2 mg-34.8 mg-5 mg cap Take 1 tablet by mouth once daily. Tadalafil (CIALIS) 10 mg tablet Take 1 tablet by mouth as directed. TAKE 1-2 HOURS BEFORE SEXUAL INTERCOURSE NEEDED. aspirin, enteric coated (ASPIR-81) 81 mg EC tablet Take 1 tablet by mouth once daily. COMPOUNDED PRESCRIPTION KNEE HIGH COMPRESSION STOCKINGS 30-40 MM. DX: EDEMA. terazosin 5 mg capsule Take 1 capsule by mouth daily at bedtime. Given by Dr. Rivera. CALCIUM CARBONATE/VITAMIN D3 (CALCIUM 500 + D ORAL) Take by mouth once daily. ascorbic acid, vitamin C, (VITAMIN C) 500 mg tablet Take 500 mg by mouth once daily. Garlic ORAL Cap Take one(1) tablet daily. No current facility-administered medications for this visit. Objective BP 114/70 (BP Site: Left Arm, BP Cuff Size: Large Adult) Pulse 80 Temp 36.2 C (97.1 F) (Temporal) Resp 16 Wt 87.1 kg (192 lb 0.3 oz) BMI 27.87 kg/m Physical Exam Constitutional: Appearance: Normal appearance. Pulmonary: Effort: Pulmonary effort is normal. Abdominal: General: Bowel sounds are normal. Palpations: Abdomen is soft. There is no mass. Tenderness: There is no abdominal tenderness. Genitourinary: Prostate: Enlarged. Not tender and no nodules present. Rectum: Internal hemorrhoid present. No mass or tenderness. Normal anal tone. Comments: No bleeding. Assessment and Plan 1. Rectal bleeding - ICD9: 569.3, ICD10: K62.5 (primary diagnosis) Shared medical decision making. He can benefit from a short scope at the very least. - COMPLETE BLOOD COUNT - SEDIMENTATION RATE, WESTERGREN - CONSULT TO GENERAL SURGERY 2. Hemorrhoids, unspecified hemorrhoid type - ICD9: 455.6, ICD10: K64.9 - Non inflamed. Fei Gandhi MD documented in this encounter [facility] 01-05-2025 Telephone encounter Note Protocol recommends see provider within 3 days. Appt booked for tomorrow morning at [address] Gandhi. Reason for Disposition MILD rectal bleeding (e.g., more than just a few drops or streaks) Answer Assessment - Initial Assessment Questions 1. APPEARANCE of BLOOD: bright red on the toilet paper when wipes. Had one episode of bleeding in his underwear one time. Has had rectal bleeding before and had colonoscopies that did not show anything except internal hemorrhoids. Pt states the rectal bleeding isn't every day but he is concerned as it has gotten worse over the last 3 weeks and pt is going to [place] on February 03. 2. AMOUNT:small amount when wipes and one time small amount noted in his underwear. 3. FREQUENCY: Not every BM but a lot of them. 4. ONSET: has had off and on for years 5. DIARRHEA: denies 6. CONSTIPATION: denies-states he takes Metamucil to help prevent constipation. 7. RECURRENT SYMPTOMS: yes has had colonoscopies. 8. BLOOD THINNERS:not anymore 9. OTHER SYMPTOMS: denies Protocols used: Rectal [id number] [facility] 01-05-2025 Miscellaneous Notes Protocol recommends see provider within 3 days. Appt booked for tomorrow morning at [address] Gandhi. Reason for Disposition MILD rectal bleeding (e.g., more than just a few drops or streaks) Answer Assessment - Initial Assessment Questions 1. APPEARANCE of BLOOD: bright red on the toilet paper when wipes. Had one episode of bleeding in his underwear one time. Has had rectal bleeding before and had colonoscopies that did not show anything except internal hemorrhoids. Pt states the rectal bleeding isn't every day but he is concerned as it has gotten worse over the last 3 weeks and pt is going to [place] on February 03. 2. AMOUNT:small amount when wipes and one time small amount noted in his underwear. 3. FREQUENCY: Not every BM but a lot of them. 4. ONSET: has had off and on for years 5. DIARRHEA: denies 6. CONSTIPATION: denies-states he takes Metamucil to help prevent constipation. 7. RECURRENT SYMPTOMS: yes has had colonoscopies. 8. BLOOD THINNERS:not anymore 9. OTHER SYMPTOMS: denies Protocols used: Rectal [id number] documented in this encounter [facility] 12-13-2024 Telephone encounter Note Patient notified of below results/recommendations, verbalized understanding. Iris Pedersen LPN [facility] 12-13-2024 Miscellaneous Notes Patient notified of below results/recommendations, verbalized understanding. Iris Pedersen LPN ----- Message from Leslie Eddy APRN.SENIOR COPYWRITER sent at 12/13/2024 1:15 PM EST ----- Please let the patient know the x-ray was negative for fracture or dislocation. Recommend gentle stretching, Tylenol, topical analgesics, ice and/or heat. Avoid heavy lifting or strenuous activities involving the left arm. Follow-up in two weeks if no improvement or sooner if worsening Leslie Eddy APRN.MIGUEL documented in this encounter [facility] 12-13-2024 Telephone encounter Note ----- Message from Leslie Eddy APRN.SENIOR COPYWRITER sent at 12/13/2024 1:15 PM EST ----- Please let the patient know the x-ray was negative for fracture or dislocation. Recommend gentle stretching, Tylenol, topical analgesics, ice and/or heat. Avoid heavy lifting or strenuous activities involving the left arm. Follow-up in two weeks if no improvement or sooner if worsening Leslie Eddy APRN.MIGUEL [facility] 12-13-2024 History of Present illness Narrative Radiology Service Progress Note PATIENT NAME: Monika Chowdhury DATE OF SERVICE: December 13, 2024 TIME: 12:07 PM PATIENT IDENTITY VERIFICATION COMPLETED USING TWO (2) IDENTIFIERS: Name and Date of confirmed by patient verbally. FALL SCREENING: Has the patient had 2 falls in the last year or 1 fall with injury or currently using an Ambulatory Assistive Device (Walker, Cane, Wheelchair, Crutches, etc.)? No PATIENT GENDER DATA: Assigned male at PATIENT RELEVANT IMPLANT DATA REVIEWED: Not Applicable PATIENT PRESENTS WITH AN IMPLANTABLE OR ATTACHED ENOLOGIST: No RADIOLOGY DEPARTMENT: General X-ray: Exam(s) Completed: Upper Extremity X-Ray(s): Shoulder, AP / TRUE AP / AXILLARY left PERIPHERAL IV DATA: Not applicable SIGNED BY: Usha Mcclain December 13, 2024 12:07 PM documented in this encounter [facility] 12-13-2024 Note HNO ID: [id number] Author: MARIYA BOO Tech Service: ? Author Type: Technologist Type: Progress Notes Filed: 12/13/2024 12:08 Note Text: Radiology Service Progress Note PATIENT NAME: Monika Chowdhury DATE OF SERVICE: December 13, 2024 TIME: 12:07 PM PATIENT IDENTITY VERIFICATION COMPLETED USING TWO (2) IDENTIFIERS: Name and Date of confirmed by patient verbally. FALL SCREENING: Has the patient had 2 falls in the last year or 1 fall with injury or currently using an Ambulatory Assistive Device (Walker, Cane, Wheelchair, Crutches, etc.)? No PATIENT GENDER DATA: Assigned male at PATIENT RELEVANT IMPLANT DATA REVIEWED: Not Applicable PATIENT PRESENTS WITH AN IMPLANTABLE OR ATTACHED ENOLOGIST: No RADIOLOGY DEPARTMENT: General X-ray: Exam(s) Completed: Upper Extremity X-Ray(s): Shoulder, AP / TRUE AP / AXILLARY left PERIPHERAL IV DATA: Not applicable SIGNED BY: Usha Mcclain December 13, 2024 12:07 PM [facility] 12-13-2024 Note HNO ID: [id number] Author: LESLIE EDDY APRN.MIGUEL Service: ? Author Type: Nurse Practitioner Type: Progress Notes Filed: 12/13/2024 10:27 Note Text: CC: Patient presents with: Shoulder Injury: LT shoulder x 1 day HPI Monika Chowdhury is a 74 year old male who presents with shoulder pain following injury yesterday. He was kneeling down looking under his car and fell over, striking his left shoulder on the concrete. He denies hearing cracking or popping sound. Pain didn't start until a couple hours later. Localized to the left anterior shoulder. Described as constant ache, worse in certain positions and with certain movements Clicking, locking, popping, feeling like the shoulder is not stable, feeling like the shoulder is giving out: No Associated symptoms: He notes no neck pain, no radiation of shoulder pain, and no numbness or tingling noted of the upper extremity Denies swelling or bruising of the shoulder. exhibits aggravating factors of Overhead activities and Reaching backwards. exhibits alleviating factors of Rest and avoidance of aggravating activities. Treatment: none w Review of Systems See HPI PAST MEDICAL HISTORY Diagnosis Date Actinic skin damage 09/30/2011 Aortic root dilatation (HCC) 08/21/2009 Atrial fibrillation 04/26/2013 Benign neoplasm of colon 12/18/2005 Adenomatous polyp BPH with obstruction/lower urinary tract symptoms 08/27/2018 Dr. Greenberg, Urology Coronary artery disease involving [place] coronary artery of [place] heart without angina pectoris 07/19/2019 Diverticulosis of colon (without mention of hemorrhage) Essential tremor 01/14/2012 Hypertrophy of prostate with urinary obstruction and other lower urinary tract symptoms (LUTS) 12/31/2006 Ingrown left big toenail 05/2022 infected Internal hemorrhoids without mention of complication Mixed hyperlipidemia 07/19/2019 Near syncope 02/15/2014 bradycardia NASRA on CPAP 06/15/2013 Intolerant to CPAP Problems with sexual function Sigmoiditis 10/20/2023 Umbilical hernia 05/23/2023 Unspecified essential hypertension 02/09/2010 Venous (peripheral) insufficiency 11/19/2005 VENOUS INSUFFICIENCY NOS 11/19/2005 PAST SURGICAL HISTORY Procedure Laterality Date ATRIAL FIBRILLATION/FLUTTER ABLATION 03/29/2020 COLONOSCOPY - DIAGNOSTIC 08/25/20021992, 1994 COLONOSCOPY FLX DX W/COLLJ SPEC WHEN PFRMD 10/12/2012 Colonoscopy repeat 10 years COLONOSCOPY FLX DX W/COLLJ SPEC WHEN PFRMD 07/07/2020 Colonoscopy CYSTOSCOPY 04/12/2015 LAPROSCOPIC REPAIR UMBILICAL HERNIA 05/23/2023 LEFT HEART CATH,PERCUTANEOUS 03/18/2008 Cardiac cath, L heart, normal LEFT HEART CATH,PERCUTANEOUS 05/12/2013 Cardiac cath, L heart. 30-40% LAD. PAST SURGICAL HISTORY OF 1964 left hip surgery after fracture, hardware removed PAST SURGICAL HISTORY OF 08/29/2011 Right index finger repair PAST SURGICAL HISTORY OF 11/2012 Right index Finger repair x 2 REMV CATARACT EXTRACAP,INSERT LENS Bilateral 06/2024 REPAIR UMBILICAL HERNIA 05/23/2023 RPR 1ST INGUN HRNA AGE 3 YRS/> REDUCIBLE 2007 Hernia repair, inguinal x 3 TONSILLECTOMY PRIMARY/SECONDARY Tonsillectomy ALLERGIES Patient has no known allergies. MEDICATIONS chlorthalidone (HYGROTON) 25 mg tablet Take 1 tablet by mouth once daily. metoprolol succinate ER (TOPROL XL) 50 mg 24 hr tablet Take 1 tablet by mouth once daily. atorvastatin (LIPITOR) 10 mg tablet Take 1 tablet by mouth once daily. psyllium husk (METAMUCIL ORAL) Take by mouth. MEDICATION, NON-DATABASE Flax Seed L-LYSINE ORAL Take 1 tablet by mouth once daily. vit S-L-wdcsdo-zinc-lutein (EYE MULTIVIT-LUTEIN,C-E-CU-ZN,) 226 mg-90 mg-2 mg-34.8 mg-5 mg cap Take 1 tablet by mouth once daily. Tadalafil (CIALIS) 10 mg tablet Take 1 tablet by mouth as directed. TAKE 1-2 HOURS BEFORE SEXUAL INTERCOURSE NEEDED. aspirin, enteric coated (ASPIR-81) 81 mg EC tablet Take 1 tablet by mouth once daily. COMPOUNDED PRESCRIPTION KNEE HIGH COMPRESSION STOCKINGS 30-40 MM. DX: EDEMA. terazosin 5 mg capsule Take 1 capsule by mouth daily at bedtime. Given by Dr. Rivera. CALCIUM CARBONATE/VITAMIN D3 (CALCIUM 500 + D ORAL) Take by mouth once daily. ascorbic acid, vitamin C, (VITAMIN C) 500 mg tablet Take 500 mg by mouth once daily. Garlic ORAL Cap Take one(1) tablet daily. Promethazine-DM (PHENERGAN-DM) 6.25-15 mg/5 mL syrup Take 5 mL by mouth four times a day as needed. FAMILY HISTORY Problem Relation Age of Onset Arthritis Mother other (Other) Mother fall, natural causes Heart Father CABG other (Cholesterol) Father Prostate Cancer Brother 62 Glaucoma Brother Arthritis Brother lumbago Coronary Artery Disease Brother stents Arthritis Brother lumbago Arrhythmia Brother Atrial fibrillation Diabetes Paternal Grandmother Social History Tobacco Use Smoking status: Never Smokeless tobacco: Never Vaping Use Vaping status: Never Used Substance Us (more content not included)... [facility] 12-13-2024 History of Present illness Narrative CC: Patient presents with: Shoulder Injury: LT shoulder x 1 day HPI Monika Chowdhury is a 74 year old male who presents with shoulder pain following injury yesterday. He was kneeling down looking under his car and fell over, striking his left shoulder on the concrete. He denies hearing cracking or popping sound. Pain didn't start until a couple hours later. Localized to the left anterior shoulder. Described as constant ache, worse in certain positions and with certain movements Clicking, locking, popping, feeling like the shoulder is not stable, feeling like the shoulder is giving out: No Associated symptoms: He notes no neck pain, no radiation of shoulder pain, and no numbness or tingling noted of the upper extremity Denies swelling or bruising of the shoulder. exhibits aggravating factors of Overhead activities and Reaching backwards. exhibits alleviating factors of Rest and avoidance of aggravating activities. Treatment: none w Review of Systems See HPI PAST MEDICAL HISTORY Diagnosis Date Actinic skin damage 09/30/2011 Aortic root dilatation (HCC) 08/21/2009 Atrial fibrillation 04/26/2013 Benign neoplasm of colon 12/18/2005 Adenomatous polyp BPH with obstruction/lower urinary tract symptoms 08/27/2018 Dr. Greenberg, Urology Coronary artery disease involving [place] coronary artery of [place] heart without angina pectoris 07/19/2019 Diverticulosis of colon (without mention of hemorrhage) Essential tremor 01/14/2012 Hypertrophy of prostate with urinary obstruction and other lower urinary tract symptoms (LUTS) 12/31/2006 Ingrown left big toenail 05/2022 infected Internal hemorrhoids without mention of complication Mixed hyperlipidemia 07/19/2019 Near syncope 02/15/2014 bradycardia NASRA on CPAP 06/15/2013 Intolerant to CPAP Problems with sexual function Sigmoiditis 10/20/2023 Umbilical hernia 05/23/2023 Unspecified essential hypertension 02/09/2010 Venous (peripheral) insufficiency 11/19/2005 VENOUS INSUFFICIENCY NOS 11/19/2005 PAST SURGICAL HISTORY Procedure Laterality Date ATRIAL FIBRILLATION/FLUTTER ABLATION 03/29/2020 COLONOSCOPY - DIAGNOSTIC 08/25/20021992, 1994 COLONOSCOPY FLX DX W/COLLJ SPEC WHEN PFRMD 10/12/2012 Colonoscopy repeat 10 years COLONOSCOPY FLX DX W/COLLJ SPEC WHEN PFRMD 07/07/2020 Colonoscopy CYSTOSCOPY 04/12/2015 LAPROSCOPIC REPAIR UMBILICAL HERNIA 05/23/2023 LEFT HEART CATH,PERCUTANEOUS 03/18/2008 Cardiac cath, L heart, normal LEFT HEART CATH,PERCUTANEOUS 05/12/2013 Cardiac cath, L heart. 30-40% LAD. PAST SURGICAL HISTORY OF 1963 left hip surgery after fracture, hardware removed PAST SURGICAL HISTORY OF 08/29/2011 Right index finger repair PAST SURGICAL HISTORY OF 11/2012 Right index Finger repair x 2 REMV CATARACT EXTRACAP,INSERT LENS Bilateral 06/2024 REPAIR UMBILICAL HERNIA 05/23/2023 RPR 1ST INGUN HRNA AGE 3 YRS/> REDUCIBLE 2007 Hernia repair, inguinal x 3 TONSILLECTOMY PRIMARY/SECONDARY <AGE [age] Tonsillectomy ALLERGIES Patient has no known allergies. MEDICATIONS chlorthalidone (HYGROTON) 25 mg tablet Take 1 tablet by mouth once daily. metoprolol succinate ER (TOPROL XL) 50 mg 24 hr tablet Take 1 tablet by mouth once daily. atorvastatin (LIPITOR) 10 mg tablet Take 1 tablet by mouth once daily. psyllium husk (METAMUCIL ORAL) Take by mouth. MEDICATION, NON-DATABASE Flax Seed L-LYSINE ORAL Take 1 tablet by mouth once daily. vit X-M-pmdibp-zinc-lutein (EYE MULTIVIT-LUTEIN,C-E-CU-ZN,) 226 mg-90 mg-2 mg-34.8 mg-5 mg cap Take 1 tablet by mouth once daily. Tadalafil (CIALIS) 10 mg tablet Take 1 tablet by mouth as directed. TAKE 1-2 HOURS BEFORE SEXUAL INTERCOURSE NEEDED. aspirin, enteric coated (ASPIR-81) 81 mg EC tablet Take 1 tablet by mouth once daily. COMPOUNDED PRESCRIPTION KNEE HIGH COMPRESSION STOCKINGS 30-40 MM. DX: EDEMA. terazosin 5 mg capsule Take 1 capsule by mouth daily at bedtime. Given by Dr. Rivera. CALCIUM CARBONATE/VITAMIN D3 (CALCIUM 500 + D ORAL) Take by mouth once daily. ascorbic acid, vitamin C, (VITAMIN C) 500 mg tablet Take 500 mg by mouth once daily. Garlic ORAL Cap Take one(1) tablet daily. Promethazine-DM (PHENERGAN-DM) 6.25-15 mg/5 mL syrup Take 5 mL by mouth four times a day as needed. FAMILY HISTORY Problem Relation Age of Onset Arthritis Mother other (Other) Mother fall, natural causes Heart Father CABG other (Cholesterol) Father Prostate Cancer Brother 62 Glaucoma Brother Arthritis Brother lumbago Coronary Artery Disease Brother stents Arthritis Brother lumbago Arrhythmia Brother Atrial fibrillation Diabetes Paternal Grandmother Social History Tobacco Use Smoking status: Never Smokeless tobacco: Never Vaping Use Vaping status: Never Used Substance Use Topics Alcohol use: Yes Comment: 2-4 beers per month. Drug use: No BP 132/64 Pulse 77 Resp 12 Wt 87.9 kg (193 lb 12.6 oz) SpO2 98% BMI 28.13 kg/m Physical Exam Vitals reviewed. Constitutional: Appearance: Normal appearance. Musculoskeletal: Left shoulder: Bony tenderness (acromion, AC joint and humeral head) present. No swelling, deformity or crepitus. Decreased range of motion (secondary to pain). Normal strength. Normal pulse. Comments: Left shoulder-negative drop arm Neurological: Mental Status: He is alert. ASSESSMENT/PLAN: 1. Acute pain of left shoulder - ICD9: 719.41, ICD10: M25.512 (primary diagnosis) Differentials include dislocation, fracture, rotator cuff tear, contusion - XR SHOULDER GENERAL 3V OR MORE AP/TRUE AP/OTHER LEFT stat today - symptom management discussed - follow-up pending results of x-ray 2. Injury of left shoulder, initial encounter - ICD9: 959.2, ICD10: S49.92XA As above - XR SHOULDER GENERAL 3V OR MORE AP/TRUE AP/OTHER LEFT Prescription instructions reviewed with patient as applicable. Potential red flag symptoms discussed with the patient. Reviewed appropriate action plan to take if red flag symptoms occur. Patient agreeable to treatment plan. Leslie Eddy APRN.MIGUEL documented in this encounter [facility] 11-11-2024 Telephone encounter Note Patient notified of results, verbalized understanding of instructions given. Monik Terry MA [facility] 11-11-2024 Miscellaneous Notes Patient notified of results, verbalized understanding of instructions given. Monik Terry MA Please inform patient that he was positive for influenza A. This is a respiratory virus. Supportive therapies as discussed during visit.. Increase fluids. Most contagious the first 5 days of illness. Follow-up with PCP if symptoms do not improve or worsen. Navin Terrazas APRN.MIGUEL documented in this encounter [facility] 11-11-2024 Telephone encounter Note Please inform patient that he was positive for influenza A. This is a respiratory virus. Supportive therapies as discussed during visit.. Increase fluids. Most contagious the first 5 days of illness. Follow-up with PCP if symptoms do not improve or worsen. Navin Terrazas APRN.MIGUEL [facility] Work Phone: 11-10-2024 Telephone encounter Note Patient calling to report his pharmacy does not have Promethazine-DM in stock. Advised patient to call local pharmacies to see who is open today and has the medication in stock and to give us a call back with that information. Patient states understanding. Patient denies any new or worsening symptoms of which a provider is not aware:Yes . [facility] 11-10-2024 Miscellaneous Notes Patient calling to report his pharmacy does not have Promethazine-DM in stock. Advised patient to call local pharmacies to see who is open today and has the medication in stock and to give us a call back with that information. Patient states understanding. Patient denies any new or worsening symptoms of which a provider is not aware:Yes . documented in this encounter [facility] 11-10-2024 Note HNO ID: [id number] Author: MIS KAPOOR APRN.SENIOR COPYWRITER Service: ? Author Type: Nurse Practitioner Type: Progress Notes Filed: 11/10/2024 10:52 Note Text: Subjective The history is provided by the patient. No spanish interpreter was used. HPI Monika Chowdhury is a 74 year old male who presents today for CC of cough, congestion, post nasal drainage and runny nose for 2 days. He has used robitussin dm without relief. He denies any fever chills body aches, nausea, vomiting or diarrhea. No known exposure BP 138/80 Pulse 99 Temp 37.6 ?C (99.7 ?F) (Tympanic) Resp 18 Wt 88 kg (194 lb 0.1 oz) SpO2 97% BMI 28.16 kg/m? Social History Tobacco Use Smoking status: Never Smokeless tobacco: Never Vaping Use Vaping status: Never Used Substance Use Topics Alcohol use: Yes Comment: 2-4 beers per month. 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 Greenberg, Urology Coronary artery disease involving [place] coronary artery of [place] heart without angina pectoris 07/19/2019 Diverticulosis of colon (without mention of hemorrhage) Essential tremor 01/14/2012 Hypertrophy of prostate with urinary obstruction and other lower urinary tract symptoms (LUTS) 12/31/2006 Ingrown left big toenail 05/2022 infected Internal hemorrhoids without mention of complication Mixed hyperlipidemia 07/19/2019 Near syncope 02/15/2014 bradycardia NASRA on CPAP 06/15/2013 Intolerant to CPAP Problems with sexual function Sigmoiditis 10/20/2023 Umbilical hernia 05/23/2023 Unspecified essential hypertension 02/09/2010 Venous (peripheral) insufficiency 11/19/2005 VENOUS INSUFFICIENCY NOS 11/19/2005 I have confirmed and edited as necessary, the [facility] Review of Systems Constitutional: Negative for chills, fever and malaise/fatigue. HENT: Positive for congestion and sinus pain. Negative for ear pain and sore throat. Respiratory: Positive for cough. Negative for sputum production, shortness of breath and wheezing. Cardiovascular: Negative for chest pain. Gastrointestinal: Negative for abdominal pain, diarrhea, nausea and vomiting. Musculoskeletal: Negative for myalgias. Neurological: Negative for headaches. Objective Physical Exam Vitals and nursing note reviewed. Constitutional: Appearance: He is not toxic-appearing. HENT: Head: Normocephalic and atraumatic. Right Ear: Tympanic membrane, ear canal and external ear normal. Left Ear: Tympanic membrane, ear canal and external ear normal. Nose: Mucosal edema, congestion and rhinorrhea present. Right Sinus: No maxillary sinus tenderness or frontal sinus tenderness. Left Sinus: No maxillary sinus tenderness or frontal sinus tenderness. Mouth/Throat: Pharynx: Uvula midline. Oropharyngeal exudate and posterior oropharyngeal erythema present. Tonsils: No tonsillar abscesses. Cardiovascular: Rate and Rhythm: Normal rate and regular rhythm. Heart sounds: Normal heart sounds. Pulmonary: Effort: Pulmonary effort is normal. Breath sounds: Normal breath sounds. No decreased breath sounds, wheezing, rhonchi or rales. Lymphadenopathy: Head: Right side of head: No submental, submandibular, tonsillar or preauricular adenopathy. Left side of head: No submental, submandibular, tonsillar or preauricular adenopathy. Cervical: No cervical adenopathy. Right cervical: No superficial cervical adenopathy. Left cervical: No superficial cervical adenopathy. Neurological: Mental Status: He is alert. ASSESSMENT/PLAN: 1. URI with cough and congestion - ICD9: 465.9, ICD10: J06.9 - Discussed viral etiology and rationale for treatment. - Symptomatic treatment with prn analgesia - Supportive care with fluids and rest - Promethazine dm sent to pharmacy Undecided on paxlovid. - COVID AND INFLUENZA A/B AND RSV PCR, ROUTINE Diagnosis and treatment plan were discussed and questions were answered to the patient's satisfaction. Pt acknowledged understanding of concepts and follow up plan. Specific signs and symptoms that would indicate the need for higher level of care were discussed in detail warranting prompt ER evaluation. Mis Kapoor APRN.SENIOR COPYWRITER [facility] 11-10-2024 History of Present illness Narrative Subjective The history is provided by the patient. No spanish interpreter was used. HPI Monika Chowdhury is a 74 year old male who presents today for CC of cough, congestion, post nasal drainage and runny nose for 2 days. He has used robitussin dm without relief. He denies any fever chills body aches, nausea, vomiting or diarrhea. No known exposure BP 138/80 Pulse 99 Temp 37.6 C (99.7 F) (Tympanic) Resp 18 Wt 88 kg (194 lb 0.1 oz) SpO2 97% BMI 28.16 kg/m Social History Tobacco Use Smoking status: Never Smokeless tobacco: Never Vaping Use Vaping status: Never Used Substance Use Topics Alcohol use: Yes Comment: 2-4 beers per month. 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 Greenberg, Urology Coronary artery disease involving [place] coronary artery of [place] heart without angina pectoris 07/19/2019 Diverticulosis of colon (without mention of hemorrhage) Essential tremor 01/14/2012 Hypertrophy of prostate with urinary obstruction and other lower urinary tract symptoms (LUTS) 12/31/2006 Ingrown left big toenail 05/2022 infected Internal hemorrhoids without mention of complication Mixed hyperlipidemia 07/19/2019 Near syncope 02/15/2014 bradycardia NASRA on CPAP 06/15/2013 Intolerant to CPAP Problems with sexual function Sigmoiditis 10/20/2023 Umbilical hernia 05/23/2023 Unspecified essential hypertension 02/09/2010 Venous (peripheral) insufficiency 11/19/2005 VENOUS INSUFFICIENCY NOS 11/19/2005 I have confirmed and edited as necessary, the [facility] Review of Systems Constitutional: Negative for chills, fever and malaise/fatigue. HENT: Positive for congestion and sinus pain. Negative for ear pain and sore throat. Respiratory: Positive for cough. Negative for sputum production, shortness of breath and wheezing. Cardiovascular: Negative for chest pain. Gastrointestinal: Negative for abdominal pain, diarrhea, nausea and vomiting. Musculoskeletal: Negative for myalgias. Neurological: Negative for headaches. Objective Physical Exam Vitals and nursing note reviewed. Constitutional: Appearance: He is not toxic-appearing. HENT: Head: Normocephalic and atraumatic. Right Ear: Tympanic membrane, ear canal and external ear normal. Left Ear: Tympanic membrane, ear canal and external ear normal. Nose: Mucosal edema, congestion and rhinorrhea present. Right Sinus: No maxillary sinus tenderness or frontal sinus tenderness. Left Sinus: No maxillary sinus tenderness or frontal sinus tenderness. Mouth/Throat: Pharynx: Uvula midline. Oropharyngeal exudate and posterior oropharyngeal erythema present. Tonsils: No tonsillar abscesses. Cardiovascular: Rate and Rhythm: Normal rate and regular rhythm. Heart sounds: Normal heart sounds. Pulmonary: Effort: Pulmonary effort is normal. Breath sounds: Normal breath sounds. No decreased breath sounds, wheezing, rhonchi or rales. Lymphadenopathy: Head: Right side of head: No submental, submandibular, tonsillar or preauricular adenopathy. Left side of head: No submental, submandibular, tonsillar or preauricular adenopathy. Cervical: No cervical adenopathy. Right cervical: No superficial cervical adenopathy. Left cervical: No superficial cervical adenopathy. Neurological: Mental Status: He is alert. ASSESSMENT/PLAN: 1. URI with cough and congestion - ICD9: 465.9, ICD10: J06.9 - Discussed viral etiology and rationale for treatment. - Symptomatic treatment with prn analgesia - Supportive care with fluids and rest - Promethazine dm sent to pharmacy Undecided on paxLifecrowdvid. - COVID & INFLUENZA A/B & RSV PCR, ROUTINE Diagnosis and treatment plan were discussed and questions were answered to the patient's satisfaction. Pt acknowledged understanding of concepts and follow up plan. Specific signs and symptoms that would indicate the need for higher level of care were discussed in detail warranting prompt ER evaluation. Mis Kapoor APRN.MIGUEL documented in this encounter [facility] 11-10-2024 Instructions Mis Kapoor APRN.CNP - 11/10/2024 10:40 AM EST covid and influenza test ordered You will be notified in 12-24 hours, results available on MyChart Rest, increase water intake Motrin or Tylenol as needed for fever or pain. Salt water gargles, chloraseptic spray or lozenges as needed for sore throat. Warm beverages, honey. Nasal saline spray as needed Cool mist humidifier at night Tylenol (generic acetaminophen) 500 mg-2 tabs every 8 hrs. as needed for fever and aches Ibuprofen 600 mg (3-200mg tablets) every 6 hours -Mucinex (generic is fine) Guaifenesin 1200 mg twice daily to help with cough and to thin out mucus * Seek medical care immediately, call 911, go to ER if you have chest pain, difficulty breathing, shortness of breath, inability to swallow. documented in this encounter [facility] 09-27-2024 Note HNO ID: [id number] Author: IRIS PEDERSEN LPN Service: ? Author Type: LICENSED NURSE Type: Progress Notes Filed: 09/27/2024 17:54 Note Text: Ambulatory Ear Lavage Pre-treatment: Warm water Treatment: Left ear Equipment and Irrigation solution and Volume used: Single use syringe with single use irrigation tip Water Return flow appearance: Brown Patient tolerated procedure: yes Tympanic membrane assessment: Tympanic membrane assessed by LIP pre and post procedure [facility] 09-27-2024 History of Present illness Narrative Ambulatory Ear Lavage Pre-treatment: Warm water Treatment: Left ear Equipment and Irrigation solution and Volume used: Single use syringe with single use irrigation tip Water Return flow appearance: Brown Patient tolerated procedure: yes Tympanic membrane assessment: Tympanic membrane assessed by LIP pre and post procedure This note was created using Liquid Xriter. Subjective Patient presents with: Yearly Exam F/U 6 months Monika Chowdhury is a 74 year old male. He had cerumen issues affecting his hearing aid on the left. His hypertension, hyperlipidemia, venous insufficiency were controlled. He just saw cardiology and chlorthalidone was added. Review of Systems Constitutional: Negative for activity change, fatigue and unexpected weight change. HENT: Positive for hearing loss. Eyes: Negative for visual disturbance. Respiratory: Negative for cough, chest tightness and shortness of breath. Cardiovascular: Positive for leg swelling. Negative for chest pain and palpitations. Gastrointestinal: Negative for abdominal pain, constipation and diarrhea. Genitourinary: Negative for difficulty urinating and dysuria. Musculoskeletal: Negative for arthralgias. Skin: Negative. Neurological: Negative for dizziness and headaches. 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 Greenberg, Urology Coronary artery disease involving [place] coronary artery of [place] heart without angina pectoris 07/19/2019 Diverticulosis of colon (without mention of hemorrhage) Essential tremor 01/14/2012 Hypertrophy of prostate with urinary obstruction and other lower urinary tract symptoms (LUTS) 12/31/2006 Ingrown left big toenail 05/2022 infected Internal hemorrhoids without mention of complication Mixed hyperlipidemia 07/19/2019 Near syncope 02/15/2014 bradycardia NASRA on CPAP 06/15/2013 Intolerant to CPAP Problems with sexual function Sigmoiditis 10/20/2023 Umbilical hernia 05/23/2023 Unspecified essential hypertension 02/09/2010 Venous (peripheral) insufficiency 11/19/2005 VENOUS INSUFFICIENCY NOS 11/19/2005 PAST SURGICAL HISTORY Procedure Laterality Date ATRIAL FIBRILLATION/FLUTTER ABLATION 03/29/2020 COLONOSCOPY - DIAGNOSTIC 08/25/20021992, 1994 COLONOSCOPY FLX DX W/COLLJ SPEC WHEN PFRMD 10/12/2012 Colonoscopy repeat 10 years COLONOSCOPY FLX DX W/COLLJ SPEC WHEN PFRMD 07/07/2020 Colonoscopy CYSTOSCOPY 04/12/2015 LAPROSCOPIC REPAIR UMBILICAL HERNIA 05/23/2023 LEFT HEART CATH,PERCUTANEOUS 03/18/2008 Cardiac cath, L heart, normal LEFT HEART CATH,PERCUTANEOUS 05/12/2013 Cardiac cath, L heart. 30-40% LAD. PAST SURGICAL HISTORY OF 1963 left hip surgery after fracture, hardware removed PAST SURGICAL HISTORY OF 08/29/2011 Right index finger repair PAST SURGICAL HISTORY OF 11/2012 Right index Finger repair x 2 REMV CATARACT EXTRACAP,INSERT LENS Bilateral 06/2024 REPAIR UMBILICAL HERNIA 05/23/2023 RPR 1ST INGUN HRNA AGE 3 YRS/> REDUCIBLE 2007 Hernia repair, inguinal x 3 TONSILLECTOMY PRIMARY/SECONDARY <AGE 10 1955 Tonsillectomy FAMILY HISTORY Problem Relation Age of Onset Arthritis Mother other (Other) Mother fall, natural causes Heart Father CABG other (Cholesterol) Father Prostate Cancer Brother 62 Glaucoma Brother Arthritis Brother lumbago Coronary Artery Disease Brother stents Arthritis Brother lumbago Arrhythmia Brother Atrial fibrillation Diabetes Paternal Grandmother Social History Tobacco Use Smoking status: Never Smokeless tobacco: Never Vaping Use Vaping status: Never Used Substance Use Topics Alcohol use: Yes Comment: 2-4 beers per month. Drug use: No ALLERGIES No Known Allergies Current Outpatient Medications Medication Sig chlorthalidone (HYGROTON) 25 mg tablet Take 1 tablet by mouth once daily. metoprolol succinate ER (TOPROL XL) 50 mg 24 hr tablet Take 1 tablet by mouth once daily. atorvastatin (LIPITOR) 10 mg tablet Take 1 tablet by mouth once daily. psyllium husk (METAMUCIL ORAL) Take by mouth. MEDICATION, NON-DATABASE Flax Seed L-LYSINE ORAL Take 1 tablet by mouth once daily. Tadalafil (CIALIS) 10 mg tablet Take 1 tablet by mouth as directed. TAKE 1-2 HOURS BEFORE SEXUAL INTERCOURSE NEEDED. aspirin, enteric coated (ASPIR-81) 81 mg EC tablet Take 1 tablet by mouth once daily. COMPOUNDED PRESCRIPTION KNEE HIGH COMPRESSION STOCKINGS 30-40 MM. DX: EDEMA. terazosin 5 mg capsule Take 1 capsule by mouth daily at bedtime. Given by Dr. Rivera. CALCIUM CARBONATE/VITAMIN D3 (CALCIUM 500 + D ORAL) Take by mouth once daily. ascorbic acid, vitamin C, (VITAMIN C) 500 mg tablet Take 500 mg by mouth once daily. Garlic ORAL Cap Take one(1) tablet daily. vit O-W-vusymm-zinc-lutein (EYE MULTIVIT-LUTEIN,C-E-CU-ZN,) 226 mg-90 mg-2 mg-34.8 mg-5 mg cap Take 1 tablet by mouth once daily. (Patient not taking: Reported on 09/27/2024) No current facility-administered medications for this visit. Objective BP 126/62 (BP Site: Left Arm, BP Position: Sitting, BP Cuff Size: Large Adult) Pulse 68 Temp 36.2 C (97.2 F) (Temporal) Resp 16 Ht 176.8 cm (5' 9.6) Wt 88.6 kg (195 lb 5.2 oz) BMI 28.35 kg/m Physical Exam Constitutional: Appearance: Normal appearance. HENT: Head: Normocephalic. Right Ear: Tympanic membrane, ear canal and external ear normal. Left Ear: Tympanic membrane, ear canal and external ear normal. There is impacted cerumen. Nose: No congestion or rhinorrhea. Eyes: General: No scleral icterus. Conjunctiva/sclera: Conjunctivae normal. Neck: Vascular: No carotid bruit. Cardiovascular: Rate and Rhythm: Normal rate and regular rhythm. Heart sounds: No murmur heard. No gallop. Pulmonary: Breath sounds: Normal breath sounds. Abdominal: Palpations: Abdomen is soft. There is no mass. Tenderness: There is no abdominal tenderness. Musculoskeletal: General: No tenderness. Normal range of motion. Right lower leg: Edema present. Left lower leg: Edema present. Comments: Trace edema. Skin: General: Skin is warm and dry. Neurological: General: No focal deficit present. Mental Status: He is alert. Gait: Gait normal. Latest Ref [facility] 09/04/2024 Protein, Total 6.3 - 8.0 g/dL 6.6 Albumin 3.9 - 4.9 g/dL 4.2 Calcium 8.5 - 10.2 mg/dL 9.9 Bilirubin, Total 0.2 - 1.3 mg/dL 0.6 Alkaline Phosphatase 38 - 113 U/L 94 AST 14 - 40 U/L 26 ALT 10 - 54 U/L 23 Glucose 74 - 99 mg/dL 95 BUN 9 - 24 mg/dL 25 (H) Creatinine 0.73 - 1.22 mg/dL 0.99 Sodium 136 - 144 mmol/L 144 Potassium 3.7 - 5.1 mmol/L 4.1 Chloride 98 - 107 mmol/L 105 CO2 22 - 30 mmol/L 29 Anion Gap 8 - 15 mmol/L 10 eGFR >=60 mL/min/1.73m 79 WBC 3.70 - 11.00 k/uL 6.07 RBC 4.20 - 6.00 m/uL 4.79 Hemoglobin 13.0 - 17.0 g/dL 14.8 Hematocrit 39.0 - 51.0 % 45.3 MCV 80.0 - 100.0 fL 94.6 MCH 26.0 - 34.0 pg 30.9 MCHC 30.5 - 36.0 g/dL 32.7 RDW-CV 11.5 - 15.0 % 11.2 (L) Platelet Count 150 - 400 k/uL 204 MPV 9.0 - 12.7 fL 10.2 Absolute nRBC <0.01 k/uL <0.01 Cholesterol, Total <200 mg/dL 115 Triglyceride <150 mg/dL 51 HDL Cholesterol >39 mg/dL 54 Non HDL Cholesterol <130 mg/dL 61 Fasting Time hrs 12 VLDL Cholesterol <30 mg/dL 10 TC:HDL Ratio <5.10 2.13 LDL Cholesterol <100 mg/dL 51 LDL:HDL Ratio <2.54 0.94 NT Pro BNP <450 pg/mL 111 Legend: (H) High (L) Low Assessment and Plan 1. Routine medical exam - ICD9: V70.0, ICD10: Z00.00 (primary diagnosis) - Counseled on healthy diet and regular exercise 2. Coronary artery disease involving [place] coronary artery of [place] heart without angina pectoris - ICD9: 414.01, ICD10: I25.10 - Stable. 3. Essential hypertension - ICD9: 401.9, ICD10: I10 - Controlled - Continue current medications 4. Mixed hyperlipidemia - ICD9: 272.2, ICD10: E78.2 - Controlled - Continue current medications - Counseled on healthy diet and regular exercise 5. Paroxysmal atrial fibrillation (HCC) - ICD9: 427.31, ICD10: I48.0 - Controlled. 6. Impacted cerumen, left ear - ICD9: 380.4, ICD10: H61.22 Consent obtained. This was done successfully and patient tolerated this well. - AMBULATORY EAR LAVAGE/IRRIGATION Fei Gandhi MD documented in this encounter [facility] 09-27-2024 Note HNO ID: [id number] Author: FEI GANDHI MD Service: ? Author Type: Physician Type: Progress Notes Filed: 09/27/2024 17:51 Note Text: This note was created using NoteWriter. Subjective Patient presents with: Yearly Exam F/U 6 months Monika Chowdhury is a 74 year old male. He had cerumen issues affecting his hearing aid on the left. His hypertension, hyperlipidemia, venous insufficiency were controlled. He just saw cardiology and chlorthalidone was added. Review of Systems Constitutional: Negative for activity change, fatigue and unexpected weight change. HENT: Positive for hearing loss. Eyes: Negative for visual disturbance. Respiratory: Negative for cough, chest tightness and shortness of breath. Cardiovascular: Positive for leg swelling. Negative for chest pain and palpitations. Gastrointestinal: Negative for abdominal pain, constipation and diarrhea. Genitourinary: Negative for difficulty urinating and dysuria. Musculoskeletal: Negative for arthralgias. Skin: Negative. Neurological: Negative for dizziness and headaches. 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 Greenberg, Urology Coronary artery disease involving [place] coronary artery of [place] heart without angina pectoris 07/19/2019 Diverticulosis of colon (without mention of hemorrhage) Essential tremor 01/14/2012 Hypertrophy of prostate with urinary obstruction and other lower urinary tract symptoms (LUTS) 12/31/2006 Ingrown left big toenail 05/2022 infected Internal hemorrhoids without mention of complication Mixed hyperlipidemia 07/19/2019 Near syncope 02/15/2014 bradycardia NASRA on CPAP 06/15/2013 Intolerant to CPAP Problems with sexual function Sigmoiditis 10/20/2023 Umbilical hernia 05/23/2023 Unspecified essential hypertension 02/09/2010 Venous (peripheral) insufficiency 11/19/2005 VENOUS INSUFFICIENCY NOS 11/19/2005 PAST SURGICAL HISTORY Procedure Laterality Date ATRIAL FIBRILLATION/FLUTTER ABLATION 03/29/2020 COLONOSCOPY - DIAGNOSTIC 08/25/20021992, 1994 COLONOSCOPY FLX DX W/COLLJ SPEC WHEN PFRMD 10/12/2012 Colonoscopy repeat 10 years COLONOSCOPY FLX DX W/COLLJ SPEC WHEN PFRMD 07/07/2020 Colonoscopy CYSTOSCOPY 04/12/2015 LAPROSCOPIC REPAIR UMBILICAL HERNIA 05/23/2023 LEFT HEART CATH,PERCUTANEOUS 03/18/2008 Cardiac cath, L heart, normal LEFT HEART CATH,PERCUTANEOUS 05/12/2013 Cardiac cath, L heart. 30-40% LAD. PAST SURGICAL HISTORY OF 1964 left hip surgery after fracture, hardware removed PAST SURGICAL HISTORY OF 08/29/2011 Right index finger repair PAST SURGICAL HISTORY OF 11/2012 Right index Finger repair x 2 REMV CATARACT EXTRACAP,INSERT LENS Bilateral 06/2024 REPAIR UMBILICAL HERNIA 05/23/2023 RPR 1ST INGUN HRNA AGE 3 YRS/> REDUCIBLE 2007 Hernia repair, inguinal x 3 TONSILLECTOMY PRIMARY/SECONDARY Tonsillectomy FAMILY HISTORY Problem Relation Age of Onset Arthritis Mother other (Other) Mother fall, natural causes Heart Father CABG other (Cholesterol) Father Prostate Cancer Brother 62 Glaucoma Brother Arthritis Brother lumbago Coronary Artery Disease Brother stents Arthritis Brother lumbago Arrhythmia Brother Atrial fibrillation Diabetes Paternal Grandmother Social History Tobacco Use Smoking status: Never Smokeless tobacco: Never Vaping Use Vaping status: Never Used Substance Use Topics Alcohol use: Yes Comment: 2-4 beers per month. Drug use: No ALLERGIES No Known Allergies Current Outpatient Medications Medication Sig chlorthalidone (HYGROTON) 25 mg tablet Take 1 tablet by mouth once daily. metoprolol succinate ER (TOPROL XL) 50 mg 24 hr tablet Take 1 tablet by mouth once daily. atorvastatin (LIPITOR) 10 mg tablet Take 1 tablet by mouth once daily. psyllium husk (METAMUCIL ORAL) Take by mouth. MEDICATION, NON-DATABASE Flax Seed L-LYSINE ORAL Take 1 tablet by mouth once daily. Tadalafil (CIALIS) 10 mg tablet Take 1 tablet by mouth as directed. TAKE 1-2 HOURS BEFORE SEXUAL INTERCOURSE NEEDED. aspirin, enteric coated (ASPIR-81) 81 mg EC tablet Take 1 tablet by mouth once daily. COMPOUNDED PRESCRIPTION KNEE HIGH COMPRESSION STOCKINGS 30-40 MM. DX: EDEMA. terazosin 5 mg capsule Take 1 capsule by mouth daily at bedtime. Given by Dr. Rivera. CALCIUM CARBONATE/VITAMIN D3 (CALCIUM 500 + D ORAL) Take by mouth once daily. ascorbic acid, vitamin C, (VITAMIN C) 500 mg tablet Take 500 mg by mouth once daily. Garlic ORAL Cap Take one(1) tablet daily. vit Q-P-jgqwfq-zinc-lutein (EYE MULTIVIT-LUTEIN,C-E-CU-ZN,) 226 mg-90 mg-2 mg-34.8 mg-5 mg cap Take 1 tablet by mouth once daily. (Patient not taking: Reported on 09/27/2024) No current facility-administered (more content not included)... [facility] 08-16-2024 Instructions Favian Larkin MD - 08/16/2024 11:47 AM EDT We are adding a water pill Chlorthalidone 25 mg once per day documented in this encounter [facility] 08-16-2024 History of Present illness Narrative Images from the original note were not included. [facility] SE[facility]AL CARDIOLOGY Cardiology ([facility]) [address] [facility] [id number] OUTPATIENT VISIT DATE 08/16/2024 PRIMARY CARE PHYSICIAN: Fei Gandhi [address] [place] [address] HISTORY OF PRESENT ILLNESS: Mr. Chowdhury is a 74 year old gentleman with a history of nonobstructive mild coronary artery disease and remote catheterization 2012, paroxysmal atrial fibrillation with ablation March 2020, dilated aortic root, hypertension, dyslipidemia who presents to establish new cardiology follow-up. Since his last visit, he has continued to do well. He denies symptoms of palpitations, lightheadedness, dizziness, or syncope. He has not had symptoms concerning for angina. PAST MEDICAL HISTORY Diagnosis Date Aortic root dilatation (HCC) 08/21/2009 Atrial fibrillation 04/26/2013 Benign neoplasm of colon 12/18/2005 Adenomatous polyp BPH with obstruction/lower urinary tract symptoms 08/27/2018 Dr. Greenberg, Urology Coronary artery disease involving [place] coronary artery of [place] heart without angina pectoris 07/19/2019 Diverticulosis of colon (without mention of hemorrhage) Essential tremor 01/14/2012 Hypertrophy of prostate with urinary obstruction and other lower urinary tract symptoms (LUTS) 12/31/2006 Ingrown left big toenail 05/2022 infected Internal hemorrhoids without mention of complication Mixed hyperlipidemia 07/19/2019 Near syncope 02/15/2014 bradycardia NASRA on CPAP 06/15/2013 Problems with sexual function Sigmoiditis 10/20/2023 Umbilical hernia 05/23/2023 Unspecified essential hypertension 02/09/2010 VENOUS INSUFFICIENCY NOS 11/19/2005 PAST SURGICAL HISTORY Procedure Laterality Date ATRIAL FIBRILLATION/FLUTTER ABLATION 03/29/2020 COLONOSCOPY - DIAGNOSTIC 08/25/20021992, 1994 COLONOSCOPY FLX DX W/COLLJ SPEC WHEN PFRMD 10/12/2012 Colonoscopy repeat 10 years COLONOSCOPY FLX DX W/COLLJ SPEC WHEN PFRMD 07/07/2020 Colonoscopy CYSTOSCOPY 04/12/2015 LAPROSCOPIC REPAIR UMBILICAL HERNIA 05/23/2023 LEFT HEART CATH,PERCUTANEOUS 03/18/2008 Cardiac cath, L heart, normal LEFT HEART CATH,PERCUTANEOUS 05/12/2013 Cardiac cath, L heart. 30-40% LAD. PAST SURGICAL HISTORY OF 1963 left hip surgery after fracture, hardware removed PAST SURGICAL HISTORY OF 08/29/2011 Right index finger repair PAST SURGICAL HISTORY OF 11/2012 Right index Finger repair x 2 REPAIR UMBILICAL HERNIA 05/23/2023 RPR 1ST INGUN HRNA AGE 3 YRS/> REDUCIBLE 2007 Hernia repair, inguinal x 3 TONSILLECTOMY PRIMARY/SECONDARY <AGE 10 1955 Tonsillectomy SOCIAL HISTORY Social History Tobacco Use Smoking status: Never Smokeless tobacco: Never Vaping Use Vaping status: Never Used Substance Use Topics Alcohol use: Yes Comment: socially Drug use: No FAMILY HISTORY Problem Relation Age of Onset Arthritis Mother other (Other) Mother fall, natural causes Heart Father CABG other (Cholesterol) Father Diabetes Paternal Grandmother Prostate Cancer Brother 62 Glaucoma Brother Arthritis Brother lumbago Coronary Artery Disease Brother stents Arthritis Brother lumbago ALLERGIES: ALLERGIES No Known Allergies MEDICATIONS: metoprolol succinate ER (TOPROL XL) 50 mg 24 hr tablet Take 1 tablet by mouth once daily. atorvastatin (LIPITOR) 10 mg tablet Take 1 tablet by mouth once daily. psyllium husk (METAMUCIL ORAL) Take by mouth. MEDICATION, NON-DATABASE Flax Seed L-LYSINE ORAL Take 1 tablet by mouth once daily. vit W-G-nvdhiv-zinc-lutein (EYE MULTIVIT-LUTEIN,C-E-CU-ZN,) 226 mg-90 mg-2 mg-34.8 mg-5 mg cap Take 1 tablet by mouth once daily. Tadalafil (CIALIS) 10 mg tablet Take 1 tablet by mouth as directed. TAKE 1-2 HOURS BEFORE SEXUAL INTERCOURSE NEEDED. aspirin, enteric coated (ASPIR-81) 81 mg EC tablet Take 1 tablet by mouth once daily. COMPOUNDED PRESCRIPTION KNEE HIGH COMPRESSION STOCKINGS 30-40 MM. DX: EDEMA. terazosin 5 mg capsule Take 1 capsule by mouth daily at bedtime. Given by Dr. Rivera. CALCIUM CARBONATE/VITAMIN D3 (CALCIUM 500 + D ORAL) Take by mouth once daily. ascorbic acid, vitamin C, (VITAMIN C) 500 mg tablet Take 500 mg by mouth once daily. Garlic ORAL Cap Take one(1) tablet daily. REVIEW OF SYSTEMS: Review of Systems Constitutional: Negative for chills, fever, malaise/fatigue and weight loss. HENT: Negative for hearing loss and sore throat. Eyes: Negative for blurred vision and double vision. Respiratory: Negative. Cardiovascular: Negative. Gastrointestinal: Negative. Genitourinary: Negative for dysuria, frequency, hematuria and urgency. Musculoskeletal: Negative. Skin: Negative. Neurological: Negative for dizziness, seizures, loss of consciousness, weakness and headaches. Endo/Heme/Allergies: Negative for environmental allergies. Does not bruise/bleed easily. Psychiatric/Behavioral: Negative for depression. PHYSICAL EXAMINATION: BP 146/72 Pulse 89 Wt 199 lb (90.3kg) SpO2 97% General: Pleasant gentleman sitting appears comfortable no apparent distress he is alert and oriented x 3 HEENT: Carotid upstrokes are brisk without bruits no JVD appreciated. Pulmonary: Lungs are clear no rales, wheezes, rhonchi Cardiovascular: Normal S1, S2 with regular rate and rhythm. No murmurs, rubs, or gallops Extremities: Warm, well-perfused, no lower extremity edema. 2+ distal pulses CARDIOVASCULAR MEDICINE TESTING: Cardiac catheterization [facility] 2012 1. Normal left main 2. Left anterior descending with no high-grade stenosis but mid segment 30-40% intramyocardial portion 3. Left circumflex with no high-grade stenosis 4. Dominant right coronary artery with no significant stenosis Echocardiogram 08/05/2024: - Exam indication: Ascending aortic aneurysm - The left ventricle is normal in size. Left ventricular systolic function is normal. EF = 56 5% (2D biplane) Indeterminate left ventricular diastolic function. - The right ventricle is normal in size. Right ventricular systolic function is normal. - The left atrial cavity is moderately dilated. - There are no significant valvular abnormalities. - The visualized aorta is dilated with a maximal dimension of 4.1 cm. - Exam was compared with the prior echocardiographic exam performed on 02/29/2020, no significant change. Echocardiogram 03/01/2020: - The left ventricle is normal in size. Left ventricular systolic function is normal. EF = 61 5% (2D biplane) Grade I left ventricular diastolic dysfunction. - The right ventricle is normal in size. Right ventricular systolic function is normal. - There are no significant valvular abnormalities. - The visualized aorta is borderline dilated with a maximal dimension of 3.8 cm. - Exam was compared with the prior echocardiographic exam performed on 01/09/2018, no significant change. IMPRESSION: Mr. Chowdhury is a 74 year old gentleman with minimal coronary disease on catheterization 2012, paroxysmal atrial fibrillation with prior A-fib ablation 2019, hypertension, dyslipidemia presents for routine follow-up. PLAN AND RECOMMENDATIONS: 1. Coronary artery disease involving [place] coronary artery of [place] heart without angina pectoris - ICD9: 414.01, ICD10: I25.10 (primary diagnosis) Patient doing well without symptoms concerning for angina and good functional capacity. Continue current medical therapy 2. Paroxysmal atrial fibrillation (HCC) - ICD9: 427.31, ICD10: I48.0 No symptomatic recurrence of atrial fibrillation. 3. Aortic root dilatation (HCC) - ICD9: 447.71, ICD10: I77.810 4.1 cm on recent echocardiogram. Continue yearly screening 4. Essential hypertension - ICD9: 401.9, ICD10: I10 Patient complaining of lower extremity edema. Will start him on chlorthalidone 25 mg daily. Advised on low-sodium diet. - CHLORTHALIDONE 25 MG TABLET 5. Mixed hyperlipidemia - ICD9: 272.2, ICD10: E78.2 Maintained on Lipitor 10 mg daily. Repeat fasting blood work is pending 6. Leg edema - ICD9: 782.3, ICD10: R60.0 - NT PRO BNP 7. TATE (dyspnea on exertion) - ICD9: 786.09, ICD10: R06.09 - NT PRO BNP - CHLORTHALIDONE 25 MG TABLET Favian Larkin MD documented in this encounter [facility] 08-16-2024 Note HNO ID: [id number] Author: FAVIAN LARKIN MD Service: ? Author Type: Physician Type: Progress Notes Filed: 08/16/2024 12:00 Note Text: [facility] SE[facility] REGIONAL CARDIOLOGY Cardiology ([facility] [facility] [address]) [address] [facility] [id number] OUTPATIENT VISIT DATE 08/16/2024 PRIMARY CARE PHYSICIAN: Fei Gandhi [address] [place] [address] HISTORY OF PRESENT ILLNESS: Mr. Chowdhury is a 74 year old gentleman with a history of nonobstructive mild coronary artery disease and remote catheterization 2012, paroxysmal atrial fibrillation with ablation March 2020, dilated aortic root, hypertension, dyslipidemia who presents to establish new cardiology follow-up. Since his last visit, he has continued to do well. He denies symptoms of palpitations, lightheadedness, dizziness, or syncope. He has not had symptoms concerning for angina. PAST MEDICAL HISTORY Diagnosis Date Aortic root dilatation (HCC) 08/21/2009 Atrial fibrillation 04/26/2013 Benign neoplasm of colon 12/18/2005 Adenomatous polyp BPH with obstruction/lower urinary tract symptoms 08/27/2018 Dr. Greenberg, Urology Coronary artery disease involving [place] coronary artery of [place] heart without angina pectoris 07/19/2019 Diverticulosis of colon (without mention of hemorrhage) Essential tremor 01/14/2012 Hypertrophy of prostate with urinary obstruction and other lower urinary tract symptoms (LUTS) 12/31/2006 Ingrown left big toenail 05/2022 infected Internal hemorrhoids without mention of complication Mixed hyperlipidemia 07/19/2019 Near syncope 02/15/2014 bradycardia NASRA on CPAP 06/15/2013 Problems with sexual function Sigmoiditis 10/20/2023 Umbilical hernia 05/23/2023 Unspecified essential hypertension 02/09/2010 VENOUS INSUFFICIENCY NOS 11/19/2005 PAST SURGICAL HISTORY Procedure Laterality Date ATRIAL FIBRILLATION/FLUTTER ABLATION 03/29/2020 COLONOSCOPY - DIAGNOSTIC 08/25/20021992, 1994 COLONOSCOPY FLX DX W/COLLJ SPEC WHEN PFRMD 10/12/2012 Colonoscopy repeat 10 years COLONOSCOPY FLX DX W/COLLJ SPEC WHEN PFRMD 07/07/2020 Colonoscopy CYSTOSCOPY 04/12/2015 LAPROSCOPIC REPAIR UMBILICAL HERNIA 05/23/2023 LEFT HEART CATH,PERCUTANEOUS 03/18/2008 Cardiac cath, L heart, normal LEFT HEART CATH,PERCUTANEOUS 05/12/2013 Cardiac cath, L heart. 30-40% LAD. PAST SURGICAL HISTORY OF 1964 left hip surgery after fracture, hardware removed PAST SURGICAL HISTORY OF 08/29/2011 Right index finger repair PAST SURGICAL HISTORY OF 11/2012 Right index Finger repair x 2 REPAIR UMBILICAL HERNIA 05/23/2023 RPR 1ST INGUN HRNA AGE 3 YRS/> REDUCIBLE 2008 Hernia repair, inguinal x 3 TONSILLECTOMY PRIMARY/SECONDARY Tonsillectomy SOCIAL HISTORY Social History Tobacco Use Smoking status: Never Smokeless tobacco: Never Vaping Use Vaping status: Never Used Substance Use Topics Alcohol use: Yes Comment: socially Drug use: No FAMILY HISTORY Problem Relation Age of Onset Arthritis Mother other (Other) Mother fall, natural causes Heart Father CABG other (Cholesterol) Father Diabetes Paternal Grandmother Prostate Cancer Brother 62 Glaucoma Brother Arthritis Brother lumbago Coronary Artery Disease Brother stents Arthritis Brother lumbago ALLERGIES: ALLERGIES No Known Allergies MEDICATIONS: metoprolol succinate ER (TOPROL XL) 50 mg 24 hr tablet Take 1 tablet by mouth once daily. atorvastatin (LIPITOR) 10 mg tablet Take 1 tablet by mouth once daily. psyllium husk (METAMUCIL ORAL) Take by mouth. MEDICATION, NON-DATABASE Flax Seed L-LYSINE ORAL Take 1 tablet by mouth once daily. vit K-B-hmkmkj-zinc-lutein (EYE MULTIVIT-LUTEIN,C-E-CU-ZN,) 226 mg-90 mg-2 mg-34.8 mg-5 mg cap Take 1 tablet by mouth once daily. Tadalafil (CIALIS) 10 mg tablet Take 1 tablet by mouth as directed. TAKE 1-2 HOURS BEFORE SEXUAL INTERCOURSE NEEDED. aspirin, enteric coated (ASPIR-81) 81 mg EC tablet Take 1 tablet by mouth once daily. COMPOUNDED PRESCRIPTION KNEE HIGH COMPRESSION STOCKINGS 30-40 MM. DX: EDEMA. terazosin 5 mg capsule Take 1 capsule by mouth daily at bedtime. Given by Dr. Rivera. CALCIUM CARBONATE/VITAMIN D3 (CALCIUM 500 + D ORAL) Take by mouth once daily. ascorbic acid, vitamin C, (VITAMIN C) 500 mg tablet Take 500 mg by mouth once daily. Garlic ORAL Cap Take one(1) tablet daily. REVIEW OF SYSTEMS: Review of Systems Constitutional: Negative for chills, fever, malaise/fatigue and weight loss. HENT: Negative for hearing loss and sore throat. Eyes: Negative for blurred vision and double vision. Respiratory: Negative. Cardiovascular: Negative. Gastrointestinal: Negative. Genitourinary: Negative for dysuria, frequency, hematuria and urgency. Musculoskeletal: Negative. Skin: Negative. Neurological: Negative for dizziness, seizures, loss of consciousness, we (more content not included)... [facility] 08-09-2024 Telephone encounter Note Spoke with Mr Chowdhury. Results and recommendations reviewed with pt per Petros. Pt verbalized understanding. Pt has no questions at this time. Shaggy Cruz LPN [facility] 08-09-2024 Miscellaneous Notes Spoke with Mr Chowdhury. Results and recommendations reviewed with pt per Petros. Pt verbalized understanding. Pt has no questions at this time. Shaggy Cruz LPN Voicemail msg left for patient to return call to [facility] to review test results. Office phone number provided. Natalie De Paz LPN Left message for Monika Chowdhury to call [facility] for test results. [facility] phone number provided. Kimberley Nunes LPN ----- Message from Favian Larkin MD sent at 08/06/2024 3:09 PM EDT ----- Please call the patient to let him know his echocardiogram is unchanged from prior. I will review in more detail at his next office visit documented in this encounter [facility] 08-09-2024 Telephone encounter Note Voicemail msg left for patient to return call to [facility] to review test results. Office phone number provided. Natalie De Paz LPN [facility] 08-06-2024 Telephone encounter Note Left message for Monika Chowdhury to call [facility] for test results. [facility] phone number provided. Kimberley Nunes LPN [facility] 08-06-2024 Telephone encounter Note ----- Message from Favian Larkin MD sent at 08/06/2024 3:09 PM EDT ----- Please call the patient to let him know his echocardiogram is unchanged from prior. I will review in more detail at his next office visit [facility] 03-11-2024 Telephone encounter Note Patient has been identified by name and date of : Yes Patient phones for refill(s): Requested Prescriptions Pending Prescriptions Disp Refills metoprolol succinate ER (TOPROL XL) 50 mg 24 hr tablet 90 tablet 3 Sig: Take 1 tablet by mouth once daily. atorvastatin (LIPITOR) 10 mg tablet 90 tablet 3 Sig: Take 1 tablet by mouth once daily. Date of last office visit in primary care: 11/13/2023 Date of next office visit in primary care: 03/24/2024 Patient is going out of town tomorrow at 9:00 AM - He did not realize he is out of medication. Please send today. Please call him once sent. [phone], please call him. Please advise. Thank you. Edilia Emanuel. [facility] 03-11-2024 Miscellaneous Notes Patient has been identified by name and date of : Yes Patient phones for refill(s): Requested Prescriptions Pending Prescriptions Disp Refills metoprolol succinate ER (TOPROL XL) 50 mg 24 hr tablet 90 tablet 3 Sig: Take 1 tablet by mouth once daily. atorvastatin (LIPITOR) 10 mg tablet 90 tablet 3 Sig: Take 1 tablet by mouth once daily. Date of last office visit in primary care: 11/13/2023 Date of next office visit in primary care: 03/24/2024 Patient is going out of town tomorrow at 9:00 AM - He did not realize he is out of medication. Please send today. Please call him once sent. [phone], please call him. Please advise. Thank you. Edilia Emanuel. documented in this encounter [facility] 02-02-2024 Instructions Favian Larkin MD - 02/02/2024 10:52 AM EDT We are going to repeat an echocardiogram documented in this encounter [facility] 02-02-2024 History of Present illness Narrative Images from the original note were not included. [facility] SECTION OF REGIONAL CARDIOLOGY Cardiology ([facility]) [address] [facility] [id number] OUTPATIENT VISIT DATE 02/02/2024 PRIMARY CARE PHYSICIAN: Fei Gandhi [address] [place] [address] HISTORY OF PRESENT ILLNESS: Mr. Chowdhury is a 73 year old gentleman with a history of nonobstructive mild coronary artery disease and remote catheterization 2012, paroxysmal atrial fibrillation with ablation March 2020, dilated aortic root, hypertension, dyslipidemia who presents to establish new cardiology follow-up. Patient reports that he does well from a functional standpoint. He has not had symptoms concerning for angina either at rest or with exertion. He has not had symptoms concerning for recurrent atrial fibrillation. There have been no symptoms concerning for congestive heart failure including PND, orthopnea, or lower extremity edema. PAST CARDIAC HISTORY: He has a history of BPH, NASRA, hyperlipidemia, hypertension, non obstructive CAD cath 2012, and paroxysmal atrial fibrillation s/p ablation 03/29/2020. He is maintained on flecainide and xarelto. PAST MEDICAL HISTORY Diagnosis Date Aortic root dilatation (HCC) 08/21/2009 Atrial fibrillation 04/26/2013 Benign neoplasm of colon 12/18/2005 Adenomatous polyp BPH with obstruction/lower urinary tract symptoms 08/27/2018 Dr. Greenberg, Urology Coronary artery disease involving [place] coronary artery of [place] heart without angina pectoris 07/19/2019 Diverticulosis of colon (without mention of hemorrhage) Essential tremor 01/14/2012 Hypertrophy of prostate with urinary obstruction and other lower urinary tract symptoms (LUTS) 12/31/2006 Ingrown left big toenail 05/2022 infected Internal hemorrhoids without mention of complication Mixed hyperlipidemia 07/19/2019 Near syncope 02/15/2014 bradycardia NASRA on CPAP 06/15/2013 Problems with sexual function Umbilical hernia 05/23/2023 Unspecified essential hypertension 02/09/2010 VENOUS INSUFFICIENCY NOS 11/19/2005 PAST SURGICAL HISTORY Procedure Laterality Date ATRIAL FIBRILLATION/FLUTTER ABLATION 03/29/2020 COLONOSCOPY - DIAGNOSTIC 08/25/2002 1993, 1994 COLONOSCOPY FLX DX W/COLLJ SPEC WHEN PFRMD 10/12/2012 Colonoscopy repeat 10 years COLONOSCOPY FLX DX W/COLLJ SPEC WHEN PFRMD 07/07/2020 Colonoscopy CYSTOSCOPY 04/12/2015 LAPROSCOPIC REPAIR UMBILICAL HERNIA 05/23/2023 LEFT HEART CATH,PERCUTANEOUS 03/18/2008 Cardiac cath, L heart, normal LEFT HEART CATH,PERCUTANEOUS 05/12/2013 Cardiac cath, L heart. 30-40% LAD. PAST SURGICAL HISTORY OF 1963 left hip surgery after fracture, hardware removed PAST SURGICAL HISTORY OF 08/29/2011 Right index finger repair PAST SURGICAL HISTORY OF 11/2012 Right index Finger repair x 2 REPAIR UMBILICAL HERNIA 05/23/2023 RPR 1ST INGUN HRNA AGE 3 YRS/> REDUCIBLE 2007 Hernia repair, inguinal x 3 TONSILLECTOMY PRIMARY/SECONDARY <AGE 10 1956 Tonsillectomy SOCIAL HISTORY Social History Tobacco Use Smoking status: Never Smokeless tobacco: Never Vaping Use Vaping Use: Never used Substance Use Topics Alcohol use: Yes Comment: socially Drug use: No FAMILY HISTORY Problem Relation Age of Onset Arthritis Mother other (Other) Mother fall, natural causes Heart Father CABG other (Cholesterol) Father Diabetes Paternal Grandmother Prostate Cancer Brother 62 Glaucoma Brother Arthritis Brother lumbago Coronary Artery Disease Brother stents Arthritis Brother lumbago ALLERGIES: ALLERGIES No Known Allergies MEDICATIONS: psyllium husk (METAMUCIL ORAL) Take by mouth. MEDICATION, NON-DATABASE Flax Seed L-LYSINE ORAL Take 1 tablet by mouth once daily. vit K-L-ojqbyt-zinc-lutein (EYE MULTIVIT-LUTEIN,C-E-CU-ZN,) 226 mg-90 mg-2 mg-34.8 mg-5 mg cap Take 1 tablet by mouth once daily. atorvastatin (LIPITOR) 10 mg tablet Take 1 tablet by mouth once daily. metoprolol succinate ER (TOPROL XL) 50 mg 24 hr tablet Take 1 tablet by mouth once daily. Tadalafil (CIALIS) 10 mg tablet Take 1 tablet by mouth as directed. TAKE 1-2 HOURS BEFORE SEXUAL INTERCOURSE NEEDED. aspirin, enteric coated (ASPIR-81) 81 mg EC tablet Take 1 tablet by mouth once daily. COMPOUNDED PRESCRIPTION KNEE HIGH COMPRESSION STOCKINGS 30-40 MM. DX: EDEMA. terazosin 5 mg capsule Take 1 capsule by mouth daily at bedtime. Given by Dr. Rivera. CALCIUM CARBONATE/VITAMIN D3 (CALCIUM 500 + D ORAL) Take by mouth once daily. ascorbic acid, vitamin C, (VITAMIN C) 500 mg tablet Take 500 mg by mouth once daily. Garlic ORAL Cap Take one(1) tablet daily. omeprazole (PRILOSEC) 20 mg capsule Take 1 capsule by mouth once daily. REVIEW OF SYSTEMS: Review of Systems Constitutional: Negative for chills, fever, malaise/fatigue and weight loss. HENT: Negative for hearing loss and sore throat. Eyes: Negative for blurred vision and double vision. Respiratory: Negative. Cardiovascular: Negative. Gastrointestinal: Negative. Genitourinary: Negative for dysuria, frequency, hematuria and urgency. Musculoskeletal: Negative. Skin: Negative. Neurological: Negative for dizziness, seizures, loss of consciousness, weakness and headaches. Endo/Heme/Allergies: Negative for environmental allergies. Does not bruise/bleed easily. Psychiatric/Behavioral: Negative for depression. PHYSICAL EXAMINATION: BP 129/68 Pulse 74 Wt 199 lb (90.3kg) SpO2 96% General: Pleasant gentleman sitting appears comfortable no apparent distress he is alert and oriented x 3 HEENT: Carotid upstrokes are brisk without bruits no JVD appreciated. Pulmonary: Lungs are clear no rales, wheezes, rhonchi Cardiovascular: Normal S1, S2 with regular rate and rhythm. No murmurs, rubs, or gallops Extremities: Warm, well-perfused, no lower extremity edema. 2+ distal pulses CARDIOVASCULAR MEDICINE TESTING: Cardiac catheterization [facility] 2012 1. Normal left main 2. Left anterior descending with no high-grade stenosis but mid segment 30-40% intramyocardial portion 3. Left circumflex with no high-grade stenosis 4. Dominant right coronary artery with no significant stenosis Echocardiogram 03/01/2020: - The left ventricle is normal in size. Left ventricular systolic function is normal. EF = 61 5% (2D biplane) Grade I left ventricular diastolic dysfunction. - The right ventricle is normal in size. Right ventricular systolic function is normal. - There are no significant valvular abnormalities. - The visualized aorta is borderline dilated with a maximal dimension of 3.8 cm. - Exam was compared with the prior echocardiographic exam performed on 01/09/2018, no significant change. IMPRESSION: Mr. Chowdhury is a 73 year old gentleman with minimal coronary disease on catheterization 2012, paroxysmal atrial fibrillation with prior A-fib ablation 2019, hypertension, dyslipidemia presents for routine follow-up. PLAN AND RECOMMENDATIONS: 1. Coronary artery disease involving [place] coronary artery of [place] heart without angina pectoris - ICD9: 414.01, ICD10: I25.10 (primary diagnosis) Patient doing well without symptoms concerning for angina. Functional capacity. Continue current medical therapy and risk factor modification - ECHO - PERFLUTREN LIPID MICROSPHERES 1.1 MG/ML INJECTION IN NS 10 ML - SODIUM CHLORIDE 0.9 % (FLUSH) INJECTION SYRINGE 2. Paroxysmal atrial fibrillation (HCC) - ICD9: 427.31, ICD10: I48.0 Patient has not had symptomatic recurrence of his atrial fibrillation. He was taken off Eliquis a number of years ago due to cost. - ECHO - PERFLUTREN LIPID MICROSPHERES 1.1 MG/ML INJECTION IN NS 10 ML - SODIUM CHLORIDE 0.9 % (FLUSH) INJECTION SYRINGE 3. Aortic root dilatation (HCC) - ICD9: 447.71, ICD10: I77.810 Repeat 2D echocardiogram 4. Essential hypertension - ICD9: 401.9, ICD10: I10 Well-controlled on current regimen 5. Mixed hyperlipidemia - ICD9: 272.2, ICD10: E78.2 Maintained on Lipitor 10 mg daily. Fasting blood work from September 2023 was reviewed. LDL cholesterol 57 mg/dL Favian Larkin MD documented in this encounter [facility] 10-25-2023 Miscellaneous Notes Patient aware of results and provider recommended follow up. Unique Capone LPN ----- Message from Fei Gandhi MD sent at 10/25/2023 8:41 AM EST ----- No infection in stool test. Imodium as needed for diarrhea pending reevaluation. documented in this encounter [facility] 10-20-2023 Miscellaneous Notes Spoke with patient. Given message from provider's office. Patient verbalizes understanding. Transferred to mailroom associate for GEN SURG appointment. Madeline Bowen RN Left message to call & speak to nurse. Iris Pedersen LPN Labs normal. CT scan c/w sigmoiditis. ASSESSMENT/PLAN: 1. Sigmoiditis - ICD9: 558.9, ICD10: K52.9 - ENTERIC BACTERIAL PANEL BY PCR (another stool test for infection). - Schedule follow up visit with Dr. Adele Jimenez (seen 09/29/23). - Return sooner for fever. Fei Gandhi MD Pt would like results of EKG . Cat Colin LPN documented in this encounter [facility] 10-16-2023 History of Present illness Narrative Radiology Service Progress Note DATE OF SERVICE: October 16, 2023 TIME: 3:37 PM PATIENT IDENTITY VERIFICATION COMPLETED USING TWO (2) STANDARD IDENTIFIERS: Name and Date of confirmed by patient verbally. FALL SCREENING: Has the patient had 2 falls in the last year or 1 fall with injury or currently using an Ambulatory Assistive Device (Walker, Cane, Wheelchair, Crutches, etc.)? No PATIENT GENDER DATA: Male PATIENT RELEVANT IMPLANT DATA REVIEWED: Yes ALLERGIES: Reviewed and unchanged CONTRAST ALLERGY: NO. EXAM: CT -CONTRAST INDUCED NEPHROPATHY RISK FACTORS: Patient age > 60 years CREATININE: Creatinine Date Value Ref Range Status 10/14/2023 0.81 0.73 - 1.22 mg/dL Final 09/13/2023 0.99 0.73 - 1.22 mg/dL Final 05/07/2023 0.85 0.73 - 1.22 mg/dL Final Estimated Glomerular Filtration Rate Date Value Ref Range Status 10/14/2023 92 >=60 mL/min/1.73m Final Comment: Estimated Glomerular Filtration Rate (eGFR) is calculated using the 2020 CKD-EPI creatinine equation. This equation utilizes serum creatinine, sex, and age as parameters. The creatinine assay has traceable calibration to isotope dilution-mass spectrometry. Refer to KDIGO guidelines for clinical interpretation. In patients with unstable renal function, e.g. those with acute kidney injury, the eGFR may not accurately reflect actual GFR. eGFR- Date Value Ref Range Status 12/18/2021 >60 Final P.O.C.T. RESULTS: POC done: Yes, See Lab Tab October 16, 2023 TREATMENT: N/A PERIPHERAL IV DATA: Ambulatory: A peripheral IV was started in the Left antecubital site with a Angio cath: 22 gauge. RADIOLOGY DEPARTMENT: CT; Exam(s) Completed: Abdomen/Pelvis SIGNATURE: RT Sergio(R) PATIENT NAME: Monika Chowdhury DATE: October 16, 2023 TIME: 3:37 PM documented in this encounter [facility] 10-13-2023 History of Present illness Narrative This note was created using [employer]. Subjective Monika Chowdhury is a 73 year old male. He saw Dr. Jimenez for rectal bleeding, and it was felt a repeat colonoscopy was unlikely to be beneficial. Meanwhile, symptoms of abdominal pain, abdominal cramping, bloating, diarrhea, and loss of appetite have worsened over the past month or more. He tried taking more Metamucil as directed, but symptoms worsened. Review of Systems Constitutional: Positive for appetite change. Negative for diaphoresis, fatigue, fever and unexpected weight change. HENT: Negative for sore throat and trouble swallowing. Respiratory: Negative for cough and shortness of breath. Cardiovascular: Negative for chest pain, palpitations and leg swelling. Gastrointestinal: Positive for abdominal distention, abdominal pain, anal bleeding and diarrhea. Negative for constipation, nausea and vomiting. Genitourinary: Negative for difficulty urinating and dysuria. Neurological: Negative for dizziness and headaches. ACTIVE PROBLEM LIST Venous (Peripheral) Insufficiency Bph With Obstruction/Lower Urinary Tract Symptoms Aortic Root Dilatation (Hcc) Essential Hypertension Actinic Skin Damage Essential Tremor Paroxysmal Atrial Fibrillation (Hcc) 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 Mixed Hyperlipidemia Coronary Artery Disease Involving [place] Coronary Artery of [place] Heart Without Angina Pectoris Social History Tobacco Use Smoking status: Never Smokeless tobacco: Never Vaping Use Vaping Use: Never used Substance Use Topics Alcohol use: Yes Comment: socially Drug use: No Current Outpatient Medications Medication Sig MEDICATION, NON-DATABASE Flax Seed L-LYSINE ORAL Take 1 tablet by mouth once daily. atorvastatin (LIPITOR) 10 mg tablet Take 1 tablet by mouth once daily. metoprolol succinate ER (TOPROL XL) 50 mg 24 hr tablet Take 1 tablet by mouth once daily. Tadalafil (CIALIS) 10 mg tablet Take 1 tablet by mouth as directed. TAKE 1-2 HOURS BEFORE SEXUAL INTERCOURSE NEEDED. aspirin, enteric coated (ASPIR-81) 81 mg EC tablet Take 1 tablet by mouth once daily. COMPOUNDED PRESCRIPTION KNEE HIGH COMPRESSION STOCKINGS 30-40 MM. DX: EDEMA. terazosin 5 mg capsule Take 1 capsule by mouth daily at bedtime. Given by Dr. Rivera. CALCIUM CARBONATE/VITAMIN D3 (CALCIUM 500 + D ORAL) Take by mouth once daily. ascorbic acid, vitamin C, (VITAMIN C) 500 mg tablet Take 500 mg by mouth once daily. Garlic ORAL Cap Take one(1) tablet daily. psyllium husk (METAMUCIL ORAL) Take by mouth. vit F-L-rimlmy-zinc-lutein (EYE MULTIVIT-LUTEIN,C-E-CU-ZN,) 226 mg-90 mg-2 mg-34.8 mg-5 mg cap Take 1 tablet by mouth once daily. (Patient not taking: Reported on 09/24/2023) No current facility-administered medications for this visit. Objective BP 142/78 (BP Site: Left Arm, BP Position: Sitting, BP Cuff Size: Large Adult) Pulse 74 Temp 36.8 C (98.3 F) (Temporal) Resp 18 Wt 88 kg (194 lb) BMI 26.31 kg/m Physical Exam Constitutional: General: He is not in acute distress. Appearance: He is not diaphoretic. HENT: Mouth/Throat: Mouth: Mucous membranes are moist. Pharynx: Oropharynx is clear. Eyes: General: No scleral icterus. Conjunctiva/sclera: Conjunctivae normal. Cardiovascular: Rate and Rhythm: Regular rhythm. Heart sounds: No murmur heard. No gallop. Pulmonary: Effort: No respiratory distress. Breath sounds: Normal breath sounds. Abdominal: General: Bowel sounds are increased. There is distension. Palpations: Abdomen is soft. There is no hepatomegaly, splenomegaly or mass. Tenderness: There is abdominal tenderness in the suprapubic area. There is no guarding or rebound. Hernia: No hernia is present. Musculoskeletal: Right lower leg: No edema. Left lower leg: No edema. Lymphadenopathy: Cervical: No cervical adenopathy. Neurological: Mental Status: He is alert. Gait: Gait normal. Psychiatric: Attention and Perception: Attention normal. Mood and Affect: Mood is anxious. Assessment and Plan 1. Lower abdominal pain - ICD9: 789.09, ICD10: R10.30 (primary diagnosis) Etiology unclear - CT ABD/PEL W IVCON - IV CONTRAST (RADIOLOGY PROCEDURE) - ENTERIC CONTRAST (RADIOLOGY PROCEDURE) - CBC - COMP METABOLIC PANEL - CELIAC SCREEN WITH REFLEX - SED RATE WESTERGREN 2. Diarrhea, unspecified type - ICD9: 787.91, ICD10: R19.7 - CT ABD/PEL W IVCON - IV CONTRAST (RADIOLOGY PROCEDURE) - ENTERIC CONTRAST (RADIOLOGY PROCEDURE) - CBC - COMP METABOLIC PANEL - CELIAC SCREEN WITH REFLEX - SED RATE WESTERGREN - FECAL LACTOFERRIN/LEUKOCYTES Further recommendations with results. Fei Gandhi MD documented in this encounter [facility] 09-29-2023 History of Present illness Narrative Monika Chowdhury 1950 REFERRING PHYSICIAN: Fei Gandhi MD CHIEF COMPLAINT: Consult (Rectal Bleeding) HPI: The patient is a 73 year old male referred for endoscopy. Monika notes bright red blood on toilet paper. He says he also notes loose, watery stools - when I asked in detail, it is actually rabbit pellet-like stools with large amounts of mucus. This occurs once or twice a day. He does admit to straining with bowel movements. He states that this has been occurring in the past two months. He also notes increased flatulence. He also notes some incontinence with passing flatus. He last had a colonoscopy in 2019 for which hemorrhoidal disease was noted. He notes no colon cancer in his immediate family PAST MEDICAL HISTORY Diagnosis Date Aortic root dilatation (HCC) 08/21/2009 Atrial fibrillation 04/26/2013 Benign neoplasm of colon 12/18/2005 Adenomatous polyp BPH with obstruction/lower urinary tract symptoms 08/27/2018 Dr. Greenberg, Urology Coronary artery disease involving [place] coronary artery of [place] heart without angina pectoris 07/19/2019 Diverticulosis of colon (without mention of hemorrhage) Essential tremor 01/14/2012 Hypertrophy of prostate with urinary obstruction and other lower urinary tract symptoms (LUTS) 12/31/2006 Ingrown left big toenail 05/2022 infected Internal hemorrhoids without mention of complication Mixed hyperlipidemia 07/19/2019 Near syncope 02/15/2014 bradycardia NASRA on CPAP 06/15/2013 Problems with sexual function Umbilical hernia 05/23/2023 Unspecified essential hypertension 02/09/2010 VENOUS INSUFFICIENCY NOS 11/19/2005 PAST SURGICAL HISTORY Procedure Laterality Date ATRIAL FIBRILLATION/FLUTTER ABLATION 03/29/2020 COLONOSCOPY - DIAGNOSTIC 08/25/20021992, 1994 COLONOSCOPY FLX DX W/COLLJ SPEC WHEN PFRMD 10/12/2012 Colonoscopy repeat 10 years COLONOSCOPY FLX DX W/COLLJ SPEC WHEN PFRMD 07/07/2020 Colonoscopy CYSTOSCOPY 04/12/2015 LAPROSCOPIC REPAIR UMBILICAL HERNIA 05/23/2023 LEFT HEART CATH,PERCUTANEOUS 03/18/2008 Cardiac cath, L heart, normal LEFT HEART CATH,PERCUTANEOUS 05/12/2013 Cardiac cath, L heart. 30-40% LAD. PAST SURGICAL HISTORY OF 1963 left hip surgery after fracture, hardware removed PAST SURGICAL HISTORY OF 08/29/2011 Right index finger repair PAST SURGICAL HISTORY OF 11/2012 Right index Finger repair x 2 REPAIR UMBILICAL HERNIA 05/23/2023 RPR 1ST INGUN HRNA AGE 3 YRS/> REDUCIBLE 2007 Hernia repair, inguinal x 3 TONSILLECTOMY PRIMARY/SECONDARY <AGE 10 1955 Tonsillectomy Current Outpatient Medications Medication Sig MEDICATION, NON-DATABASE Flax Seed L-LYSINE ORAL Take 1 tablet by mouth once daily. atorvastatin (LIPITOR) 10 mg tablet Take 1 tablet by mouth once daily. metoprolol succinate ER (TOPROL XL) 50 mg 24 hr tablet Take 1 tablet by mouth once daily. Tadalafil (CIALIS) 10 mg tablet Take 1 tablet by mouth as directed. TAKE 1-2 HOURS BEFORE SEXUAL INTERCOURSE NEEDED. aspirin, enteric coated (ASPIR-81) 81 mg EC tablet Take 1 tablet by mouth once daily. COMPOUNDED PRESCRIPTION KNEE HIGH COMPRESSION STOCKINGS 30-40 MM. DX: EDEMA. terazosin 5 mg capsule Take 1 capsule by mouth daily at bedtime. Given by Dr. Rivera. CALCIUM CARBONATE/VITAMIN D3 (CALCIUM 500 + D ORAL) Take by mouth once daily. ascorbic acid, vitamin C, (VITAMIN C) 500 mg tablet Take 500 mg by mouth once daily. Garlic ORAL Cap Take one(1) tablet daily. vit A-F-wdnjaf-zinc-lutein (EYE MULTIVIT-LUTEIN,C-E-CU-ZN,) 226 mg-90 mg-2 mg-34.8 mg-5 mg cap Take 1 tablet by mouth once daily. (Patient not taking: Reported on 09/24/2023) No current facility-administered medications for this visit. ALLERGIES: Patient has no known allergies. PERSONAL HISTORY: Social History Tobacco Use Smoking status: Never Smokeless tobacco: Never Vaping Use Vaping Use: Never used Substance Use Topics Alcohol use: Yes Comment: socially Drug use: No FAMILY HISTORY Problem Relation Age of Onset Arthritis Mother other (Other) Mother fall, natural causes Heart Father CABG other (Cholesterol) Father Diabetes Paternal Grandmother Prostate Cancer Brother 62 Glaucoma Brother Arthritis Brother lumbago Coronary Artery Disease Brother stents Arthritis Brother lumbago The review of systems data was entered by the nurse and reviewed by me Nursing Notes: Crys East LPN 09/29/2023 1:34 PM Signed REVIEW OF SYSTEMS: General: The patient denies fatigue, denies weight loss, denies weight gain, denies feeling hot, and denies feelings of cold. Eyes: The patient denies glaucoma, denies eye injury/surgery, wears glasses or contacts. Ear/Nose/Throat: The patient denies allergies, denies hayfever, denies ear infections, and denies bloody noses. Cardiovascular: The patient denies chest pain, denies heart disease, NOTES high blood pressure,denies cardiac stent, denies prior heart attack, denies irregular heart beat, NOTES high cholesterol, NOTES poor circulation, denies heart failure, other cardiac issues, denies claudication, denies cold feet, denies peripheral arterial stent. Respiratory: The patient denies tuberculosis, denies pneumonia, denies frequent cough, denies pulmonary embolism, denies shortness of breath, and denies coughing up blood. Gastrointestinal: The patient denies difficulty swallowing, denies acid reflux, denies ulcers, denies vomiting, denies jaundice/hepatitis, denies gallbladder problems, denies black or tarry stools, denies hemorrhoids, NOTES bleeding from rectum, denies diverticulitis, denies constipation, NOTES diarrhea, denies loss of stool control, and NOTES hernias. Kidney/Bladder: The patient denies kidney stones, denies urine infections, and denies bloody urine. Skin: The patient denies a history of skin cancer, denies bleeding/changing moles, and denies a history of skin rash. Neurologic: The patient denies a history of epilepsy/convulsions, denies headaches, denies head/spinal injuries, and denies stroke/TIA. Psychiatric: The patient denies psychiatric medications, denies depression, and denies voices, denies substance abuse. Endocrine: The patient denies thyroid disorders, denies diabetes, and denies hormonal problems. Hematologic: The patient denies a history of bruising, denies bleeding, and denies anemia, denies blood clots. Infections: The patient denies a history of measles and mumps, denies rheumatic fever, and denies sexually transmitted diseases. Musculoskeletal: The patient denies back pain/injury, denies back problems, denies sciatica, denies knee/foot trouble, denies arthritis, or denies gout. When was patient's last Mammogram screening? N/A Last Colonoscopy: 2019 Crys East LPN PHYSICAL EXAMINATION: General: The patient is 73 year old male, well nourished, well hydrated in no acute distress. The patient is oriented to time, place, and person. VITALS: Blood pressure 118/72, pulse 83, temperature 36.2 C (97.1 F), height 182.9 cm (6'), weight 88.8 kg (195 lb 12.8 oz), SpO2 98 %. Body mass index is 26.56 kg/m . Head: Normal cephalic, atraumatic Eyes: pupils are equally round, sclera are clear/anicteric Neck is supple with no tracheal deviation Respiratory: Normal respiratory excursion and pattern. Abdominal exam: benign Extremities: no clubbing, cyanosis or edema. Neuro: non focal Psych: normal mood Assessment IMPRESSION: increased mucus in stools, increased flatulence, BRBPR PLAN: I have discussed above with patient. I have offered colonoscopy and explained procedure to him, as well as the risks/benefits. With regard to the benefits - I suspect that patient likely has BRBPR due to hemorrhoidal disease and the increased mucus production is due to the colon trying to past hard stools. I have recommended that patient drink at least 10 glasses of free water per day. I have also recommended 25-30 grams of fiber per day in his diet. He states that he takes one teaspoon of Metamucil per day, I have told him that he can take that multiple times a day - as that is only 3 grams of fiber.. If after two months, and patient is following all of the above and still with difficulties, he is encouraged to follow up in this clinic. Patient acknowledges the above. Patient to return to his PCP for medical care. Diagnoses: (K62.5) Rectal bleeding I have confirmed and edited as necessary, the PFSH and ROS obtained by others. Consultation requested by Dr. Fei Gandhi for an opinion regarding patient's bright red blood per rectum. My final recommendations will be communicated back to the requesting physician by way of shared Medical record or letter to requesting physician via US mail. I spent a total of 28 minutes on the date of the service which included preparing to see the patient with review of any pertinent laboratory studies/radiological imaging/medical records, [id number] patient care, obtaining oral medical history from the patient in this encounter, counseling and educating the patient/family/caregiver, and completing appropriate medical documentation. . Naomy Jimenez MD documented in this encounter [facility] 09-29-2023 Nurse Note REVIEW OF SYSTEMS: General: The patient denies fatigue, denies weight loss, denies weight gain, denies feeling hot, and denies feelings of cold. Eyes: The patient denies glaucoma, denies eye injury/surgery, wears glasses or contacts. Ear/Nose/Throat: The patient denies allergies, denies hayfever, denies ear infections, and denies bloody noses. Cardiovascular: The patient denies chest pain, denies heart disease, NOTES high blood pressure,denies cardiac stent, denies prior heart attack, denies irregular heart beat, NOTES high cholesterol, NOTES poor circulation, denies heart failure, other cardiac issues, denies claudication, denies cold feet, denies peripheral arterial stent. Respiratory: The patient denies tuberculosis, denies pneumonia, denies frequent cough, denies pulmonary embolism, denies shortness of breath, and denies coughing up blood. Gastrointestinal: The patient denies difficulty swallowing, denies acid reflux, denies ulcers, denies vomiting, denies jaundice/hepatitis, denies gallbladder problems, denies black or tarry stools, denies hemorrhoids, NOTES bleeding from rectum, denies diverticulitis, denies constipation, NOTES diarrhea, denies loss of stool control, and NOTES hernias. Kidney/Bladder: The patient denies kidney stones, denies urine infections, and denies bloody urine. Skin: The patient denies a history of skin cancer, denies bleeding/changing moles, and denies a history of skin rash. Neurologic: The patient denies a history of epilepsy/convulsions, denies headaches, denies head/spinal injuries, and denies stroke/TIA. Psychiatric: The patient denies psychiatric medications, denies depression, and denies voices, denies substance abuse. Endocrine: The patient denies thyroid disorders, denies diabetes, and denies hormonal problems. Hematologic: The patient denies a history of bruising, denies bleeding, and denies anemia, denies blood clots. Infections: The patient denies a history of measles and mumps, denies rheumatic fever, and denies sexually transmitted diseases. Musculoskeletal: The patient denies back pain/injury, denies back problems, denies sciatica, denies knee/foot trouble, denies arthritis, or denies gout. When was patient's last Mammogram screening? N/A Last Colonoscopy: 2019 Crys [place] LPN documented in this encounter [facility] 08-22-2023 Miscellaneous Notes Patient returned call and went over results, notes from Mehnaz Sutherland [employer] PA[employer] MIXING SUPERVISOR with understanding. Patient said he is doing better, cough is getting to be less now. Called and left a voicemail for the Patient to call back and ask for a nurse to receive the providers message. Margret Garza, SHAN Please call patient and let him know that chest xray does not show signs of pneumonia, no issues seen. Please get an update on how he is feeling. Thanks ! Mehnaz Sutherland APRN.MIGUEL documented in this encounter [facility] 08-20-2023 Miscellaneous Notes Pt notified of same. Verbalizes understanding. Isabela Clayton LPN Please let him know ok to take them either together or separate. The most important recommendation would be that he be sure to take both with food. Patient calling, asking if her can take the antibiotic and the steroid at the same time. Please advise. documented in this encounter [facility] 08-20-2023 History of Present illness Narrative Radiology Service Progress Note PATIENT NAME: Monika Chowdhury DATE OF SERVICE: August 20, 2023 TIME: 10:08 AM PATIENT IDENTITY VERIFICATION COMPLETED USING TWO (2) IDENTIFIERS: Name and Date of confirmed by patient verbally. FALL SCREENING: Has the patient had 2 falls in the last year or 1 fall with injury or currently using an Ambulatory Assistive Device (Walker, Cane, Wheelchair, Crutches, etc.)? No PATIENT GENDER DATA: Male PATIENT RELEVANT IMPLANT DATA REVIEWED: Not Applicable RADIOLOGY DEPARTMENT: General X-ray: Exam(s) Completed: Chest X-Ray PERIPHERAL IV DATA: Not applicable SIGNED BY: RT Gennaro(R) August 20, 2023 10:08 AM documented in this encounter [facility] 08-20-2023 History of Present illness Narrative SUBJECTIVE Monika Chowdhury is a 73 year old male here today for acute concern. Chief Complaint Patient presents with: Cough: And nasal congestion HPI Monika Chowdhury is a 73 year old male. Here today acutely for concerns of cough and nasal congestion. Seen in 08/12 and 08/18 for this and diagnosed with sinusitis and URI acute. Started on doxycycline, has taken x4 doses. Negative strep and negative COVID, flu, RSV testing. He called in this morning due to concerns of coughing up blood. Cough is more mild during the day but bad at night, blood seen mixed with sputum after a coughing spell. Onset for that was today, otherwise sputum is dark yellow, thick. Few small spots of blood, flecks. He is on aspirin. No other blood thinning medications. Concerns of the antibiotic needing changed. No history of smoking. His medications were reviewed today and his list is now up to date. Medications Current Outpatient Medications Medication Sig ascorbic acid, vitamin C, (VITAMIN C) 500 mg tablet Take 500 mg by mouth once daily. aspirin, enteric coated (ASPIR-81) 81 mg EC tablet Take 1 tablet by mouth once daily. atorvastatin (LIPITOR) 10 mg tablet Take 1 tablet by mouth once daily. CALCIUM CARBONATE/VITAMIN D3 (CALCIUM 500 + D ORAL) Take by mouth once daily. codeine-guaiFENesin (GUAIFENESIN AC) 10-100 mg/5 mL syrup Take 5 mL by mouth four times a day as needed for up to 6 days. COMPOUNDED PRESCRIPTION KNEE HIGH COMPRESSION STOCKINGS 30-40 MM. DX: EDEMA. doxycycline hyclate (VIBRAMYCIN) 100 mg capsule Take 1 capsule by mouth two times a day for 10 days. Garlic ORAL Cap Take one(1) tablet daily. L-LYSINE ORAL Take 1 tablet by mouth once daily. MEDICATION, NON-DATABASE Flax Seed methylPREDNISolone (MEDROL, GEOVANNI,) 4 mg Dose-Pack Follow dosing instructions, take with food. metoprolol succinate ER (TOPROL XL) 50 mg 24 hr tablet Take 1 tablet by mouth once daily. Tadalafil (CIALIS) 10 mg tablet Take 1 tablet by mouth as directed. TAKE 1-2 HOURS BEFORE SEXUAL INTERCOURSE NEEDED. terazosin 5 mg capsule Take 1 capsule by mouth daily at bedtime. Given by Dr. Rivera. vit E-G-tnryie-zinc-lutein (EYE MULTIVIT-LUTEIN,C-E-CU-ZN,) 226 mg-90 mg-2 mg-34.8 mg-5 mg cap Take 1 tablet by mouth once daily. No current facility-administered medications for this visit. ALLERGIES No Known Allergies ACTIVE PROBLEM LIST Mixed Hyperlipidemia - 07/19/2019 Coronary Artery Disease Involving [place] Coronary Artery of [place] Heart Without Angina Pectoris - 07/19/2019 Bph With Obstruction/Lower Urinary Tract Symptoms - 08/27/2018 Comment: Dr. Greenberg, Urology 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 - 06/15/2013 Paroxysmal Atrial Fibrillation (Hcc) - 04/26/2013 Essential Tremor - 01/14/2012 Actinic Skin Damage - 09/30/2011 Essential Hypertension - 02/09/2010 Aortic Root Dilatation (Hcc) - 08/21/2009 Venous (Peripheral) Insufficiency - 11/19/2005 Social History Tobacco Use Smoking status: Never Smokeless tobacco: Never Vaping Use Vaping Use: Never used Substance Use Topics Alcohol use: No Comment: socially Drug use: No Review of Systems Respiratory: Positive for cough. Negative for apnea, choking, chest tightness, shortness of breath, wheezing and stridor. Cardiovascular: Negative. OBJECTIVE BP 126/70 Pulse 72 Temp 97.1 Resp 18 Wt 194 lb (88.0kg) SpO2 98% Physical Exam Vitals and nursing note reviewed. Constitutional: General: He is awake. He is not in acute distress. Appearance: Normal appearance. He is well-developed and well-groomed. He is not ill-appearing, toxic-appearing or diaphoretic. HENT: Head: Normocephalic. Right Ear: External ear normal. Left Ear: External ear normal. Nose: Nose normal. Eyes: General: Vision grossly intact. Conjunctiva/sclera: Conjunctivae normal. Pupils: Pupils are equal, round, and reactive to light. Neck: Vascular: No JVD. Trachea: Trachea normal. Cardiovascular: Rate and Rhythm: Normal rate and regular rhythm. Pulses: Normal pulses. Heart sounds: Normal heart sounds. No murmur heard. Pulmonary: Effort: Pulmonary effort is normal. No accessory muscle usage, prolonged expiration or respiratory distress. Breath sounds: Normal breath sounds. Musculoskeletal: Cervical back: Neck supple. Skin: General: Skin is warm and dry. Capillary Refill: Capillary refill takes less than 2 seconds. Neurological: General: No focal deficit present. Mental Status: He is alert and oriented to person, place, and time. Mental status is at baseline. Psychiatric: Attention and Perception: Attention and perception normal. Mood and Affect: Mood and affect normal. Speech: Speech normal. Behavior: Behavior normal. Behavior is cooperative. Thought Content: Thought content normal. Cognition and Memory: Cognition and memory normal. Judgment: Judgment normal. ASSESSMENT/PLAN: 1. Sinobronchitis - ICD9: 473.9, 490, ICD10: J32.9, J40 (primary diagnosis) - Will continue treatment with Doxycycline since he has only had x4 doses - The patient should also be given OTC cough and cold meds as needed, warm salt water gargles, throat lozenges and/or OTC throat spray as needed, and nasal saline gtts and suction prn for the first 5-7 days of treatment. - Supportive care with plenty of fluids, rest, and analgesia prn. - Start medrol dose pack to help lung inflammation/cough Will call Friday with CXR results and get an update. - XR CHEST 2V FRONTAL/LAT - METHYLPREDNISOLONE 4 MG TABLETS IN A DOSE PACK 2. Blood in sputum - ICD9: 786.30, ICD10: R04.2 Suspect this is from lung irritation with forceful cough and being on aspirin. WE will check a cxr to make sure no other etiology is seen. - XR CHEST 2V FRONTAL/LAT Portions of this note have been entered by ancillary staff. I have reviewed and when necessary edited, so that they are an adequate record of my encounter with this patient Please note that parts of this document were created using voice recognition software and therefore may contain grammatical errors. Patient verbalizes understanding of instructions from today's visit and in agreement with treatment plan. Questions answered. Agrees to call the office if questions, concerns of issues with acute symptoms not improving or if they worsen. See diagnoses and orders for additional plan(s). Allergies and medications were reviewed, list was updated, and refills given if needed. Past medical, surgical, social, and family history reviewed and updated as appropriate. Encouraged proper diet & exercise as well as compliance with taking medications. Age-appropriate health preventative measures were discussed. Return if symptoms worsen or fail to improve, for Keep next scheduled appointment.. Mehnaz Sutherland APRN-MIGUEL documented in this encounter [facility] 07-11-2023 History of Present illness Narrative Patient presents with: Post Op Follow Up: 05/23/23 Umbilical hernia repair Monika Chowdhury is a 73 year old male who presents for recheck. Patient is s/p umbilical hernia repair by Dr. Jimenez on 05/23/23. Has been doing well since surgery. Notes feeling firm area at site since surgery, has not gotten any larger and does not cause him any pain. He is abiding by his lifting restrictions. 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 BP 128/80 Pulse 89 Temp 36.6 C (97.8 F) Wt 87.1 kg (192 lb) SpO2 97% BMI 26.04 kg/m General: patient alert, cooperative, pleasant and in no acute distress Incision is nicely healed with no signs of infection or inflammation. +healing ridge and palpable scar tissue, no evidence of recurrent hernia. Assessment: s/p umbilical hernia repair, healing nicely Plan: No lifting greater than 20 lbs for 8 weeks from surgery date. RTW letter provided. Follow up as needed Patient verbalized understanding of all above and agreed with the plan. Margret Briggs PA-C documented in this encounter [facility] 06-04-2023 Instructions Margret Briggs PA-C - 06/04/2023 1:22 PM EDT -No obvious hernia recurrence detected today -Recommend warm compresses/heating pad -Brace against abdomen with hands or a pillow if you feel the urge to cough or sneeze -No lifting greater than 20 lbs -Recheck in 4-6 weeks, sooner if any new concerns documented in this encounter [facility] 06-04-2023 History of Present illness Narrative S/p jFOLLOW UP VISIT - HERNIA NAME: Monika Chowdhury [facility] NO.: [id number] DATE OF SERVICE: 06/04/2023 : 1950 REFERRING PHYSICIAN: Fei Gandhi MD Monika is a patient I am following for an umbilical hernia. Dr. Jimenez performed a simple umbilical hernia repair on 05/23/23. The patient currently notes no major complaints. his appetite has been good. he denies fever, chills or abdominal pain. Denies nausea or vomiting. he does note some mild incisional discomfort. He noted a hard lump around umbilical area once the steri-strips came off, and wanted to ensure this was normal VITALS: Blood pressure 124/62, pulse 91, temperature 36.7 C (98.1 F), weight 85 kg (187 lb 6.4 oz), SpO2 96 %. General: patient is alert, cooperative, pleasant and in no acute distress On examination, the abdomen is benign. The incision is healing well without signs of infection or inflammation. +healing ridge palpable, mild ecchymosis. There are no signs of recurrent hernia formation. Assessment IMPRESSION: status post simple umbilical hernia repair PLAN: -Reassured patient. No obvious hernia recurrence detected today -Recommend warm compresses/heating pad -Brace against abdomen with hands or a pillow if you feel the urge to cough or sneeze -No lifting greater than 20 lbs -Recheck in 4-6 weeks, sooner if any new concerns Diagnoses: (Z98.890, Z87.19) S/P hernia repair (primary encounter diagnosis) Patient verbalized understanding of all above and agreed with the plan. Margret Briggs PA-C documented in this encounter [facility] 05-30-2023 Instructions Margret Briggs PA-C - 05/30/2023 11:31 AM EDT Follow up for recheck at 6 weeks postop (around 07/04/23) The following instructions are important for you related to your office visit today with the [facility] General Surgeons. INSTRUCTIONS FOLLOWING YOUR RECENT HERNIA SURGERY You should be returning to your regular diet, If you have having persistent issues with tolerating your diet, please contact our office It is not unusual to have incisional pain for the first 1-2 weeks following surgery. If this persists beyond 2 weeks, contact the office You may remove the steri-strips in 5 days if they have not fallen off by that time. You may return to your regular activities. You may drive if you are no longer taking narcotic pain medication. Climbing stairs is fine. Walking in encouraged. Sitting up from bed may be uncomfortable. Sitting up using your lateral abdominal muscles (sitting up sideways) is usually more comfortable. You should perform no lifting greater than 20lbs for the next 6-7 weeks. Usually 8 weeks total from the date of surgery. It is not unusual to have loose stools following surgery. This is usually self limited and related to the antibiotics that were given during your surgical procedure. Fiber supplementation and yogurt with active cultures may help you return to regular bowel activity. If you note loose stools persisting for over 2 weeks, or significant cramping or loose bloody stools, contact the office immediately. Contact the office immediately if any of your incisions become increasingly tender, red or have drainage. Again, if you have any difficulties or concerns, contact our office immediately. If you note any additional difficulties, questions, or concerns, you should contact our office immediately @ [phone] and ask to be transferred to the General Surgery department. documented in this encounter [facility] 05-30-2023 History of Present illness Narrative FOLLOW UP VISIT - HERNIA NAME: [place] [facility] NO.: [id number] DATE OF SERVICE: 05/30/2023 : 1950 REFERRING PHYSICIAN: Fie Gandhi MD Monika is a patient I am following for a umbilical hernia. Dr. Jimenez performed a simple umbilical hernia repair on 05/23/23. The patient currently notes no major complaints. his appetite has been good. he denies fever, chills or abdominal pain. he does note some mild incisional discomfort. he notes no bulges at the operative site VITALS: Blood pressure 132/74, pulse 74, temperature 36.3 C (97.4 F), SpO2 96 %. General: patient is alert, cooperative, pleasant and in no acute distress On examination, the abdomen is benign. The incision is healing well without signs of infection or inflammation. There are no signs of recurrent hernia formation. Assessment IMPRESSION: status post simple umbilical hernia repair PLAN: If the patient notes any problems, he should contact me immediately. he may return to his regular activities as tolerated, with the exception of no lifting greater than 20 pounds for the next 7 weeks. If patient feels the urge to cough or sneeze, they should brace against the repair site with their hands or a pillow. Diagnoses: (Z98.890, Z87.19) S/P hernia repair (primary encounter diagnosis) Return to Clinic: The patient is instructed to follow-up with me as needed. Patient verbalized understanding of all above and agreed with the plan. Margret Briggs PA-C documented in this encounter [facility] 05-23-2023 Note HNO ID: [id number] Author: Fariba Hernandez APRN.CONTRACT MAIL CARRIER Service: Anesthesiology Author Type: Nurse Director Of Audiology Type: Anesthesia Procedure Notes Filed: 05/23/2023 7:44 AM Note Text: ANESTHESIOLOGY PROCEDURE NOTE Airway General Information Procedure Start Time/Medication Administration: 05/23/2023 7:38 AM Patient location during procedure: OR Timeout Performed Pre-procedure: timeout performed Consent Obtained: Yes Patient identity confirmed: arm band and patient Staffing CONTRACT MAIL CARRIER: Fariba Hernandez APRN.CONTRACT MAIL CARRIER Indications and Patient Condition Indications for airway management: anesthesia Preoxygenated: yes anesthesia circuit Patient position: sniffing Method: asleep Final Airway Details Final airway type: supraglottic airway Number of attempts at approach: 1 Final Supraglottic Airway: i-gel Size 4 Seal Adequate: yes SIGNATURE: Fariba Hernandez APRN.CONTRACT MAIL CARRIER PATIENT NAME: Monika Chowdhury DATE: May 23, 2023 TIME: 7:44 AM CSN: [id number] [facility] 05-21-2023 Miscellaneous Notes Patient dropped off fax number on post it.. Faxed [facility] paperwork today 05/21/23 Attn: Joanna Mccarty LPN Patient calling and asking if his [employer] paperwork has been completed. He is having hernia surgery on Friday with Dr. Jimenez and his employer needs the paperwork prior to his surgery or he will not get paid. Please call patient with update on the paperwork. documented in this encounter [facility] 05-07-2023 History and physical note HISTORY AND PHYSICAL EXAMINATION SERVICE DATE: 05/07/2023 SERVICE TIME: 10:02 AM PRIMARY CARE PHYSICIAN: Fei Gandhi MD REASON FOR VISIT: Monika Chowdhury is a 73 year old male who is scheduled for Procedure(s): REPAIR HERNIA UMBILICAL REDUCIBLE 3cm-10cm (N/A) at the request of Dr. Naomy Jimenez for consultation. My final recommendation will be communicated back to the requesting physician by way of shared medical record or letter. Subjective The patient has the following: ACTIVE PROBLEM LIST Venous (Peripheral) Insufficiency Bph With Obstruction/Lower Urinary Tract Symptoms Aortic Root Dilatation (Hcc) Essential Hypertension Actinic Skin Damage Essential Tremor Paroxysmal Atrial Fibrillation (Hcc) 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 Mixed Hyperlipidemia Coronary Artery Disease Involving [place] Coronary Artery of [place] Heart Without Angina Pectoris COVID-19 Immunization Status Overdue - COVID-19 VACCINE (6 - Pfizer series) Overdue since 11/24/2022 07/25/2022 Imm Admin: COVID-19 vaccine, age 12+ yr, bivalent (PFIZER-BIONTECH) 11/24/2021 Imm Admin: COVID-19 original vaccine, age 12+ yr, monovalent (PFIZER-BIONTECH - PURPLE TOP) 02/07/2021 Imm Admin: COVID-19 original vaccine, age 12+ yr, monovalent (PFIZER-BIONTECH - PURPLE TOP) Only the first 3 history entries have been loaded, but more history exists. CHIEF COMPLAINT: Pre-op exam HPI: Monika Chowdhury is a 73 year old seen for PAC due to scheduled above surgery because of an umbilical hernia. 04/22/2023, Dr. Jimenez CHIEF COMPLAINT: Consult (Possible umbilical hernia.) HPI: The patient is a 72 year old male presents with umbilical hernia. He has had previous inguinal hernias repairs He has noted this umbilical hernia for the past month and it is bothersome to him He denies incarceration He notes that the area is tender with bowel movements. He denies cigarettes use He denies previous surgery in the area. REVIEW OF SYSTEMS: General: No weight loss, malaise or fevers. Neurological: +essential tremor, no rx. No history of TIA's, stroke, MEDICAL OFFICE REP tumor, impaired sensorium, hemiplegia, paraplegia or quadraplegia. No neurological symptoms or problems. Respiratory: Positive for: obstructive sleep apnea and CPAP/BiPAP noncompliant. Negative for: asthma, COPD, pneumonia within 6 weeks, tobacco use and URI < 2 weeks. Cardiovascular: +aortic root dilatation Positive for: anticoagulation therapy (ASA), atrial fibrillation (paroxymal, s/p ablation), CAD, hyperlipidemia and hypertension Patient's last office visit The following tests and/or procedures were not performed: cardiac stents. Negative for: arrhythmia, chest pain, CHF, congenital heart defect, DVT/PE, recent VT, murmur/valvular heart disease, open heart surgery and valve surgery. GI: See HPI. : Positive for: BPH. Negative for: nephrolithiasis, renal failure and urinary tract infection. Endocrine: No history of diabetes. Has not taken steroids within the past 30 days. No history of endocrinological symptoms or problems. Hematology: Positive for: chronic anti-coagulation/platelet meds. Patient is on anti-coagulation/platelet medication(s): Aspirin. Negative for: anemia, bruises/bleeds easily and transfusion of at least 4 units within 72 hours prior to surgery. Oncology: No history of CA metastasis, chemo within 30 days, or radiotherapy within 90 days. No history of oncological symptoms or problems. Psych: No history of psychiatric symptoms or problems. Musculoskeletal: Negative for joint pain or swelling, back pain or muscle pain. Skin: Negative for lesions, rash and itching. PAST MEDICAL HISTORY Diagnosis Date Aortic root dilatation (HCC) 08/21/2009 Atrial fibrillation 04/26/2013 Benign neoplasm of colon 12/18/2005 Adenomatous polyp BPH with obstruction/lower urinary tract symptoms 08/27/2018 Dr. Greenberg, Urology Coronary artery disease involving [place] coronary artery of [place] heart without angina pectoris 07/19/2019 Diverticulosis of colon (without mention of hemorrhage) Essential tremor 01/14/2012 Hypertrophy of prostate with urinary obstruction and other lower urinary tract symptoms (LUTS) 12/31/2006 Ingrown left big toenail 05/2022 infected Internal hemorrhoids without mention of complication Mixed hyperlipidemia 07/19/2019 Near syncope 02/15/2014 bradycardia NASRA on CPAP 06/15/2013 Problems with sexual function Unspecified essential hypertension 02/09/2010 VENOUS INSUFFICIENCY NOS 11/19/2005 PAST SURGICAL HISTORY Procedure Laterality Date ATRIAL FIBRILLATION/FLUTTER ABLATION 03/29/2020 COLONOSCOPY - DIAGNOSTIC 08/25/20021992, 1994 COLONOSCOPY FLX DX W/COLLJ SPEC WHEN PFRMD 10/12/2012 Colonoscopy repeat 10 years COLONOSCOPY FLX DX W/COLLJ SPEC WHEN PFRMD 07/07/2020 Colonoscopy CYSTOSCOPY 04/12/2015 LEFT HEART CATH,PERCUTANEOUS 03/18/2008 Cardiac cath, L heart, normal LEFT HEART CATH,PERCUTANEOUS 05/12/2013 Cardiac cath, L heart. 30-40% LAD. PAST SURGICAL HISTORY OF 1963 left hip surgery after fracture, hardware removed PAST SURGICAL HISTORY OF 08/29/2011 Right index finger repair PAST SURGICAL HISTORY OF 11/2012 Right index Finger repair x 2 RPR 1ST INGUN HRNA AGE 3 YRS/> REDUCIBLE 2007 Hernia repair, inguinal x 3 TONSILLECTOMY PRIMARY/SECONDARY <AGE 12 1956 Tonsillectomy FAMILY HISTORY Problem Relation Age of Onset Arthritis Mother other (Other) Mother fall, natural causes Heart Father CABG other (Cholesterol) Father Diabetes Paternal Grandmother Prostate Cancer Brother 62 Glaucoma Brother Arthritis Brother lumbago Coronary Artery Disease Brother stents Arthritis Brother lumbago Social History Tobacco Use Smoking status: Never Smokeless tobacco: Never Vaping Use Vaping Use: Never used Substance Use Topics Alcohol use: No Comment: socially Drug use: No Prior to Admission medications as of 05/07/23 1619 Medication Sig Last Dose Taking MEDICATION, NON-DATABASE Flax Seed Taking Yes L-LYSINE ORAL Take 1 tablet by mouth once daily. Taking Yes vit W-X-icovdt-zinc-lutein (EYE MULTIVIT-LUTEIN,C-E-CU-ZN,) 226 mg-90 mg-2 mg-34.8 mg-5 mg cap Take 1 tablet by mouth once daily. Taking Yes atorvastatin (LIPITOR) 10 mg tablet Take 1 tablet by mouth once daily. Taking Yes metoprolol succinate ER (TOPROL XL) 50 mg 24 hr tablet Take 1 tablet by mouth once daily. Taking Yes Tadalafil (CIALIS) 10 mg tablet Take 1 tablet by mouth as directed. TAKE 1-2 HOURS BEFORE SEXUAL INTERCOURSE NEEDED. Taking Yes aspirin, enteric coated (ASPIR-81) 81 mg EC tablet Take 1 tablet by mouth once daily. Taking Yes COMPOUNDED PRESCRIPTION KNEE HIGH COMPRESSION STOCKINGS 30-40 MM. DX: EDEMA. Taking Yes terazosin 5 mg capsule Take 1 capsule by mouth daily at bedtime. Given by Dr. Rivera. Taking Yes CALCIUM CARBONATE/VITAMIN D3 (CALCIUM 500 + D ORAL) Take by mouth once daily. Taking Yes ascorbic acid, vitamin C, (VITAMIN C) 500 mg tablet Take 500 mg by mouth once daily. Taking Yes Garlic ORAL Cap Take one(1) tablet daily. Taking Yes No medication comments found. ALLERGIES No Known Allergies Objective PHYSICAL EXAM: General: alert and oriented (x3) and healthy appearance. Pertinent negatives noted - not distressed. Skin: normal color, no rash or lesions. HEENT: EOM intact and pupils equal round. Pertinent negatives noted - no carotid bruit. Cardiovascular: regular rate and rhythm, normal S1 and S2, no rub, murmurs, or gallop. Respiratory: normal breath sounds, no wheezes or crackles. No chest wall deformity or tenderness. Abdomen: soft. Pertinent negatives noted - not tender. Extremities: no deformity, no edema or tenderness, no joint swelling or clubbing. Neurological: normal cognition and motor skills. Gait normal. No weakness or sensory deficit. PAIN ASSESSMENT: Pain Pain Level: 3 Pain Location: Abdomen Description: Pressure Duration Amount of Time: 1 Duration Units: Weeks Frequency: Continuous VITALS: BP 140/78 Pulse 78 Temp (Src) 97.3 (Temporal) Resp 16 Ht 6' 0 (1.83m) Wt 193 lb (87.5kg) SpO2 95% BMI 26.17 kg/(m^2). Diagnostic tests reviewed for today's visit: Lab Value Units Date High Low HB 13.9 g/dL 05/07/2023 17.0 13.0 HCT 43.1 % 05/07/2023 51.0 39.0 WBC 5.63 k/uL 05/07/2023 11.00 3.70 PLT 192 k/uL 05/07/2023 400 150 NA 139 mmol/L 05/07/2023 144 136 K 4.4 mmol/L 05/07/2023 5.1 3.7 GLUC 94 mg/dL 05/07/2023 99 74 BUN 22 mg/dL 05/07/2023 24 9 CREAT 0.85 mg/dL 05/07/2023 1.22 0.73 PTSEC No results within date range. INR No results within date range. APTT No results within date range. ALT 31 U/L 05/07/2023 54 10 AST 26 U/L 05/07/2023 40 14 TBILI 0.4 mg/dL 05/07/2023 1.3 0.2 TSH No results within date range. Lab Value Units Date High Low HCGQT No results within date range. UHCG No results within date range. HCG, BODY* No results within date range. Lab Value Units Date High Low ABORHD No results within date range. ABSCREEN No results within date range. No results found for: HBA1C Recent Results (from the past 8760 hour(s)) ECG COMPLETE Collection Time: 05/07/23 4:44 PM Result Value Ventricular Rate 63 Atrial Rate 63 P-R Interval 204 QRS Duration 104 QT Interval 408 QTC Calculation (Bazett) 417 Calculated P [place] 51 Calculated R [place] 12 Calculated T [place] 40 Impression NORMAL SINUS RHYTHM NORMAL ECG Confirmed by SUSIE CRAVEN DO ([id number]) on 05/08/2023 5:05:11 PM No results found for this or any previous visit (from the past 31342 hour(s)). 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 Assessment: non-compliant with CPAP Coronary artery disease involving [place] coronary artery of [place] heart without angina pectoris Assessment: s/p cardiac stents, daily statin, BB and daily ASA, following [facility], in the process of re-establishing with [facility] cardiology, EKG NSR, denies CP, palpitations or SOB Mixed hyperlipidemia Assessment: c/w statin Paroxysmal atrial fibrillation (HCC) Assessment: s/p ablation BPH with obstruction/lower urinary tract symptoms Assessment: controlled on rx Essential hypertension Assessment: controlled on rx Last 14 BP Last 14 Encounter BP Readings: Date: BP: 05/07/2023 140/78 04/22/2023 132/65 04/09/2023 118/64 03/24/2023 124/64 12/30/2022 132/70 09/23/2022 114/54 06/02/2022 128/68 05/20/2022 142/72 04/20/2022 138/70 03/30/2022 118/68 03/21/2022 112/54 12/18/2021 124/64 09/07/2021 136/74 08/06/2021 126/72 Venous (peripheral) insufficiency Assessment: compression stockings Essential tremor Assessment: hx Aortic Root Dilatation Assessment: under surveillance, 02/2020 Echo - The visualized aorta is borderline dilated with a maximal dimension of 3.8 cm. Cruz Activity Status Index: METS: Climb a flight of stairs or walk up a hill (5.50 METs) DASI Score: 5.5 Patient denies any chest pain or undue shortness of breath with the above physical activity. Clinical Frailty Scale: 3. Well, with treated comorbid disease STOP-Bang Score: Snores loudly Often feels tired, fatigued, or sleepy during the daytime Has been observed to stop breathing or choking/gasping during sleep Has or is being treated for high blood pressure Patient over 50 years old Male patient BMI less than or equal to 35 kg/m^2 Does not have a large neck STOP-Bang Score: 6 [id number] Score: Age: >=75 Sex: male CHF history: No Hypertension history: Yes Stroke/TIA/thromboembolism history: No Vascular disease history: Yes Diabetes history: No [id number] Score: 4 ARISCAT Score: Age: 51-80 Preoperative SpO2: 91-95% Respiratory infection in the last month: No Preoperative anemia: No Surgical incision: upper abdominal Duration of surgery: <2 hrs Emergency procedure: No ARISCAT Score: 26 ASA Class: 3 ANESTHESIA FINDINGS: Intubation History: No history of difficult intubation Significant Anesthesia Considerations: none Airway History: No history of difficult airway I - PHYSICAL EVALUATION AIRWAY Patient intubated: No. Tracheostomy tube not present Mallampati: III. TM distance: >3 FB. Neck ROM: full ROM without neurological symptoms. Mouth opening: adequate. Short neck: no. Thick neck: no Zamora present: no Lip Bite Test: II Microretrognathia/Micronagthia/Re cessed Chin: No DENTAL Dental findings: teeth intact. Additional comments: +crowns/back. II - ANESTHESIA PLAN ASA Score: 3 Anesthetic Plan: other Anesthetic plan additional comments: *PACC/TCI - anesthesia choice. Beta Yaz Monitoring Plan Post Procedure Analgesic Plan Informed Consent Anesthetic risks, benefits, alternatives, personnel and consent discussed: yes. Patient / Responsible Democrat agrees to proceed: yes Patient / Surrogate agrees to blood products: blood products not planned Discussed the possibility of lip / dental damage: yes Prepared for Surgery: optimally prepared for surgery, pending [see comment]. Labs and EKG CONSULTS: Patient does not require consults for optimization at this time Planned Anesthetic: other anesthesia choice The Following Tests/Procedures Have Been Initiated: Orders Placed This Encounter >CBC + AUTO DIFF Standing Status: Future Number of Occurrences: 1 Standing Expiration Date: 07/07/2023 >CMP Standing Status: Future Number of Occurrences: 1 Standing Expiration Date: 07/07/2023 ECG COMPLETE Standing Status: Future Number of Occurrences: 1 Standing Expiration Date: 05/07/2024 Instructions Given to Patient: Instructions located in the after visit summary. Patient given verbal and written preop instructions and voices comprehension and compliance. SIGNATURE: Liz Shipley APRN.CNP PATIENT NAME: Monika Chowdhury DATE: May 07, 2023 TIME: 4:12 PM PAGER/CONTACT #: documented in this encounter [facility] 05-07-2023 Instructions Liz Shipley APRN.CNP - 05/07/2023 4:12 PM EDT PATIENT PREOPERATIVE INSTRUCTIONS Naomy Jimenez MD has scheduled you for your procedure at this surgery center: [facility]: [phone] -- [address] [facility] [address]. Please read below carefully for your personalized instructions. Dietary Restrictions: - No solid food after midnight. - You may have 12 ounces of clear liquids (water, clear juices such as apple juice or gatorade, carbonated beverages, clear tea, black coffee, jello) until 2 hours before scheduled arrival at facility. No red/purple coloring and no creamer/sugar Medications: Unless instructed differently below, stay on all of your medications until your surgery. Approved medications to take the morning of surgery with a sip of water: atorvastatin (LIPITOR), metoprolol tartrate, (LOPRESSOR) If you take any medications for erectile dysfunction-Cialis (Tadalafil), Levitra, Staxyn (Vardenafil) Viagra (Sildenenafil please do not take these for 48 hours before surgery. If you start any new medications after today's visit, please contact the surgeon's office. Blood Thinning Medications: - Stop NSAIDS (Ibuprofen, Advil, Aleve, Motrin, Celebrex, Mobic, etc.) 7 days before surgery, as directed by your surgeon. - Stop Aspirin 7 days before surgery, as directed by your surgeon. - Stop Vitamin E, ALL multi-vitamins, herbals and dietary supplements 7 days before surgery. - You may take Tylenol (Acetaminophen) or any of your pain medications that do not contain aspirin or NSAIDS as needed. Important Reminders: - Candy, mints, and tobacco products are NOT permitted the morning of surgery. - Hearing aids, dentures and glasses may be worn the morning of surgery. - NO jewelry, body piercings, makeup, hairpins or contacts are to be worn the day of surgery. If you develop symptoms such as a fever, cold, or flu, or have other changes to your health within TWO DAYS of scheduled surgery or the morning of surgery, please contact the surgery center above. Personal Belongings: -Please have photo ID and insurance cards. -If you do not have a copy of advance directives on file with us, please bring a copy with you on the day of surgery. - Leave ALL valuables and money at home or with family members. For Outpatient Procedures: - YOU MUST HAVE A RESPONSIBLE LIME KILN AND RECAUSTICIZING OPERATOR TAKE YOU HOME. A SALVAGE DETERMINER OR PHOTOGRAPHIC LABORATORY SUPERVISOR CANNOT BE MADE A RESPONSIBLE LIME KILN AND RECAUSTICIZING OPERATOR. - We recommend that a responsible person stays with you overnight to take care of you. - You cannot stay in a hotel alone after outpatient surgery. You will not be permitted to have your surgery, if you do not have someone to take care of you. Arrival Time for Surgery: - The Surgery Center or hospital where you are having surgery will call the afternoon before surgery (or Friday for Friday surgery) with a scheduled arrival time. - If you have not heard by 4 pm, please contact the surgery center above. Please be aware that emergency situations arise, which may delay or change your surgical time. If this happens, we will notify you as soon as possible and regret any inconvenience. If you already have an Advance Directive, please fax a copy to [phone] or email to for it to be added to your chart. If you do not have an Advance Directive, you can find the appropriate form and more information at [email or web address]. We recommend that you complete the Advance Directive form found on the website and bring it with you the day of your surgery. It can be witnessed and scanned into your chart that day. Liz Shipley APRN.MIGUEL documented in this encounter [facility] 04-22-2023 History of Present illness Narrative HISTORY AND PHYSICAL Monika Chowdhury 1950 REFERRING PHYSICIAN: Mehnaz Sutherland APRN.CNP CHIEF COMPLAINT: Consult (Possible umbilical hernia.) HPI: The patient is a 72 year old male presents with umbilical hernia. He has had previous inguinal hernias repairs He has noted this umbilical hernia for the past month and it is bothersome to him He denies incarceration He notes that the area is tender with bowel movements. He denies cigarettes use He denies previous surgery in the area. PAST MEDICAL HISTORY Diagnosis Date Aortic root dilatation (HCC) 08/21/2009 Atrial fibrillation 04/26/2013 Benign neoplasm of colon 12/18/2005 Adenomatous polyp BPH with obstruction/lower urinary tract symptoms 08/27/2018 Dr. Greenberg, Urology Coronary artery disease involving [place] coronary artery of [place] heart without angina pectoris 07/19/2019 Diverticulosis of colon (without mention of hemorrhage) Essential tremor 01/14/2012 Hypertrophy of prostate with urinary obstruction and other lower urinary tract symptoms (LUTS) 12/31/2006 Ingrown left big toenail 05/2022 infected Internal hemorrhoids without mention of complication Mixed hyperlipidemia 07/19/2019 Near syncope 02/15/2014 bradycardia NASRA on CPAP 06/15/2013 Problems with sexual function Unspecified essential hypertension 02/09/2010 VENOUS INSUFFICIENCY NOS 11/19/2005 PAST SURGICAL HISTORY Procedure Laterality Date ATRIAL FIBRILLATION/FLUTTER ABLATION 03/29/2020 COLONOSCOPY - DIAGNOSTIC 08/25/20021992, 1994 COLONOSCOPY FLX DX W/COLLJ SPEC WHEN PFRMD 10/12/2012 Colonoscopy repeat 10 years COLONOSCOPY FLX DX W/COLLJ SPEC WHEN PFRMD 07/07/2020 Colonoscopy CYSTOSCOPY 04/12/2015 LEFT HEART CATH,PERCUTANEOUS 03/18/2008 Cardiac cath, L heart, normal LEFT HEART CATH,PERCUTANEOUS 05/12/2013 Cardiac cath, L heart. 30-40% LAD. PAST SURGICAL HISTORY OF 1963 left hip surgery after fracture, hardware removed PAST SURGICAL HISTORY OF 08/29/2011 Right index finger repair PAST SURGICAL HISTORY OF 11/2012 Right index Finger repair x 2 RPR 1ST INGUN HRNA AGE 3 YRS/> REDUCIBLE 2007 Hernia repair, inguinal x 3 TONSILLECTOMY PRIMARY/SECONDARY <AGE 10 1955 Tonsillectomy Current Outpatient Medications Medication Sig MEDICATION, NON-DATABASE Flax Seed L-LYSINE ORAL Take 1 tablet by mouth once daily. vit F-T-auomgf-zinc-lutein (EYE MULTIVIT-LUTEIN,C-E-CU-ZN,) 226 mg-90 mg-2 mg-34.8 mg-5 mg cap Take 1 tablet by mouth once daily. atorvastatin (LIPITOR) 10 mg tablet Take 1 tablet by mouth once daily. metoprolol succinate ER (TOPROL XL) 50 mg 24 hr tablet Take 1 tablet by mouth once daily. Tadalafil (CIALIS) 10 mg tablet Take 1 tablet by mouth as directed. TAKE 1-2 HOURS BEFORE SEXUAL INTERCOURSE NEEDED. aspirin, enteric coated (ASPIR-81) 81 mg EC tablet Take 1 tablet by mouth once daily. COMPOUNDED PRESCRIPTION KNEE HIGH COMPRESSION STOCKINGS 30-40 MM. DX: EDEMA. terazosin 5 mg capsule Take 1 capsule by mouth daily at bedtime. Given by Dr. Rivera. CALCIUM CARBONATE/VITAMIN D3 (CALCIUM 500 + D ORAL) Take by mouth once daily. ascorbic acid, vitamin C, (VITAMIN C) 500 mg tablet Take 500 mg by mouth once daily. Garlic ORAL Cap Take one(1) tablet daily. dicyclomine (BENTYL) 10 mg capsule Take 1 capsule by mouth twice daily. As directed. (Patient not taking: No sig reported) ALLERGIES: Patient has no known allergies. PERSONAL HISTORY: Social History Tobacco Use Smoking status: Never Smokeless tobacco: Never Vaping Use Vaping Use: Never used Substance Use Topics Alcohol use: No Comment: socially Drug use: No FAMILY HISTORY Problem Relation Age of Onset Arthritis Mother other (Other) Mother fall, natural causes Heart Father CABG other (Cholesterol) Father Diabetes Paternal Grandmother Prostate Cancer Brother 62 Glaucoma Brother Arthritis Brother lumbago Coronary Artery Disease Brother stents Arthritis Brother lumbago The review of systems data was entered by the nurse and reviewed by ut Nursing Notes: Allie Almanza RN 04/22/2023 10:32 AM Signed REVIEW OF SYSTEMS: General: The patient denies fatigue, denies weight loss, denies weight gain, denies feeling hot, and denies feelings of cold. Eyes: The patient denies glaucoma, denies eye injury/surgery, does not wear glasses or contacts. Ear/Nose/Throat: The patient denies allergies, denies hayfever, denies ear infections, and denies bloody noses. Cardiovascular: The patient denies chest pain, NOTES heart disease, NOTES high blood pressure,denies cardiac stent, denies prior heart attack, NOTES irregular heart beat, NOTES high cholesterol, denies poor circulation, denies heart failure, other cardiac issues, denies claudication, denies cold feet, denies peripheral arterial stent. Respiratory: The patient denies tuberculosis, denies pneumonia, denies frequent cough, denies pulmonary embolism, denies shortness of breath, denies coughing up blood and NOTES NASRA on CPAP. Gastrointestinal: The patient denies difficulty swallowing, denies acid reflux, denies ulcers, denies vomiting, denies jaundice/hepatitis, denies gallbladder problems, denies black or tarry stools, NOTES hemorrhoids, denies bleeding from rectum, NOTES diverticulitis, denies constipation, denies diarrhea, denies loss of stool control, and NOTES hernias. Kidney/Bladder: The patient denies kidney stones, denies urine infections, and denies bloody urine. Skin: The patient denies a history of skin cancer, denies bleeding/changing moles, and denies a history of skin rash. Neurologic: The patient denies a history of epilepsy/convulsions, denies headaches, denies head/spinal injuries, and denies stroke/TIA. Psychiatric: The patient denies psychiatric medications, denies depression, and denies voices, denies substance abuse. Endocrine: The patient denies thyroid disorders, denies diabetes, and denies hormonal problems. Hematologic: The patient denies a history of bruising, denies bleeding, and denies anemia, denies blood clots. Infections: The patient denies a history of measles and mumps, denies rheumatic fever, and denies sexually transmitted diseases. Musculoskeletal: The patient denies back pain/injury, denies back problems, denies sciatica, denies knee/foot trouble, denies arthritis, or denies gout. When was patient's last Mammogram screening? N/A Last Colonoscopy: 07/07/2020 Allie Almanza RN PHYSICAL EXAMINATION: General: The patient is 72 year old male, well nourished, well hydrated in no acute distress. The patient is oriented to time, place, and person. VITALS: Blood pressure 132/65, pulse 70, temperature 36.6 C (97.9 F), height 182.9 cm (6'), weight 86.5 kg (190 lb 12.8 oz), SpO2 96 %. Body mass index is 25.88 kg/m . Head - Normocephalic. EOM intact with sclera clear and no icterus noted. . Neck - supple with no jugular venous distention noted. Trachea is midline. Lungs - clear to auscultation. Normal breath sounds. No rales/rhonchi/wheezing noted. No labored breathing noted, such as retractions. No cough heard. Heart - normal S1 and S2 auscultated. No rubs/clicks/murmurs noted. Regular rate. Abdomen - soft and benign. Palpable umbilical hernia noted Extremities - no calf tenderness noted. No pitting edema noted. Skin - normal skin integrity. Neurological - gait normal, no focal deficits noted. Psych - calm and appropriate Assessment IMPRESSION: umbilical hernia - reducible PLAN: I have discussed the above with the patient. I have offered umbilical hernia repair, possible use of mesh. I have explained the procedure to the patient. I have counseled the patient as to the risks of the procedure, including but not limited to: infection, bleeding, injury to any blood vessels/nerves, scar tissue, injury to any intrabdominal organs, injury to bowel/bladder, intraabdominal abscess/bleeding, hernias at incisional sites, wound infections, complications of anesthesia, etc. - the patient understands. The patient wishes to proceed. I have answered all questions to the patient s satisfaction and the patient has no further questions. I have confirmed and edited as necessary, the PFSH and ROS obtained by others. Consultation requested by Mehnaz Sutherland for an opinion regarding patient's umbilical hernia. My final recommendations will be communicated back to the requesting physician by way of shared Medical record or letter to requesting physician via US mail. . Diagnoses: (K42.9) Umbilical hernia without obstruction and without gangrene (Z98.890, Z87.19) History of hernia surgery Return to Clinic: The patient will be scheduled for surgery at [facility]. I spent a total of 32 minutes on the date of the service which included preparing to see the patient with review of any pertinent laboratory studies/radiological imaging/medical records, [id number] patient care, obtaining oral medical history from the patient in this encounter, performing a medically appropriate examination, counseling and educating the patient/family/caregiver, and ordering and/or scheduling of medications/tests/procedures, and completing appropriate medical documentation. Naomy Jimenez MD documented in this encounter [facility] 04-22-2023 Nurse Note REVIEW OF SYSTEMS: General: The patient denies fatigue, denies weight loss, denies weight gain, denies feeling hot, and denies feelings of cold. Eyes: The patient denies glaucoma, denies eye injury/surgery, does not wear glasses or contacts. Ear/Nose/Throat: The patient denies allergies, denies hayfever, denies ear infections, and denies bloody noses. Cardiovascular: The patient denies chest pain, NOTES heart disease, NOTES high blood pressure,denies cardiac stent, denies prior heart attack, NOTES irregular heart beat, NOTES high cholesterol, denies poor circulation, denies heart failure, other cardiac issues, denies claudication, denies cold feet, denies peripheral arterial stent. Respiratory: The patient denies tuberculosis, denies pneumonia, denies frequent cough, denies pulmonary embolism, denies shortness of breath, denies coughing up blood and NOTES NASRA on CPAP. Gastrointestinal: The patient denies difficulty swallowing, denies acid reflux, denies ulcers, denies vomiting, denies jaundice/hepatitis, denies gallbladder problems, denies black or tarry stools, NOTES hemorrhoids, denies bleeding from rectum, NOTES diverticulitis, denies constipation, denies diarrhea, denies loss of stool control, and NOTES hernias. Kidney/Bladder: The patient denies kidney stones, denies urine infections, and denies bloody urine. Skin: The patient denies a history of skin cancer, denies bleeding/changing moles, and denies a history of skin rash. Neurologic: The patient denies a history of epilepsy/convulsions, denies headaches, denies head/spinal injuries, and denies stroke/TIA. Psychiatric: The patient denies psychiatric medications, denies depression, and denies voices, denies substance abuse. Endocrine: The patient denies thyroid disorders, denies diabetes, and denies hormonal problems. Hematologic: The patient denies a history of bruising, denies bleeding, and denies anemia, denies blood clots. Infections: The patient denies a history of measles and mumps, denies rheumatic fever, and denies sexually transmitted diseases. Musculoskeletal: The patient denies back pain/injury, denies back problems, denies sciatica, denies knee/foot trouble, denies arthritis, or denies gout. When was patient's last Mammogram screening? N/A Last Colonoscopy: 07/07/2020 Allie Almanza RN documented in this encounter [facility] 04-09-2023 History of Present illness Narrative SUBJECTIVE Monika Chowdhury is a 72 year old male here today for a check up on his medical problems. Chief Complaint Patient presents with: Abdominal Pain: umbilical hernia causing pain off and on mainly with BM HPI Monika Chowdhury is a 72 year old male established patient of Fei Gandhi MD. He presents today for concerns of an umbilical hernia. Last few weeks has noticed some abdominal pain when having a bowel movement. Was seen on 03/[address] Meng and differentials included IBS. Given bentyl but has not used this. Pain to right lower abdomen and to belly button. His family noticed his belly button had a bulge and told him that it was a hernia so here today for a recheck. Dr. Villafana did prior hernia repairs but this is the first umbilical hernia. His medications were reviewed today and his list is now up to date. Medications Current Outpatient Medications Medication Sig L-LYSINE ORAL Take 1 tablet by mouth once daily. vit Q-V-ncvxev-zinc-lutein (EYE MULTIVIT-LUTEIN,C-E-CU-ZN,) 226 mg-90 mg-2 mg-34.8 mg-5 mg cap Take 1 tablet by mouth once daily. atorvastatin (LIPITOR) 10 mg tablet Take 1 tablet by mouth once daily. metoprolol succinate ER (TOPROL XL) 50 mg 24 hr tablet Take 1 tablet by mouth once daily. Tadalafil (CIALIS) 10 mg tablet Take 1 tablet by mouth as directed. TAKE 1-2 HOURS BEFORE SEXUAL INTERCOURSE NEEDED. aspirin, enteric coated (ASPIR-81) 81 mg EC tablet Take 1 tablet by mouth once daily. terazosin 5 mg capsule Take 1 capsule by mouth daily at bedtime. Given by Dr. Rivera. CALCIUM CARBONATE/VITAMIN D3 (CALCIUM 500 + D ORAL) Take by mouth once daily. ascorbic acid, vitamin C, (VITAMIN C) 500 mg tablet Take 500 mg by mouth once daily. Garlic ORAL Cap Take one(1) tablet daily. dicyclomine (BENTYL) 10 mg capsule Take 1 capsule by mouth twice daily. As directed. (Patient not taking: Reported on 04/09/2023) COMPOUNDED PRESCRIPTION KNEE HIGH COMPRESSION STOCKINGS 30-40 MM. DX: EDEMA. No current facility-administered medications for this visit. ALLERGIES No Known Allergies ACTIVE PROBLEM LIST Mixed Hyperlipidemia - 07/19/2019 Coronary Artery Disease Involving [place] Coronary Artery of [place] Heart Without Angina Pectoris - 07/19/2019 Bph With Obstruction/Lower Urinary Tract Symptoms - 08/27/2018 Comment: Dr. Greenberg, Urology 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 - 06/15/2013 Paroxysmal Atrial Fibrillation (Hcc) - 04/26/2013 Essential Tremor - 01/14/2012 Actinic Skin Damage - 09/30/2011 Essential Hypertension - 02/09/2010 Aortic Root Dilatation (Hcc) - 08/21/2009 Venous (Peripheral) Insufficiency - 11/19/2005 Social History Tobacco Use Smoking status: Never Smokeless tobacco: Never Vaping Use Vaping Use: Never used Substance Use Topics Alcohol use: No Comment: socially Drug use: No Review of Systems Gastrointestinal: Positive for abdominal pain. Negative for abdominal distention, anal bleeding, blood in stool, constipation, diarrhea, nausea, rectal pain and vomiting. OBJECTIVE BP 118/64 Pulse 87 Wt 192 lb (87.1kg) SpO2 98% Physical Exam Vitals and nursing note reviewed. Constitutional: General: He is awake. He is not in acute distress. Appearance: Normal appearance. He is well-developed and well-groomed. He is not ill-appearing, toxic-appearing or diaphoretic. HENT: Head: Normocephalic. Right Ear: External ear normal. Left Ear: External ear normal. Nose: Nose normal. Eyes: General: Vision grossly intact. Conjunctiva/sclera: Conjunctivae normal. Pupils: Pupils are equal, round, and reactive to light. Neck: Vascular: No JVD. Trachea: Trachea normal. Cardiovascular: Rate and Rhythm: Normal rate and regular rhythm. Pulses: Normal pulses. Heart sounds: Normal heart sounds. No murmur heard. Pulmonary: Effort: Pulmonary effort is normal. No accessory muscle usage, prolonged expiration or respiratory distress. Breath sounds: Normal breath sounds. Abdominal: General: Bowel sounds are normal. Palpations: Abdomen is soft. There is no shifting dullness, fluid wave, hepatomegaly, splenomegaly or pulsatile mass. Tenderness: There is no abdominal tenderness. There is no guarding or rebound. Negative signs include Lopez's sign, Rovsing's sign and McBurney's sign. Hernia: A hernia is present. Hernia is present in the umbilical area. Musculoskeletal: Cervical back: Neck supple. Skin: General: Skin is warm and dry. Capillary Refill: Capillary refill takes less than 2 seconds. Neurological: General: No focal deficit present. Mental Status: He is alert and oriented to person, place, and time. Mental status is at baseline. Psychiatric: Attention and Perception: Attention and perception normal. Mood and Affect: Mood and affect normal. Speech: Speech normal. Behavior: Behavior normal. Behavior is cooperative. Thought Content: Thought content normal. Cognition and Memory: Cognition and memory normal. Judgment: Judgment normal. ASSESSMENT/PLAN: 1. Umbilical hernia without obstruction and without gangrene - ICD9: 553.1, ICD10: K42.9 (primary diagnosis) He would like to see general surgery, referral placed. - CONSULT TO GENERAL SURGERY 2. History of hernia surgery - ICD9: V45.89, ICD10: Z98.890, Z87.19 - CONSULT TO GENERAL SURGERY Portions of this note have been entered by ancillary staff. I have reviewed and when necessary edited, so that they are an adequate record of my encounter with this patient Please note that parts of this document were created using voice recognition software and therefore may contain grammatical errors. Patient verbalizes understanding of instructions from today's visit and in agreement with treatment plan. Questions answered. Agrees to call the office if questions, concerns of issues with acute symptoms not improving or if they worsen. Return if symptoms worsen or fail to improve, for Keep next scheduled appointment.. Mehnaz Sutherland APRN-MIGUEL documented in this encounter [facility] 04-08-2023 Miscellaneous Notes Pt called and is notified of providers results. Pt voices understanding. Margret Garza RN Left message to call & speak to nurse for non-urgent results. Iris Pedersen LPN ----- Message from Fei Gandhi MD sent at 04/07/2023 4:16 AM EDT ----- Normal chest X-ray documented in this encounter [facility] 03-24-2023 History of Present illness Narrative Radiology Service Progress Note PATIENT NAME: Monika Chowdhury DATE OF SERVICE: March 24, 2023 TIME: 4:34 PM PATIENT IDENTITY VERIFICATION COMPLETED USING TWO (2) IDENTIFIERS: Name and Date of confirmed by patient verbally. FALL SCREENING: Has the patient had 2 falls in the last year or 1 fall with injury or currently using an Ambulatory Assistive Device (Walker, Cane, Wheelchair, Crutches, etc.)? No PATIENT GENDER DATA: Male PATIENT RELEVANT IMPLANT DATA REVIEWED: Not Applicable RADIOLOGY DEPARTMENT: General X-ray: Exam(s) Completed: Chest X-Ray PERIPHERAL IV DATA: Not applicable SIGNED BY: RT Gennaro(R) March 24, 2023 4:34 PM documented in this encounter [facility] 03-24-2023 Instructions Fei Gandhi MD - 03/24/2023 4:22 PM EDT FASTING BLOOD WORK IN September. documented in this encounter [facility] 03-24-2023 History of Present illness Narrative This note was created using [employer]. Subjective Monika Chowdhury is a 72 year old male. He noted cramping, moderately severe, just before an otherwise normal bowel movement. He still had the typical 2 bowel movements per day. His diet may have an increased amount of nuts. His colonoscopy was normal in 2019. 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 He recovered from Covid 2 weeks, treated with Paxlovid. Review of Systems Constitutional: Negative for appetite change, fever and unexpected weight change. Respiratory: Negative for cough, chest tightness, shortness of breath and wheezing. Cardiovascular: Negative for chest pain, palpitations and leg swelling. Gastrointestinal: Negative for blood in stool, constipation, diarrhea, nausea, rectal pain and vomiting. Genitourinary: Negative for difficulty urinating and dysuria. ACTIVE PROBLEM LIST Venous (Peripheral) Insufficiency Bph With Obstruction/Lower Urinary Tract Symptoms Aortic Root Dilatation (Hcc) Essential Hypertension Actinic Skin Damage Essential Tremor Paroxysmal Atrial Fibrillation (Hcc) 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 Mixed Hyperlipidemia Coronary Artery Disease Involving [place] Coronary Artery of [place] Heart Without Angina Pectoris Current Outpatient Medications Medication Sig atorvastatin (LIPITOR) 10 mg tablet Take 1 tablet by mouth once daily. metoprolol succinate ER (TOPROL XL) 50 mg 24 hr tablet Take 1 tablet by mouth once daily. Tadalafil (CIALIS) 10 mg tablet Take 1 tablet by mouth as directed. TAKE 1-2 HOURS BEFORE SEXUAL INTERCOURSE NEEDED. aspirin, enteric coated (ASPIR-81) 81 mg EC tablet Take 1 tablet by mouth once daily. COMPOUNDED PRESCRIPTION KNEE HIGH COMPRESSION STOCKINGS 30-40 MM. DX: EDEMA. terazosin 5 mg capsule Take 1 capsule by mouth daily at bedtime. Given by Dr. Rivera. CALCIUM CARBONATE/VITAMIN D3 (CALCIUM 500 + D ORAL) Take by mouth once daily. ascorbic acid, vitamin C, (VITAMIN C) 500 mg tablet Take 500 mg by mouth once daily. Garlic ORAL Cap Take one(1) tablet daily. dicyclomine (BENTYL) 10 mg capsule Take 1 capsule by mouth twice daily. As directed. No current facility-administered medications for this visit. Objective BP 124/64 (BP Site: Left Arm, BP Position: Sitting) Pulse 68 Resp 18 Wt 87 kg (191 lb 12.8 oz) BMI 28.32 kg/m Physical Exam Constitutional: General: He is not in acute distress. Appearance: He is not ill-appearing. Cardiovascular: Rate and Rhythm: Normal rate and regular rhythm. Heart sounds: No murmur heard. No gallop. Pulmonary: Effort: No respiratory distress. Breath sounds: Examination of the right-lower field reveals rales. Rales present. No wheezing or rhonchi. Abdominal: General: Abdomen is flat. Bowel sounds are normal. Palpations: Abdomen is soft. There is no mass. Tenderness: There is no abdominal tenderness. Hernia: No hernia is present. Musculoskeletal: Right lower leg: No edema. Left lower leg: No edema. Neurological: Mental Status: He is alert. Depression Screening 03/07/2021 03/21/2022 09/23/2022 03/24/2023 PHQ-2 Score 0 0 0 0 PHQ-9 Score 0 - - - Depression screening tool completed and reviewed. Based on score and interview, patient is not at risk for depression. Screening tool discussed with patient, and I recommended no further intervention at this time. Assessment and Plan 1. Abdominal cramps - ICD9: 789.00, ICD10: R10.9 (primary diagnosis) Differential Diagnosis includes IBS - DICYCLOMINE 10 MG CAPSULE. One capsule BID, before anticipated bowel movement. Discussed medication dosage, usage, goals of therapy, and side effects. 2. Aortic root dilatation (HCC) - ICD9: 447.71, ICD10: I77.810 Per cardiology. 3. Paroxysmal atrial fibrillation (HCC) - ICD9: 427.31, ICD10: I48.0 Stable. 4. Essential hypertension - ICD9: 401.9, ICD10: I10 - good control - CBC 5. Abnormal lung sounds - ICD9: 786.7, ICD10: R09.89 Discussed. - XR CHEST 2V FRONTAL/LAT 6. Mixed hyperlipidemia - ICD9: 272.2, ICD10: E78.2 - to be determined upon return of lab results - Continue current medication. - COMP METABOLIC PANEL - LIPID PANEL BASIC Fei Gandhi MD documented in this encounter [facility] 03-10-2023 Miscellaneous Notes Patient has been identified by name and date of : Yes Patient phones for refill(s): Requested Prescriptions Pending Prescriptions Disp Refills atorvastatin (LIPITOR) 10 mg tablet 90 tablet 3 Sig: Take 1 tablet by mouth once daily. metoprolol succinate ER (TOPROL XL) 50 mg 24 hr tablet 90 tablet 3 Sig: Take 1 tablet by mouth once daily. Date of last office visit in primary care: 12/31/2022 6 month follow-up: 03/24/2023 Last 2 Encounter Wt Readings: Date: Wt: 12/30/2022 87.5 kg (193 lb) 09/23/2022 84.8 kg (187 lb) Previous labs/tests for medication: Cholesterol: HDL Cholesterol (mg/dL) Date Value 09/21/2022 58 09/01/2021 55 LDL Cholesterol (mg/dL) Date Value 09/21/2022 63 09/01/2021 59 ALT (U/L) Date Value 09/21/2022 20 12/18/2021 23 Non HDL Cholesterol (mg/dL) Date Value 09/21/2022 70 09/01/2021 65 Blood Pressure: BUN (mg/dL) Date Value 09/21/2022 20 12/18/2021 25 Sodium (mmol/L) Date Value 09/21/2022 143 12/18/2021 142 Last 1 Encounter BP Readings: Date: BP: 12/30/2022 132/70 Please advise. Thank you. Iris Pedersen LPN Patient has been identified by name and date of : Yes Requested Prescriptions Pending Prescriptions Disp Refills atorvastatin (LIPITOR) 10 mg tablet 90 tablet 3 Sig: Take 1 tablet by mouth once daily. metoprolol succinate ER (TOPROL XL) 50 mg 24 hr tablet 90 tablet 3 Sig: Take 1 tablet by mouth once daily. RX INSTRUCTIONS: Patient aware RX will be sent to pharmacy. No need to notify patient. Luz Colin Pss documented in this encounter [facility] 02-17-2023 Miscellaneous Notes Patient had to cancel his new consultation appointment with [facility] on 02/17/23. He explained that he will not be paid for the holiday if he does not work his shift the following Friday. Please notify the patient if there is any sooner appointments prior to his next scheduled visit on 07/07/23. documented in this encounter [facility] 12-31-2022 History of Present illness Narrative This Team Access Model visit is a phone encounter. It required patient-provider interaction for the medical decision making as documented below. Patient agrees to the visit: Yes Patient Location: [place] CC: Patient presents with: Covid19 Concern HPI: Monika Chowdhury is a 72 year old male who is contacted today for a phone visit. This is an established patient of Dr. Fei Gandhi MD. COVID positive test on 12/30/22, day 3 of symptoms. Symptoms are mild and include cough, nasal congestion, chills, body aches and headache. REVIEW OF SYSTEMS See HPI PAST MEDICAL HISTORY Diagnosis Date Aortic root dilatation (HCC) 08/21/2009 Atrial fibrillation 04/26/2013 Benign neoplasm of colon 12/18/2005 Adenomatous polyp BPH with obstruction/lower urinary tract symptoms 08/27/2018 Dr. Greenberg, Urology Coronary artery disease involving [place] coronary artery of [place] heart without angina pectoris 07/19/2019 Diverticulosis of colon (without mention of hemorrhage) Essential tremor 01/14/2012 Hypertrophy of prostate with urinary obstruction and other lower urinary tract symptoms (LUTS) 12/31/2006 Ingrown left big toenail 05/2022 infected Internal hemorrhoids without mention of complication Mixed hyperlipidemia 07/19/2019 Near syncope 02/15/2014 bradycardia NASRA on CPAP 06/15/2013 Problems with sexual function Unspecified essential hypertension 02/09/2010 VENOUS INSUFFICIENCY NOS 11/19/2005 PAST SURGICAL HISTORY Procedure Laterality Date ATRIAL FIBRILLATION/FLUTTER ABLATION 03/29/2020 COLONOSCOPY - DIAGNOSTIC 08/25/20021992, 1994 COLONOSCOPY FLX DX W/COLLJ SPEC WHEN PFRMD 10/12/2012 Colonoscopy repeat 10 years COLONOSCOPY FLX DX W/COLLJ SPEC WHEN PFRMD 07/07/2020 Colonoscopy CYSTOSCOPY 04/12/2015 LEFT HEART CATH,PERCUTANEOUS 03/18/2008 Cardiac cath, L heart, normal LEFT HEART CATH,PERCUTANEOUS 05/12/2013 Cardiac cath, L heart. 30-40% LAD. PAST SURGICAL HISTORY OF 1964 left hip surgery after fracture, hardware removed PAST SURGICAL HISTORY OF 08/29/2011 Right index finger repair PAST SURGICAL HISTORY OF 11/2012 Right index Finger repair x 2 RPR 1ST INGUN HRNA AGE 3 YRS/> REDUCIBLE 2007 Hernia repair, inguinal x 3 TONSILLECTOMY PRIMARY/SECONDARY <AGE 10 1956 Tonsillectomy ALLERGIES Patient has no known allergies. MEDICATIONS codeine-guaiFENesin (GUAIFENESIN AC) 10-100 mg/5 mL syrup Take 5 mL by mouth four times daily as needed for cough for up to 6 days. Tadalafil (CIALIS) 10 mg tablet Take 1 tablet by mouth as directed. TAKE 1-2 HOURS BEFORE SEXUAL INTERCOURSE NEEDED. metoprolol succinate ER (TOPROL XL) 50 mg 24 hr tablet Take 1 tablet by mouth once daily. atorvastatin (LIPITOR) 10 mg tablet Take 1 tablet by mouth once daily. aspirin, enteric coated (ASPIR-81) 81 mg EC tablet Take 1 tablet by mouth once daily. COMPOUNDED PRESCRIPTION KNEE HIGH COMPRESSION STOCKINGS 30-40 MM. DX: EDEMA. terazosin 5 mg capsule Take 1 capsule by mouth daily at bedtime. Given by Dr. Rivera. CALCIUM CARBONATE/VITAMIN D3 (CALCIUM 500 + D ORAL) Take by mouth once daily. ascorbic acid, vitamin C, (VITAMIN C) 500 mg tablet Take 500 mg by mouth once daily. Garlic ORAL Cap Take one(1) tablet daily. FAMILY HISTORY Problem Relation Age of Onset Arthritis Mother other (Other) Mother fall, natural causes Heart Father CABG other (Cholesterol) Father Diabetes Paternal Grandmother Prostate Cancer Brother 62 Glaucoma Brother Arthritis Brother lumbago Coronary Artery Disease Brother stents Arthritis Brother lumbago Social History Tobacco Use Smoking status: Never Smokeless tobacco: Never Vaping Use Vaping Use: Never used Substance Use Topics Alcohol use: No Comment: socially Drug use: No Exam Deferred physical exam as visit was completed over the phone Patient is speaking in complete sentences without obvious respiratory distress or audible wheezing. ASSESSMENT/PLAN: 1. COVID-19 virus infection - ICD9: 079.89, ICD10: U07.1 Nirmatrelvir/Ritonavir (Paxlovid) Eligibility and Patient Discussion [facility] Formulary Restriction Criteria: Adult outpatients 18 years and older with ALL of the following: [x] Patient has positive SARS-COV-2 viral test (PCR or antigen test) during current illness [x] Patient has symptoms for 5 days or less [x] Not requiring hospitalization at any time for management of COVID-19 [x] Not requiring supplemental oxygen or a change in baseline supplemental oxygen [x] Not utilized for pre-exposure or post-exposure prophylaxis for prevention of COVID-19 [x] Patient does not have severe renal impairment (eGFR < 30 mL/min) or severe hepatic impairment (Child-Farris Class C) [x] Meeting at least one of the criteria for high risk of progression to severe COVID-19: [x] Age over 65 years [] Cancer [] Chronic kidney disease [] Chronic liver disease [] Chronic lung diseases, including cystic fibrosis [] Dementia or other neurological conditions [] Diabetes (type 1 or type 2) [] Disabilities, including Down syndrome and neurodevelopmental disorders [x] Heart conditions [] HIV infection [] Immunocompromised state [] Mental health conditions [] Medical related technological dependence (tracheostomy, gastrostomy, or positive pressure ventilation (not related to COVID) [] Overweight and obesity (BMI greater or equal to 25 for adults) [] Physical inactivity [] [] Sickle cell disease or thalassemia [] Smoking, current or former [] Solid organ or blood stem cell transplant [] Stroke or cerebrovascular disease [] Substance use disorders [] Tuberculosis [] People from racial and ethnic minority groups Criteria above are met: Yes Date of Positive Test:12/30/22 Date of Symptom Onset: 12/28/22 Patient received COVID vaccine: Yes Drug-Drug interactions reviewed: Yes. Drug interactions were identified and the following actions were taken advised to hold Lipitor and Garlic caps while taking Paxlovid. I have discussed the use of the investigational therapeutic, nirmatrelvir/ritonavir, for the treatment of mild to moderate COVID-19 and its use under Emergency Use Authorization with the patient. The patient was informed that nirmatrelvir/ritonavir is not an FDA approved drug and that it is authorized for use under this Emergency Use Authorization. The patient was also informed of the significant known benefits and potential risks of nirmatrelvir/ritonavir, and the extent to which such potential risks and benefits are unknown. The patient was informed that there is mandatory reporting of all medication errors and serious adverse events potentially related to nirmatrelvir/ritonavir treatment within 7 calendar days from the onset of the event and that events up to 28 days after completion of therapy need to be reported. The discussion included alternatives to receiving nirmatrelvir/ritonavir, including clinical trials, and potential the risks and benefits of those alternatives. The patient was provided electronically with the Fact Sheet for Patients, Parents and Caregivers. The patient was also instructed that in addition to the treatment with nirmatrelvir/ritonavir, he/she should continue to self-isolate and use infection control measures (e.g., wear mask, isolate, social distance, avoid sharing personal items, clean and disinfect high touch surfaces, and frequent handwashing) according to CDC guidelines. The patient stated understanding and gave verbal consent to proceeding with nirmatrelvir/ritonavir treatment. Prescription instructions reviewed with patient as applicable. Potential red flag symptoms discussed with the patient. Reviewed appropriate action plan to take if red flag symptoms occur. Patient agreeable to treatment plan. During this patient visit I have spent approximately 15 minutes in counseling regarding treatment options, medications, and coordinating care. Leslie Woody APRN.CNP documented in this encounter [facility] 12-31-2022 Instructions Leslie Woody APRN.CNP - 12/31/2022 1:36 PM EST DO NOT TAKE LIPITOR (ATORVASTATIN) OR GARLIC CAPSULE WHILE TAKING PAXLOVID FACT SHEET FOR PATIENTS, PARENTS, AND CAREGIVERS EMERGENCY USE AUTHORIZATION (EUA) OF PAXLOVID FOR CORONAVIRUS DISEASE 2019 (COVID-19) You are being given this Fact Sheet because your healthcare provider believes it is necessary to provide you with PAXLOVID for the treatment of dhih-sa-vnrjdcih coronavirus disease (COVID-19) caused by the SARS-CoV-2 virus. This Fact Sheet contains information to help you understand the risks and benefits of taking the PAXLOVID you have received or may receive. The U.S. Food and Drug Administration (FDA) has issued an Emergency Use Authorization (EUA) to make PAXLOVID available during the COVID-19 pandemic (for more details about an EUA please see What is an Emergency Use Authorization? at the end of this document). PAXLOVID is not an FDA-approved medicine in the [place]. Read this Fact Sheet for information about PAXLOVID. Talk to your healthcare provider about your options or if you have any questions. It is your choice to take PAXLOVID. What is COVID-19? COVID-19 is caused by a virus called a coronavirus. You can get COVID-19 through close contact with another person who has the virus. COVID-19 illnesses have ranged from very uogm-nw-hwlbmt, including illness resulting in . While information so far suggests that most COVID-19 illness is mild, serious illness can happen and may cause some of your other medical conditions to become worse. Older people and people of all ages with severe, long lasting (chronic) medical conditions like heart disease, lung disease, and diabetes, for example seem to be at higher risk of being hospitalized for COVID-19. What is PAXLOVID? PAXLOVID is an investigational medicine used to treat taij-fd-oucjibeh COVID-19 in adults and children [12 years of age and older weighing at least 88 pounds (40 kg)] with positive results of direct SARS-CoV-2 viral testing, and who are at high risk for progression to severe COVID-19, including hospitalization or . PAXLOVID is investigational because it is still being studied. There is limited information about the safety and effectiveness of using PAXLOVID to treat people with uxok-ek-lqhzuxne COVID-19. The FDA has authorized the emergency use of PAXLOVID for the treatment of jyqv-dt-xeuqvrjy COVID-19 in adults and children [12 years of age and older weighing at least 88 pounds (40 kg)] with a positive test for the virus that causes COVID-19, and who are at high risk for progression to severe COVID-19, including hospitalization or , under an EUA. 1 Revised: 25 January 2022 What should I tell my healthcare provider before I take PAXLOVID? Tell your healthcare provider if you: Have any allergies Have liver or kidney disease Are or plan to become Are a child Have any serious illnesses Tell your healthcare provider about all the medicines you take, including prescription and vbtx-odu-lgkacww medicines, vitamins, and herbal supplements. Some medicines may interact with PAXLOVID and may cause serious side effects. Keep a list of your medicines to show your healthcare provider and pharmacist when you get a new medicine. You can ask your healthcare provider or pharmacist for a list of medicines that interact with PAXLOVID. Do not start taking a new medicine without telling your healthcare provider. Your healthcare provider can tell you if it is safe to take PAXLOVID with other medicines. Tell your healthcare provider if you are taking combined hormonal contraceptive. PAXLOVID may affect how your control pills work. Females who are able to become should use another effective alternative form of contraception or an additional barrier method of contraception. Talk to your healthcare provider if you have any questions about contraceptive methods that might be right for you. How do I take PAXLOVID? PAXLOVID consists of 2 medicines: nirmatrelvir and ritonavir. Take 2 pink tablets of nirmatrelvir with 1 white tablet of ritonavir by mouth 2 times each day (in the morning and in the evening) for 5 days. For each dose, take all 3 tablets at the same time. If you have kidney disease, talk to your healthcare provider. You may need a different dose. Swallow the tablets whole. Do not chew, break, or crush the tablets. Take PAXLOVID with or without food. Do not stop taking PAXLOVID without talking to your healthcare provider, even if you feel better. If you miss a dose of PAXLOVID within 8 hours of the time it is usually taken, take it as soon as you remember. If you miss a dose by more than 8 hours, skip the missed dose and take the next dose at your regular time. Do not take 2 doses of PAXLOVID at the same time. If you take too much PAXLOVID, call your healthcare provider or go to the nearest hospital emergency room right away. If you are taking a ritonavir-or cobicistat-containing medicine to treat hepatitis C or Human Immunodeficiency Virus (HIV), you should continue to take your medicine as prescribed by your healthcare provider. Talk to your healthcare provider if you do not feel better or if you feel worse after 5 days. Who should generally not take PAXLOVID? Do not take PAXLOVID if: You are allergic to nirmatrelvir, ritonavir, or any of the ingredients in PAXLOVID You are taking any of the following medicines: Alfuzosin Pethidine, propoxyphene Ranolazine Amiodarone, dronedarone, flecainide, propafenone, quinidine Colchicine Lurasidone, pimozide, clozapine Dihydroergotamine, ergotamine, methylergonovine Lovastatin, simvastatin Sildenafil (Revatio ) for pulmonary arterial hypertension (PAH) Triazolam, oral midazolam Apalutamide Carbamazepine, phenobarbital, phenytoin Rifampin Alex s Wort (hypericum perforatum) Taking PAXLOVID with these medicines may cause serious or life-threatening side effects or affect how PAXLOVID works. These are not the only medicines that may cause serious side effects if taken with PAXLOVID. PAXLOVID may increase or decrease the levels of multiple other medicines. It is very important to tell your healthcare provider about all of the medicines you are taking because additional laboratory tests or changes in the dose of your other medicines may be necessary while you are taking PAXLOVID. Your healthcare provider may also tell you about specific symptoms to watch out for that may indicate that you need to stop or decrease the dose of some of your other medicines. What are the important possible side effects of PAXLOVID? Possible side effects of PAXLOVID are: Allergic Reactions. Allergic reactions can happen in people taking PAXLOVID, even after only 1 dose. Stop taking PAXLOVID and call your healthcare provider right away if you get any of the following symptoms of an allergic reaction: hives trouble swallowing or breathing swelling of the mouth, lips, or face throat tightness hoarseness skin rash Liver Problems. Tell your healthcare provider right away if you have any of these signs and symptoms of liver problems: loss of appetite, yellowing of your skin and the whites of eyes (jaundice), dark-colored urine, pale colored stools and itchy skin, stomach area (abdominal) pain. Resistance to HIV Medicines. If you have untreated HIV infection, PAXLOVID may lead to some HIV medicines not working as well in the future. Other possible side effects include: altered sense of taste diarrhea high blood pressure muscle aches These are not all the possible side effects of PAXLOVID. Not many people have taken PAXLOVID. Serious and unexpected side effects may happen. PAXLOVID is still being studied, so it is possible that all of the risks are not known at this time. What other treatment choices are there? Veklury (remdesivir) is FDA-approved for the treatment of etev-lu-wcbkpogn COVID-19 in certain adults and children. Talk with your doctor to see if Veklury is appropriate for you. Like PAXLOVID, FDA may also allow for the emergency use of other medicines to treat people with COVID-19. Go to https://www.fda.gov/emergency-pre paredness-andresponse/mcm-legal-r rbpjuczpz-dmy-nqgewz-framework/em tzycfnq-wke-lxxopbjphqiri for information on the emergency use of other medicines that are authorized by FDA to treat people with COVID-19. Your healthcare provider may talk with you about clinical trials for which you may be eligible. It is your choice to be treated or not to be treated with PAXLOVID. Should you decide not to receive it or for your child not to receive it, it will not change your standard medical care. What if I am or ? There is human factors ergonomist treating women or mothers with PAXLOVID. For a mother and unborn baby, the benefit of taking PAXLOVID may be greater than the risk from the treatment. If you are , discuss your options and specific situation with your healthcare provider. It is recommended that you use effective barrier contraception or do not have sexual activity while taking PAXLOVID. If you are , discuss your options and specific situation with your healthcare provider. How do I report side effects with PAXLOVID? Contact your healthcare provider if you have any side effects that bother you or do not go away. Report side effects to [employer] at www.fda.gov/medwatch or call 5-203-LMQ1044 or you can report side effects to [employer] at the contact information provided below. Website Fax number Telephone number [employer] How should I store PAXLOVID? Store PAXLOVID tablets at room temperature, between 68?F to 77?F (20?C to 25?C). How can I learn more about COVID-19? Ask your healthcare provider. Visit https://www.cdc.gov/COVID19. Contact your local or state public health department. What is an Emergency Use Authorization (EUA)? The [place] FDA has made PAXLOVID available under an emergency access mechanism called an Emergency Use Authorization (EUA). The EUA is supported by a [place] of Health and Human Service (HHS) declaration that circumstances exist to justify the emergency use of drugs and biological products during the COVID-19 pandemic. PAXLOVID for the treatment of orqz-kx-zlzdntye COVID-19 in adults and children [12 years of age and older weighing at least 88 pounds (40 kg)] with positive results of direct SARS-CoV-2 viral testing, and who are at high risk for progression to severe COVID-19, including hospitalization or , has not undergone the same type of review as an FDA-approved product. In issuing an EUA under the COVID-19 public health emergency, the FDA has determined, among other things, that based on the total amount of scientific evidence available including data from adequate and well-controlled clinical trials, if available, it is reasonable to believe that the product may be effective for diagnosing, treating, or preventing COVID-19, or a serious or life-threatening disease or condition caused by COVID-19; that the known and potential benefits of the product, when used to diagnose, treat, or prevent such disease or condition, outweigh the known and potential risks of such product; and that there are no adequate, approved, and available alternatives. All of these criteria must be met to allow for the product to be used in the treatment of patients during the COVID-19 pandemic. The EUA for PAXLOVID is in effect for the duration of the COVID-19 declaration justifying emergency use of this product, unless terminated or revoked (after which the products may no longer be used under the EUA). Additional Information For general questions, visit the website or call the telephone number provided below. Website Telephone number [email or web address] (5-237-X29-PACK) You can also go to www.[employer] or call for more information. Pfizer Distributed by [employer] [place] [address] [id number] Revised: 25 January 2022 documented in this encounter [facility] 12-31-2022 Miscellaneous Notes Patient notified of results and provider's instructions. Patient verbalizes understanding. Marla Rene RN Left message for patient to return call. Palma Mayer Please call and let patient know he was positive for COVID-19. I would recommend a virtual follow-up or phone call with primary care today to discuss oral antiviral treatment. He needs to quarantine for 5 days from first day of symptoms. If improving and no fever on day 6 may come out of quarantine but needs to wear a mask for the full 10 days. documented in this encounter [facility] 10-17-2022 Miscellaneous Notes [facility] called and pt has apt there today and they are calling for pt's lat PSA lab. Identified pt by name and date of . Faxed to [phone]. Done Cat Colin LPN documented in this encounter [facility] 08-07-2022 Miscellaneous Notes Patient has been identified by name and date of : Yes Patient phones for refill(s): Requested Prescriptions Pending Prescriptions Disp Refills Tadalafil (CIALIS) 10 mg tablet 5 tablet 5 Sig: Take 1 tablet by mouth as directed. TAKE 1-2 HOURS BEFORE SEXUAL INTERCOURSE NEEDED. Date of last office visit in primary care: 03/21/2022 Yearly: 09/23/2022 Last 2 Encounter Wt Readings: Date: Wt: 06/02/2022 84.8 kg (187 lb) 05/20/2022 84.8 kg (187 lb) Previous labs/tests for medication: Not applicable Please advise. Thank you. Iris Pedersen LPN Patient has been identified by name and date of : Yes Requested Prescriptions Pending Prescriptions Disp Refills Tadalafil (CIALIS) 10 mg tablet 5 tablet 5 Sig: Take 1 tablet by mouth as directed. TAKE 1-2 HOURS BEFORE SEXUAL INTERCOURSE NEEDED. RX INSTRUCTIONS: Patient aware RX will be sent to pharmacy. No need to notify patient. Divina Emanuel documented in this encounter [facility] 06-12-2022 Miscellaneous Notes Patient contacted me. He states his toe is doing better. He has no pain. He denies any drainage. I reviewed cultures. I told him we could call in [employer] for one week as precaution. He will stop keflex and start the bactrim. He is instructed to call the office if he has any issues. He will call office to schedule follow-up Carlo Gomez DPM I again attempted to contact patient to see how he was doing. No answer. Left message for him to contact me if he has any questions Carlo Gomez DPM I attempted to contact patient but no answer. I left message for him to contact me should he have any concerns or questions Carlo Gomez DPM Pt called in to see what the results were from his x-rays and blood work. Read Pt the x-ray results, but told him I would prefer the provider go over it with him. Please call and advise. Pt reports his lunch break is almost over and it is ok to leave a message on his phone. documented in this encounter [facility] 06-06-2022 History of Present illness Narrative Radiology Service Progress Note PATIENT NAME: Monika Chowdhury DATE OF SERVICE: June 06, 2022 TIME: 4:56 PM PATIENT IDENTITY VERIFICATION COMPLETED USING TWO (2) IDENTIFIERS: Name and Date of confirmed by patient verbally. FALL SCREENING: Has the patient had 2 falls in the last year or 1 fall with injury or currently using an Ambulatory Assistive Device (Walker, Cane, Wheelchair, Crutches, etc.)? No PATIENT GENDER DATA: Male PATIENT RELEVANT IMPLANT DATA REVIEWED: Yes RADIOLOGY DEPARTMENT: General X-ray: Exam(s) Completed: Lower Extremity X-Ray(s): Toes, Left PERIPHERAL IV DATA: Not applicable SIGNED BY: RT rIaj(R) June 06, 2022 4:56 PM documented in this encounter [facility] 06-06-2022 Instructions Vianney Olivera LPN - 06/06/2022 4:51 PM EDT Post-Op Nail Instructions Minimize activity until the anesthesia wears off (about 2-8 hours). Increase activity to tolerance Remove bandage tomorrow Soak affected toe/foot in epsom salts for 15-20 minutes twice daily After soaking, apply antibiotic ointment (OTC Neosporin) to affected toe and re bandage OTC Ibuprofen if having pain, provided you have no allergies or intolerance to NSAIDS Mild drainage, redness, and blood is expected, but if you expeirence severe pain, increase in drainage, swelling, or red streaking please contact our office immediately Feel free to contact office as well if you have any questions/concerns [phone], ask for Podiatry Nurse documented in this encounter [facility] 06-06-2022 History of Present illness Narrative UNIVERSAL PROTOCOL / SAFETY CHECKLIST Procedure to be Performed: total nail avulsion, left hallux Sign In: A Moment of CARE was completed. Personnel directly involved with the procedure wore the appropriate PPE (Personal Protective Equipment). No special equipment needed. Patient/Surrogate Stated/Verified: PATIENT VERIFIED(optional for EMERGENT procedures): Patient name, Date of , Relevant allergies and The intended procedure Time Out Communication: Intended patient and procedure match the source documents. Consent documented and matches the intended procedure. No relevant labs, photos, and/or imaging studies were applicable for review. Correct side/site marked and visible. Medications required for procedure verified. No fire risk assessment and interventions applicable. No implant(s) inserted. Sign Out: SIGN OUT (optional for EMERGENT procedures): All specimen containers correctly labeled. All instruments, equipment, possible retained foreign bodies accounted for. Post-procedure follow-up management communicated and Plan of Care Visit completed when applicable. Vianney Olivera LPN Images from the original note were not included. FOLLOW UP PODIATRIC OFFICE VISIT Chief Complaint: This 72 year old who presents for follow up:matrixectomy of left great toe Patient presents to clinic for evaluation of left hallux. Patient had matrixectoy back in April. Patient was doing very well for a few weeks but recently, he developed pain and swelling. He did not follow-up. He later developed swelling. He went to urgent care and he was placed on antbiotic. He presents here stating that his left great toe is swollen and there is pain. 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 Greenberg, Urology Diverticulosis of colon (without mention of hemorrhage) Essential tremor 01/14/2012 Hypertrophy of prostate with urinary obstruction and other lower urinary tract symptoms (LUTS) 12/31/2006 Internal hemorrhoids without mention of complication Near syncope 02/15/2014 bradycardia NASRA on CPAP 06/15/2013 Problems with sexual function Unspecified essential hypertension 02/09/2010 VENOUS INSUFFICIENCY NOS 11/19/2005 Current Outpatient Medications Medication Sig metoprolol succinate ER (TOPROL XL) 50 mg 24 hr tablet Take 1 tablet by mouth once daily. atorvastatin (LIPITOR) 10 mg tablet Take 1 tablet by mouth once daily. aspirin, enteric coated (ASPIR-81) 81 mg EC tablet Take 1 tablet by mouth once daily. Tadalafil (CIALIS) 10 mg tablet Take 1 tablet by mouth as directed. TAKE 1-2 HOURS BEFORE SEXUAL INTERCOURSE NEEDED. COMPOUNDED PRESCRIPTION KNEE HIGH COMPRESSION STOCKINGS 30-40 MM. DX: EDEMA. terazosin 5 mg capsule Take 1 capsule by mouth daily at bedtime. Given by Dr. Rivera. CALCIUM CARBONATE/VITAMIN D3 (CALCIUM 500 + D ORAL) Take by mouth once daily. ascorbic acid (VITAMIN C) 500 mg tablet Take 500 mg by mouth once daily. Garlic ORAL Cap Take one(1) tablet daily. No current facility-administered medications for this visit. ALLERGIES No Known Allergies PAST SURGICAL HISTORY Procedure Laterality Date ATRIAL FIBRILLATION/FLUTTER ABLATION 03/29/2020 COLONOSCOPY - DIAGNOSTIC 08/25/20021992, 1994 COLONOSCOPY FLX DX W/COLLJ SPEC WHEN PFRMD 10/12/2012 Colonoscopy repeat 10 years COLONOSCOPY FLX DX W/COLLJ SPEC WHEN PFRMD 07/07/2020 Colonoscopy CYSTOSCOPY 04/12/2015 LEFT HEART CATH,PERCUTANEOUS 03/18/2008 Cardiac cath, L heart, normal LEFT HEART CATH,PERCUTANEOUS 05/12/2013 Cardiac cath, L heart. 30-40% LAD. PAST SURGICAL HISTORY OF 1963 left hip surgery after fracture, hardware removed PAST SURGICAL HISTORY OF 08/29/2011 Right index finger repair PAST SURGICAL HISTORY OF 11/2012 Right index Finger repair x 2 RPR 1ST INGUN HRNA AGE 3 YRS/> REDUCIBLE 2007 Hernia repair, inguinal x 3 TONSILLECTOMY PRIMARY/SECONDARY <AGE 10 6 Tonsillectomy Physical Exam: OBJECTIVE: Constitutional: Pt is a well developed 72 year old male who is alert, oriented, cooperative and in no apparent distress. Eyes: Following during examination. No redness or drainage. Respiratory: RR normal and nonlabored. Even breathing. No evidence of distress. Psychology: Patient is engaged during conversation. Normal affect and mood. Does not appear depressed or anxious. NVSI unchanged from previous visit. Dermatological: Left hallux is swollen, red with serous drainage. There is redness extending from proximal medial nail fold to lateral nail fold. There is pain with palpation of left hallux nail bed. Musculoskeletal/Orthopaedic: Patient has pain to palpation of left hallux ASSESSMENT: (L60.0) Ingrown toenail (primary encounter diagnosis) PLAN: Discussed the appearance of left hallux. He does have swelling and redness with drainage of left hallux. There is redness that involves both proximal medial and proximal lateral nail fold. There is drainage present. Given the appearance of left hallux toenail and the fact that he has already been on antibiotic, today, I proposed removal of the entire toenail. I do feel removal of the entire toenail will help to allow any bacteria present to drain and then placing patient back on antbiotic should help to resolve the infection. Patient was in agreement. I informed patient that we will be performing a total nail avulsion. The nail will return. We are not doing matrixectomy that was done along the medial border in the past. If the nail returns deformed, he could elect for matrixectomy in the future. Other risks discussed include infection, pain, swelling, bleeding, slow wound healing, recurrent nail deformity, loss of toe. Patient consents to proceed with total nail avulsion of left hallux. In addition to getting culture and placing patient on antibiotic, I will get xrays to assure no underlying bone infection. Discussed risks of toenail procedure not limited to infection, pain, swelling, bleeding, painful scarring, recurrence, need for revised procedure. Patient consented to proceed. Patient was properly identified by name and procedure. The left hallux was then injected with 3 cc of 1% lidocaine plain. The toe was then prepped and draped in the usual aseptic technique. A digital tournicot was applied to the toe. The entire nail was then freed and removed. There was thick proximal nail plate with multiple layers. Careful inspection was performed to assure no remaining spicule present. Avulsion was performed. All nonviable tissue was debrided. No foreign debris present. The wound was irrigated with saline. Sterile dressing was then applied consisting of amerigel, guaze, lea and coban. Tournicot was removed and hyperemic response was noted. Patient tolerated well. Patient will f/u in 2 weeks. Carlo Gomez DPM AMB ROOMING INTAKE FLOWSHEET DATA Pain Pain Level: 9 Pain Location: Toe Description: Sharp Duration Amount of Time: 1 Duration Units: Months Frequency: Intermittent Intervention/Comfort measure: Reposition, Relaxation, Other: See comment (soaking) Patient presents with: Left Foot - Established Patient, Follow Up, Pain, Ingrown Toenail Patient had ingrown removed on left big toe on 04/11/2022. Patient states he is having pain and redness at procedure site rate 9-10. Patient states that after soaking there is some bleeding for procedure site. Patient has been seen in urgent care twice for the Left toe since procedure. Vianney Olivera LPN documented in this encounter [facility] 06-05-2022 Miscellaneous Notes Spoke with patient, per Dr. Blackburn no EKG needed at this time. Can make his annual check up appointment for spring 2021 if doing well. Patient stated he did not understand why he received a letter. Advised patient to follow up with Dr. Blackburn's office for clarification if he felt it necessary, but at this time no EKG would be needed. Patient called office to schedule EKG. No order in system. Patient followed by Dr. Blackburn at [facility]. Per patient, received letter in the mail to call and schedule EKG before August. Will obtain order and schedule nurse visit for EKG at [facility] as patient does not wish to schedule follow up with provider. Explained scheduling process for Dr. Blackburn at [facility] vs [facility]. Patient requested appointment with Dr. Chaney; has not been seen by Dr. Chaney since 2019 and would need new patient appointment. Education provided on different cardiology specialties. Advised patient to schedule up any necessary follow up appointments with Dr. Blackburn as soon as possible due to heavy demand for appointments. Patient stated he would call [facility] for this if necessary as [facility] is currently completely booked for all available EP appointments open for scheduling. Per SYMONE 08/06/21, annual appointment requested by Alexey. documented in this encounter [facility] 06-02-2022 History of Present illness Narrative Images from the original note were not included. Subjective HPI Monika Chowdhury is a 72 year old male who presents with a concern about his toenail. He was seen here on 03/30, diagnosed with ingrown toenail. Had matrixectomy done by [facility] on 04/11. Seen in [facility] on 04/20 and prescribed cephalexin and mupirocin. He finished this medication 3 days ago. Also notes being on an antibiotic from his dentist agter to the cephalexin-states he was on antibiotics for a total of 2.5 weeks. He is still having some tenderness in the area where the matrixectomy was performed. He has been soaking it in warm water/epsom salt twice daily and using antibiotic ointment 4 times daily. He feels being on his feet all day at work is making it hard for the area to heal. Review of Systems Constitutional: Negative for chills and fever. Musculoskeletal: Positive for joint pain. Negative for falls. See HPI Skin: Negative for itching and rash. 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 Greenberg, Urology Diverticulosis of colon (without mention of hemorrhage) Essential tremor 01/14/2012 Hypertrophy of prostate with urinary obstruction and other lower urinary tract symptoms (LUTS) 12/31/2006 Internal hemorrhoids without mention of complication Near syncope 02/15/2014 bradycardia NASRA on CPAP 06/15/2013 Problems with sexual function Unspecified essential hypertension 02/09/2010 VENOUS INSUFFICIENCY NOS 11/19/2005 PAST SURGICAL HISTORY Procedure Laterality Date ATRIAL FIBRILLATION/FLUTTER ABLATION 03/29/2020 COLONOSCOPY - DIAGNOSTIC 08/25/20021992, 1994 COLONOSCOPY FLX DX W/COLLJ SPEC WHEN PFRMD 10/12/2012 Colonoscopy repeat 10 years COLONOSCOPY FLX DX W/COLLJ SPEC WHEN PFRMD 07/07/2020 Colonoscopy CYSTOSCOPY 04/12/2015 LEFT HEART CATH,PERCUTANEOUS 03/18/2008 Cardiac cath, L heart, normal LEFT HEART CATH,PERCUTANEOUS 05/12/2013 Cardiac cath, L heart. 30-40% LAD. PAST SURGICAL HISTORY OF 1963 left hip surgery after fracture, hardware removed PAST SURGICAL HISTORY OF 08/29/2011 Right index finger repair PAST SURGICAL HISTORY OF 11/2012 Right index Finger repair x 2 RPR 1ST INGUN HRNA AGE 3 YRS/> REDUCIBLE 2007 Hernia repair, inguinal x 3 TONSILLECTOMY PRIMARY/SECONDARY <AGE 10 1955 Tonsillectomy ALLERGIES Patient has no known allergies. MEDICATIONS benzonatate (TESSALON PERLE) 100 mg capsule Take 1 capsule by mouth every 8 hours as needed for cough for up to 15 days. metoprolol succinate ER (TOPROL XL) 50 mg 24 hr tablet Take 1 tablet by mouth once daily. atorvastatin (LIPITOR) 10 mg tablet Take 1 tablet by mouth once daily. aspirin, enteric coated (ASPIR-81) 81 mg EC tablet Take 1 tablet by mouth once daily. Tadalafil (CIALIS) 10 mg tablet Take 1 tablet by mouth as directed. TAKE 1-2 HOURS BEFORE SEXUAL INTERCOURSE NEEDED. COMPOUNDED PRESCRIPTION KNEE HIGH COMPRESSION STOCKINGS 30-40 MM. DX: EDEMA. terazosin 5 mg capsule Take 1 capsule by mouth daily at bedtime. Given by Dr. Rivera. CALCIUM CARBONATE/VITAMIN D3 (CALCIUM 500 + D ORAL) Take by mouth once daily. ascorbic acid (VITAMIN C) 500 mg tablet Take 500 mg by mouth once daily. Garlic ORAL Cap Take one(1) tablet daily. FAMILY HISTORY Problem Relation Age of Onset Arthritis Mother other (Other) Mother fall, natural causes Heart Father CABG other (Cholesterol) Father Diabetes Paternal Grandmother Prostate Cancer Brother 62 Glaucoma Brother Arthritis Brother lumbago Coronary Artery Disease Brother stents Arthritis Brother lumbago Social History Tobacco Use Smoking status: Never Smoker Smokeless tobacco: Never Used Vaping Use Vaping Use: Never used Substance Use Topics Alcohol use: No Comment: socially Drug use: No Objective Physical Exam Constitutional: Appearance: Normal appearance. Musculoskeletal: General: Tenderness present. No swelling or signs of injury. Normal range of motion. Left lower leg: No edema. Feet: Skin: General: Skin is warm and dry. Capillary Refill: Capillary refill takes less than 2 seconds. Findings: No erythema or rash. Neurological: Mental Status: He is alert. ASSESSMENT/PLAN: 1. Toe inflammation - ICD9: 686.9, ICD10: L08.9 - No sign of infection on today's exam. - Continue warm water/epsom salt soaks - Continue to use antibiotic ointment - Ice packs to toe 2-3 times daily. - Off work until seen by Dr. Gomez for re-evaluation. Note provided. Felisa May APRN.MIGUEL documented in this encounter [facility] 06-02-2022 Instructions Felisa May APRN.SENIOR COPYWRITER - 06/02/2022 2:40 PM EDT ASSESSMENT/PLAN: 1. Toe inflammation - ICD9: 686.9, ICD10: L08.9 - No sign of infection on today's exam. - Continue warm water/epsom salt soaks - Continue to use antibiotic ointment - Ice packs to toe 2-3 times daily. - Off work until seen by Dr. Gomez for re-evaluation. Felisa May APRN.SENIOR COPYWRITER documented in this encounter [facility] 05-23-2022 Miscellaneous Notes Spoke with patient. Given message from provider's office. Patient verbalizes understanding. Madeline Bowen RN Called and left message for patient to call back and speak with a triage nurse. Marla Rene RN Patient's request for medication is as follows Signed Prescriptions Disp Refills codeine-guaiFENesin (GUAIFENESIN AC) 10-100 mg/5 mL syrup 118 mL 0 Sig: Take 5 mL by mouth four times daily as needed for cough for up to 6 days. ROBER Class: C-V Authorizing Provider: FEI GANDHI Order entered - please phone pharmacy and notify patient. Fei Gandhi MD Patient calls and states that he is continuing to cough. Benzonatate capsules have not been working. Patient asking if provider can prescribe some cough syrup for him. Patient's pharmacy is [facility]. Please give a call back if provider if something can or cannot be prescribed. Please review and advise, Marla Rene RN documented in this encounter [facility] 05-20-2022 History of Present illness Narrative Patient presents with: Cough: post nasal drip, sore throat and larynigitis x 3 days HPI: Feeling sick for 4 days. Here for persistent cough. Positive symptoms: Cough, Sore throat, Post nasal drainage, hoarse voice, Headache after coughing, Negative symptoms: Shortness of breath, Chest pain, Fever, OTC: Cough Medicine Completed fourth dose of [employer] COVID-19 vaccine in November. Had COVID-19 illness July 2021. 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 Greenberg, Urology Diverticulosis of colon (without mention of hemorrhage) Essential tremor 01/14/2012 Hypertrophy of prostate with urinary obstruction and other lower urinary tract symptoms (LUTS) 12/31/2006 Internal hemorrhoids without mention of complication Near syncope 02/15/2014 bradycardia NASRA on CPAP 06/15/2013 Problems with sexual function Unspecified essential hypertension 02/09/2010 VENOUS INSUFFICIENCY NOS 11/19/2005 MEDICATIONS: Current Outpatient Medications Medication Sig metoprolol succinate ER (TOPROL XL) 50 mg 24 hr tablet Take 1 tablet by mouth once daily. atorvastatin (LIPITOR) 10 mg tablet Take 1 tablet by mouth once daily. aspirin, enteric coated (ASPIR-81) 81 mg EC tablet Take 1 tablet by mouth once daily. Tadalafil (CIALIS) 10 mg tablet Take 1 tablet by mouth as directed. TAKE 1-2 HOURS BEFORE SEXUAL INTERCOURSE NEEDED. COMPOUNDED PRESCRIPTION KNEE HIGH COMPRESSION STOCKINGS 30-40 MM. DX: EDEMA. terazosin 5 mg capsule Take 1 capsule by mouth daily at bedtime. Given by Dr. Rivera. CALCIUM CARBONATE/VITAMIN D3 (CALCIUM 500 + D ORAL) Take by mouth once daily. ascorbic acid (VITAMIN C) 500 mg tablet Take 500 mg by mouth once daily. Garlic ORAL Cap Take one(1) tablet daily. No current facility-administered medications for this visit. ALLERGIES: ALLERGIES No Known Allergies VITALS: BP 142/72 Pulse 88 Temp 37.2 C (99 F) Resp 18 Wt 84.8 kg (187 lb) SpO2 96% BMI 25.36 kg/m PHYSICAL EXAM: GEN: no acute distress HEENT: PERRL, EOMI, Sinuses: non-tender frontal sinus, non-tender maxillary sinuses Throat: moist mucous membranes, Neck: supple, no thyromegaly, no lymphadenopathy HEART: regular rate and rhythm, no murmurs LUNGS: clear to auscultation, no wheezes or crackles, no increased WOB ASSESSMENT/PLAN: 1. Acute cough - ICD9: 786.2, ICD10: R05.1 - suspect viral URI, differential includes COVID-19. - Discussed supportive care treatment with home isolation, rest, cold medicine, and analgesia. - Red flags to seek further treatment include chest pain, shortness of breath, and lethargy; in the ER if severe. - 2019 CORONAVIRUS - BENZONATATE 100 MG CAPSULE Freddie Mitchell MD documented in this encounter [facility] 04-20-2022 History of Present illness Narrative Images from the original note were not included. Subjective HPI HPI Mnoika Chowdhury is a 71 year old male who presents today for CC of left great toe infection, recent ingrown toenail infection surgery/9 days ago, toe has been red for past 2 days. Has tried aquaphor ointment. Symptoms are worsened by nothing. Denies diabetes. Denies toe injury. 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 Greenberg, Urology Diverticulosis of colon (without mention of hemorrhage) Essential tremor 01/14/2012 Hypertrophy of prostate with urinary obstruction and other lower urinary tract symptoms (LUTS) 12/31/2006 Internal hemorrhoids without mention of complication Near syncope 02/15/2014 bradycardia NASRA on CPAP 06/15/2013 Problems with sexual function Unspecified essential hypertension 02/09/2010 VENOUS INSUFFICIENCY NOS 11/19/2005 PAST SURGICAL HISTORY Procedure Laterality Date ATRIAL FIBRILLATION/FLUTTER ABLATION 03/29/2020 COLONOSCOPY - DIAGNOSTIC 08/25/20021992, 1994 COLONOSCOPY FLX DX W/COLLJ SPEC WHEN PFRMD 10/12/2012 Colonoscopy repeat 10 years COLONOSCOPY FLX DX W/COLLJ SPEC WHEN PFRMD 07/07/2020 Colonoscopy CYSTOSCOPY 04/12/2015 LEFT HEART CATH,PERCUTANEOUS 03/18/2008 Cardiac cath, L heart, normal LEFT HEART CATH,PERCUTANEOUS 05/12/2013 Cardiac cath, L heart. 30-40% LAD. PAST SURGICAL HISTORY OF 1963 left hip surgery after fracture, hardware removed PAST SURGICAL HISTORY OF 08/29/2011 Right index finger repair PAST SURGICAL HISTORY OF 11/2012 Right index Finger repair x 2 RPR 1ST INGUN HRNA AGE 3 YRS/> REDUCIBLE 2007 Hernia repair, inguinal x 3 TONSILLECTOMY PRIMARY/SECONDARY <AGE 10 1955 Tonsillectomy ALLERGIES Patient has no known allergies. MEDICATIONS metoprolol succinate ER (TOPROL XL) 50 mg 24 hr tablet Take 1 tablet by mouth once daily. atorvastatin (LIPITOR) 10 mg tablet Take 1 tablet by mouth once daily. aspirin, enteric coated (ASPIR-81) 81 mg EC tablet Take 1 tablet by mouth once daily. Tadalafil (CIALIS) 10 mg tablet Take 1 tablet by mouth as directed. TAKE 1-2 HOURS BEFORE SEXUAL INTERCOURSE NEEDED. COMPOUNDED PRESCRIPTION KNEE HIGH COMPRESSION STOCKINGS 30-40 MM. DX: EDEMA. terazosin 5 mg capsule Take 1 capsule by mouth daily at bedtime. Given by Dr. Rivera. CALCIUM CARBONATE/VITAMIN D3 (CALCIUM 500 + D ORAL) Take by mouth once daily. ascorbic acid (VITAMIN C) 500 mg tablet Take 500 mg by mouth once daily. Garlic ORAL Cap Take one(1) tablet daily. cephALEXin (KEFLEX) 500 mg capsule Take 1 capsule by mouth three times daily for 7 days. mupirocin (BACTROBAN) 2 % ointment Apply to affected area three times daily for 10 days. FAMILY HISTORY Problem Relation Age of Onset Arthritis Mother other (Other) Mother fall, natural causes Heart Father CABG other (Cholesterol) Father Diabetes Paternal Grandmother Prostate Cancer Brother 62 Glaucoma Brother Arthritis Brother lumbago Coronary Artery Disease Brother stents Arthritis Brother lumbago Social History Tobacco Use Smoking status: Never Smoker Smokeless tobacco: Never Used Vaping Use Vaping Use: Never used Substance Use Topics Alcohol use: No Comment: socially Drug use: No ROS Objective Blood pressure 138/70, pulse 80, temperature 36.5 C (97.7 F), resp. rate 16, weight 85.3 kg (188 lb), SpO2 97 %. Component Latest Ref Rng & Units 12/18/2021 Protein, Total 6.3 - 8.0 g/dL 6.3 Albumin 3.9 - 4.9 g/dL 3.9 Calcium 8.5 - 10.2 mg/dL 9.6 Bilirubin, Total 0.2 - 1.3 mg/dL 0.4 Alkaline Phosphatase 38 - 113 U/L 75 AST 14 - 40 U/L 23 Glucose 74 - 99 mg/dL 101 (H) BUN 9 - 24 mg/dL 25 (H) Creatinine 0.73 - 1.22 mg/dL 0.96 Sodium 136 - 144 mmol/L 142 Potassium 3.7 - 5.1 mmol/L 3.9 Chloride 97 - 105 mmol/L 107 (H) CO2 22 - 30 mmol/L 25 Anion Gap 9 - 18 mmol/L 10 ALT 10 - 54 U/L 23 eGFR- >60 eGFR-All Other Races . >60 Physical Exam Constitutional: General: He is not in acute distress. Appearance: He is not toxic-appearing or diaphoretic. HENT: Head: Normocephalic and atraumatic. Pulmonary: Effort: Pulmonary effort is normal. No accessory muscle usage or respiratory distress. Musculoskeletal: Feet: Neurological: Mental Status: He is alert and oriented to person, place, and time. ASSESSMENT/PLAN: 1. Toe infection - ICD9: 686.9, ICD10: L08.9 - Begin treatment with Cephalaxin (Keflex) - No lymphangetic streaking, this was defined for patient to watch for and to seek medical care immediately if appears Keep f/u with finisher fine diamond dies Urgent f/u for worsening s/s. - CEPHALEXIN 500 MG CAPSULE - MUPIROCIN 2 % TOPICAL OINTMENT Agrees to plan Andrew Eddy APRN.CNP documented in this encounter [facility] 04-11-2022 History of Present illness Narrative UNIVERSAL PROTOCOL / SAFETY CHECKLIST Procedure to be Performed: Partial matrixectomy, L medial hallux Sign In: A Moment of CARE was completed. Personnel directly involved with the procedure wore the appropriate PPE (Personal Protective Equipment). No special equipment needed. Patient/Surrogate Stated/Verified: PATIENT VERIFIED(optional for EMERGENT procedures): Patient name, Date of , Relevant allergies and The intended procedure Time Out Communication: Intended patient and procedure match the source documents. Consent documented and matches the intended procedure. No relevant labs, photos, and/or imaging studies were applicable for review. Correct side/site marked and visible. Medications required for procedure verified. No fire risk assessment and interventions applicable. No implant(s) inserted. Sign Out: SIGN OUT (optional for EMERGENT procedures): No specimen collected. All instruments, equipment, possible retained foreign bodies accounted for. Post-procedure follow-up management communicated and Plan of Care Visit completed when applicable. Mariaelena Menendez RN Consultation requested by Dr. May for an opinion regarding ingrowing toenail. My final recommendations will be communicated back to the requesting physician by way of shared Medical record or letter to requesting physician via US mail. Initial Podiatric Office Visit: Chief Complaint: This 71 year old male who presents with chief complaint:ingrowing toenail of left great toe HPI Patient presents to clinic with complaint of ingrowing toenail of left great toe. Patient states the ingrown has been present for a couple of weeks. Patient tried to trim the nail back but that did not help. He presented to the urgent care and was referred here. He states if he has any pressure, he has pain. PAIN EVALUATION 04/11/2022 0838 Pain Level: 4 Pain Location: Toe Description: Sore;Sharp Duration Amount of Time: 2 Duration Units: Weeks Frequency: Continuous Intervention/Comfort measure: Other: See comment Comments: Went to Urgent Care with no intervention. 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 Greenberg, Urology Diverticulosis of colon (without mention of hemorrhage) Essential tremor 01/14/2012 Hypertrophy of prostate with urinary obstruction and other lower urinary tract symptoms (LUTS) 12/31/2006 Internal hemorrhoids without mention of complication Near syncope 02/15/2014 bradycardia NASRA on CPAP 06/15/2013 Problems with sexual function Unspecified essential hypertension 02/09/2010 VENOUS INSUFFICIENCY NOS 11/19/2005 Current Outpatient Medications Medication Sig metoprolol succinate ER (TOPROL XL) 50 mg 24 hr tablet Take 1 tablet by mouth once daily. atorvastatin (LIPITOR) 10 mg tablet Take 1 tablet by mouth once daily. aspirin, enteric coated (ASPIR-81) 81 mg EC tablet Take 1 tablet by mouth once daily. Tadalafil (CIALIS) 10 mg tablet Take 1 tablet by mouth as directed. TAKE 1-2 HOURS BEFORE SEXUAL INTERCOURSE NEEDED. COMPOUNDED PRESCRIPTION KNEE HIGH COMPRESSION STOCKINGS 30-40 MM. DX: EDEMA. terazosin 5 mg capsule Take 1 capsule by mouth daily at bedtime. Given by Dr. Rivera. CALCIUM CARBONATE/VITAMIN D3 (CALCIUM 500 + D ORAL) Take by mouth once daily. ascorbic acid (VITAMIN C) 500 mg tablet Take 500 mg by mouth once daily. Garlic ORAL Cap Take one(1) tablet daily. No current facility-administered medications for this visit. ALLERGIES No Known Allergies PAST SURGICAL HISTORY Procedure Laterality Date ATRIAL FIBRILLATION/FLUTTER ABLATION 03/29/2020 COLONOSCOPY - DIAGNOSTIC 08/25/20021992, 1994 COLONOSCOPY FLX DX W/COLLJ SPEC WHEN PFRMD 10/12/2012 Colonoscopy repeat 10 years COLONOSCOPY FLX DX W/COLLJ SPEC WHEN PFRMD 07/07/2020 Colonoscopy CYSTOSCOPY 04/12/2015 LEFT HEART CATH,PERCUTANEOUS 03/18/2008 Cardiac cath, L heart, normal LEFT HEART CATH,PERCUTANEOUS 05/12/2013 Cardiac cath, L heart. 30-40% LAD. PAST SURGICAL HISTORY OF 1963 left hip surgery after fracture, hardware removed PAST SURGICAL HISTORY OF 08/29/2011 Right index finger repair PAST SURGICAL HISTORY OF 11/2012 Right index Finger repair x 2 RPR 1ST INGUN HRNA AGE 3 YRS/> REDUCIBLE 2007 Hernia repair, inguinal x 3 TONSILLECTOMY PRIMARY/SECONDARY <AGE 10 1956 Tonsillectomy FAMILY HISTORY Problem Relation Age of Onset Arthritis Mother other (Other) Mother fall, natural causes Heart Father CABG other (Cholesterol) Father Diabetes Paternal Grandmother Prostate Cancer Brother 62 Glaucoma Brother Arthritis Brother lumbago Coronary Artery Disease Brother stents Arthritis Brother lumbago Social History Tobacco Use Smoking status: Never Smoker Smokeless tobacco: Never Used Vaping Use Vaping Use: Never used Substance Use Topics Alcohol use: No Comment: socially Drug use: No REVIEW OF SYSTEMS GENERAL: Negative for Malaise, significant weight loss, fever RESPIRATORY: Negative for cough, wheezing and shortness of breath CARDIOVASCULAR: Negative for chest pain, leg swelling and palpitations GI: Negative for abdominal discomfort, blood in stools or black stools and change in bowel habits : Negative for dysuria, frequency and incontinence MUSCULOSKELETAL: Negative for joint pain or swelling, back pain, and muscle pain. SKIN: Negative for lesions, rash, and itching. HEMATOLOGY/LYMPHOLOGY Negative for prolonged bleeding, bruising easily, and swollen nodes. ENDOCRINE: Negative for cold or heat intolerance, polyuria, polydipsia and goiter. NEURO: negative Physical Exam: Constitutional: Pt is a well developed 71 year old male who is alert, oriented and cooperative Eyes: Following during examination. No redness or drainage. Respiratory: RR normal and nonlabored. Even breathing. No evidence of distress or shortness of breath. Psychology: Patient is engaged during conversation. Normal affect and mood. Does not appear depressed or anxious during encounter. Vascular: Dorsalis pedis and posterior tibial pulses palpable and audible left Capillary Fill time < 5 seconds to digits 1-5 left Skin temperature warm to warm proximal to distal left Hair growth present to digits Neurological: intact light touch/epicritic sensation left intact protective sensation no significant neurological deficits Dermatological: Left hallux medial nail border is ingrowing with pain and swelling. No signs of infection. Prior debridement of medial border performed. Webspaces clean and dry 1-4 left.. Skin appears well hydrated and supple. good color, texture, turgor. No open lesions present. No callosities present. Musculoskeletal/Orthopaedic: Patient has pain to palpation of left hallux medial nail border Radiographs:n/a ASSESSMENT: (L60.0) Ingrown toenail PLAN: 1. History and physical examination performed. 2. Patient has ingrowing toenail of left hallux medial nail border. No signs of infection. 3. Discussed options not limited to slant back vs avulsion vs matrixectomy. Patient desires procedure to be done that would hopefully prevent recurrence. We informed him that this is likely accomplished by way of matrixectomy. He elected for matrixectomy of left hallux medial nail border 4. On exam, he has palpable and audible pulses. I did offer pvr prior to procedure but he wishes to proceed with procedure today. Discussed risks of toenail procedure not limited to infection, pain, swelling, bleeding, painful scarring, recurrence, need for revised procedure. Patient consented to proceed. Patient was properly identified by name and procedure. The left hallux was then injected with 3 cc of 1% lidocaine plain. The toe was then prepped and draped in the usual aseptic technique. A digital tournicot was applied to the toe. The medial nail border was then freed and removed. Careful inspection was performed to assure no remaining spicule present. 3 applications of phenol were then administered x 30 seconds each followed by alcohol rinse. Sterile dressing was then applied consisting of amerigel, guaze, lea and coban. Tournicot was removed and hyperemic response was noted. Patient tolerated well. Patient will f/u in 2 weeks. It should be noted that during the last application of phenol, the cotton swab rolled off the applicator upon removal. The cotton swab was removed in its entirety with hemostat and irrigated with saline. The wound was inspected for retained foreign material and nothing was found. Patient informed and shown what happened. Patient satisfied with decription of event. This did occur in presence of my nursing staff, Mariaelena Menendez. Sers event (near miss/good catch) filed. Carlo Gomez DPM Podiatry [address] [facility] [address] Dept: [phone] Dept Patient presents with: Left Great Toe - Ingrown Nail, Acute Visit Last seen 04/2019 AMB ROOMING INTAKE FLOWSHEET DATA Pain Pain Level: 4 Pain Location: Toe Description: Sore, Sharp Duration Amount of Time: 2 Duration Units: Weeks Frequency: Continuous Intervention/Comfort measure: Other: See comment Comments: Went to Urgent Care with no intervention. attempted to trim documented in this encounter [facility] 04-11-2022 Instructions Carlo Gomez - 04/11/2022 9:12 AM EDT Post-Op Nail Instructions Minimize activity until the anesthesia wears off (about 2-8 hours). Increase activity to tolerance Remove bandage tomorrow Soak affected toe/foot in epsom salts for 15-20 minutes twice daily After soaking, apply antibiotic ointment (OTC Neosporin) to affected toe and re bandage OTC Ibuprofen if having pain, provided you have no allergies or intolerance to NSAIDS Mild drainage, redness, and blood is expected, but if you expeirence severe pain, increase in drainage, swelling, or red streaking please contact our office immediately Feel free to contact office as well if you have any questions/concerns [phone], ask for Podiatry Nurse documented in this encounter [facility] 03-30-2022 History of Present illness Narrative Images from the original note were not included. Subjective HPI Monika Chowdhury is a 71 year old male who presents with an ingrown toenail left great toe for the past 2 weeks. The area is tender. It is not red or swollen. There has been no drainage. He would like a referral to podiatry. He has not used any type of treatment at home for this problem. Review of Systems Constitutional: Negative for chills and fever. Musculoskeletal: See HPI Skin: Negative. 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 Greenberg, Urology Diverticulosis of colon (without mention of hemorrhage) Essential tremor 01/14/2012 Hypertrophy of prostate with urinary obstruction and other lower urinary tract symptoms (LUTS) 12/31/2006 Internal hemorrhoids without mention of complication Near syncope 02/15/2014 bradycardia NASRA on CPAP 06/15/2013 Problems with sexual function Unspecified essential hypertension 02/09/2010 VENOUS INSUFFICIENCY NOS 11/19/2005 PAST SURGICAL HISTORY Procedure Laterality Date ATRIAL FIBRILLATION/FLUTTER ABLATION 03/29/2020 COLONOSCOPY - DIAGNOSTIC 08/25/20021992, 1994 COLONOSCOPY FLX DX W/COLLJ SPEC WHEN PFRMD 10/12/2012 Colonoscopy repeat 10 years COLONOSCOPY FLX DX W/COLLJ SPEC WHEN PFRMD 07/07/2020 Colonoscopy CYSTOSCOPY 04/12/2015 LEFT HEART CATH,PERCUTANEOUS 03/18/2008 Cardiac cath, L heart, normal LEFT HEART CATH,PERCUTANEOUS 05/12/2013 Cardiac cath, L heart. 30-40% LAD. PAST SURGICAL HISTORY OF 1963 left hip surgery after fracture, hardware removed PAST SURGICAL HISTORY OF 08/29/2011 Right index finger repair PAST SURGICAL HISTORY OF 11/2012 Right index Finger repair x 2 RPR 1ST INGUN HRNA AGE 3 YRS/> REDUCIBLE 2007 Hernia repair, inguinal x 3 TONSILLECTOMY PRIMARY/SECONDARY <AGE 10 1955 Tonsillectomy ALLERGIES Patient has no known allergies. MEDICATIONS metoprolol succinate ER (TOPROL XL) 50 mg 24 hr tablet Take 1 tablet by mouth once daily. atorvastatin (LIPITOR) 10 mg tablet Take 1 tablet by mouth once daily. aspirin, enteric coated (ASPIR-81) 81 mg EC tablet Take 1 tablet by mouth once daily. Tadalafil (CIALIS) 10 mg tablet Take 1 tablet by mouth as directed. TAKE 1-2 HOURS BEFORE SEXUAL INTERCOURSE NEEDED. COMPOUNDED PRESCRIPTION KNEE HIGH COMPRESSION STOCKINGS 30-40 MM. DX: EDEMA. terazosin 5 mg capsule Take 1 capsule by mouth daily at bedtime. Given by Dr. Rivera. CALCIUM CARBONATE/VITAMIN D3 (CALCIUM 500 + D ORAL) Take by mouth once daily. ascorbic acid (VITAMIN C) 500 mg tablet Take 500 mg by mouth once daily. Garlic ORAL Cap Take one(1) tablet daily. FAMILY HISTORY Problem Relation Age of Onset Arthritis Mother other (Other) Mother fall, natural causes Heart Father CABG other (Cholesterol) Father Diabetes Paternal Grandmother Prostate Cancer Brother 62 Glaucoma Brother Arthritis Brother lumbago Coronary Artery Disease Brother stents Arthritis Brother lumbago Social History Tobacco Use Smoking status: Never Smoker Smokeless tobacco: Never Used Vaping Use Vaping Use: Never used Substance Use Topics Alcohol use: No Comment: socially Drug use: No Objective Physical Exam Vitals and nursing note reviewed. Constitutional: Appearance: Normal appearance. Musculoskeletal: Feet: Skin: General: Skin is warm and dry. Capillary Refill: Capillary refill takes less than 2 seconds. Findings: No erythema or rash. Neurological: Mental Status: He is alert. ASSESSMENT/PLAN: 1. Ingrown toenail - ICD9: 703.0, ICD10: L60.0 - CONSULT TO PODIATRY Felisa May APRN.CNP documented in this encounter [facility] 03-30-2022 Instructions Felisa May APRN.MIGUEL - 03/30/2022 12:47 PM EDT ASSESSMENT/PLAN: 1. Ingrown toenail - ICD9: 703.0, ICD10: L60.0 - CONSULT TO PODIATRY Felisa May APRN.SENIOR COPYWRITER documented in this encounter [facility] 03-21-2022 History of Present illness Narrative This note was created using Liquid Xriter. Subjective Monika Chowdhury is a 71 year old male. He's had a lump on his right scrotum on a chronic basis. Dr. Rivera (retired) told him it was a clogged hair follicle. This had not changed much over the years. His atrial fibrillation was controlled. Hypertension was controlled. Review of Systems ACTIVE PROBLEM LIST Venous (Peripheral) Insufficiency Bph With Obstruction/Lower Urinary Tract Symptoms Aortic Root Dilatation (Hcc) Essential Hypertension Actinic Skin Damage Essential Tremor Paroxysmal Atrial Fibrillation (Hcc) 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 Mixed Hyperlipidemia Coronary Artery Disease Involving [place] Coronary Artery of [place] Heart Without Angina Pectoris Current Outpatient Medications Medication Sig metoprolol succinate ER (TOPROL XL) 50 mg 24 hr tablet Take 1 tablet by mouth once daily. atorvastatin (LIPITOR) 10 mg tablet Take 1 tablet by mouth once daily. aspirin, enteric coated (ASPIR-81) 81 mg EC tablet Take 1 tablet by mouth once daily. Tadalafil (CIALIS) 10 mg tablet Take 1 tablet by mouth as directed. TAKE 1-2 HOURS BEFORE SEXUAL INTERCOURSE NEEDED. COMPOUNDED PRESCRIPTION KNEE HIGH COMPRESSION STOCKINGS 30-40 MM. DX: EDEMA. terazosin 5 mg capsule Take 1 capsule by mouth daily at bedtime. Given by Dr. Rivera. CALCIUM CARBONATE/VITAMIN D3 (CALCIUM 500 + D ORAL) Take by mouth once daily. ascorbic acid (VITAMIN C) 500 mg tablet Take 500 mg by mouth once daily. Garlic ORAL Cap Take one(1) tablet daily. No current facility-administered medications for this visit. Objective BP 134/70 (BP Site: Right Arm, BP Position: Sitting, BP Cuff Size: Large Adult) Pulse 80 Temp 36.6 C (97.9 F) (Temporal Artery) Resp 18 Wt 84.8 kg (187 lb) BMI 25.36 kg/m Physical Exam Constitutional: Appearance: Normal appearance. Cardiovascular: Rate and Rhythm: Normal rate and regular rhythm. Heart sounds: S1 normal and S2 normal. No murmur heard. Pulmonary: Breath sounds: No wheezing or rales. Genitourinary: Comments: 2 mm epidermoid cyst right scrotal skin. Musculoskeletal: Right lower leg: No edema. Left lower leg: No edema. Neurological: Mental Status: He is alert. BP 112/54 (BP Site: Right Arm, BP Position: Sitting) Rechecked both arms. Assessment and Plan 1. Paroxysmal atrial fibrillation (HCC) - ICD9: 427.31, ICD10: I48.0 (primary diagnosis) Controlled. - CBC 2. Aortic root dilatation (HCC) - ICD9: 447.71, ICD10: I77.810 Consider recheck with echo this fall. Last checked with CT of pulmonary veins 2019. 3. Essential hypertension - ICD9: 401.9, ICD10: I10 - good control 4. Epidermoid cyst of skin of scrotum - ICD9: 608.89, ICD10: L72.0 Reassured. 5. Mixed hyperlipidemia - ICD9: 272.2, ICD10: E78.2 - good control - Continue current medication. - COMP METABOLIC PANEL - LIPID PANEL BASIC 6. Screening for prostate cancer - ICD9: V76.44, ICD10: Z12.5 - Risks/benefits of prostate cancer screening discussed. screening PSA ordered - PSA/PROSTSPECAG ERICN Fei Gandhi MD documented in this encounter [facility] 02-18-2022 Miscellaneous Notes Faxed back. Form for dental work completed. Form to pcp to review. Patient returned call and given message below. Patient reports aerial advertiser instructed him to stop xarelto at last visit on 08-06-21 (in epic). Corporate Treasury Analyst cauterized a section in his heart to stop a fib. If a fib returns they would restart it, but it has not returned. His current medications are: Asa 81 mg daily Lipitor 10 mg daily metoprolol 50 mg daily Terazosin 5 mg daily Vitamins Asking pcp to send refill for lipitor and metoprolol. Pended. Last ov in pcp office: 09-07-21. Next ov in pcp office: 03-21-22 rec'd fax from Mika Mackenzie for pcp to complete. They note pt is on zarelto and are asking pcp to note how long prior pt can hold this and when should he resume? Reviewed pts med list it appears pt is not taking xarelto. Message left for pt to return call to a nurse. PLEASE VERIFY WHEN MEDICINES PT IS TAKING DAILY AND NEEDED. documented in this encounter [facility] 07-19-2019 History of Past i llness Narrative Problem Noted Date Resolved Date Encounter for monitoring flecainide therapy 07/201903/05/2021 Right-sided low back pain without sciatica 05/2005/19/2017 Seborrheic Keratosis 09/30/2011 01/14/2012 Solar Lentigines 09/30/2011 05/20/2016 Viral warts, unspecified 09/30/2011 012 Thomas angioma 09/30/2011 01/14/2012 Skin tag 09/30/2011 01/14/2012 Other hammer toe (acquired) 09/05/200612/12 Exostosis of unspecified site 09/05/2006 Onychia and paronychia of toe 09/04/2006 Benign neoplasm of colon 12/18/2005 017 Overview: Adenomatous polyp Internal hemorrhoids without mention of complica tion 05/20/2016 Problems with sexual function Overview: Erectile dysfunction documented as of this encounter (statuses as of 02/18/2022) [facility] History of Past illness Narrative* Problem Noted Date Resolved Date Encounter for monitoring flecainide therapy 07/201903/05/2021 Right-sided low back pain without sciatica 05/2005/19/2017 Seborrheic Keratosis 09/30/2011 01/14/2012 Solar Lentigines 09/30/2011 05/20/2016 Viral warts, unspecified 09/30/2011 012 Thomas angioma 09/30/2011 01/14/2012 Skin tag 09/30/2011 01/14/2012 Other hammer toe (acquired) 09/05/200612/12 Exostosis of unspecified site 09/05/2006 Onychia and paronychia of toe 09/04/2006 Benign neoplasm of colon 12/18/2005 017 Overview: Adenomatous polyp Internal hemorrhoids without mention of complica tion 05/20/2016 Problems with sexual function Overview: Erectile dysfunction documented as of this encounter (statuses as of 03/21/2022) [facility] History of Past illness Narrative* Problem Noted Date Resolved Date Encounter for monitoring flecainide therapy 07/201903/05/2021 Right-sided low back pain without sciatica 05/2005/19/2017 Seborrheic Keratosis 09/30/2011 01/14/2012 Solar Lentigines 09/30/2011 05/20/2016 Viral warts, unspecified 09/30/2011 012 Htomas angioma 09/30/2011 01/14/2012 Skin tag 09/30/2011 01/14/2012 Other hammer toe (acquired) 09/05/200612/12 Exostosis of unspecified site 09/05/2006 Onychia and paronychia of toe 09/04/2006 Benign neoplasm of colon 12/18/2005 017 Overview: Adenomatous polyp Internal hemorrhoids without mention of complica tion 05/20/2016 Problems with sexual function Overview: Erectile dysfunction documented as of this encounter (statuses as of 03/30/2022) [facility] History of Past illness Narrative* Problem Noted Date Resolved Date Encounter for monitoring flecainide therapy 07/201903/05/2021 Right-sided low back pain without sciatica 05/2005/19/2017 Seborrheic Keratosis 09/30/2011 01/14/2012 Solar Lentigines 09/30/2011 05/20/2016 Viral warts, unspecified 09/30/2011 012 Thomas angioma 09/30/2011 01/14/2012 Skin tag 09/30/2011 01/14/2012 Other hammer toe (acquired) 09/05/200612/12 Exostosis of unspecified site 09/05/2006 Onychia and paronychia of toe 09/04/2006 Benign neoplasm of colon 12/18/2005 017 Overview: Adenomatous polyp Internal hemorrhoids without mention of complica tion 05/20/2016 Problems with sexual function Overview: Erectile dysfunction documented as of this encounter (statuses as of 04/12/2022) [facility] History of Past illness Narrative* Problem Noted Date Resolved Date Encounter for monitoring flecainide therapy 07/201903/05/2021 Right-sided low back pain without sciatica 05/2005/19/2017 Seborrheic Keratosis 09/30/2011 01/14/2012 Solar Lentigines 09/30/2011 05/20/2016 Viral warts, unspecified 09/30/2011 012 Thomas angioma 09/30/2011 01/14/2012 Skin tag 09/30/2011 01/14/2012 Other hammer toe (acquired) 09/05/200612/12 Exostosis of unspecified site 09/05/2006 Onychia and paronychia of toe 09/04/2006 Benign neoplasm of colon 12/18/2005 017 Overview: Adenomatous polyp Internal hemorrhoids without mention of complica tion 05/20/2016 Problems with sexual function Overview: Erectile dysfunction documented as of this encounter (statuses as of 04/20/2022) [facility] History of Past illness Narrative* Problem Noted Date Resolved Date Encounter for monitoring flecainide therapy 07/201903/05/2021 Right-sided low back pain without sciatica 05/2005/19/2017 Seborrheic Keratosis 09/30/2011 01/14/2012 Solar Lentigines 09/30/2011 05/20/2016 Viral warts, unspecified 09/30/2011 012 Htomas angioma 09/30/2011 01/14/2012 Skin tag 09/30/2011 01/14/2012 Other hammer toe (acquired) 09/05/200612/12 Exostosis of unspecified site 09/05/2006 Onychia and paronychia of toe 09/04/2006 Benign neoplasm of colon 12/18/2005 017 Overview: Adenomatous polyp Internal hemorrhoids without mention of complica tion 05/20/2016 Problems with sexual function Overview: Erectile dysfunction documented as of this encounter (statuses as of 05/22/2022) [facility] History of Past illness Narrative* Problem Noted Date Resolved Date Encounter for monitoring flecainide therapy 07/201903/05/2021 Right-sided low back pain without sciatica 05/2005/19/2017 Seborrheic Keratosis 09/30/2011 01/14/2012 Solar Lentigines 09/30/2011 05/20/2016 Viral warts, unspecified 09/30/2011 012 Thomas angioma 09/30/2011 01/14/2012 Skin tag 09/30/2011 01/14/2012 Other hammer toe (acquired) 09/05/200612/12 Exostosis of unspecified site 09/05/2006 Onychia and paronychia of toe 09/04/2006 Benign neoplasm of colon 12/18/2005 017 Overview: Adenomatous polyp Internal hemorrhoids without mention of complica tion 05/20/2016 Problems with sexual function Overview: Erectile dysfunction documented as of this encounter (statuses as of 05/23/2022) [facility] History of Past illness Narrative* Problem Noted Date Resolved Date Encounter for monitoring flecainide therapy 07/201903/05/2021 Right-sided low back pain without sciatica 05/2005/19/2017 Seborrheic Keratosis 09/30/2011 01/14/2012 Solar Lentigines 09/30/2011 05/20/2016 Viral warts, unspecified 09/30/2011 012 Thomas angioma 09/30/2011 01/14/2012 Skin tag 09/30/2011 01/14/2012 Other hammer toe (acquired) 09/05/200612/12 Exostosis of unspecified site 09/05/2006 Onychia and paronychia of toe 09/04/2006 Benign neoplasm of colon 12/18/2005 017 Overview: Adenomatous polyp Internal hemorrhoids without mention of complica tion 05/20/2016 Problems with sexual function Overview: Erectile dysfunction documented as of this encounter (statuses as of 06/02/2022) [facility] History of Past illness Narrative* Problem Noted Date Resolved Date Encounter for monitoring flecainide therapy 07/201903/05/2021 Right-sided low back pain without sciatica 05/2005/19/2017 Seborrheic Keratosis 09/30/2011 01/14/2012 Solar Lentigines 09/30/2011 05/20/2016 Viral warts, unspecified 09/30/2011 012 Thomas angioma 09/30/2011 01/14/2012 Skin tag 09/30/2011 01/14/2012 Other hammer toe (acquired) 09/05/200612/12 Exostosis of unspecified site 09/05/2006 Onychia and paronychia of toe 09/04/2006 Benign neoplasm of colon 12/18/2005 017 Overview: Adenomatous polyp Internal hemorrhoids without mention of complica tion 05/20/2016 Problems with sexual function Overview: Erectile dysfunction documented as of this encounter (statuses as of 06/05/2022) [facility] History of Past illness Narrative* Problem Noted Date Resolved Date Encounter for monitoring flecainide therapy 07/201903/05/2021 Right-sided low back pain without sciatica 05/2005/19/2017 Seborrheic Keratosis 09/30/2011 01/14/2012 Solar Lentigines 09/30/2011 05/20/2016 Viral warts, unspecified 09/30/2011 012 Thomas angioma 09/30/2011 01/14/2012 Skin tag 09/30/2011 01/14/2012 Other hammer toe (acquired) 09/05/200612/12 Exostosis of unspecified site 09/05/2006 Onychia and paronychia of toe 09/04/2006 Benign neoplasm of colon 12/18/2005 017 Overview: Adenomatous polyp Internal hemorrhoids without mention of complica tion 05/20/2016 Problems with sexual function Overview: Erectile dysfunction documented as of this encounter (statuses as of 06/07/2022) [facility] History of Past illness Narrative* Problem Noted Date Resolved Date Encounter for monitoring flecainide therapy 07/201903/05/2021 Right-sided low back pain without sciatica 05/2005/19/2017 Seborrheic Keratosis 09/30/2011 01/14/2012 Solar Lentigines 09/30/2011 05/20/2016 Viral warts, unspecified 09/30/2011 012 Thomas angioma 09/30/2011 01/14/2012 Skin tag 09/30/2011 01/14/2012 Other hammer toe (acquired) 09/05/200612/12 Exostosis of unspecified site 09/05/2006 Onychia and paronychia of toe 09/04/2006 Benign neoplasm of colon 12/18/2005 017 Overview: Adenomatous polyp Internal hemorrhoids without mention of complica tion 05/20/2016 Problems with sexual function Overview: Erectile dysfunction documented as of this encounter (statuses as of 06/07/2022) [facility] History of Past illness Narrative* Problem Noted Date Resolved Date Encounter for monitoring flecainide therapy 07/201903/05/2021 Right-sided low back pain without sciatica 05/2005/19/2017 Seborrheic Keratosis 09/30/2011 01/14/2012 Solar Lentigines 09/30/2011 05/20/2016 Viral warts, unspecified 09/30/2011 012 Thomas angioma 09/30/2011 01/14/2012 Skin tag 09/30/2011 01/14/2012 Other hammer toe (acquired) 09/05/200612/12 Exostosis of unspecified site 09/05/2006 Onychia and paronychia of toe 09/04/2006 Benign neoplasm of colon 12/18/2005 017 Overview: Adenomatous polyp Internal hemorrhoids without mention of complica tion 05/20/2016 Problems with sexual function Overview: Erectile dysfunction documented as of this encounter (statuses as of 06/10/2022) [facility] History of Past illness Narrative* Problem Noted Date Resolved Date Encounter for monitoring flecainide therapy 07/201903/05/2021 Right-sided low back pain without sciatica 05/2005/19/2017 Seborrheic Keratosis 09/30/2011 01/14/2012 Solar Lentigines 09/30/2011 05/20/2016 Viral warts, unspecified 09/30/2011 012 Thomas angioma 09/30/2011 01/14/2012 Skin tag 09/30/2011 01/14/2012 Other hammer toe (acquired) 09/05/200612/12 Exostosis of unspecified site 09/05/2006 Onychia and paronychia of toe 09/04/2006 Benign neoplasm of colon 12/18/2005 017 Overview: Adenomatous polyp Internal hemorrhoids without mention of complica tion 05/20/2016 Problems with sexual function Overview: Erectile dysfunction documented as of this encounter (statuses as of 06/12/2022) [facility] History of Past illness Narrative* Problem Noted Date Resolved Date Encounter for monitoring flecainide therapy 07/201903/05/2021 Right-sided low back pain without sciatica 05/2005/19/2017 Seborrheic Keratosis 09/30/2011 01/14/2012 Solar Lentigines 09/30/2011 05/20/2016 Viral warts, unspecified 09/30/2011 012 Thomas angioma 09/30/2011 01/14/2012 Skin tag 09/30/2011 01/14/2012 Other hammer toe (acquired) 09/05/200612/12 Exostosis of unspecified site 09/05/2006 Onychia and paronychia of toe 09/04/2006 Benign neoplasm of colon 12/18/2005 017 Overview: Adenomatous polyp Internal hemorrhoids without mention of complica tion 05/20/2016 Problems with sexual function Overview: Erectile dysfunction documented as of this encounter (statuses as of 08/07/2022) [facility] History of Past illness Narrative* Problem Noted Date Resolved Date Encounter for monitoring flecainide therapy 07/201903/05/2021 Right-sided low back pain without sciatica 05/2005/19/2017 Seborrheic Keratosis 09/30/2011 01/14/2012 Solar Lentigines 09/30/2011 05/20/2016 Viral warts, unspecified 09/30/2011 012 Thomas angioma 09/30/2011 01/14/2012 Skin tag 09/30/2011 01/14/2012 Other hammer toe (acquired) 09/05/200612/12 Exostosis of unspecified site 09/05/2006 Onychia and paronychia of toe 09/04/2006 Benign neoplasm of colon 12/18/2005 017 Overview: Adenomatous polyp Internal hemorrhoids without mention of complica tion 05/20/2016 Problems with sexual function Overview: Erectile dysfunction documented as of this encounter (statuses as of 10/17/2022) [facility] History of Past illness Narrative* Problem Noted Date Resolved Date Encounter for monitoring flecainide therapy 07/201903/05/2021 Right-sided low back pain without sciatica 05/2005/19/2017 Seborrheic Keratosis 09/30/2011 01/14/2012 Solar Lentigines 09/30/2011 05/20/2016 Viral warts, unspecified 09/30/2011 012 Thomas angioma 09/30/2011 01/14/2012 Skin tag 09/30/2011 01/14/2012 Other hammer toe (acquired) 09/05/200612/12 Exostosis of unspecified site 09/05/2006 Onychia and paronychia of toe 09/04/2006 Benign neoplasm of colon 12/18/2005 017 Overview: Adenomatous polyp Internal hemorrhoids without mention of complica tion 05/20/2016 Problems with sexual function Overview: Erectile dysfunction documented as of this encounter (statuses as of 12/31/2022) [facility] History of Past illness Narrative* Problem Noted Date Resolved Date Encounter for monitoring flecainide therapy 07/201903/05/2021 Right-sided low back pain without sciatica 05/2005/19/2017 Seborrheic Keratosis 09/30/2011 01/14/2012 Solar Lentigines 09/30/2011 05/20/2016 Viral warts, unspecified 09/30/2011 012 Thomas angioma 09/30/2011 01/14/2012 Skin tag 09/30/2011 01/14/2012 Other hammer toe (acquired) 09/05/200612/12 Exostosis of unspecified site 09/05/2006 Onychia and paronychia of toe 09/04/2006 Benign neoplasm of colon 12/18/2005 017 Overview: Adenomatous polyp Internal hemorrhoids without mention of complica tion 05/20/2016 Problems with sexual function Overview: Erectile dysfunction documented as of this encounter (statuses as of 12/31/2022) [facility] History of Past illness Narrative* Problem Noted Date Resolved Date Encounter for monitoring flecainide therapy 07/201903/05/2021 Right-sided low back pain without sciatica 05/2005/19/2017 Seborrheic Keratosis 09/30/2011 01/14/2012 Solar Lentigines 09/30/2011 05/20/2016 Viral warts, unspecified 09/30/2011 012 Thomas angioma 09/30/2011 01/14/2012 Skin tag 09/30/2011 01/14/2012 Other hammer toe (acquired) 09/05/200612/12 Exostosis of unspecified site 09/05/2006 Onychia and paronychia of toe 09/04/2006 Benign neoplasm of colon 12/18/2005 017 Overview: Adenomatous polyp Internal hemorrhoids without mention of complica tion 05/20/2016 Problems with sexual function Overview: Erectile dysfunction documented as of this encounter (statuses as of 03/10/2023) [facility] of Past illness Narrative* Problem Noted Date Resolved Date Encounter for monitoring flecainide therapy 07/201903/05/2021 Right-sided low back pain without sciatica 05/2005/19/2017 Seborrheic Keratosis 09/30/2011 01/14/2012 Solar Lentigines 09/30/2011 05/20/2016 Viral warts, unspecified 09/30/2011 012 Thomas angioma 09/30/2011 01/14/2012 Skin tag 09/30/2011 01/14/2012 Other hammer toe (acquired) 09/05/200612/12 Exostosis of unspecified site 09/05/2006 Onychia and paronychia of toe 09/04/2006 Benign neoplasm of colon 12/18/2005 017 Overview: Adenomatous polyp Internal hemorrhoids without mention of complica tion 05/20/2016 Problems with sexual function Overview: Erectile dysfunction documented as of this encounter (statuses as of 03/25/2023) [facility] of Past illness Narrative* Problem Noted Date Resolved Date Encounter for monitoring flecainide therapy 07/201903/05/2021 Right-sided low back pain without sciatica 05/2005/19/2017 Seborrheic Keratosis 09/30/2011 01/14/2012 Solar Lentigines 09/30/2011 05/20/2016 Viral warts, unspecified 09/30/2011 012 Thomas angioma 09/30/2011 01/14/2012 Skin tag 09/30/2011 01/14/2012 Other hammer toe (acquired) 09/05/200612/12 Exostosis of unspecified site 09/05/2006 Onychia and paronychia of toe 09/04/2006 Benign neoplasm of colon 12/18/2005 017 Overview: Adenomatous polyp Internal hemorrhoids without mention of complica tion 05/20/2016 Problems with sexual function Overview: Erectile dysfunction documented as of this encounter (statuses as of 04/08/2023) [facility] of Past illness Narrative* Problem Noted Date Resolved Date Encounter for monitoring flecainide therapy 07/201903/05/2021 Right-sided low back pain without sciatica 05/2005/19/2017 Seborrheic Keratosis 09/30/2011 01/14/2012 Solar Lentigines 09/30/2011 05/20/2016 Viral warts, unspecified 09/30/2011 012 Thomas angioma 09/30/2011 01/14/2012 Skin tag 09/30/2011 01/14/2012 Other hammer toe (acquired) 09/05/200612/12 Exostosis of unspecified site 09/05/2006 Onychia and paronychia of toe 09/04/2006 Benign neoplasm of colon 12/18/2005 017 Overview: Adenomatous polyp Internal hemorrhoids without mention of complica tion 05/20/2016 Problems with sexual function Overview: Erectile dysfunction documented as of this encounter (statuses as of 04/09/2023) [facility] of Past illness Narrative* Problem Noted Date Resolved Date Encounter for monitoring flecainide therapy 07/201903/05/2021 Right-sided low back pain without sciatica 05/2005/19/2017 Seborrheic Keratosis 09/30/2011 01/14/2012 Solar Lentigines 09/30/2011 05/20/2016 Viral warts, unspecified 09/30/2011 012 Thomas angioma 09/30/2011 01/14/2012 Skin tag 09/30/2011 01/14/2012 Other hammer toe (acquired) 09/05/200612/12 Exostosis of unspecified site 09/05/2006 Onychia and paronychia of toe 09/04/2006 Benign neoplasm of colon 12/18/2005 017 Overview: Adenomatous polyp Internal hemorrhoids without mention of complica tion 05/20/2016 Problems with sexual function Overview: Erectile dysfunction documented as of this encounter (statuses as of 04/26/2023) [facility] of Past illness Narrative* Problem Noted Date Diagnosed Date Resolved Date Encounter for monitoring flecainide therapy 07/19/2019 03/05/2021 Right-sided low back pain without sciatica 05/20/2016 05/19/2017 Seborrheic Keratosis 09/30/2011 012 Solar Lentigines 09/30/2011 05/20/2016 Viral warts, unspecified 09/30/201104/2012 Thomas angioma 09/30/2011 01/14/2012 Skin tag 09/30/2011 01/14/2012 Other hammer toe (acquired) 09/05/2006 12/31/2006 Exostosis of unspecified site 09/05/2006 12/31/2006 Onychia and paronychia of toe 09/04/2006 12/31/2006 Benign neoplasm of colon 12/18/200508/2017 Overview: Adenomatous polyp Internal hemorrhoids without mention of complication 05/20/2016 Problems with sexual function 05/10/2014 Overview: Erectile dysfunction documented as of this encounter (statuses as of 05/20/2023) [facility] of Past illness Narrative* Problem Noted Date Diagnosed Date Resolved Date Encounter for monitoring flecainide therapy 07/19/2019 03/05/2021 Right-sided low back pain without sciatica 05/20/2016 05/19/2017 Seborrheic Keratosis 09/30/2011 012 Solar Lentigines 09/30/2011 05/20/2016 Viral warts, unspecified 09/30/201104/2012 Thomas angioma 09/30/2011 01/14/2012 Skin tag 09/30/2011 01/14/2012 Other hammer toe (acquired) 09/05/2006 12/31/2006 Exostosis of unspecified site 09/05/2006 12/31/2006 Onychia and paronychia of toe 09/04/2006 12/31/2006 Benign neoplasm of colon 12/18/200508/2017 Overview: Adenomatous polyp Internal hemorrhoids without mention of complication 05/20/2016 Problems with sexual function 05/10/2014 Overview: Erectile dysfunction documented as of this encounter (statuses as of 05/22/2023) [facility] of Past illness Narrative* Problem Noted Date Diagnosed Date Resolved Date Encounter for monitoring flecainide therapy 07/19/2019 03/05/2021 Right-sided low back pain without sciatica 05/20/2016 05/19/2017 Seborrheic Keratosis 09/30/2011 012 Solar Lentigines 09/30/2011 05/20/2016 Viral warts, unspecified 09/30/201104/2012 Thomas angioma 09/30/2011 01/14/2012 Skin tag 09/30/2011 01/14/2012 Other hammer toe (acquired) 09/05/2006 12/31/2006 Exostosis of unspecified site 09/05/2006 12/31/2006 Onychia and paronychia of toe 09/04/2006 12/31/2006 Benign neoplasm of colon 12/18/200508/2017 Overview: Adenomatous polyp Internal hemorrhoids without mention of complication 05/20/2016 Problems with sexual function 05/10/2014 Overview: Erectile dysfunction documented as of this encounter (statuses as of 06/06/2023) [facility] History of Past illness Narrative* Problem Noted Date Diagnosed Date Resolved Date Encounter for monitoring flecainide therapy 07/19/2019 03/05/2021 Right-sided low back pain without sciatica 05/20/2016 05/19/2017 Seborrheic Keratosis 09/30/2011 012 Solar Lentigines 09/30/2011 05/20/2016 Viral warts, unspecified 09/30/201104/2012 Thomas angioma 09/30/2011 01/14/2012 Skin tag 09/30/2011 01/14/2012 Other hammer toe (acquired) 09/05/2006 12/31/2006 Exostosis of unspecified site 09/05/2006 12/31/2006 Onychia and paronychia of toe 09/04/2006 12/31/2006 Benign neoplasm of colon 12/18/200508/2017 Overview: Adenomatous polyp Internal hemorrhoids without mention of complication 05/20/2016 Problems with sexual function 05/10/2014 Overview: Erectile dysfunction documented as of this encounter (statuses as of 06/13/2023) [facility] History of Past illness Narrative* Problem Noted Date Diagnosed Date Resolved Date Encounter for monitoring flecainide therapy 07/19/2019 03/05/2021 Right-sided low back pain without sciatica 05/20/2016 05/19/2017 Seborrheic Keratosis 09/30/2011 012 Solar Lentigines 09/30/2011 05/20/2016 Viral warts, unspecified 09/30/201104/2012 Thomas angioma 09/30/2011 01/14/2012 Skin tag 09/30/2011 01/14/2012 Other hammer toe (acquired) 09/05/2006 12/31/2006 Exostosis of unspecified site 09/05/2006 12/31/2006 Onychia and paronychia of toe 09/04/2006 12/31/2006 Benign neoplasm of colon 12/18/200508/2017 Overview: Adenomatous polyp Internal hemorrhoids without mention of complication 05/20/2016 Problems with sexual function 05/10/2014 Overview: Erectile dysfunction documented as of this encounter (statuses as of 06/25/2023) [facility] History of Past illness Narrative* Problem Noted Date Diagnosed Date Resolved Date Encounter for monitoring flecainide therapy 07/19/2019 03/05/2021 Right-sided low back pain without sciatica 05/20/2016 05/19/2017 Seborrheic Keratosis 09/30/2011 012 Solar Lentigines 09/30/2011 05/20/2016 Viral warts, unspecified 09/30/201104/2012 Thomas angioma 09/30/2011 01/14/2012 Skin tag 09/30/2011 01/14/2012 Other hammer toe (acquired) 09/05/2006 12/31/2006 Exostosis of unspecified site 09/05/2006 12/31/2006 Onychia and paronychia of toe 09/04/2006 12/31/2006 Benign neoplasm of colon 12/18/200508/2017 Overview: Adenomatous polyp Internal hemorrhoids without mention of complication 05/20/2016 Problems with sexual function 05/10/2014 Overview: Erectile dysfunction documented as of this encounter (statuses as of 07/11/2023) [facility] History of Past illness Narrative* Problem Noted Date Diagnosed Date Resolved Date Encounter for monitoring flecainide therapy 07/19/2019 03/05/2021 Right-sided low back pain without sciatica 05/20/2016 05/19/2017 Seborrheic Keratosis 09/30/2011 012 Solar Lentigines 09/30/2011 05/20/2016 Viral warts, unspecified 09/30/201104/2012 Thomas angioma 09/30/2011 01/14/2012 Skin tag 09/30/2011 01/14/2012 Other hammer toe (acquired) 09/05/2006 12/31/2006 Exostosis of unspecified site 09/05/2006 12/31/2006 Onychia and paronychia of toe 09/04/2006 12/31/2006 Benign neoplasm of colon 12/18/200508/2017 Overview: Adenomatous polyp Internal hemorrhoids without mention of complication 05/20/2016 Problems with sexual function 05/10/2014 Overview: Erectile dysfunction documented as of this encounter (statuses as of 08/20/2023) [facility] History of Past illness Narrative* Problem Noted Date Diagnosed Date Resolved Date Encounter for monitoring flecainide therapy 07/19/2019 03/05/2021 Right-sided low back pain without sciatica 05/20/2016 05/19/2017 Seborrheic Keratosis 09/30/2011 012 Solar Lentigines 09/30/2011 05/20/2016 Viral warts, unspecified 09/30/201104/2012 Thomas angioma 09/30/2011 01/14/2012 Skin tag 09/30/2011 01/14/2012 Other hammer toe (acquired) 09/05/2006 12/31/2006 Exostosis of unspecified site 09/05/2006 12/31/2006 Onychia and paronychia of toe 09/04/2006 12/31/2006 Benign neoplasm of colon 12/18/200508/2017 Overview: Adenomatous polyp Internal hemorrhoids without mention of complication 05/20/2016 Problems with sexual function 05/10/2014 Overview: Erectile dysfunction documented as of this encounter (statuses as of 08/21/2023) [facility] History of Past illness Narrative* Problem Noted Date Diagnosed Date Resolved Date Encounter for monitoring flecainide therapy 07/19/2019 03/05/2021 Right-sided low back pain without sciatica 05/20/2016 05/19/2017 Seborrheic Keratosis 09/30/2011 012 Solar Lentigines 09/30/2011 05/20/2016 Viral warts, unspecified 09/30/201104/2012 Thomas angioma 09/30/2011 01/14/2012 Skin tag 09/30/2011 01/14/2012 Other hammer toe (acquired) 09/05/2006 12/31/2006 Exostosis of unspecified site 09/05/2006 12/31/2006 Onychia and paronychia of toe 09/04/2006 12/31/2006 Benign neoplasm of colon 12/18/200508/2017 Overview: Adenomatous polyp Internal hemorrhoids without mention of complication 05/20/2016 Problems with sexual function 05/10/2014 Overview: Erectile dysfunction documented as of this encounter (statuses as of 08/22/2023) [facility] History of Past illness Narrative* Problem Noted Date Diagnosed Date Resolved Date Encounter for monitoring flecainide therapy 07/19/2019 03/05/2021 Right-sided low back pain without sciatica 05/20/2016 05/19/2017 Seborrheic Keratosis 09/30/2011 012 Solar Lentigines 09/30/2011 05/20/2016 Viral warts, unspecified 09/30/201104/2012 Thomas angioma 09/30/2011 01/14/2012 Skin tag 09/30/2011 01/14/2012 Other hammer toe (acquired) 09/05/2006 12/31/2006 Exostosis of unspecified site 09/05/2006 12/31/2006 Onychia and paronychia of toe 09/04/2006 12/31/2006 Benign neoplasm of colon 12/18/200508/2017 Overview: Adenomatous polyp Internal hemorrhoids without mention of complication 05/20/2016 Problems with sexual function 05/10/2014 Overview: Erectile dysfunction documented as of this encounter (statuses as of 10/01/2023) [facility] History of Past illness Narrative* Problem Noted Date Diagnosed Date Resolved Date Encounter for monitoring flecainide therapy 07/19/2019 03/05/2021 Right-sided low back pain without sciatica 05/20/2016 05/19/2017 Seborrheic Keratosis 09/30/2011 012 Solar Lentigines 09/30/2011 05/20/2016 Viral warts, unspecified 09/30/201104/2012 Thomas angioma 09/30/2011 01/14/2012 Skin tag 09/30/2011 01/14/2012 Other hammer toe (acquired) 09/05/2006 12/31/2006 Exostosis of unspecified site 09/05/2006 12/31/2006 Onychia and paronychia of toe 09/04/2006 12/31/2006 Benign neoplasm of colon 12/18/200508/2017 Overview: Adenomatous polyp Internal hemorrhoids without mention of complication 05/20/2016 Problems with sexual function 05/10/2014 Overview: Erectile dysfunction documented as of this encounter (statuses as of 10/14/2023) [facility] History of Past illness Narrative* Problem Noted Date Diagnosed Date Resolved Date Encounter for monitoring flecainide therapy 07/19/2019 03/05/2021 Right-sided low back pain without sciatica 05/20/2016 05/19/2017 Seborrheic Keratosis 09/30/2011 012 Solar Lentigines 09/30/2011 05/20/2016 Viral warts, unspecified 09/30/201104/2012 Thomas angioma 09/30/2011 01/14/2012 Skin tag 09/30/2011 01/14/2012 Other hammer toe (acquired) 09/05/2006 12/31/2006 Exostosis of unspecified site 09/05/2006 12/31/2006 Onychia and paronychia of toe 09/04/2006 12/31/2006 Benign neoplasm of colon 12/18/200508/2017 Overview: Adenomatous polyp Internal hemorrhoids without mention of complication 05/20/2016 Problems with sexual function 05/10/2014 Overview: Erectile dysfunction documented as of this encounter (statuses as of 10/17/2023) [facility] History of Past illness Narrative* Problem Noted Date Diagnosed Date Resolved Date Encounter for monitoring flecainide therapy 07/19/2019 03/05/2021 Right-sided low back pain without sciatica 05/20/2016 05/19/2017 Seborrheic Keratosis 09/30/2011 012 Solar Lentigines 09/30/2011 05/20/2016 Viral warts, unspecified 09/30/201104/2012 Thomas angioma 09/30/2011 01/14/2012 Skin tag 09/30/2011 01/14/2012 Other hammer toe (acquired) 09/05/2006 12/31/2006 Exostosis of unspecified site 09/05/2006 12/31/2006 Onychia and paronychia of toe 09/04/2006 12/31/2006 Benign neoplasm of colon 12/18/200508/2017 Overview: Adenomatous polyp Internal hemorrhoids without mention of complication 05/20/2016 Problems with sexual function 05/10/2014 Overview: Erectile dysfunction documented as of this encounter (statuses as of 10/17/2023) [facility] History of Past illness Narrative* Problem Noted Date Diagnosed Date Resolved Date Encounter for monitoring flecainide therapy 07/19/2019 03/05/2021 Right-sided low back pain without sciatica 05/20/2016 05/19/2017 Seborrheic Keratosis 09/30/2011 012 Solar Lentigines 09/30/2011 05/20/2016 Viral warts, unspecified 09/30/201104/2012 Thomas angioma 09/30/2011 01/14/2012 Skin tag 09/30/2011 01/14/2012 Other hammer toe (acquired) 09/05/2006 12/31/2006 Exostosis of unspecified site 09/05/2006 12/31/2006 Onychia and paronychia of toe 09/04/2006 12/31/2006 Benign neoplasm of colon 12/18/200508/2017 Overview: Adenomatous polyp Internal hemorrhoids without mention of complication 05/20/2016 Problems with sexual function 05/10/2014 Overview: Erectile dysfunction documented as of this encounter (statuses as of 10/21/2023) [facility] History of Past illness Narrative* Problem Noted Date Diagnosed Date Resolved Date Encounter for monitoring flecainide therapy 07/19/2019 03/05/2021 Right-sided low back pain without sciatica 05/20/2016 05/19/2017 Seborrheic Keratosis 09/30/2011 012 Solar Lentigines 09/30/2011 05/20/2016 Viral warts, unspecified 09/30/201104/2012 Thomas angioma 09/30/2011 01/14/2012 Skin tag 09/30/2011 01/14/2012 Other hammer toe (acquired) 09/05/2006 12/31/2006 Exostosis of unspecified site 09/05/2006 12/31/2006 Onychia and paronychia of toe 09/04/2006 12/31/2006 Benign neoplasm of colon 12/18/200508/2017 Overview: Adenomatous polyp Internal hemorrhoids without mention of complication 05/20/2016 Problems with sexual function 05/10/2014 Overview: Erectile dysfunction documented as of this encounter (statuses as of 10/25/2023) [facility] History of Past illness Narrative* Problem Noted Date Diagnosed Date Resolved Date Encounter for monitoring flecainide therapy 07/19/2019 03/05/2021 Right-sided low back pain without sciatica 05/20/2016 05/19/2017 Seborrheic Keratosis 09/30/2011 012 Solar Lentigines 09/30/2011 05/20/2016 Viral warts, unspecified 09/30/201104/2012 Thomas angioma 09/30/2011 01/14/2012 Skin tag 09/30/2011 01/14/2012 Other hammer toe (acquired) 09/05/2006 12/31/2006 Exostosis of unspecified site 09/05/2006 12/31/2006 Onychia and paronychia of toe 09/04/2006 12/31/2006 Benign neoplasm of colon 12/18/200508/2017 Overview: Adenomatous polyp Internal hemorrhoids without mention of complication 05/20/2016 Problems with sexual function 05/10/2014 Overview: Erectile dysfunction documented as of this encounter (statuses as of 02/02/2024) [facility] Diagnosis Laceration of right hand, foreign body presence unspecified, initial encounter documented in this encounter [facility] Work Phone: Evaluation note* Diagnosis Coronary artery disease involving [place] coronary artery of [place] heart without angina pectoris- Primary Mixed hyperlipidemia [facility] Diagnosis Paroxysmal atrial fibrillation (HCC)- Primary Atrial fibrillation Aortic root dilatation (HCC) Thoracic aortic ectasia Essential hypertension Unspecified essential hypertension Epidermoid cyst of skin of scrotum Mixed hyperlipidemia Screening for prostate cancer Special screening for malignant neoplasm of prostate [facility] Diagnosis Ingrown toenail- Primary Ingrowing nail [facility] Diagnosis Ingrown toenail Ingrowing nail [facility] Diagnosis Toe infection- Primary Unspecified local infection of skin and subcutaneous tissue [facility] Diagnosis Acute cough- Primary [facility] Diagnosis Acute cough- Primary [facility]* Diagnosis Toe inflammation- Primary Unspecified local infection of skin and subcutaneous tissue [facility]* Diagnosis Paroxysmal atrial fibrillation (HCC)- Primary Atrial fibrillation [facility]* Diagnosis Ingrown toenail Ingrowing nail [facility] Diagnosis Ingrown toenail- Primary Ingrowing nail documented [facility]* Diagnosis Ingrowing toenail with infection- Primary Ingrowing nail [facility]* Diagnosis Erectile dysfunction, unspecified erectile dysfunction type documented [facility] this [facility]* Diagnosis COVID-19 virus infection- Primary [facility]* Diagnosis Mixed hyperlipidemia Coronary artery disease involving [place] coronary artery of [place] heart without angina pectoris documented [facility]* Diagnosis Abdominal cramps- Primary Abdominal pain, unspecified site Aortic root dilatation (HCC) Thoracic aortic ectasia Paroxysmal atrial fibrillation (HCC) Atrial fibrillation Essential hypertension Unspecified essential hypertension Abnormal lung sounds Abnormal chest sounds Mixed hyperlipidemia [facility] Diagnosis Umbilical hernia without obstruction and without gangrene- Primary History of hernia surgery Other postprocedural status [facility] Diagnosis Umbilical hernia without obstruction and without gangrene History of hernia surgery Other postprocedural status Umbilical hernia without obstruction and without gangrene [facility]* Diagnosis Pre-operative examination- Primary Preoperative examination, unspecified 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 Obstructive sleep apnea (adult) (pediatric) Coronary artery disease involving [place] coronary artery of [place] heart without angina pectoris Mixed hyperlipidemia Paroxysmal atrial fibrillation (HCC) Atrial fibrillation BPH with obstruction/lower urinary tract symptoms Hypertrophy of prostate with urinary obstruction and other lower urinary tract symptoms (LUTS) Essential hypertension Unspecified essential hypertension Venous (peripheral) insufficiency Unspecified venous (peripheral) insufficiency Essential tremor Essential and other specified forms of tremor Aortic root dilatation (HCC) Thoracic aortic ectasia Umbilical hernia without obstruction and without gangrene documented [facility] this [facility]* Diagnosis S/P hernia repair- Primary Other postprocedural status [facility]* Diagnosis S/P hernia repair- Primary Other [facility]procedural status [facility] Diagnosis Sinobronchitis- Primary Unspecified sinusitis (chronic) Blood in sputum Hemoptysis, unspecified [facility]* Diagnosis BRBPR (bright red blood per rectum) Hemorrhage of rectum and anus [facility] Diagnosis Lower abdominal pain- Primary Abdominal pain, other specified site Diarrhea, unspecified type [facility] Diagnosis Lower abdominal pain Abdominal pain, other specified site Diarrhea, unspecified type [facility]* Diagnosis Sigmoiditis- Primary Other and unspecified noninfectious gastroenteritis and colitis documented in this encounter [facility] note* Diagnosis Coronary artery disease involving [place] coronary artery of [place] heart without angina pectoris- Primary Paroxysmal atrial fibrillation (HCC) Atrial fibrillation Aortic root dilatation (HCC) Thoracic aortic ectasia Essential hypertension Unspecified essential hypertension Mixed hyperlipidemia documented in this encounter [facility] noteNo assessment information [facility]WMer[facility] Work Phone: Evaluation note* Diagnosis Coronary artery disease involving [place] coronary artery of [place] heart without angina pectoris Mixed hyperlipidemia documented in this encounter [facility] note* Diagnosis Pre-operative examination- Primary Preoperative examination, unspecified 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 Obstructive sleep apnea (adult) (pediatric) Coronary artery disease involving [place] coronary artery of [place] heart without angina pectoris Mixed hyperlipidemia Paroxysmal atrial fibrillation (HCC) Atrial fibrillation BPH with obstruction/lower urinary tract symptoms Hypertrophy of prostate with urinary obstruction and other lower urinary tract symptoms (LUTS) Essential hypertension Unspecified essential hypertension Venous (peripheral) insufficiency Unspecified venous (peripheral) insufficiency Essential tremor Essential and other specified forms of tremor Aortic root dilatation (HCC) Thoracic aortic ectasia Sinobronchitis Unspecified sinusitis (chronic) Blood in sputum Hemoptysis, unspecified [facility] Diagnosis Abnormal lung sounds Abnormal chest sounds Pre-operative examination- Primary Preoperative examination, unspecified 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 Obstructive sleep apnea (adult) (pediatric) Coronary artery disease involving [place] coronary artery of [place] heart without angina pectoris Mixed hyperlipidemia Paroxysmal atrial fibrillation (HCC) Atrial fibrillation BPH with obstruction/lower urinary tract symptoms Hypertrophy of prostate with urinary obstruction and other lower urinary tract symptoms (LUTS) Essential hypertension Unspecified essential hypertension Venous (peripheral) insufficiency Unspecified venous (peripheral) insufficiency Essential tremor Essential and other specified forms of tremor Aortic root dilatation (HCC) Thoracic aortic ectasia [facility] Diagnosis Pre-operative examination- Primary Preoperative examination, unspecified 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 Obstructive sleep apnea (adult) (pediatric) Coronary artery disease involving [place] coronary artery of [place] heart without angina pectoris Mixed hyperlipidemia Paroxysmal atrial fibrillation (HCC) Atrial fibrillation BPH with obstruction/lower urinary tract symptoms Hypertrophy of prostate with urinary obstruction and other lower urinary tract symptoms (LUTS) Essential hypertension Unspecified essential hypertension Venous (peripheral) insufficiency Unspecified venous (peripheral) insufficiency Essential tremor Essential and other specified forms of tremor Aortic root dilatation (HCC) Thoracic aortic ectasia Coronary artery disease involving [place] coronary artery of [place] heart without angina pectoris- Primary Paroxysmal atrial fibrillation (HCC) Atrial fibrillation Aortic root dilatation (HCC) Thoracic aortic ectasia Essential hypertension Unspecified essential hypertension Mixed hyperlipidemia Leg edema Edema TATE (dyspnea on exertion) Other dyspnea and respiratory abnormality documented [facility] this [facility] Diagnosis Pre-operative examination- Primary Preoperative examination, unspecified 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 Obstructive sleep apnea (adult) (pediatric) Coronary artery disease involving [place] coronary artery of [place] heart without angina pectoris Mixed hyperlipidemia Paroxysmal atrial fibrillation (HCC) Atrial fibrillation BPH with obstruction/lower urinary tract symptoms Hypertrophy of prostate with urinary obstruction and other lower urinary tract symptoms (LUTS) Essential hypertension Unspecified essential hypertension Venous (peripheral) insufficiency Unspecified venous (peripheral) insufficiency Essential tremor Essential and other specified forms of tremor Aortic root dilatation (HCC) Thoracic aortic ectasia Routine medical exam- Primary Routine general medical examination at a health care facility Coronary artery disease involving [place] coronary artery of [place] heart without angina pectoris Essential hypertension Unspecified essential hypertension Mixed hyperlipidemia Paroxysmal atrial fibrillation (HCC) Atrial fibrillation Impacted cerumen, left ear [facility] Diagnosis Pre-operative examination- Primary Preoperative examination, unspecified 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 Obstructive sleep apnea (adult) (pediatric) Coronary artery disease involving [place] coronary artery of [place] heart without angina pectoris Mixed hyperlipidemia Paroxysmal atrial fibrillation (HCC) Atrial fibrillation BPH with obstruction/lower urinary tract symptoms Hypertrophy of prostate with urinary obstruction and other lower urinary tract symptoms (LUTS) Essential hypertension Unspecified essential hypertension Venous (peripheral) insufficiency Unspecified venous (peripheral) insufficiency Essential tremor Essential and other specified forms of tremor Aortic root dilatation (HCC) Thoracic aortic ectasia URI with cough and congestion- Primary [facility] Pre-operative examination- Primary Preoperative examination, unspecified 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 Obstructive sleep apnea (adult) (pediatric) Coronary artery disease involving [place] coronary artery of [place] heart without angina pectoris Mixed hyperlipidemia Paroxysmal atrial fibrillation (HCC) Atrial fibrillation BPH with obstruction/lower urinary tract symptoms Hypertrophy of prostate with urinary obstruction and other lower urinary tract symptoms (LUTS) Essential hypertension Unspecified essential hypertension Venous (peripheral) insufficiency Unspecified venous (peripheral) insufficiency Essential tremor Essential and other specified forms of tremor Aortic root dilatation (HCC) Thoracic aortic ectasia Acute pain of left shoulder- Primary Injury of left shoulder, initial encounter Acute pain of left shoulder Injury of left shoulder, initial encounter [facility] Diagnosis Pre-operative examination- Primary Preoperative examination, unspecified 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 Obstructive sleep apnea (adult) (pediatric) Coronary artery disease involving [place] coronary artery of [place] heart without angina pectoris Mixed hyperlipidemia Paroxysmal atrial fibrillation (HCC) Atrial fibrillation BPH with obstruction/lower urinary tract symptoms Hypertrophy of prostate with urinary obstruction and other lower urinary tract symptoms (LUTS) Essential hypertension Unspecified essential hypertension Venous (peripheral) insufficiency Unspecified venous (peripheral) insufficiency Essential tremor Essential and other specified forms of tremor Aortic root dilatation (HCC) Thoracic aortic ectasia Acute pain of left shoulder Injury of left shoulder, initial encounter [facility] Diagnosis Pre-operative examination- Primary Preoperative examination, unspecified 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 Obstructive sleep apnea (adult) (pediatric) Coronary artery disease involving [place] coronary artery of [place] heart without angina pectoris Mixed hyperlipidemia Paroxysmal atrial fibrillation (HCC) Atrial fibrillation BPH with obstruction/lower urinary tract symptoms Hypertrophy of prostate with urinary obstruction and other lower urinary tract symptoms (LUTS) Essential hypertension Unspecified essential hypertension Venous (peripheral) insufficiency Unspecified venous (peripheral) insufficiency Essential tremor Essential and other specified forms of tremor Aortic root dilatation (HCC) Thoracic aortic ectasia Rectal bleeding- Primary Hemorrhage of rectum and anus Hemorrhoids, unspecified hemorrhoid type [facility] Diagnosis Pre-operative examination- Primary Preoperative examination, unspecified 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 Obstructive sleep apnea (adult) (pediatric) Coronary artery disease involving [place] coronary artery of [place] heart without angina pectoris Mixed hyperlipidemia Paroxysmal atrial fibrillation (HCC) Atrial fibrillation BPH with obstruction/lower urinary tract symptoms Hypertrophy of prostate with urinary obstruction and other lower urinary tract symptoms (LUTS) Essential hypertension Unspecified essential hypertension Venous (peripheral) insufficiency Unspecified venous (peripheral) insufficiency Essential tremor Essential and other specified forms of tremor Aortic root dilatation (HCC) Thoracic aortic ectasia Rectal bleeding Hemorrhage of rectum and anus [facility] Diagnosis Pre-operative examination- Primary Preoperative examination, unspecified 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 Obstructive sleep apnea (adult) (pediatric) Coronary artery disease involving [place] coronary artery of [place] heart without angina pectoris Mixed hyperlipidemia Paroxysmal atrial fibrillation (HCC) Atrial fibrillation BPH with obstruction/lower urinary tract symptoms Hypertrophy of prostate with urinary obstruction and other lower urinary tract symptoms (LUTS) Essential hypertension Unspecified essential hypertension Venous (peripheral) insufficiency Unspecified venous (peripheral) insufficiency Essential tremor Essential and other specified forms of tremor Aortic root dilatation Thoracic aortic ectasia Acute cough- Primary URI, acute Acute upper respiratory infections of unspecified site [facility] Diagnosis Pre-operative examination- Primary Preoperative examination, unspecified 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 Obstructive sleep apnea (adult) (pediatric) Coronary artery disease involving [place] coronary artery of [place] heart without angina pectoris Mixed hyperlipidemia Paroxysmal atrial fibrillation (HCC) Atrial fibrillation BPH with obstruction/lower urinary tract symptoms Hypertrophy of prostate with urinary obstruction and other lower urinary tract symptoms (LUTS) Essential hypertension Unspecified essential hypertension Venous (peripheral) insufficiency Unspecified venous (peripheral) insufficiency Essential tremor Essential and other specified forms of tremor Aortic root dilatation Thoracic aortic ectasia Acute cough URI, acute Acute upper respiratory infections of unspecified site [facility] Diagnosis Pre-operative examination- Primary Preoperative examination, unspecified 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 Obstructive sleep apnea (adult) (pediatric) Coronary artery disease involving [place] coronary artery of [place] heart without angina pectoris Mixed hyperlipidemia Paroxysmal atrial fibrillation (HCC) Atrial fibrillation BPH with obstruction/lower urinary tract symptoms Hypertrophy of prostate with urinary obstruction and other lower urinary tract symptoms (LUTS) Essential hypertension Unspecified essential hypertension Venous (peripheral) insufficiency Unspecified venous (peripheral) insufficiency Essential tremor Essential and other specified forms of tremor Aortic root dilatation Thoracic aortic ectasia Rectal bleeding Hemorrhage of rectum and anus Encounter for screening for malignant neoplasm of colon Special screening for malignant neoplasms, colon [facility] Diagnosis Pre-operative examination- Primary Preoperative examination, unspecified 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 Obstructive sleep apnea (adult) (pediatric) Coronary artery disease involving [place] coronary artery of [place] heart without angina pectoris Mixed hyperlipidemia Paroxysmal atrial fibrillation (HCC) Atrial fibrillation BPH with obstruction/lower urinary tract symptoms Hypertrophy of prostate with urinary obstruction and other lower urinary tract symptoms (LUTS) Essential hypertension Unspecified essential hypertension Venous (peripheral) insufficiency Unspecified venous (peripheral) insufficiency Essential tremor Essential and other specified forms of tremor Aortic root dilatation Thoracic aortic ectasia Rectal bleeding- Primary Hemorrhage of rectum and anus [facility] Diagnosis Pre-operative examination- Primary Preoperative examination, unspecified 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 Obstructive sleep apnea (adult) (pediatric) Coronary artery disease involving [place] coronary artery of [place] heart without angina pectoris Mixed hyperlipidemia Paroxysmal atrial fibrillation (HCC) Atrial fibrillation BPH with obstruction/lower urinary tract symptoms Hypertrophy of prostate with urinary obstruction and other lower urinary tract symptoms (LUTS) Essential hypertension Unspecified essential hypertension Venous (peripheral) insufficiency Unspecified venous (peripheral) insufficiency Essential tremor Essential and other specified forms of tremor Aortic root dilatation Thoracic aortic ectasia Chest pain, unspecified type- Primary Palpitations Low oxygen saturation Abnormal arterial blood gases Paroxysmal atrial fibrillation (HCC) Atrial fibrillation Chest pain, unspecified type Palpitations Low oxygen saturation Abnormal arterial blood gases [facility] Diagnosis Pre-operative examination- Primary Preoperative examination, unspecified 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 Obstructive sleep apnea (adult) (pediatric) Coronary artery disease involving [place] coronary artery of [place] heart without angina pectoris Mixed hyperlipidemia Paroxysmal atrial fibrillation (HCC) Atrial fibrillation BPH with obstruction/lower urinary tract symptoms Hypertrophy of prostate with urinary obstruction and other lower urinary tract symptoms (LUTS) Essential hypertension Unspecified essential hypertension Venous (peripheral) insufficiency Unspecified venous (peripheral) insufficiency Essential tremor Essential and other specified forms of tremor Aortic root dilatation Thoracic aortic ectasia Chest pain, unspecified type Palpitations Low oxygen saturation Abnormal arterial blood gases [facility] Diagnosis Pre-operative examination- Primary Preoperative examination, unspecified 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 Obstructive sleep apnea (adult) (pediatric) Coronary artery disease involving [place] coronary artery of [place] heart without angina pectoris Mixed hyperlipidemia Paroxysmal atrial fibrillation (HCC) Atrial fibrillation BPH with obstruction/lower urinary tract symptoms Hypertrophy of prostate with urinary obstruction and other lower urinary tract symptoms (LUTS) Essential hypertension Unspecified essential hypertension Venous (peripheral) insufficiency Unspecified venous (peripheral) insufficiency Essential tremor Essential and other specified forms of tremor Aortic root dilatation Thoracic aortic ectasia Plant irritant contact dermatitis- Primary Contact dermatitis and other eczema due to plants (except food) Screening for depression Encounter for screening examination for other mental health and behavioral disorders Mixed hyperlipidemia Coronary artery disease involving [place] coronary artery of [place] heart without angina pectoris Essential hypertension Unspecified essential hypertension Paroxysmal atrial fibrillation (HCC) Atrial fibrillation [facility] Diagnosis Pre-operative examination- Primary Preoperative examination, unspecified 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 Obstructive sleep apnea (adult) (pediatric) Coronary artery disease involving [place] coronary artery of [place] heart without angina pectoris Mixed hyperlipidemia Paroxysmal atrial fibrillation (HCC) Atrial fibrillation BPH with obstruction/lower urinary tract symptoms Hypertrophy of prostate with urinary obstruction and other lower urinary tract symptoms (LUTS) Essential hypertension Unspecified essential hypertension Venous (peripheral) insufficiency Unspecified venous (peripheral) insufficiency Essential tremor Essential and other specified forms of tremor Aortic root dilatation Thoracic aortic ectasia Mixed hyperlipidemia Coronary artery disease involving [place] coronary artery of [place] heart without angina pectoris [facility] Additional Instructions Keep dry and clean. Ice and elevate to decrease pain and swelling. Tylenol for pain. Hold your baby aspirin next 2 days to help decrease the bleeding. After 4 days as long as our dressing stays dry and clean you can take it off and then change it daily. Apply antibiotic ointment daily. Wash with soap and water or peroxide and water. Any signs of infection return. Pus, redness, fever or streaks. Stitches out in 10 days not before.[facility] Work Phone: Reason for referral (narrative)* Diagnostic Procedure Only (Routine) - Closed Specialty Diagnoses / Procedures Referred By Contac t Referred To Contact XR IMAGING Diagnoses Ingrown toenail Procedures XR TOE AP/LAT/OBL LEFT RADEX TOE MINIMUM 2 VIEWS Carlo Gomez [address] [place] [address] Xr Imaging Referral ID Status Reason Start Date Expiration Date V isits Requested Visits Authorized [id number] Closed Auto-Generate d Referral 06/06/2022 07/06/2023 1 1 [facility] for referral (narrative)* Diagnostic Procedure Only (Routine) - Closed Specialty Diagnoses / Procedures [facility] To Contact [facility] Diagnoses Ingrown toenail Procedures XR TOE AP/LAT/OBL LEFT RADEX TOE MINIMUM 2 VIEWS Carlo Gomez [address] [place] [address] Xr Imaging Referral ID Status Reason Start Date Expiration Date V isits Requested Visits Authorized [id number] Closed Auto-Generate d Referral 06/06/2022 07/06/2023 1 1 [facility] for referral (narrative)* Outpatient Procedure (Routine) - Closed Specialty Diagnoses / Procedures [facility] Diagnoses Pre-operative examination Procedures ECG COMPLETE ECG ROUTINE ECG W/LEAST 12 LDS W/I&R Liz Shipley 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 [address] [place] [address] [facility] [address] [place] [address] Referral ID Status Reason Start Date Expiration Date V isits Requested Visits Authorized [id number] Closed Auto-Generate d Referral 05/07/2023 05/06/2024 1 1 [facility] for referral (narrative)* Outpatient Procedure (Routine) - Authorized Specialty Diagnoses / Procedures [facility] To [facility] Diagnoses Coronary artery disease involving [place] coronary artery of [place] heart without angina pectoris Paroxysmal atrial fibrillation (HCC) Procedures ECHO ECHO TTHRC R-T 2D W/WOM-MODE COMPL SPEC&COLR D Favian Larkin MD [address] [place] [address] [facility] [address] [place] [address] Referral ID Status Reason Start Date Expiration Date Visits Requested Visits Authorized [id number] Authorized Auto-Generat ed Referral 02/02/2024 02/01/2025 1 1 [facility] for referral (narrative)* Diagnostic Procedure Only (Urgent) - Closed Specialty Diagnoses / Procedures Referred By Contac t Referred To Contact XR IMAGING Diagnoses Acute pain of left shoulder Injury of left shoulder, initial encounter Procedures XR SHOULDER GENERAL 3V OR MORE AP/TRUE AP/OTHER LEFT RADEX SHOULDER COMPLETE MINIMUM 2 VIEWS Leslie Eddy, 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 [address] [place] [address] [place] [address] Referral ID Status Reason Start Date Expiration Date V isits Requested Visits Authorized [id number] Closed Auto-Generate d Referral 12/13/2024 01/12/2026 1 1 [facility] for referral (narrative)* Diagnostic Procedure Only (Urgent) - Closed Specialty Diagnoses / Procedures Referred By Contac t Referred To Contact XR IMAGING Diagnoses Acute pain of left shoulder Injury of left shoulder, initial encounter Procedures XR SHOULDER GENERAL 3V OR MORE AP/TRUE AP/OTHER LEFT RADEX SHOULDER COMPLETE MINIMUM 2 VIEWS Leslie Eddy APRN.SENIOR COPYWRITER [address] [place] [address] [place] [address] Referral ID Status Reason Start Date Expiration Date V isits Requested Visits Authorized [id number] Closed Auto-Generate d Referral 12/13/2024 01/12/2026 1 1 [facility] for referral (narrative)No reason for referral [facility] Work Phone: Reason for visit Narrative* Diagnostic Procedure Only (Routine) - Closed Specialty Diagnoses / Procedures Referred By Contac t Referred To Contact XR IMAGING Diagnoses Ingrown toenail Procedures XR TOE AP/LAT/OBL LEFT RADEX TOE MINIMUM [address] [place] [address] Xr Imaging Referral ID Status Reason Start Date Expiration Date V isits Requested Visits Authorized [id number] Closed Auto-Generate d Referral 06/06/2022 07/06/2023 1 1 [facility] for visit Narrative* Diagnostic Procedure Only (Urgent) - Closed Specialty Diagnoses / Procedures Referred By Contac t Referred To Contact XR IMAGING Diagnoses Acute pain of left shoulder Injury of left shoulder, initial encounter Procedures XR SHOULDER GENERAL 3V OR MORE AP/TRUE AP/OTHER LEFT RADEX SHOULDER COMPLETE MINIMUM 2 VIEWS Leslie Eddy, 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 [address] [place] [address] [place] [address] Referral ID Status Reason Start Date Expiration Date V isits Requested Visits Authorized [id number] Closed Auto-Generate d Referral 12/13/2024 01/12/2026 1 1 [facility] for visit Narrative* Outpatient Procedure (Routine) - Closed Specialty Diagnoses / Procedures Referred By Contac t Referred To Contact [facility] Diagnoses Rectal bleeding Procedures COLONOSCOPY DIAGNOSTIC COLONOSCOPY FLX DX W/COLLJ SPEC WHEN PFRMD Mercedes Costa, 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 [address] [place] [address] Phone: tel: fax: [facility] [address] [place] [address] Referral ID Status Reason Start Date Expiration Date V isits Requested Visits Authorized [id number] Closed Auto-Generate d Referral 01/19/2025 01/19/2026 1 1 [facility] Summary Purpose Family History Relationship Condition Age at Onset Recorded Date/T radha Unknown Family History?Heart Disease, Hypertension Unknown February 14, 2014 2:36pm Family History?Hypertension Unknown February 14, 2014 2:36pm Advance Directives Documents on File Type Date Recorded 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 Advance Directive(s) 07/07/2020 8:33 AM Advance Directive(s) 03/29/2020 6:47 AM Advance Directive(s) 03/29/2020 6:43 AM Advance Directive(s) 02/18/2020 4:54 PM Documents on File Type Date Recorded 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 Advance Directive(s) 07/07/2020 8:33 AM Advance Directive(s) 03/29/2020 6:47 AM Advance Directive(s) 03/29/2020 6:43 AM Advance Directive(s) 02/18/2020 4:54 PM Documents on File Type Date Recorded 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 Advance Directive(s) 03/29/2020 6:43 AM Documents on File Type Date Recorded 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 Advance Directive(s) 03/29/2020 6:43 AM Advance Directive Response Recorded Date/ Time Advance Directives No July 10:30am Living Will Yes February 27, 2024 7:22am Power of Load Tallier No February 26 7:22am Advance Directive Response Recorded Date/ Time Advance Directives No July 10:30am Reason for Referral Specialty Diagnoses / Procedures Referred By Contac t Referred To Contact Podiatry Diagnoses Ingrown toenail Procedures CONSULT TO PODIATRY OFFICE/OUTPATIENT [facility] 60-74 MINUTES Felisa May, 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 [address] [place] [id number] Referral ID Status Reason Start Date Expiration Date Visits Requested Visits Authorized [id number] Authorized PCP Requested Referral 03/30/2022 03/30/2023 1 1 Specialty Diagnoses / Procedures Referred By Contac t Referred To Contact General Surgery Diagnoses Umbilical hernia without obstruction and without gangrene History of hernia surgery Procedures CONSULT TO GENERAL SURGERY OFFICE/OUTPATIENT [facility] 60-74 MINUTES Mehnaz Sutherland, 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 [address] [place] [address] Referral ID Status Reason Start Date Expiration Date Visits Requested Visits Authorized [id number] Authorized PCP Requested Referral 04/09/2023 04/08/2024 1 1 Specialty Diagnoses / Procedures Referred By Contac t Referred To Contact CT IMAGING Diagnoses Lower abdominal pain Diarrhea, unspecified type Procedures CT ABD/PEL W IVCON CT ABD & PELVIS W/CONTRAST Fei Gandhi MD [address] [place] [address] [place] [address] Referral ID Status Reason Start Date Expiration Date Visits Requested Visits Authorized [id number] Authorized Auto-Generat ed Referral 10/14/2023 11/09/2023 2 2 Health Concerns Infection Onset Date Last Indicated Resolved Time COVID-19 Rule-Out 05/20/2022 05/20/2022 05/21/2022 7:45 AM EDT Infection Onset Date Last Indicated Resolved Time COVID-19 Confirmed 12/30/2022 12/30/2022 Chief Complaint and Reason for Visit Chief Complaint LACERATION Additional Source Comments (unrecognized sect ion and content) No Status Records FoundNo Status Records FoundNo Status Records FoundNo Status Records FoundNo Status Records FoundNo Status Records Found INFORMATION SOURCE (unrecogn ized section and content) DATE CREATED AUTHOR 05/01/2018 [facility] DATE CREATED AUTHOR AUTHOR'S ORGANIZ ATION 08/18/2021 [facility] DATE CREATED AUTHOR AUTHOR'S ORGANIZ ATION 05/28/2023 [facility] DATE CREATED AUTHOR AUTHOR'S ORGANIZ ATION 08/09/2024 [facility] DATE CREATED AUTHOR AUTHOR'S ORGANIZ ATION 05/07/2025 [facility] DATE CREATED AUTHOR AUTHOR'S ORGANIZ ATION 05/15/2025 [facility] Source Comments (unrecognize d section and content) In the event this informatio n is protected by the Federal Confidentiality of Alcohol and Drug Abuse Patient Records regulations: The Federal rules restrict any use of the information to criminally investigate or prosecute any alcohol or drug abuse patient.[facility] the event this information is protected by the Federal Confidentiality of Alcohol and Drug Abuse Patient Records regulations: The Federal rules restrict any use of the information to criminally investigate or prosecute any alcohol or drug abuse patient.[facility] the event this information is protected by the Federal Confidentiality of Alcohol and Drug Abuse Patient Records regulations: The Federal rules restrict any use of the information to criminally investigate or prosecute any alcohol or drug abuse patient.[facility] the event this information is protected by the Federal Confidentiality of Alcohol and Drug Abuse Patient Records regulations: The Federal rules restrict any use of the information to criminally investigate or prosecute any alcohol or drug abuse patient.[facility] the event this information is protected by the Federal Confidentiality of Alcohol and Drug Abuse Patient Records regulations: The Federal rules restrict any use of the information to criminally investigate or prosecute any alcohol or drug abuse patient.[facility] the event this information is protected by the Federal Confidentiality of Alcohol and Drug Abuse Patient Records regulations: The Federal rules restrict any use of the information to criminally investigate or prosecute any alcohol or drug abuse patient.[facility] the event this information is protected by the Federal Confidentiality of Alcohol and Drug Abuse Patient Records regulations: The Federal rules restrict any use of the information to criminally investigate or prosecute any alcohol or drug abuse patient.[facility] the event this information is protected by the Federal Confidentiality of Alcohol and Drug Abuse Patient Records regulations: The Federal rules restrict any use of the information to criminally investigate or prosecute any alcohol or drug abuse patient.[facility] the event this information is protected by the Federal Confidentiality of Alcohol and Drug Abuse Patient Records regulations: The Federal rules restrict any use of the information to criminally investigate or prosecute any alcohol or drug abuse patient.[facility] the event this information is protected by the Federal Confidentiality of Alcohol and Drug Abuse Patient Records regulations: The Federal rules restrict any use of the information to criminally investigate or prosecute any alcohol or drug abuse patient.[facility] the event this information is protected by the Federal Confidentiality of Alcohol and Drug Abuse Patient Records regulations: The Federal rules restrict any use of the information to criminally investigate or prosecute any alcohol or drug abuse patient.[facility] the event this information is protected by the Federal Confidentiality of Alcohol and Drug Abuse Patient Records regulations: The Federal rules restrict any use of the information to criminally investigate or prosecute any alcohol or drug abuse patient.[facility] HospitalIn the event this information is protected by the Federal Confidentiality of Alcohol and Drug Abuse Patient Records regulations: The Federal rules restrict any use of the information to criminally investigate or prosecute any alcohol or drug abuse patient.[facility] HospitalIn the event this information is protected by the Federal Confidentiality of Alcohol and Drug Abuse Patient Records regulations: The Federal rules restrict any use of the information to criminally investigate or prosecute any alcohol or drug abuse patient.[facility] HospitalIn the event this information is protected by the Federal Confidentiality of Alcohol and Drug Abuse Patient Records regulations: The Federal rules restrict any use of the information to criminally investigate or prosecute any alcohol or drug abuse patient.[facility] HospitalIn the event this information is protected by the Federal Confidentiality of Alcohol and Drug Abuse Patient Records regulations: The Federal rules restrict any use of the information to criminally investigate or prosecute any alcohol or drug abuse patient.[facility] HospitalIn the event this information is protected by the Federal Confidentiality of Alcohol and Drug Abuse Patient Records regulations: The Federal rules restrict any use of the information to criminally investigate or prosecute any alcohol or drug abuse patient.[facility] HospitalIn the event this information is protected by the Federal Confidentiality of Alcohol and Drug Abuse Patient Records regulations: The Federal rules restrict any use of the information to criminally investigate or prosecute any alcohol or drug abuse patient.[facility] HospitalIn the event this information is protected by the Federal Confidentiality of Alcohol and Drug Abuse Patient Records regulations: The Federal rules restrict any use of the information to criminally investigate or prosecute any alcohol or drug abuse patient.[facility] HospitalIn the event this information is protected by the Federal Confidentiality of Alcohol and Drug Abuse Patient Records regulations: The Federal rules restrict any use of the information to criminally investigate or prosecute any alcohol or drug abuse patient.[facility] HospitalIn the event this information is protected by the Federal Confidentiality of Alcohol and Drug Abuse Patient Records regulations: The Federal rules restrict any use of the information to criminally investigate or prosecute any alcohol or drug abuse patient.[facility] HospitalIn the event this information is protected by the Federal Confidentiality of Alcohol and Drug Abuse Patient Records regulations: The Federal rules restrict any use of the information to criminally investigate or prosecute any alcohol or drug abuse patient.[facility] HospitalIn the event this information is protected by the Federal Confidentiality of Alcohol and Drug Abuse Patient Records regulations: The Federal rules restrict any use of the information to criminally investigate or prosecute any alcohol or drug abuse patient.[facility] HospitalIn the event this information is protected by the Federal Confidentiality of Alcohol and Drug Abuse Patient Records regulations: The Federal rules restrict any use of the information to criminally investigate or prosecute any alcohol or drug abuse patient.[facility] HospitalIn the event this information is protected by the Federal Confidentiality of Alcohol and Drug Abuse Patient Records regulations: The Federal rules restrict any use of the information to criminally investigate or prosecute any alcohol or drug abuse patient.[facility] HospitalIn the event this information is protected by the Federal Confidentiality of Alcohol and Drug Abuse Patient Records regulations: The Federal rules restrict any use of the information to criminally investigate or prosecute any alcohol or drug abuse patient.[facility] HospitalIn the event this information is protected by the Federal Confidentiality of Alcohol and Drug Abuse Patient Records regulations: The Federal rules restrict any use of the information to criminally investigate or prosecute any alcohol or drug abuse patient.[facility] HospitalIn the event this information is protected by the Federal Confidentiality of Alcohol and Drug Abuse Patient Records regulations: The Federal rules restrict any use of the information to criminally investigate or prosecute any alcohol or drug abuse patient.[facility] HospitalIn the event this information is protected by the Federal Confidentiality of Alcohol and Drug Abuse Patient Records regulations: The Federal rules restrict any use of the information to criminally investigate or prosecute any alcohol or drug abuse patient.[facility] HospitalIn the event this information is protected by the Federal Confidentiality of Alcohol and Drug Abuse Patient Records regulations: The Federal rules restrict any use of the information to criminally investigate or prosecute any alcohol or drug abuse patient.[facility] HospitalIn the event this information is protected by the Federal Confidentiality of Alcohol and Drug Abuse Patient Records regulations: The Federal rules restrict any use of the information to criminally investigate or prosecute any alcohol or drug abuse patient.[facility] HospitalIn the event this information is protected by the Federal Confidentiality of Alcohol and Drug Abuse Patient Records regulations: The Federal rules restrict any use of the information to criminally investigate or prosecute any alcohol or drug abuse patient.[facility] HospitalIn the event this information is protected by the Federal Confidentiality of Alcohol and Drug Abuse Patient Records regulations: The Federal rules restrict any use of the information to criminally investigate or prosecute any alcohol or drug abuse patient.[facility] HospitalIn the event this information is protected by the Federal Confidentiality of Alcohol and Drug Abuse Patient Records regulations: The Federal rules restrict any use of the information to criminally investigate or prosecute any alcohol or drug abuse patient.[facility] HospitalIn the event this information is protected by the Federal Confidentiality of Alcohol and Drug Abuse Patient Records regulations: The Federal rules restrict any use of the information to criminally investigate or prosecute any alcohol or drug abuse patient.[facility] HospitalIn the event this information is protected by the Federal Confidentiality of Alcohol and Drug Abuse Patient Records regulations: The Federal rules restrict any use of the information to criminally investigate or prosecute any alcohol or drug abuse patient.[facility] HospitalIn the event this information is protected by the Federal Confidentiality of Alcohol and Drug Abuse Patient Records regulations: The Federal rules restrict any use of the information to criminally investigate or prosecute any alcohol or drug abuse patient.[facility] HospitalIn the event this information is protected by the Federal Confidentiality of Alcohol and Drug Abuse Patient Records regulations: The Federal rules restrict any use of the information to criminally investigate or prosecute any alcohol or drug abuse patient.[facility] HospitalIn the event this information is protected by the Federal Confidentiality of Alcohol and Drug Abuse Patient Records regulations: The Federal rules restrict any use of the information to criminally investigate or prosecute any alcohol or drug abuse patient.[facility] HospitalIn the event this information is protected by the Federal Confidentiality of Alcohol and Drug Abuse Patient Records regulations: The Federal rules restrict any use of the information to criminally investigate or prosecute any alcohol or drug abuse patient.[facility] HospitalIn the event this information is protected by the Federal Confidentiality of Alcohol and Drug Abuse Patient Records regulations: The Federal rules restrict any use of the information to criminally investigate or prosecute any alcohol or drug abuse patient.[facility] HospitalIn the event this information is protected by the Federal Confidentiality of Alcohol and Drug Abuse Patient Records regulations: The Federal rules restrict any use of the information to criminally investigate or prosecute any alcohol or drug abuse patient.[facility] HospitalIn the event this information is protected by the Federal Confidentiality of Alcohol and Drug Abuse Patient Records regulations: The Federal rules restrict any use of the information to criminally investigate or prosecute any alcohol or drug abuse patient.[facility] HospitalIn the event this information is protected by the Federal Confidentiality of Alcohol and Drug Abuse Patient Records regulations: The Federal rules restrict any use of the information to criminally investigate or prosecute any alcohol or drug abuse patient.[facility]In the event this information is protected by the Federal Confidentiality of Alcohol and Drug Abuse Patient Records regulations: The Federal rules restrict any use of the information to criminally investigate or prosecute any alcohol or drug abuse patient.[facility] HospitalIn the event this information is protected by the Federal Confidentiality of Alcohol and Drug Abuse Patient Records regulations: The Federal rules restrict any use of the information to criminally investigate or prosecute any alcohol or drug abuse patient.[facility] HospitalIn the event this information is protected by the Federal Confidentiality of Alcohol and Drug Abuse Patient Records regulations: The Federal rules restrict any use of the information to criminally investigate or prosecute any alcohol or drug abuse patient.[facility] HospitalIn the event this information is protected by the Federal Confidentiality of Alcohol and Drug Abuse Patient Records regulations: The Federal rules restrict any use of the information to criminally investigate or prosecute any alcohol or drug abuse patient.[facility] HospitalIn the event this information is protected by the Federal Confidentiality of Alcohol and Drug Abuse Patient Records regulations: The Federal rules restrict any use of the information to criminally investigate or prosecute any alcohol or drug abuse patient.[facility] HospitalIn the event this information is protected by the Federal Confidentiality of Alcohol and Drug Abuse Patient Records regulations: The Federal rules restrict any use of the information to criminally investigate or prosecute any alcohol or drug abuse patient.[facility] HospitalIn the event this information is protected by the Federal Confidentiality of Alcohol and Drug Abuse Patient Records regulations: The Federal rules restrict any use of the information to criminally investigate or prosecute any alcohol or drug abuse patient.[facility] HospitalIn the event this information is protected by the Federal Confidentiality of Alcohol and Drug Abuse Patient Records regulations: The Federal rules restrict any use of the information to criminally investigate or prosecute any alcohol or drug abuse patient.[facility] HospitalIn the event this information is protected by the Federal Confidentiality of Alcohol and Drug Abuse Patient Records regulations: The Federal rules restrict any use of the information to criminally investigate or prosecute any alcohol or drug abuse patient.[facility] HospitalIn the event this information is protected by the Federal Confidentiality of Alcohol and Drug Abuse Patient Records regulations: The Federal rules restrict any use of the information to criminally investigate or prosecute any alcohol or drug abuse patient.[facility] HospitalIn the event this information is protected by the Federal Confidentiality of Alcohol and Drug Abuse Patient Records regulations: The Federal rules restrict any use of the information to criminally investigate or prosecute any alcohol or drug abuse patient.[facility] HospitalIn the event this information is protected by the Federal Confidentiality of Alcohol and Drug Abuse Patient Records regulations: The Federal rules restrict any use of the information to criminally investigate or prosecute any alcohol or drug abuse patient.[facility] HospitalIn the event this information is protected by the Federal Confidentiality of Alcohol and Drug Abuse Patient Records regulations: The Federal rules restrict any use of the information to criminally investigate or prosecute any alcohol or drug abuse patient.[facility] HospitalIn the event this information is protected by the Federal Confidentiality of Alcohol and Drug Abuse Patient Records regulations: The Federal rules restrict any use of the information to criminally investigate or prosecute any alcohol or drug abuse patient.[facility] HospitalIn the event this information is protected by the Federal Confidentiality of Alcohol and Drug Abuse Patient Records regulations: The Federal rules restrict any use of the information to criminally investigate or prosecute any alcohol or drug abuse patient.[facility] HospitalIn the event this information is protected by the Federal Confidentiality of Alcohol and Drug Abuse Patient Records regulations: The Federal rules restrict any use of the information to criminally investigate or prosecute any alcohol or drug abuse patient.[facility] HospitalIn the event this information is protected by the Federal Confidentiality of Alcohol and Drug Abuse Patient Records regulations: The Federal rules restrict any use of the information to criminally investigate or prosecute any alcohol or drug abuse patient.[facility] HospitalIn the event this information is protected by the Federal Confidentiality of Alcohol and Drug Abuse Patient Records regulations: The Federal rules restrict any use of the information to criminally investigate or prosecute any alcohol or drug abuse patient.[facility] HospitalIn the event this information is protected by the Federal Confidentiality of Alcohol and Drug Abuse Patient Records regulations: The Federal rules restrict any use of the information to criminally investigate or prosecute any alcohol or drug abuse patient.[facility] HospitalIn the event this information is protected by the Federal Confidentiality of Alcohol and Drug Abuse Patient Records regulations: The Federal rules restrict any use of the information to criminally investigate or prosecute any alcohol or drug abuse patient.[facility] HospitalIn the event this information is protected by the Federal Confidentiality of Alcohol and Drug Abuse Patient Records regulations: The Federal rules restrict any use of the information to criminally investigate or prosecute any alcohol or drug abuse patient.[facility] HospitalIn the event this information is protected by the Federal Confidentiality of Alcohol and Drug Abuse Patient Records regulations: The Federal rules restrict any use of the information to criminally investigate or prosecute any alcohol or drug abuse patient.[facility] HospitalIn the event this information is protected by the Federal Confidentiality of Alcohol and Drug Abuse Patient Records regulations: The Federal rules restrict any use of the information to criminally investigate or prosecute any alcohol or drug abuse patient.[facility] Reason for Visit (unrecogniz ed section and content) Reason Comments Forms Reason Comments F/U 6 months Specialty Diagnoses / Procedures Referred By Contac t Referred To Contact Internal Medicine / INTERNAL MEDICINE Diagnoses physical / left msg to r/s on both phones IS Procedures EST PATIENT VISIT LEVEL 4 EST PHYSICAL Fei Gandhi MD [address] [place] [address] Leslie Woody 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 [address] [place] [address] Referral ID Status Reason Start Date Expiration Date V isits Requested Visits Authorized [id number] Closed Financial Clearance Required - OON Payor Financial Clearance Not Required Patient Cleared - INN Insurance Found 09/07/2021 11/09/2021 1 1 Reason Comments Toe Pain (Big) big left side painfu l x couple weeks Reason Comments Last seen 04/2019 Ingrown Nail Acute Visit Specialty Diagnoses / Procedures Referred By Contjeffrey t Referred To Contact Podiatry Diagnoses Ingrown toenail Procedures CONSULT TO PODIATRY OFFICE/OUTPATIENT [facility] 60-74 MINUTES Felisa May, 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 [address] [place] [address] Referral ID Status Reason Start Date Expiration Date V isits Requested Visits Authorized [id number] Closed PCP Requested Referral 03/30/2022 03/30/2023 1 1 Reason Comments Ingrown Toenail had procedure done o n April 11, Now toe is red Reason Comments Cough post nasal drip, sor e throat and larynigitis x 3 days Reason Comments Patient Request Reason Comments Pain (foot) left, big toe, Ingro wn toenail recently removed Reason Onset Date Comments Returning Patient's Call 06/04/2022 Reason Comments Established Patient Follow Up Pain Ingrown Toenail Reason Comments Results Reason Onset Date Comments Refill Request 08/06/2022 Reason Comments Release Of Medical Records Reason Comments Covid19 Concern Reason Comments Refill Request Reason Comments Abdominal Pain umbilical hernia cau sing pain off and on mainly with BM Reason Comments Consult Possible umbilical h ernia. Specialty Diagnoses / Procedures Referred By Contac t Referred To Contact General Surgery Diagnoses Umbilical hernia without obstruction and without gangrene History of hernia surgery Procedures CONSULT TO GENERAL SURGERY OFFICE/OUTPATIENT [facility] 60-74 MINUTES Mehnaz Sutherland APRN.SENIOR COPYWRITER [address] [place] [address] Referral ID Status Reason Start Date Expiration Date V isits Requested Visits Authorized [id number] Closed PCP Requested Referral 04/09/2023 04/08/2024 1 1 Reason Comments Consult Reason Comments Patient Update FMLA paper work Reason Comments Follow Up Umbilical hernia rep air Reason Comments Follow Up Umbilical hernia rep air on 05/23/2023, concerned that he has a bulge in the area again. Reason Comments New Patient Reason Comments Post Op Follow Up 05/23/23 Umbilical he rnia repair Reason Comments Cough And nasal congestion Reason Comments Medication Question Reason Comments Consult Rectal Bleeding Specialty Diagnoses / Procedures Referred By Mairaac t Referred To Contact General Surgery Diagnoses Rectal bleeding Procedures CONSULT TO GENERAL SURGERY OFFICE/OUTPATIENT [facility] 60-74 MINUTES Fei Gandhi MD [address] [place] [id number] Referral ID Status Reason Start Date Expiration Date V isits Requested Visits Authorized [id number] Closed PCP Requested Referral 09/24/2023 09/23/2024 1 1 Reason Comments Abdominal Pain Specialty Diagnoses / Procedures Referred By Contac t Referred To Contact CT IMAGING Diagnoses Lower abdominal pain Diarrhea, unspecified type Procedures CT ABD/PEL W IVCON CT ABD & PELVIS W/CONTRAST Fei Gandhi MD [facility] [place] [address] [place] [address] Referral ID Status Reason Start Date Expiration Date V isits Requested Visits Authorized [id number] Closed Auto-Generate d Referral 10/14/2023 11/09/2023 [address] Specialty Diagnoses / Procedures Referred By Contac t Referred To Contact CT IMAGING Diagnoses Lower abdominal pain Diarrhea, unspecified type Procedures CT ABD/PEL W IVCON CT ABD & PELVIS W/CONTRAST Fei Gandhi MD [address] [place] [address] [place] [address] Reason Comments New Patient Reason Onset Date Comments Refill Request 03/11/2024 Going out of tow n 9:00 AM tomorrow Reason Comments Follow Up Reason Comments Yearly Exam F/U 6 months Reason Comments Cough Cough, bodyaches, ru nny nose and LITTLE x 2 days Reason Comments Medication Problem Reason Comments Shoulder Injury LT shoulder x 1 day Reason Comments Rectal Bleeding Reason Comments Rectal Problem Reason Comments Consult Rectal bleeding Specialty Diagnoses / Procedures Referred By Mayra trinidad Referred To Contact General Surgery Diagnoses Rectal bleeding Procedures CONSULT TO GENERAL SURGERY OFFICE/OUTPATIENT [facility] 60 MINUTES Fei Gandhi MD [address] [place] [address] Phone: tel: fax: Referral ID Status Reason Start Date Expiration Date V isits Requested Visits Authorized [id number] Closed PCP Requested Referral 01/06/2025 01/06/2026 1 1 Reason Comments Cough Cough and bodyaches x 5 days Reason Onset Date Comments Results 02/27/2025 Reason Comments Follow Up Denies any concerns Reason Comments Chest Pain Chest pain, SOB, anx iety, recent COVID Reason Onset Date Comments Refill Request 04/18/2025 Reason Comments 02-28-2025 [facility] Care Teams (unrecognized sec tion and content) Pork Cutlet Maker Relationship Specialty Start Date End Date Fei Gandhi MD [address] [place], [place] [id number] PCP - General 05/08/04 Cresencio Chaney [place] [facility] [address] Primary Staff Physician Cardiology 08/08/21 Pork Cutlet Maker Relationship Specialty Start Date End Date Fei Gandhi MD [address] [place], [place] [id number] PCP - General 05/08/04 Cresencio Chaney [place] [facility] [address] Primary Staff Physician Cardiology 08/08/21 Pork Cutlet Maker Relationship Specialty Start Date End Date Fei Gandhi MD [address] [place] [address] PCP - General 05/08/04 Cresencio Chaney [facility] [place] [address] Primary Staff Physician Cardiology 08/08/21 Pork Cutlet Maker Relationship Specialty Start Date End Date Fei Gandhi MD [address] [place] [address] PCP - General 05/08/04 Cresencio Chaney [facility] [place] [address] Primary Staff Physician Cardiology 08/08/21 Pork Cutlet Maker Relationship Specialty Start Date End Date Fei Gandhi MD [address] [place] [address] PCP - General 05/08/04 Cresencio Chaney [facility] [place] [address] Primary Staff Physician Cardiology 08/08/21 Pork Cutlet Maker Relationship Specialty Start Date End Date Fei Gandhi MD [address] [place] [address] PCP - General 05/08/04 Cresencio Chaney [facility] [place] [address] Primary Staff Physician Cardiology 08/08/21 Pork Cutlet Maker Relationship Specialty Start Date End Date Fei Gandhi MD [address] [place] [address] PCP - General 05/08/04 Cresencio Chaney [place] [facility] [address] Primary Staff Physician Cardiology 08/08/21 Pork Cutlet Maker Relationship Specialty Start Date End Date Gandhi, Osvaldo, MD [address] [place] [address] PCP - General 05/08/04 ShivCresencio duong [facility] [place] [address] Primary Staff Physician Cardiology 08/08/21 Pork Cutlet Maker Relationship Specialty Start Date End Date Fei Gandhi MD [address] [place] [address] PCP - General 05/08/04 Cresencio Chaney [facility] [place] [address] Primary Staff Physician Cardiology 08/08/21 Pork Cutlet Maker Relationship Specialty Start Date End Date Fei Gandhi MD [address] [place] [address] PCP - General 05/08/04 Cresencio Chaney [facility] [place] [address] Primary Staff Physician Cardiology 08/08/21 Pork Cutlet Maker Relationship Specialty Start Date End Date Fei Gandhi MD [address] [place] [address] PCP - General 05/08/04 Cresencio Chaney [facility] [place] [address] Primary Staff Physician Cardiology 08/08/21 Pork Cutlet Maker Relationship Specialty Start Date End Date Fei Gandhi MD [address] [place] [address] PCP - General 05/08/04 Cresencio Chaney [place] [facility] [address] Primary Staff Physician Cardiology 08/08/21 Pork Cutlet Maker Relationship Specialty Start Date End Date Fei Gandhi MD [address] [place] [address] PCP - General 05/08/04 Cresencio Chaney DO [address] [place] [address] Primary Staff Physician Cardiology 08/08/21 Pork Cutlet Maker Relationship Specialty Start Date End Date Fei Gandhi MD [address] [place] [address] PCP - General 05/08/04 Cresencio Chaney DO [facility] [address] Primary Staff Physician Cardiology 08/08/21 Pork Cutlet Maker Relationship Specialty Start Date End Date Fei Gandhi MD [address] [place] [address] PCP - General 05/08/04 Cresencio Chaney DO [address] [place] [address] Primary Staff Physician Cardiology 08/08/21 Pork Cutlet Maker Relationship Specialty Start Date End Date Fei Gandhi MD [address] [place] [address] PCP - General 05/08/04 Cresencio Chaney DO [address] [place] [address] Primary Staff Physician Cardiology 08/08/21 Pork Cutlet Maker Relationship Specialty Start Date End Date Fei Gandhi MD [address] [place] [address] PCP - General 05/08/04 Cresencio Chaney DO [address] [place] [address] Primary Staff Physician Cardiology 08/08/21 Pork Cutlet Maker Relationship Specialty Start Date End Date Fei Gandhi MD [address] [place] [address] PCP - General 05/08/04 Cresencio Chaney DO [facility] [address] Primary Staff Physician Cardiology 08/08/21 Pork Cutlet Maker Relationship Specialty Start Date End Date Fei Gandhi MD [address] [place] [address] PCP - General 05/08/04 Cresencio Chaney DO [facility] [address] Primary Staff Physician Cardiology 08/08/21 Pork Cutlet Maker Relationship Specialty Start Date End Date Fei Gandhi MD [address] [place] [address] PCP - General 05/08/04 Cresencio Chaney DO [address] [place] [address] Primary Staff Physician Cardiology 08/08/21 Pork Cutlet Maker Relationship Specialty Start Date End Date Fei Gandhi MD [address] [place] [address] PCP - General 05/08/04 Cresencio Chaney DO [address] [place] [address] Primary Staff Physician Cardiology 08/08/21 Pork Cutlet Maker Relationship Specialty Start Date End Date Fei Gandhi MD [address] [place] [address] PCP - General 05/08/04 Cresencio Chaney DO [address] [place] [address] Primary Staff Physician Cardiology 08/08/21 Pork Cutlet Maker Relationship Specialty Start Date End Date Fei Gandhi MD [address] [place] [address] PCP - General 05/08/04 Cresencio Chaney DO [facility] [address] Primary Staff Physician Cardiology 08/08/21 Pork Cutlet Maker Relationship Specialty Start Date End Date Fei Gandhi MD [address] [place] [address] PCP - General 05/08/04 Cresencio Chaney DO [facility] [address] Primary Staff Physician Cardiology 08/08/21 Pork Cutlet Maker Relationship Specialty Start Date End Date Fei Gandhi MD [address] [place] [address] PCP - General 05/08/04 Cresencio Chaney DO [address] [place], [place] [id number] Primary Staff Physician Cardiology 08/08/21 Pork Cutlet Maker Relationship Specialty Start Date End Date Fei Gandhi MD [address] [place] [address] PCP - General 05/08/04 Cresencio Chaney DO [address] [place], [place] [id number] Primary Staff Physician Cardiology 08/08/21 Team Status: Active Member Role Status Dates Dr. Fei Gandhi MD Family Provider Active Dr. Fei Gandhi MD Primary Care Provider Active Team Status: Inactive Member Role Status Dates Dr. Fei Gandhi MD Primary Care Provider Active Dr. Kev Briscoe MD Emergency Provider Active Pork Cutlet Maker Relationship Specialty Start Date End Date Fie Gandhi MD [address] [place] [address] PCP - General 05/08/04 Cresencio Chaney DO [address] [place], [place] [id number] Primary Staff Physician Cardiology 08/08/21 Pork Cutlet Maker Relationship Specialty Start Date End Date Fei Gandhi MD [address] [place] [address] PCP - General 05/08/04 Cresencio Chaney DO [address] [place], [place] [id number] Primary Staff Physician Cardiology 08/08/21 Pork Cutlet Maker Relationship Specialty Start Date End Date Fei Gandhi MD [address] [place] [address] PCP - General 05/08/04 Cresencio Chaney DO [address] [place] [address] Primary Staff Physician Cardiology 08/08/21 Pork Cutlet Maker Relationship Specialty Start Date End Date Fei Gandhi MD [address] [place] [address] PCP - General 05/08/04 Cresencio Chaney DO [address] [place] [address] Primary Staff Physician Cardiology 08/08/21 Pork Cutlet Maker Relationship Specialty Start Date End Date Fei Gandhi MD [address] [place] [address] PCP - General 05/08/04 Cresencio Chaney DO [address] [place] [address] Primary Staff Physician Cardiology 08/08/21 Pork Cutlet Maker Relationship Specialty Start Date End Date Fei Gandhi MD [address] [place] [address] PCP - General 05/08/04 Cresencio Chaney DO [address] [place] [address] Primary Staff Physician Cardiology 08/08/21 Pork Cutlet Maker Relationship Specialty Start Date End Date Fei Gandhi MD [address] [place] [address] PCP - General 05/08/04 Cresencio Chaney DO [address] [place] [address] Primary Staff Physician Cardiology 08/08/21 Leslie Eddy, 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 [address] [place] [address] Wallpaper Inspector And Shipper Internal Medicine 10/18/24 Pork Cutlet Maker Relationship Specialty Start Date End Date Fei Gandhi MD [address] [place] [address] PCP - General 05/08/04 Cresencio Chaney [place] [address] Primary Staff Physician Cardiology 08/08/21 Leslie Eddy, 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 [address] [place] [address] Wallpaper Inspector And Shipper Internal Medicine 10/18/24 Pork Cutlet Maker Relationship Specialty Start Date End Date Fei Gandhi MD [address] [place] [address] PCP - General 05/08/04 Cresencio Chaney [place] [address] Primary Staff Physician Cardiology 08/08/21 Leslie Eddy, 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 [address] [place] [address] Wallpaper Inspector And Shipper Internal Medicine 10/18/24 Pork Cutlet Maker Relationship Specialty Start Date End Date Fei Gandhi MD [address] [place] [address] PCP - General 05/08/04 Cresencio Chaney DO [address] [place], [place] [id number] Primary Staff Physician Cardiology 08/08/21 Leslie Eddy, 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 [address] [place] [address] Wallpaper Inspector And Shipper Internal Medicine 10/18/24 Pork Cutlet Maker Relationship Specialty Start Date End Date Fei Gandhi MD [address] [place] [address] PCP - General 05/08/04 Cresencio Chaney DO [address] [place] [address] Primary Staff Physician Cardiology 08/08/21 Leslie Eddy, 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 [address] [place] [address] Wallpaper Inspector And Shipper Internal Medicine 10/18/24 Pork Cutlet Maker Relationship Specialty Start Date End Date Fei Gandhi MD [address] [place] [address] PCP - General 05/08/04 Cresencio Chaney DO [address] [place] [address] Primary Staff Physician Cardiology 08/08/21 Leslie Eddy, 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 [address] [place] [address] Wallpaper Inspector And Shipper Internal Medicine 10/18/24 Pork Cutlet Maker Relationship Specialty Start Date End Date Fei Gandhi MD [address] [place] [address] PCP - General 05/08/04 Cresencio Chaney DO [address] [place], [place] [id number] Primary Staff Physician Cardiology 08/08/21 Leslie Eddy, 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 [address] [place] [address] Wallpaper Inspector And Shipper Internal Medicine 10/18/24 Pork Cutlet Maker Relationship Specialty Start Date End Date Fei Gandhi MD [address] [place] [address] PCP - General 05/08/04 Cresencio Chaney [place] [address] Primary Staff Physician Cardiology 08/08/21 Leslie Eddy, 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 [address] [place] [address] Wallpaper Inspector And Shipper Internal Medicine 10/18/24 Pork Cutlet Maker Relationship Specialty Start Date End Date Fei Gandhi MD [address] [place] [address] PCP - General 05/08/04 Cresencio Chaney DO [address] [place] [address] Primary Staff Physician Cardiology 08/08/21 Leslie Eddy, 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 [address] [place] [address] Wallpaper Inspector And Shipper Internal Medicine 10/18/24 Pork Cutlet Maker Relationship Specialty Start Date End Date Fei Gandhi MD [address] [place] [address] PCP - General 05/08/04 Cresencio Chaney DO [address] [place] [address] Primary Staff Physician Cardiology 08/08/21 Leslie Eddy, 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 [address] [place] [address] Wallpaper Inspector And Shipper Internal Medicine 10/18/24 Pork Cutlet Maker Relationship Specialty Start Date End Date Fei Gandhi MD [address] [place] [address] PCP - General 05/08/04 Cresencio Chaney DO [address] [place] [address] Primary Staff Physician Cardiology 08/08/21 Leslie Eddy, 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 [address] [place] [address] Wallpaper Inspector And Shipper Internal Medicine 10/18/24 Pork Cutlet Maker Relationship Specialty Start Date End Date Fei Gandhi MD [address] [place] [address] PCP - General 05/08/04 Cresencio Chaney DO [address] [place], [place] [id number] Primary Staff Physician Cardiology 08/08/21 Leslie Eddy, 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 [address] [place] [address] Wallpaper Inspector And Shipper Internal Medicine 10/18/24 Pork Cutlet Maker Relationship Specialty Start Date End Date Fei Gandhi MD [address] [place] [address] PCP - General 05/08/04 Cresencio Chaney DO [address] [place], [place] [id number] Primary Staff Physician Cardiology 08/08/21 Leslie Eddy, 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 [address] [place] [address] Wallpaper Inspector And Shipper Internal Medicine 10/18/24 Pork Cutlet Maker Relationship Specialty Start Date End Date Fei Gandhi MD [address] [place] [address] PCP - General 05/08/04 Cresencio Chaney DO [address] [place] [address] Primary Staff Physician Cardiology 08/08/21 Leslie Eddy, 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 [address] [place] [address] Wallpaper Inspector And Shipper Internal Medicine 10/18/24 Pork Cutlet Maker Relationship Specialty Start Date End Date Fei Gandhi MD [address] [place], [place] [address] PCP - General 05/08/04 Cresencio Chaney DO [address] [place] [address] Primary Staff Physician Cardiology 08/08/21 Leslie Eddy, 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 [address] [place], [place] [address] Wallpaper Inspector And Shipper Internal Medicine 10/18/24 Team Status: Inactive Member Role Status Dates Dr. Fei Gandhi MD Primary Care Provider Active Start: May 02, 2025 End: May 02, 2025 Dr. Benja Greenberg MD Attending Provider Active Start: May 02, 2025 End: May 02, 2025 Dr. Benja Greenberg MD Referring Provider Active Start: May 02, 2025 End: May 02, 2025 Pork Cutlet Maker Relationship Specialty Start Date End Date Fei Gandhi MD [address] [place], [place] [address] PCP - General 05/08/04 Cresencio Chaney DO [address] [place] [address] Primary Staff Physician Cardiology 08/08/21 Leslie Eddy, 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 [address] [place], [place] [id number] Wallpaper Inspector And Shipper Internal Medicine 10/18/24 Pork Cutlet Maker Relationship Specialty Start Date End Date Fei Gandhi MD [address] [place], [place] [id number] PCP - General 05/08/04 Cresencio Chaney DO [address] [place] [address] Primary Staff Physician Cardiology 08/08/21 Leslie Eddy, 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 [address] [place] [address] Wallpaper Inspector And Shipper Internal Medicine 10/18/24 Goals (unrecognized section and content) Goals may be documented in a n alternate sectionGoals may be documented in an alternate section FOR RECORDS PERTAINING TO PATIENTS WHO ARE OR HAVE BEEN ENROLLED IN A CHEMICAL DEPENDENCY/SUBSTANCEABUSE PROGRAM, SOME INFORMATION MAY BE OMITTED. This clinical summary was aggregated from multiple sources. Caution should be exercised in using it in the provision of clinical care. This summary normalizes information from multiple sources, and as a consequence, information in this document may materially change the coding, format and clinical context of patient data. In addition, data may be omitted in some cases. CLINICAL DECISIONS SHOULD BE BASED ON THE PRIMARY CLINICAL RECORDS. [employer] provides no warranty or guarantee of the accuracy or completeness of information in this document.
== END 2025-08-04 18:31 | disposition home or self-care (01) ==
LOC: ED 18:28
PROVIDERS: Emergency Provider Emergency Medicine; PCP Internal Medicine; Visit Provider Emergency Medicine
DX: S80.12XA Contusion of left lower leg, initial encounter (principal); I48.91 Unspecified atrial fibrillation; X58.XXXA Exposure to other specified factors, initial encounter; I10 Essential (primary) hypertension; Z79.01 Long term (current) use of anticoagulants; Z79.899 Other long term (current) drug therapy
CPT/HCPCS: 99282